=== PATIENT | male | born 1930 | race Caucasian/White ===

== ENCOUNTER 2017-01-11 10:58 | Inpatient (IN) | payer OTHER ==
[~2017-01-11] VITALS: Ht 182.9 cm; Wt 80.5 kg
[~2017-01-11 10:58] MED LIST: ASPI325T39 PO; CLB/200 PO; GLIP2.5T11 PO; LINE1TAB2 PO; LZL/125 PO; PRLSR20 PO; SIMV40TA2 PO; SYN100 PO; TAMS0.4C38 PO
[2017-01-11] MEDS ORDERED: SODIUM CHLORIDE 0.9% 1000ML 1,000 ML IV STA ×2 (11:31→12:41)
[2017-01-11] MEDS ORDERED: SODIUM CHLORIDE 0.9% 1000ML 250 ML IV STA (11:31)
--- NOTE | 2017-01-11 11:36 | EMERGENCY ROOM VISIT NOTE ---
History Report prepared by Deisy: Lionel Louise Under the Supervision of: Dr. Miguel Angel Toussaint M.D. First contact with patient: 11:18 Chief Complaint: NAUSEA Stated Complaint: WOOZY, NAUSEA, UNABLE TO STAND, Nursing Triage Summary: triage note: pt reports nausea. family reports that pt has fallen several times since last night. per family "he was seeing orange balls and was trying to get off them." History of Present Illness The patient is an 86 year old demented male who presents to the Emergency Room with complaints of persistent nausea since last night. As per sons, the patient fell multiple times last night. He hit his head and back when he fell. The patient has also been disoriented and was "seeing orange balls" this morning. The patient has had decreased appetite for the past 3-4 days, and has not been drinking much fluids. He denies headache, facial pain, chest pain, shortness of breath, back pain, changes in bowel or urinary habits. The patient was referred to the ED today by Dr. Banks. The patient has a history of TIA and neuropathy. He is on Linezolid for a wound on his left foot. Source of History: patient, family, treating provider Onset: last night Position: other (GI) Quality: other (nausea) Timing: other (persistent) Associated Symptoms: No headache, No chest pain, No SOB, No back pain, No urinary symptoms Review of Systems See HPI for pertinent positives & negatives. A total of 10 systems reviewed and were otherwise negative. Past Medical & Surgical Medical Problems: (1) Benign hypertension (2) Bradycardia (3) Diabetes mellitus (4) Dizziness (5) Osteomyelitis of foot, left, acute (6) TIA (transient ischemic attack) Surgical Problems: (1) S/P cholecystectomy (2) S/P knee replacement Old medical records were reviewed. Nurse's notes were reviewed and I agree with. Family History Diabetes mellitus Gallbladder disease Heart disease Hypertension Leukemia MOTHER CO FATHER Social History Smoking Status: Never Smoker Drug Use: none Marital Status: Housing Status: lives with family Occupation Status: retired Current/Historical Medications Scheduled Aspirin (Aspirin Ec), 325 MG PO NOON Celecoxib (CeleBREX), 200 MG PO BID Glipizide (Glipizide Er), 1 TAB PO QAM Indapamide (Lozol), 1.25 MG PO QAM Levothyroxine Sodium (Levothyroxine Sodium), 100 MG PO DAILY Linezolid (Linezolid), 600 TAB PO BID Omeprazole (Prilosec), 20 MG PO BID Simvastatin (Zocor), 40 MG PO Q2D Tamsulosin Hcl (Flomax), 0.4 MG PO HS Allergies Coded Allergies: No Known Allergies (Verified , 07/10/16) Physical Exam Vital Signs Date Time Temp Pulse Resp B/P (MAP) Pulse Ox O2 Delivery O2 Flow Rate FiO2 01/11/17 13:48 93 Room Air 01/11/17 11:09 36.4 71 20 145/79 93 Room Air Physical Exam General: Non ill appearing older male in no acute distress, breathing comfortably on room air. Normal speech. Alert and oriented x 2 which is baseline per sons. Answers questions appropriately. HEENT: Small bruise on the right scalp. Facial swelling above the eye and cheek which is chronic per sons, area not red or warm.. Pupils are equal round and reactive to light. Extraocular movements are intact. Oropharynx is pink with somewhat dry mucous membranes. No swelling of the mouth lips or tongue. Neck: Supple with a midline trachea. No meningeal signs or stiffness, no JVD or bruits. No Stridor. Chest: Clear to auscultation bilaterally. No wheezes or rhonchi. No increased work of breathing. Heart: regular rate and rhythm. Abdomen: Soft nontender, nondistended without rebound guarding or rigidity. Extremities: No cyanosis clubbing or edema. No calf tenderness or assymetry. Small blister on the left third toe and plantar foot, no significant redness or purulent drainage. Spine/Back. Non tender to palpation. No CVA tenderness Skin: Good turgor without rashes. Neurologic exam: Cranial nerves two through 12 are intact. Motor and sensation are intact and symmetrical throughout. Medical Decision & Procedures ER Provider Diagnostic Interpretation: Radiology results as stated below per my review and radiologist interpretation: CT OF THE HEAD WITHOUT CONTRAST CLINICAL HISTORY: Weakness. Falls. COMPARISON STUDY: Head CT and MRI of the brain May 24, 2016. CT DOSE: 884.08 mGy.cm TECHNIQUE: Helical axial images of the head were obtained without IV contrast. Automated exposure control was utilized for the study. FINDINGS: No acute intracranial hemorrhage, midline shift or mass effect is present. Ventricular system is stable. The basilar cisterns are patent. There are no extra axial collections. White matter hypodensity suggests small vessel disease. There are no findings to suggest acute dural sinus thrombosis or acute territorial infarct. There are no calvarial fractures. Gas within and adjacent to the cavernous sinus is likely venous in location. IMPRESSION: 1. No acute intracranial findings. 2. No calvarial fracture. Electronically signed by: Fredi Ball M.D. 01/11/2017 1:20 PM Dictated Date/Time: 01/11/2017 1:17 PM Laboratory Results 01/11/17 11:45 Red Blood Count 4.02, Mean Corpuscular Volume 84.3, Mean Corpuscular Hemoglobin 29.1, Mean Corpuscular Hemoglobin Concent 34.5, Mean Platelet Volume 10.5, Neutrophils (%) (Auto) 81.2, Lymphocytes (%) (Auto) 10.7, Monocytes (%) (Auto) 7.9, Eosinophils (%) (Auto) 0.0, Basophils (%) (Auto) 0.0, Neutrophils # (Auto) 4.35, Lymphocytes # (Auto) 0.57, Monocytes # (Auto) 0.42, Eosinophils # (Auto) 0.00, Basophils # (Auto) 0.00 01/11/17 11:45 Test 01/11/17 00:00 01/11/17 11:45 01/11/17 11:54 01/11/17 12:20 Urine Osmolality 583 mOms/kg (500-800) Urine Random Sodium 140 mEq/L White Blood Count 5.35 K/uL (4.8-10.8) Red Blood Count 4.02 M/uL (4.7-6.1) Hemoglobin 11.7 g/dL (14.0-18.0) Hematocrit 33.9 % (42-52) Mean Corpuscular Volume 84.3 fL (80-100) Mean Corpuscular Hemoglobin 29.1 pg (25-34) Mean Corpuscular Hemoglobin Concent 34.5 g/dl (32-36) Platelet Count 130 K/uL (130-400) Mean Platelet Volume 10.5 fL (7.4-10.4) Neutrophils (%) (Auto) 81.2 % Lymphocytes (%) (Auto) 10.7 % Monocytes (%) (Auto) 7.9 % Eosinophils (%) (Auto) 0.0 % Basophils (%) (Auto) 0.0 % Neutrophils # (Auto) 4.35 K/uL (1.4-6.5) Lymphocytes # (Auto) 0.57 K/uL (1.2-3.4) Monocytes # (Auto) 0.42 K/uL (0.11-0.59) Eosinophils # (Auto) 0.00 K/uL (0-0.5) Basophils # (Auto) 0.00 K/uL (0-0.2) RDW Standard Deviation 41.6 fL (36.4-46.3) RDW Coefficient of Variation 13.5 % (11.5-14.5) Immature Granulocyte % (Auto) 0.2 % Immature Granulocyte # (Auto) 0.01 K/uL (0.00-0.02) Erythrocyte Sedimentation Rate 2 mm/hr (0-14) Anion Gap 10.0 mmol/L (3-11) Est Creatinine Clear Calc Drug Dose 65.0 ml/min Estimated GFR () 94.6 Estimated GFR (Non- 81.6 BUN/Creatinine Ratio 26.4 (10-20) Osmolality 256 mOsm/kg (280-300) Calcium Level 8.5 mg/dl (8.5-10.1) Total Bilirubin 1.2 mg/dl (0.2-1) Direct Bilirubin 0.4 mg/dl (0-0.2) Aspartate Amino Transf (AST/SGOT) 28 U/L (15-37) Alanine Aminotransferase (ALT/SGPT) 35 U/L (12-78) Alkaline Phosphatase 51 U/L (45-117) C-Reactive Protein < 0.29 mg/dl (0-0.29) Total Protein 6.3 gm/dl (6.4-8.2) Albumin 3.9 gm/dl (3.4-5.0) Lipase 78 U/L (73-393) Thyroid Stimulating Hormone (TSH) 1.180 uIu/ml (0.300-4.500) Bedside Lactic Acid Venous 3.39 mmol/L (0.90-1.70) Lactic Acid Level 3.7 mmol/L (0.4-2.0) Test 01/11/17 13:05 Prothrombin Time 11.4 SECONDS (9.0-12.0) Prothromb Time International Ratio 1.1 (0.9-1.1) Activated Partial Thromboplast Time 31.6 SECONDS (21.0-31.0) Partial Thromboplastin Ratio 1.2 Laboratory studies as stated above per my review. Medications Administered Medications (Trade) Dose Ordered Sig/Alvin Route Start Time Stop Time Status Last Admin Dose Admin Sodium Chloride 250 ml @ 999 mls/hr Q16M STAT IV 01/11/17 11:31 01/11/17 11:46 DC 01/11/17 12:02 999 MLS/HR Sodium Chloride 1,000 ml @ 100 mls/hr Q10H STAT IV 01/11/17 11:31 01/11/17 15:17 DC 01/11/17 12:01 100 MLS/HR Ondansetron HCl (Zofran Inj) 4 mg NOW STAT IV 01/11/17 12:02 01/11/17 12:04 DC 01/11/17 12:08 4 MG ECG Indication: nausea Rate (beats per minute): 59 Rhythm: atrial fibrillation Findings: no acute ischemic change, other (normal QRS) ED Course 1120: Past medical records reviewed. The patient was evaluated in room A4b, and a complete history and physical examination were performed. 1131: NSS 1000 ml @ 100 mls/hr, NSS 250 ml @ 999 mls/hr. 1202: Zofran 4 mg IV. 1241: NSS 1000 ml @ 999 mls/hr. 1245: Rechecked the patient. He looked okay and will soon go to CT scanning. I ordered more fluids. 1248: Discussed the case with Dr. Marc, [facility] Hospitalist. The patient will be evaluated. Medical Decision Differential diagnosis includes dehydration, intracranial process, infection, electrolyte or metabolic abnormality, arrhythmia. Blood Pressure Screening: Patient was found to have a slightly elevated blood pressure due to circumstances. I do not believe that the patient requires hypertension monitoring. Medication Reconciliation: I attest that I have personally reviewed the patient' s current medication list. This patient comes in as described above. He was placed in room A4. He is here for treatment of confusion and falls. He's been more confused and he's not been drinking much. He looks well on exam and has a nonfocal neurologic exam. EKG does not suggest acute coronary syndrome or significant arrhythmia. His electrolytes came back with a sodium of 121 and his last one here was 135. He is significantly hyponatremic. He is receiving IV and will saline lives here. He also had elevated lactic acid in the 3 range was rechecked at the lab as well. He has nothing else to suggest infection or sepsis at this point although he does have chronic antibiotic use for an ulcer on his foot. The ulcer does not appear to be cellulitic or [place] although he could have an infection. He's had no chills or fever or elevation in white count. Blood cultures were obtained. I do think he needs to be admitted for hydration possible antibiotics or at least observation and further treatment and evaluation of his hyponatremia. I did consult Dr. Marc and he saw the patient ER will admit him for these measures. Consults Time Called: 1240 Consulting Physician: Dr. Marc, [facility] Hospitalist Returned Call: 1248 The patient will be evaluated. Impression Primary Impression: Weakness Additional Impressions: Hyponatremia Frequent falls Scribe Attestation The scribe's documentation has been prepared under my direction and personally reviewed by me in its entirety. I confirm that the note above accurately reflects all work, treatment, procedures, and medical decision making performed by me. Departure Information Dispostion Being Evaluated By Hospitalist Referrals Francis Banks M.D. (PCP) Patient Instructions My [facility] Problem Qualifiers
[2017-01-11] MEDS ORDERED: ONDANSETRON INJ 2 MG/ML 2 ML VIAL IV STA (12:02)
[2017-01-11 12:10] LABS: COMPLETE YES; HEMATOCRIT 33.9 % (42-52); IG% 0.2 %; LYMPH % 10.7 %; LYMPH ABS # 0.57 K/uL (1.2-3.4); MEAN CELL VOLUME 84.3 fL (80-100); MEAN CORPUSCULAR HEMOGLOBIN 29.1 pg (25-34); MEAN CORPUSCULAR HGB CONC 34.5 g/dl (32-36); MEAN PLATELET VOLUME 10.5 fL (7.4-10.4); MONO % 7.9 %; NEUT % 81.2 %; PLATELET COUNT 130 K/uL (130-400); RED BLOOD COUNT 4.02 M/uL (4.7-6.1); WHITE BLOOD COUNT 5.35 K/uL (4.8-10.8)
[2017-01-11 12:31] LABS: BUN/CREATININE RATIO 26.4 (10-20); CREATININE 0.77 mg/dl (0.60-1.40)
[2017-01-11] MEDS ORDERED: LEVO100T7 PO (12:42)
--- NOTE | 2017-01-11 13:22 | DIAGNOSTIC IMAGING REPORT ---
CT OF THE HEAD WITHOUT CONTRAST CLINICAL HISTORY: Weakness. Falls. COMPARISON STUDY: Head CT and MRI of the brain May 24, 2016. CT DOSE: 884.08 mGy.cm TECHNIQUE: Helical axial images of the head were obtained without IV contrast. Automated exposure control was utilized for the study. FINDINGS: No acute intracranial hemorrhage, midline shift or mass effect is present. Ventricular system is stable. The basilar cisterns are patent. There are no extra axial collections. White matter hypodensity suggests small vessel disease. There are no findings to suggest acute dural sinus thrombosis or acute territorial infarct. There are no calvarial fractures. Gas within and adjacent to the cavernous sinus is likely venous in location. IMPRESSION: 1. No acute intracranial findings. 2. No calvarial fracture. Electronically signed by: Fredi Ball M.D. 01/11/2017 1:20 PM Dictated Date/Time: 01/11/2017 1:17 PM
[2017-01-11 13:31] LABS: CALCIUM 8.5 mg/dl (8.5-10.1)
[2017-01-11] MEDS ORDERED: ACETAMINOPHEN 325 MG TAB PO PRN (13:45)
[2017-01-11] MEDS ORDERED: GLUCAGON FOR INJ 1 MG VIAL SQ PRN (13:45)
[2017-01-11] MEDS ORDERED: GLUCOSE 10 TABS/TUBE PO PRN (13:45)
[2017-01-11] MEDS ORDERED: POLYETHYLENE (MIRALAX) 17 GM PACK PO PRN (13:45)
[2017-01-11] MEDS ORDERED: ALUMINUM/MAGNESIUM/SIMETH (MAALOX MAX) 30 ML UDC PO PRN (13:45)
[2017-01-11] MEDS ORDERED: MAGNESIUM HYDROXIDE SUSP 30 ML UDC PO PRN (13:45)
[2017-01-11] MEDS ORDERED: DEXTROSE 50% 50 ML SYR IV PRN (13:45)
[2017-01-11] MEDS ORDERED: GLUCOSE 40% GEL 15 GM TUBE PO PRN (13:45)
[2017-01-11 13:48] VITALS: O2SAT 93; Ht 182.9 cm; Wt 80.5 kg
[2017-01-11 13:48] LABS: INR 1.1 (0.9-1.1); PARTIAL THROMBOPLASTIN RATIO 1.2; PROTHROMBIN TIME (PATIENT) 11.4 SECONDS (9.0-12.0)
[2017-01-11] MEDS ORDERED: SODIUM CHLORIDE 0.9% 500ML 500 ML IV STA (13:59)
[2017-01-11] MEDS ORDERED: PIPERACILL/TAZOBAC IV 3.375 GM in DEXTROSE 5% 100ML 100 ML IV SCH (14:00)
[2017-01-11] MEDS ORDERED: HydrALAZINE HCL 20 MG/ML VIAL IV. PRN (14:00)
--- NOTE | 2017-01-11 14:16 | History and Physical ---
History & Physical Date & Time of Service: Jan 11, 2017 at 14:09 Chief Complaint: Woozy, Nausea, Unable To Stand, Primary Care Physician: Francis Banks M.D. History of Present Illness Source: patient, family (sons) Mr. 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 Patient reports feeling well up until last night. He states his nausea was a sudden onset but reports no emesis only dry heaving. He reports improvement with Zofran but has not had complete recovery. Also reporting multiple falls since last night resulting in hitting his head and his upper back. Ecchymosis to the upper back but patient denies pain. He normally ambulates with a walker but sons had to carry him to the car to bring him to the ED. Sons at bedside report he has had a decreased appetite over the past 3-4 days and does not drink a lot of fluids. Sons also state that he has been disoriented and was stating he was seeing "orange balls" and was trying to get off them. He is being treated by wound care and ID for a left foot wound with Linezolid. Sons say he is tolerating this medication well and hasn't been on it since November. Patient is unable to lay flat due to chronic dizziness. He denies fever/chills, headache, chest pain, shortness of breath, vomiting, abdominal pain, dysuria, diarrhea/constipation, melena/hematochezia. In the ED, patient is afebrile without leukocytosis. POC lactic 3.39 with lab repeat of 3.7. Sodium 121. EKG with atrial fibrillation at a rate of 59 bpm without evidence of ischemic changes. Patient will be admitted to telemetry for hyponatremia and possible infection of unknown etiology. Past Medical/Surgical History Medical Problems: (1) Benign hypertension Status: Chronic (2) Diabetes mellitus Status: Chronic (3) TIA (transient ischemic attack) Status: Resolved Surgical Problems: (1) S/P cholecystectomy Status: Resolved (2) S/P knee replacement Status: Resolved Family History Diabetes mellitus Gallbladder disease Heart disease Hypertension Leukemia MOTHER ID FATHER Social History Smoking Status: Never Smoker Smokeless Tobacco Use: No Alcohol Use: none Drug Use: none Marital Status: Housing status: lives with significant other Occupational Status: retired Immunizations History of Influenza Vaccine: Yes Influenza Vaccine Date: May 06, 2012 History of Tetanus Vaccine?: Yes History of Pneumococcal: Unknown Pneumococcal Date: Mar 16, 2012 History of Hepatitis B Vaccine: No Multi-Drug Resistant Organisms History of MDRO: Yes Type of MDRO: MRSA Allergies Coded Allergies: No Known Allergies (Verified , 07/10/16) Home Medications Scheduled Aspirin (Aspirin Ec), 325 MG PO NOON Celecoxib (CeleBREX), 200 MG PO BID Glipizide (Glipizide Er), 1 TAB PO QAM Indapamide (Lozol), 1.25 MG PO QAM Levothyroxine Sodium (Levothyroxine Sodium), 100 MG PO DAILY Linezolid (Linezolid), 600 TAB PO BID Omeprazole (Prilosec), 20 MG PO BID Simvastatin (Zocor), 40 MG PO Q2D Tamsulosin Hcl (Flomax), 0.4 MG PO HS Review of Systems Constitutional: + weakness (generalized), No fever, No chills Eyes: No worsening of vision, No diplopia ENT: No nasal symptoms, No sore throat, No trouble swallowing Respiratory: + cough (intermittent), No sputum, No shortness of breath Cardiovascular: No chest pain, No palpitations Abdomen: + nausea, No pain, No vomiting, No diarrhea, No constipation, No GI bleeding Musculoskeletal: + problem reported (chronic L 3rd toe wound and open wound on plantar aspect from friction blister), No swelling, No calf pain Genitourinary - Male: No dysuria Neurologic: + numbness/tingling (chronic neuropathy), + problem reported ( ambulatory dysfunction) Physical Exam Vital Signs Date Time Temp Pulse Resp B/P (MAP) Pulse Ox O2 Delivery O2 Flow Rate FiO2 01/11/17 13:48 93 Room Air 01/11/17 11:09 36.4 71 20 145/79 93 Room Air General Appearance: WD/WN, no apparent distress, + pertinent finding (nontoxic but appears ill) Head: normocephalic, atraumatic Eyes: PERRL, EOMI, sclerae normal, + pertinent finding (soft tissue around bilateral eyes edematous) ENT: hearing grossly normal, pharynx normal, + pertinent finding (mucous membranes moist) Neck: supple, no JVD, trachea midline Respiratory/Chest: lungs clear, normal breath sounds, no respiratory distress, no accessory muscle use Cardiovascular: no gallop, no murmur, + irregularly irregular Abdomen/GI: normal bowel sounds, non tender, soft Extremities/Musculoskelatal: no calf tenderness, no pedal edema, + pertinent finding (partial amputation of L great toe; small healing wound of 3rd R toe; small superficial open blister wound of plantar aspect of R foot with underlying tissue pink) Neurologic/Psych: alert, + pertinent finding (facial features symmetrical at rest and with motion; no motor deficits appreciated except for L foot drop ( chronic)) Skin: warm/dry, + pallor Diagnostics Laboratory Results Results Past 24 Hours Test 01/11/17 00:00 01/11/17 11:45 01/11/17 11:54 01/11/17 12:20 Range/Units White Blood Count 5.35 4.8-10.8 K/uL Red Blood Count 4.02 4.7-6.1 M/uL Hemoglobin 11.7 14.0-18.0 g/dL Hematocrit 33.9 42-52 % Mean Corpuscular Volume 84.3 80-100 fL Mean Corpuscular Hemoglobin 29.1 25-34 pg Mean Corpuscular Hemoglobin Concent 34.5 32-36 g/dl Platelet Count 130 130-400 K/uL Mean Platelet Volume 10.5 7.4-10.4 fL Neutrophils (%) (Auto) 81.2 % Lymphocytes (%) (Auto) 10.7 % Monocytes (%) (Auto) 7.9 % Eosinophils (%) (Auto) 0.0 % Basophils (%) (Auto) 0.0 % Neutrophils # (Auto) 4.35 1.4-6.5 K/uL Lymphocytes # (Auto) 0.57 1.2-3.4 K/uL Monocytes # (Auto) 0.42 0.11-0.59 K/uL Eosinophils # (Auto) 0.00 0-0.5 K/uL Basophils # (Auto) 0.00 0-0.2 K/uL RDW Standard Deviation 41.6 36.4-46.3 fL RDW Coefficient of Variation 13.5 11.5-14.5 % Immature Granulocyte % (Auto) 0.2 % Immature Granulocyte # (Auto) 0.01 0.00-0.02 K/uL Sodium Level 121 136-145 mmol/L Potassium Level 4.0 3.5-5.1 mmol/L Chloride Level 86 98-107 mmol/L Carbon Dioxide Level 25 21-32 mmol/L Anion Gap 10.0 3-11 mmol/L Blood Urea Nitrogen 20 7-18 mg/dl Creatinine 0.77 0.60-1.40 mg/dl Est Creatinine Clear Calc Drug Dose 65.0 ml/min Estimated GFR () 94.6 Estimated GFR (Non- 81.6 BUN/Creatinine Ratio 26.4 10-20 Random Glucose 161 70-99 mg/dl Calcium Level 8.5 8.5-10.1 mg/dl Total Bilirubin 1.2 0.2-1 mg/dl Direct Bilirubin 0.4 0-0.2 mg/dl Aspartate Amino Transf (AST/SGOT) 28 15-37 U/L Alanine Aminotransferase (ALT/SGPT) 35 12-78 U/L Alkaline Phosphatase 51 45-117 U/L Total Protein 6.3 6.4-8.2 gm/dl Albumin 3.9 3.4-5.0 gm/dl Lipase 78 73-393 U/L Bedside Lactic Acid Venous 3.39 0.90-1.70 mmol/L Lactic Acid Level 3.7 0.4-2.0 mmol/L Test 01/11/17 13:05 Range/Units Prothrombin Time 11.4 9.0-12.0 SECONDS Prothromb Time International Ratio 1.1 0.9-1.1 Activated Partial Thromboplast Time 31.6 21.0-31.0 SECONDS Partial Thromboplastin Ratio 1.2 Microbiology Results 01/11/17 Blood Culture, Received Pending 01/11/17 Blood Culture, Received Pending Diagnostic Radiology CT OF THE HEAD WITHOUT CONTRAST FINDINGS: No acute intracranial hemorrhage, midline shift or mass effect is present. Ventricular system is stable. The basilar cisterns are patent. There are no extra axial collections. White matter hypodensity suggests small vessel disease. There are no findings to suggest acute dural sinus thrombosis or acute territorial infarct. There are no calvarial fractures. Gas within and adjacent to the cavernous sinus is likely venous in location. IMPRESSION: 1. No acute intracranial findings. 2. No calvarial fracture. EKG EKG reviewed. Atrial fibrillation at rate of 59 bpm without evidence of ischemic changes. Impression Assessment and Plan Mr. 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 Elevated Lactic Acid Suspect Infection - Unknown Source: POC Lactic 3.3 with Repeat 3.7 - H/O diabetic MSSA foot wound on Linezolid since November - follows with Dr. Zamora and wound clinic -- New R plantar aspect food wound from friction blister - superficial without significant signs of infection - U/A and BCx - pending - Obtain CXR - ESR/CRP - can consider echo R/O endocarditis pending results - Fluid given in ED - will bolus with 500 mL x 1 and then run NSS at 100 mL/hr - Repeat lactic acid 3.7 -- PRN Hydralazine for hypertension caused by fluid resuscitation - Hold Linezolid and start Vancomycin and Zosyn per pharmacy dosing for broader coverage Hyponatremia: SIADH? 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 and New Open Blister Wound on Plantar Aspect of L Foot: MSSA - Hold Linezolid and broaden coverage as above - Consult wound care and ID Permanent Atrial Fibrillation with Slow Ventricular Response: - Improved since D/C of Verapamil in 2016 - ASA 325 mg daily - no AC due to frequent falls HTN: - Hold Lozol due to hyponatremia and use PRN Hydralazine T2DM: A1c - Hold Glipizide and implement SSI - Zocor 40 mg Q2D Hypothyroidism: - Check TSH - Synthroid 100 mcg daily BPH: - Flomax 0.4 mg daily DVT Prophylaxis: Lovenox 40 mg SC daily Code Status: FULL RESUSCITATION Disposition: - From home and utilizes walker for ambulation - son had to carry patient to car to come to ED - PT/OT evaluations PA Physician Supervision Note: I interviewed and examined the patient. Discussed with Kymberly Pelayo PAC and agree with findings and plan as documented in the note. Any exceptions or clarifications are listed here: None Patient brought to the ER for increasing falls and confusion, found to have a sodium of 121. 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 Vital signs are stable. Oropharynx is clear, no cervical adenopathy, lungs are clear, abdomen exam is benign, foot wound looks clean and dry, open area left plantar foot looks uninfected Given elevated lactic acid will hydrate aggressively with normal saline and repeat Given chronic osteomyelitis infection will hold Zyvox due to hyponatremia and start. And gram-negative coverage given lactic acid with concern for sepsis Hyponatremia will be treated by fluid restriction and saline infusion. Documented By: Gutierrez Marc Level of Care Telemetry Advanced Directives Existing Living Will: Yes Existing Power of Hydroelectric Plant Structural Engineer: Yes Resuscitation Status FULL RESUSCITATION VTE Prophylaxis VTE Risk Assessment Done? Y/N: Yes Risk Level: Moderate Given or contraindicated: Enoxaparin (Lovenox)SQ
[2017-01-11 16:00] VITALS: BP 159/72; PULSE 81; TEMP 36.7; O2SAT 98; O2SAT 99
[2017-01-11] MEDS ORDERED: PIPERACILL/TAZOBAC CONSULT ACTIVE PRN (16:00)
[2017-01-11] MEDS ORDERED: PIPERACILL/TAZOBAC IV 3.375 GM in DEXTROSE 5% 100ML IV ONE (16:00)
[2017-01-11] MEDS ORDERED: VANCOMYCIN CONSULT ACTIVE PRN (16:00)
[2017-01-11] MEDS ORDERED: VANCOMYCIN INJ 1,750 MG in SODIUM CHLORIDE 0.9% 500ML 500 ML IV ONE (16:00)
--- NOTE | 2017-01-11 16:11 | Pharmacy Progress Note ---
Pharmacy Abx Initial Consult Date of Service Jan 11, 2017. Pharmacy Dosing Scope Date of Consult: 01/11/17 Consultation requested by: Kymberly Pelayo [facility] is consulted to initiate Vanco/Zosyn IV dosing therapy, order appropriate labs and adjust drug dose/frequency. Subjective The patient is a 86 year old male admitted on Jan 11, 2017 at 13:55. Objective Height (Feet): 6 Height (Inches): 0.00 Weight (Kilograms): 69.000 Vital Signs (Past 12Hrs) Vital Signs Past 12 Hours Date Time Temp Pulse Resp B/P (MAP) Pulse Ox O2 Delivery O2 Flow Rate FiO2 01/11/17 14:16 36.4 71 20 93 01/11/17 13:48 93 Room Air 01/11/17 11:09 36.4 71 20 145/79 93 Room Air Lab Results (24Hrs) Laboratory Tests (24 Hours) Test 01/11/17 11:45 01/11/17 12:20 C-Reactive Protein < 0.29 mg/dl (0-0.29) Erythrocyte Sedimentation Rate 2 mm/hr (0-14) White Blood Count 5.35 K/uL (4.8-10.8) Red Blood Count 4.02 M/uL (4.7-6.1) L Hemoglobin 11.7 g/dL (14.0-18.0) L Hematocrit 33.9 % (42-52) L Mean Corpuscular Volume 84.3 fL (80-100) Mean Corpuscular Hemoglobin 29.1 pg (25-34) Mean Corpuscular Hemoglobin Concent 34.5 g/dl (32-36) Platelet Count 130 K/uL (130-400) Mean Platelet Volume 10.5 fL (7.4-10.4) H Neutrophils (%) (Auto) 81.2 % Lymphocytes (%) (Auto) 10.7 % Monocytes (%) (Auto) 7.9 % Eosinophils (%) (Auto) 0.0 % Basophils (%) (Auto) 0.0 % Neutrophils # (Auto) 4.35 K/uL (1.4-6.5) Lymphocytes # (Auto) 0.57 K/uL (1.2-3.4) L Monocytes # (Auto) 0.42 K/uL (0.11-0.59) Eosinophils # (Auto) 0.00 K/uL (0-0.5) Basophils # (Auto) 0.00 K/uL (0-0.2) Lactic Acid Level 3.7 mmol/L (0.4-2.0) *H Micro Results Date/Time Source Procedure Growth Status 01/11/17 11:50 Blood Blood Culture Pending Received 01/11/17 11:45 Blood Blood Culture Pending Received 01/11/17 00:00 Urine , Clean Catch Urine Culture Pending Received Risk Factors for Resistance * 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 Pt at present: afebrile, WBC/HR/RR all WNL. His renal fxn looks to be close to baseline. Pt population p'kinetics: t1/2=11.8, ke=0.0584, Vd=0.6. 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 Vanco: * Vanco 1750mg (~25mg/kg) x1 at 1600 to achieve a peak of about 40mcg/mL * Then: Vanco 1000mg (~15mg/kg) q14 set to start 0200 on 01/12/17 * Trough ordered for 01/13/17 @ 0530 prior to the third Md * Goal trough: 15-20mcg/mL until c/s's result Zosyn: * 30min infsn Zosyn 3.375g at 1600 * Then EI Zosyn 3.375 q8 starting at 2200. appropariate for eCrCl>20cc/min and clinical status Pharmacy will continue to follow and will adjust dose/frequency as necessary. Thank you.
[2017-01-11] MEDS: INSULIN ASPART 100 UNITS/ML 3 ML PEN SC SCH ×2 (16:15→21:00)
[2017-01-11] MEDS: SODIUM CHLORIDE 0.9% 1000ML 1,000 ML IV SCH (16:26)
[2017-01-11] MEDS: ENOXAPARIN 40 MG/0.4 ML SYR SC SCH (16:26)
[2017-01-11 19:23] VITALS: BP 166/89; PULSE 82; TEMP 36.4; O2SAT 97
[2017-01-11 20:00] VITALS: BP 166/70
[2017-01-11] MEDS: ONDANSETRON INJ 2 MG/ML 2 ML VIAL IV PRN (20:36)
[2017-01-11] MEDS ORDERED: VANCOMYCIN INJ 1,000 MG in SODIUM CHLORIDE 0.9% 250ML 250 ML IV SCH (21:00)
[2017-01-11] MEDS ORDERED: CeleBREX 200 MG CAP PO SCH (21:00)
[2017-01-11] MEDS: TAMSULOSIN HCL 0.4 MG CAP PO SCH (21:23)
[2017-01-11] MEDS: PANTOprazole SOD 40 MG TAB PO SCH (21:23)
--- NOTE | 2017-01-11 22:02 | DIAGNOSTIC IMAGING REPORT ---
RIGHT RIBS UNILATERAL WITH PA CHEST CLINICAL HISTORY: Fall. Right posterior rib pain. COMPARISON STUDY: Chest radiograph May 24, 2016. FINDINGS: A large hiatal hernia is again noted. Lung volumes are diminished. There is no pneumothorax or evidence of pulmonary edema. No lobar consolidation is identified. There is a nondisplaced fracture of the anterior right seventh rib and a mildly displaced fracture of the anterior right eighth rib. These fractures are age indeterminate. No additional right-sided rib fractures are identified. IMPRESSION: 1. No pneumothorax. Age indeterminate fractures of the anterior right seventh and eighth ribs. 2. Large hiatal hernia. Electronically signed by: Fredi Ball M.D. 01/11/2017 10:01 PM Dictated Date/Time: 01/11/2017 9:55 PM
[2017-01-11] MEDS: PIPERACILL/TAZOBAC IV 3.375 GM in DEXTROSE 5% 100ML IV SCH (22:03)
[2017-01-11 23:54] VITALS: BP 152/85; PULSE 79; TEMP 36.9; O2SAT 94
[2017-01-12] VITALS (7 sets, daily range): BP systolic 119–145; BP diastolic 73–86; PULSE 56–90; TEMP 36.3–36.8; O2SAT 96–100
[2017-01-12] MEDS: VANCOMYCIN INJ 1,000 MG in SODIUM CHLORIDE 0.9% 250ML 250 ML IV SCH ×2 (01:30→17:59)
[2017-01-12] MEDS: SODIUM CHLORIDE 0.9% 1000ML 1,000 ML IV SCH ×2 (01:30→10:34)
[2017-01-12] MEDS: PIPERACILL/TAZOBAC IV 3.375 GM in DEXTROSE 5% 100ML IV SCH ×3 (05:50→21:52)
[2017-01-12] MEDS: LEVOTHYROXINE 100 MCG TAB PO SCH (05:50)
[2017-01-12 06:14] LABS: HEMATOCRIT 28.5 % (42-52); MEAN CELL VOLUME 83.6 fL (80-100); MEAN CORPUSCULAR HEMOGLOBIN 29.9 pg (25-34); MEAN CORPUSCULAR HGB CONC 35.8 g/dl (32-36); MEAN PLATELET VOLUME 10.5 fL (7.4-10.4); PLATELET COUNT 129 K/uL (130-400); RED BLOOD COUNT 3.41 M/uL (4.7-6.1); WHITE BLOOD COUNT 4.52 K/uL (4.8-10.8)
[2017-01-12 06:40] LABS: BUN/CREATININE RATIO 21.3 (10-20); CALCIUM 7.4 mg/dl (8.5-10.1); CREATININE 0.67 mg/dl (0.60-1.40); MAGNESIUM 1.8 mg/dl (1.8-2.4); POTASSIUM 3.5 mmol/L (3.5-5.1)
[2017-01-12] MEDS: INSULIN ASPART 100 UNITS/ML 3 ML PEN SC SCH ×4 (07:00→20:47)
[2017-01-12] MEDS ORDERED: LEVOTHYROXINE 100 MCG TAB PO SCH (09:00)
[2017-01-12] MEDS: PANTOprazole SOD 40 MG TAB PO SCH ×2 (10:29→20:47)
[2017-01-12] MEDS: ASPIRIN 325 MG ECTAB PO SCH (10:29)
[2017-01-12] MEDS: SIMVASTATIN 40 MG TAB PO SCH (10:29)
[2017-01-12 12:26] LABS: URINE APPEARANCE CLOUDY (CLEAR); URINE BILIRUBIN NEG (NEG); URINE COLOR YELLOW; URINE EPITHELIAL CELL AUTO 20-30 /lpf (0-5); URINE NITRITE NEG (NEG); URINE SPECIFIC GRAVITY 1.025 (1.000-1.030); UROBILINOGEN NEG (NEG)
--- NOTE | 2017-01-12 12:31 | Hospitalist Progress Note ---
Hospitalist Progress Note Date of Service Jan 12, 2017. Subjective Pt evaluation today including: conversation w/ patient, physical exam, chart review, lab review, review of studies, review of inpatient medication list Patient seen and evaluated. No acute events overnight. Tele monitoring reveals rate controlled A Fib/Flutter. Patient is up in bedside chair and reports minimal nausea but no dry heaving. Verbalizes no other complaints. Lactic acid level is trending down and will repeat. R 7-8 ribs show age indeterminant fx. Na mildly improved to 122 Constitutional: No fever, No chills Respiratory: No shortness of breath Cardiovascular: No chest pain Abdomen: + nausea, No pain, No vomiting, No diarrhea, No constipation Musculoskeletal: No swelling, No calf pain Male : No dysuria Medications Current Inpatient Medications Medications (Trade) Dose Ordered Sig/Alvin Route Start Time Stop Time Status Last Admin Dose Admin Enoxaparin Sodium (Lovenox Inj) 40 mg Q24H SC 01/11/17 16:00 02/10/17 15:59 01/11/17 16:26 40 MG Acetaminophen (Tylenol Tab) 650 mg Q4H PRN PO 01/11/17 13:45 02/10/17 13:44 Al Hydrox/Mg Hydrox/Simethicone (Maalox Max Susp) 15 ml Q4H PRN PO 01/11/17 13:45 02/10/17 13:44 Magnesium Hydroxide (Milk Of Magnesia Susp) 30 ml Q12H PRN PO 01/11/17 13:45 02/10/17 13:44 Ondansetron HCl (Zofran Inj) 4 mg Q6H PRN IV 01/11/17 13:45 02/10/17 13:44 01/11/17 20:36 4 MG Polyethylene (Miralax Powder Packet) 17 gm DAILY PRN PO 01/11/17 13:45 02/10/17 13:44 Insulin Aspart (novoLOG ASPART) SLIDING SCALE If C... ACHS SC 01/11/17 16:15 02/10/17 16:14 Glucose (Glucose 40% Gel) 15-30 GRAMS 15 GRAMS... UD PRN PO 01/11/17 13:45 02/10/17 13:44 Glucose (Glucose Chew Tab) 4-8 Tablets 4 Tabl... UD PRN PO 01/11/17 13:45 02/10/17 13:44 Dextrose (Dextrose 50% 50ML Syringe) 25-50ML OF 50% DW IV FOR... UD PRN IV 01/11/17 13:45 02/10/17 13:44 Glucagon (Glucagon Inj) 1 mg UD PRN SQ 01/11/17 13:45 02/10/17 13:44 Aspirin (Ecotrin Tab) 325 mg DAILY PO 01/12/17 12:00 02/11/17 11:59 01/12/17 10:29 325 MG Celecoxib (CeleBREX CAP) 200 mg BID PO 01/11/17 21:00 02/10/17 20:59 Future Hold 01/11/17 21:23 200 MG Simvastatin (Zocor Tab) 40 mg Q2D@0900 PO 01/12/17 09:00 02/11/17 08:59 01/12/17 10:29 40 MG Tamsulosin HCl (Flomax Cap) 0.4 mg HS PO 01/11/17 21:00 02/10/17 20:59 01/11/17 21:23 0.4 MG Pantoprazole Sodium (Protonix Tab) 40 mg BID PO 01/11/17 21:00 02/10/17 20:59 01/12/17 10:29 40 MG Hydralazine HCl (HydrALAZINE INJ) 10 mg Q6 PRN IV. 01/11/17 14:00 02/10/17 13:59 Sodium Chloride 1,000 ml @ 100 mls/hr Q10H IV 01/11/17 14:00 02/10/17 13:59 01/12/17 10:34 100 MLS/HR Levothyroxine Sodium (Synthroid Tab) 100 mcg DAILYBB PO 01/12/17 06:00 02/11/17 05:59 01/12/17 05:50 100 MCG Vancomycin HCl 1000 mg/Sodium Chloride 270 ml @ 125 mls/hr Q14H IV 01/12/17 02:00 01/22/17 01:59 01/12/17 01:30 125 MLS/HR Vancomycin HCl (Consult) 1 ea UD PRN N/A 01/11/17 16:00 02/10/17 15:59 Piperacillin Sod/ Tazobactam Sod 3.375 gm/Dextrose 115 ml @ 28.75 mls/ hr Q8H IV 01/11/17 22:00 01/21/17 21:59 01/12/17 12:07 28.75 MLS/HR Piperacillin Sod/ Tazobactam Sod (Consult) 1 ea UD PRN N/A 01/11/17 16:00 02/10/17 15:59 Objective Vital Signs Date Time Temp Pulse Resp B/P (MAP) Pulse Ox O2 Delivery O2 Flow Rate FiO2 01/12/17 11:03 36.6 57 18 125/75 (92) 99 Room Air 01/12/17 07:28 36.8 72 18 138/77 (97) 96 Room Air 01/12/17 04:00 Room Air 01/12/17 03:47 36.3 90 18 145/86 (105) 98 Room Air 01/12/17 00:00 Room Air 01/11/17 23:54 36.9 79 16 152/85 (107) 94 Room Air 01/11/17 20:00 Room Air 01/11/17 19:23 36.4 82 20 166/89 (114) 97 Room Air 01/11/17 16:00 36.7 81 18 159/72 (101) 98 Room Air 01/11/17 16:00 99 Room Air 01/11/17 14:16 36.4 71 20 93 01/11/17 13:48 93 Room Air Physical Exam General Appearance: no apparent distress Eyes: sclerae normal ENT: hearing grossly normal Neck: supple, no JVD, trachea midline Respiratory/Chest: lungs clear, normal breath sounds, no respiratory distress, no accessory muscle use Cardiovascular: + irregularly irregular Abdomen: normal bowel sounds, non tender, soft Neurologic/Psychiatric: alert Skin: normal color, warm/dry Laboratory Results Last 24 Hours Test 01/11/17 13:05 01/11/17 15:57 01/11/17 20:18 01/12/17 05:21 Prothrombin Time 11.4 SECONDS Prothromb Time International Ratio 1.1 Activated Partial Thromboplast Time 31.6 SECONDS Partial Thromboplastin Ratio 1.2 Bedside Glucose 126 mg/dl 144 mg/dl White Blood Count 4.52 K/uL Red Blood Count 3.41 M/uL Hemoglobin 10.2 g/dL Hematocrit 28.5 % Mean Corpuscular Volume 83.6 fL Mean Corpuscular Hemoglobin 29.9 pg Mean Corpuscular Hemoglobin Concent 35.8 g/dl RDW Standard Deviation 40.9 fL RDW Coefficient of Variation 13.5 % Platelet Count 129 K/uL Mean Platelet Volume 10.5 fL Sodium Level 122 mmol/L Potassium Level 3.5 mmol/L Chloride Level 88 mmol/L Carbon Dioxide Level 24 mmol/L Anion Gap 10.0 mmol/L Blood Urea Nitrogen 14 mg/dl Creatinine 0.67 mg/dl Est Creatinine Clear Calc Drug Dose 75.8 ml/min Estimated GFR () 100.1 Estimated GFR (Non- 86.4 BUN/Creatinine Ratio 21.3 Random Glucose 115 mg/dl Calcium Level 7.4 mg/dl Magnesium Level 1.8 mg/dl Test 01/12/17 06:48 01/12/17 09:28 01/12/17 11:02 01/12/17 12:00 Bedside Glucose 112 mg/dl 166 mg/dl Lactic Acid Level 2.6 mmol/L Test 01/12/17 12:17 Assessment and Plan Mr. 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 Elevated Lactic Acid Suspect Infection - Unknown Source: LACTIC TRENDING DOWN - H/O diabetic MSSA foot wound on Linezolid since November - follows with Dr. Zamora and wound clinic -- New R plantar aspect food wound from friction blister - superficial without significant signs of infection - U/A and BCx - pending - CXR - no consolidation or nodules appreciated; evidence of age indeterminant fx of 7-8 ribs - IVF at 100 mL/hr -- PRN Hydralazine for hypertension caused by fluid resuscitation - Hold Linezolid and start Vancomycin and Zosyn per pharmacy dosing for broader coverage - Repeat lactic and BMP now. Add procalcitonin and random cortisol -- Elevated lactic from trauma? 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 and New Open Blister Wound on Plantar Aspect of L Foot: MSSA - Hold Linezolid and broaden coverage as above - Consult wound care and ID Permanent Atrial Fibrillation with Slow Ventricular Response: STABLE - Improved since D/C of Verapamil in 2016 - ASA 325 mg daily - no AC due to frequent falls HTN: - Hold Lozol due to hyponatremia and use PRN Hydralazine T2DM: A1c - Hold Glipizide and implement SSI - records reviewed that this was D/C'd will discuss with family if patient takes at home - Zocor 40 mg Q2D Hypothyroidism: - TSH WNL - Synthroid 100 mcg daily BPH: - Flomax 0.4 mg daily DVT Prophylaxis: Lovenox 40 mg SC daily Code Status: FULL RESUSCITATION Disposition: - From home and utilizes walker for ambulation - son had to carry patient to car to come to ED - PT/OT evaluations - recommendations for SNF - Will discuss plan with family today Continued [facility] stay due to: multiple IV medications needed Discharge planning: uncertain
[2017-01-12 12:34] LABS: MANUAL MICROSCOPIC REQUIRED? NO; REVIEW REQ? NO
[2017-01-12] MEDS ORDERED: SODIUM CHLORIDE 1 GM TAB PO ONE (13:17)
[2017-01-12 13:49] LABS: BUN/CREATININE RATIO 17.4 (10-20); CALCIUM 7.5 mg/dl (8.5-10.1); CREATININE 0.88 mg/dl (0.60-1.40); POTASSIUM 3.7 mmol/L (3.5-5.1)
[2017-01-12] MEDS: ONDANSETRON INJ 2 MG/ML 2 ML VIAL IV PRN ×2 (14:13→18:00)
[2017-01-12] MEDS ORDERED: OPTIRAY 320 IV PRN (14:15)
[2017-01-12] MEDS: ENOXAPARIN 40 MG/0.4 ML SYR SC SCH (16:00)
--- NOTE | 2017-01-12 17:24 | DIAGNOSTIC IMAGING REPORT ---
CT SCAN OF THE CHEST, ABDOMEN, AND PELVIS WITH IV CONTRAST CLINICAL HISTORY: Lactic acidosis. Vomiting. COMPARISON STUDY: Chest x-ray dated 05/24/2016. TECHNIQUE: Following the IV administration of 108 of Optiray 320, CT scan of the chest, abdomen, and pelvis was performed from the thoracic inlet to the proximal femora. Images are reviewed in the axial, sagittal, and coronal planes. IV contrast was administered without complication. Automated dose control exposure was utilized. The examination is degraded by streak artifact from the patient's arms which could not be elevated above the abdomen or pelvis. CT DOSE: 1368.09 mGy.cm FINDINGS: CHEST: Thyroid: Markedly atrophic. Thoracic aorta: There is atherosclerotic calcification of the thoracic aorta, which is normal in caliber and demonstrates standard 3-vessel arch anatomy. No dissection is seen. Pulmonary vasculature: The pulmonary trunk is normal in caliber. There are no filling defects identified in the central pulmonary vessels to indicate pulmonary was. Note that this examination was not protocoled for evaluation of the pulmonary arteries. Heart: The heart is enlarged and without pericardial effusion. The coronary arteries are densely calcified. Lungs and pleural spaces: There are small right and trace left pleural effusions with bibasilar atelectasis. No airspace consolidation is seen typical for pneumonia. The trachea and central airways are clear. Punctate calcified granulomas are noted at the lung bases. Mediastinum: There is no mediastinal lymphadenopathy. Radha: Clear. Axillae: There is no axillary lymphadenopathy. Bony thorax: The skeletal structures are osteopenic. Degenerative change and hyperkyphosis are noted in the thoracic spine. Mild compression deformities are seen in the midthoracic region. No lytic or blastic lesions are identified. Advanced arthritic change is noted in the shoulders. ABDOMEN AND PELVIS: Liver: The contrast-enhanced liver is normal in size and contour. Hepatic attenuation is slightly heterogeneous. There is minimal central intrahepatic or ductal dilatation. There are scattered calcified hepatic granulomas. Mild periportal edema is suggested. The hepatic veins and portal veins are patent. Gallbladder: Surgically absent. Spleen: Normal in size and attenuation. There are calcified splenic granulomas. Pancreas: The pancreas is atrophic. The pancreatic body and tail are contained within the large hiatal hernia. Adrenal glands: Unremarkable. Kidneys: The contrast enhanced kidneys are atrophic and without hydronephrosis. The kidneys enhance symmetrically. Abdominal vasculature: The abdominal aorta is normal in course and caliber noting moderate to advanced atherosclerotic calcification. Stomach and bowel: There is a large hiatal hernia, with the majority of the stomach located in the thoracic cavity. The duodenum is normal in configuration. There is no bowel obstruction. There is mild colonic diverticulosis without CT evidence of acute diverticulitis. Moderate colonic fecal retention is observed. The appendix is normal as visualized. Peritoneum: There is trace perisplenic free fluid as well as trace free fluid in the right lower quadrant and pelvis. No intraperitoneal free air is seen. Lymphadenopathy: None. Pelvic viscera: The the prostate gland is mildly enlarged and heterogeneous, measuring 5.9 cm in diameter. There is medial lobe hypertrophy. There is mild uncovertebral bladder wall thickening and a bladder diverticulum is noted. Skeletal structures: The skeletal structures are osteopenic. There is moderate to advanced lumbosacral spondylosis. There are postoperative changes from extensive lumbar laminectomy. Advanced arthritic change is present in the hips. No lytic or blastic lesions are seen. IMPRESSION: 1. Small right and trace left pleural effusions. No airspace consolidation is seen. 2. Cardiomegaly. 3. Large hiatal hernia, with the majority the stomach located in the thoracic cavity. 4. There is trace 3 fluid within the abdomen and pelvis. 5. Moderate constipation. No bowel obstruction is seen. 6. Mild colonic diverticulosis without CT evidence of acute diverticulitis. 7. Prostatomegaly with evidence of chronic bladder obstruction. 8. Additional findings as above. Electronically signed by: Carlos Mix M.D. 01/12/2017 5:23 PM Dictated Date/Time: 01/12/2017 5:07 PM
[2017-01-12] MEDS: TAMSULOSIN HCL 0.4 MG CAP PO SCH (20:47)
[2017-01-13] VITALS (10 sets, daily range): BP systolic 105–159; BP diastolic 57–88; PULSE 53–83; TEMP 36.3–36.9; O2SAT 93–99
[2017-01-13] MEDS: SODIUM CHLORIDE 0.9% 1000ML 1,000 ML IV SCH (00:47)
[2017-01-13] MEDS ORDERED: VANCOMYCIN TROUGH ONE (05:30)
[2017-01-13 05:59] LABS: HEMATOCRIT 28.2 % (42-52); MEAN CELL VOLUME 83.9 fL (80-100); MEAN CORPUSCULAR HEMOGLOBIN 29.8 pg (25-34); MEAN CORPUSCULAR HGB CONC 35.5 g/dl (32-36); PLATELET COUNT 120 K/uL (130-400); RED BLOOD COUNT 3.36 M/uL (4.7-6.1); WHITE BLOOD COUNT 5.42 K/uL (4.8-10.8)
[2017-01-13 06:41] LABS: BUN/CREATININE RATIO 13.9 (10-20); CREATININE 0.8 mg/dl (0.60-1.40); MAGNESIUM 1.7 mg/dl (1.8-2.4); POTASSIUM 3.5 mmol/L (3.5-5.1)
[2017-01-13] MEDS: VANCOMYCIN INJ 1,000 MG in SODIUM CHLORIDE 0.9% 250ML 250 ML IV SCH (06:44)
[2017-01-13] MEDS: PIPERACILL/TAZOBAC IV 3.375 GM in DEXTROSE 5% 100ML IV SCH ×3 (06:44→21:43)
[2017-01-13] MEDS: LEVOTHYROXINE 100 MCG TAB PO SCH (06:45)
[2017-01-13] MEDS: INSULIN ASPART 100 UNITS/ML 3 ML PEN SC SCH ×4 (07:00→21:00)
[2017-01-13 07:52] LABS: ESTIMATED AVERAGE GLUCOSE 163 mg/dl; HA1C FLAG Normal (Normal)
[2017-01-13] MEDS: SODIUM CHLORIDE 1 GM TAB PO SCH (09:03)
[2017-01-13] MEDS: ASPIRIN 325 MG ECTAB PO SCH (09:03)
[2017-01-13] MEDS: PANTOprazole SOD 40 MG TAB PO SCH ×2 (09:04→21:18)
--- NOTE | 2017-01-13 10:26 | Medical Consult ---
Consultation Date of Consultation: Jan 13, 2017. Attending Physician: Barber Grossman MD, PhD Reason for Consultation: Chronic foot wound - suspect other infection. 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 He has had nausea with anorexia, no significant vomiting or diarrhea noted. No fever or chills. He has been tolerating his antibiotics without apparent difficulty. Denies any drainage from left 3rd toe wound, no increase in pain or erythema. Past Medical/Surgical History Medical Problems: (1) Frequent falls Status: Acute (2) Hyponatremia Status: Acute (3) Weakness Status: Acute (4) Weakness Status: Acute Medical Problems: (1) Benign hypertension (2) Bradycardia (3) Diabetes mellitus (4) Dizziness (5) Osteomyelitis of foot, left, acute (6) TIA (transient ischemic attack) Surgical Problems: (1) S/P cholecystectomy (2) S/P knee replacement Family History Diabetes mellitus Gallbladder disease Heart disease Hypertension Leukemia MOTHER IA FATHER Social History Smoking Status: Never Smoker Smokeless Tobacco Use: No Alcohol Use: none Drug Use: none Marital Status: Housing Status: lives with family Occupation Status: retired Allergies Coded Allergies: No Known Allergies (Verified , 07/10/16) Current Inpatient Medications Current Inpatient Medications Medications (Trade) Dose Ordered Sig/Alvin Route Start Time Stop Time Status Last Admin Dose Admin Enoxaparin Sodium (Lovenox Inj) 40 mg Q24H SC 01/11/17 16:00 02/10/17 15:59 01/12/17 16:00 40 MG Acetaminophen (Tylenol Tab) 650 mg Q4H PRN PO 01/11/17 13:45 02/10/17 13:44 Al Hydrox/Mg Hydrox/Simethicone (Maalox Max Susp) 15 ml Q4H PRN PO 01/11/17 13:45 02/10/17 13:44 Magnesium Hydroxide (Milk Of Magnesia Susp) 30 ml Q12H PRN PO 01/11/17 13:45 02/10/17 13:44 Ondansetron HCl (Zofran Inj) 4 mg Q6H PRN IV 01/11/17 13:45 02/10/17 13:44 01/12/17 18:00 4 MG Polyethylene (Miralax Powder Packet) 17 gm DAILY PRN PO 01/11/17 13:45 02/10/17 13:44 01/13/17 09:59 17 GM Insulin Aspart (novoLOG ASPART) SLIDING SCALE If C... ACHS SC 01/11/17 16:15 02/10/17 16:14 Glucose (Glucose 40% Gel) 15-30 GRAMS 15 GRAMS... UD PRN PO 01/11/17 13:45 02/10/17 13:44 Glucose (Glucose Chew Tab) 4-8 Tablets 4 Tabl... UD PRN PO 01/11/17 13:45 02/10/17 13:44 Dextrose (Dextrose 50% 50ML Syringe) 25-50ML OF 50% DW IV FOR... UD PRN IV 01/11/17 13:45 02/10/17 13:44 Glucagon (Glucagon Inj) 1 mg UD PRN SQ 01/11/17 13:45 02/10/17 13:44 Aspirin (Ecotrin Tab) 325 mg DAILY PO 01/12/17 12:00 02/11/17 11:59 01/13/17 09:03 325 MG Celecoxib (CeleBREX CAP) 200 mg BID PO 01/11/17 21:00 02/10/17 20:59 Future Hold 01/11/17 21:23 200 MG Simvastatin (Zocor Tab) 40 mg Q2D@0900 PO 01/12/17 09:00 02/11/17 08:59 01/12/17 10:29 40 MG Tamsulosin HCl (Flomax Cap) 0.4 mg HS PO 01/11/17 21:00 02/10/17 20:59 01/12/17 20:47 0.4 MG Pantoprazole Sodium (Protonix Tab) 40 mg BID PO 01/11/17 21:00 02/10/17 20:59 01/13/17 09:04 40 MG Hydralazine HCl (HydrALAZINE INJ) 10 mg Q6 PRN IV. 01/11/17 14:00 02/10/17 13:59 Sodium Chloride 1,000 ml @ 50 mls/hr Q20H IV 01/11/17 14:00 02/10/17 13:59 01/13/17 00:47 50 MLS/HR Levothyroxine Sodium (Synthroid Tab) 100 mcg DAILYBB PO 01/12/17 06:00 02/11/17 05:59 01/13/17 06:45 100 MCG Vancomycin HCl (Consult) 1 ea UD PRN N/A 01/11/17 16:00 02/10/17 15:59 Piperacillin Sod/ Tazobactam Sod 3.375 gm/Dextrose 115 ml @ 28.75 mls/ hr Q8H IV 01/11/17 22:00 01/21/17 21:59 01/13/17 06:44 28.75 MLS/HR Piperacillin Sod/ Tazobactam Sod (Consult) 1 ea UD PRN N/A 01/11/17 16:00 02/10/17 15:59 Sodium Chloride (Sodium Chloride Tab) 1 gm DAILY PO 01/13/17 09:00 02/12/17 08:59 01/13/17 09:03 1 GM Ioversol (Optiray 320) 111 ml UD PRN IV 01/12/17 14:15 01/16/17 14:14 Vancomycin HCl 1200 mg/Sodium Chloride 274 ml @ 125 mls/hr Q12H IV 01/13/17 18:00 01/22/17 01:59 Review of Systems Constitutional: + weakness, + fatigue, No fever Eyes: No problem reported ENT: No problem reported Respiratory: No problem reported Cardiovascular: No problem reported Abdomen: + nausea Musculoskeletal: No problem reported Genitourinary - Male: No problem reported Neurologic: + weakness, + balance problems Psychiatric: No problem reported Endocrine: + fatigue Hematologic / Lymphatic: No problem reported Integumentary: No problem reported Allergic / Immunologic: No problem reported Physical Exam Date Time Temp Pulse Resp B/P (MAP) Pulse Ox O2 Delivery O2 Flow Rate FiO2 01/13/17 07:30 36.6 57 20 157/88 (111) 95 Room Air 01/13/17 04:11 36.8 64 18 105/57 (73) 99 Room Air 01/13/17 04:00 99 Room Air 01/13/17 00:17 36.9 83 18 123/88 (100) 93 01/13/17 00:00 93 Room Air 01/12/17 20:00 100 Room Air 01/12/17 19:10 36.8 69 20 132/74 (93) 100 Room Air 01/12/17 16:00 Room Air 01/12/17 15:20 36.6 56 20 119/73 (88) 100 Room Air 01/12/17 12:00 Room Air 01/12/17 11:03 36.6 57 18 125/75 (92) 99 Room Air General Appearance: WD/WN, no apparent distress Head: normocephalic, atraumatic Eyes: normal inspection, EOMI, sclerae normal ENT: normal ENT inspection, pharynx normal Neck: supple, no adenopathy, thyroid normal, trachea midline Respiratory/Chest: chest non-tender, lungs clear, normal breath sounds, no respiratory distress Cardiovascular: no gallop, no murmur, + irregularly irregular Abdomen/GI: normal bowel sounds, non tender, soft, no organomegaly Back: normal inspection, no CVA tenderness Extremities/Musculoskelatal: no calf tenderness, non-tender Neurologic/Psych: alert, oriented x 3 Skin: normal color, warm/dry, no rash Lymphatic: no adenopathy Laboratory Results Date/Time Source Procedure Growth Status 01/12/17 12:00 Urine , Clean Catch Urine Culture Pending Received Last 24 Hours Test 01/12/17 11:02 01/12/17 12:00 01/12/17 12:57 01/12/17 16:14 Bedside Glucose 166 mg/dl 147 mg/dl Urine Color YELLOW Urine Appearance CLOUDY Urine pH 5.0 Urine Specific [place] 1.025 Urine Protein NEG Urine Glucose (UA) NEG Urine Ketones TRACE Urine Occult Blood NEG Urine Nitrite NEG Urine Bilirubin NEG Urine Urobilinogen NEG Urine Leukocyte Esterase NEG Urine WBC (Auto) 1-5 /hpf Urine RBC (Auto) 0-4 /hpf Urine Hyaline Casts (Auto) 1-5 /lpf Urine Epithelial Cells (Auto) 20-30 /lpf Urine Bacteria (Auto) NEG Sodium Level 121 mmol/L Potassium Level 3.7 mmol/L Chloride Level 87 mmol/L Carbon Dioxide Level 25 mmol/L Anion Gap 9.0 mmol/L Blood Urea Nitrogen 15 mg/dl Creatinine 0.88 mg/dl Est Creatinine Clear Calc Drug Dose 57.7 ml/min Estimated GFR () 89.5 Estimated GFR (Non- 77.2 BUN/Creatinine Ratio 17.4 Random Glucose 158 mg/dl Lactic Acid Level 4.2 mmol/L Calcium Level 7.5 mg/dl Total Creatine Kinase 605 U/L Troponin I 0.018 ng/ml Procalcitonin < 0.05 ng/ml Random Cortisol 19.39 mcg/dl Test 01/12/17 20:17 01/13/17 05:29 01/13/17 07:05 01/13/17 07:11 Bedside Glucose 121 mg/dl 110 mg/dl White Blood Count 5.42 K/uL Red Blood Count 3.36 M/uL Hemoglobin 10.0 g/dL Hematocrit 28.2 % Mean Corpuscular Volume 83.9 fL Mean Corpuscular Hemoglobin 29.8 pg Mean Corpuscular Hemoglobin Concent 35.5 g/dl RDW Standard Deviation 40.0 fL RDW Coefficient of Variation 13.3 % Platelet Count 120 K/uL Mean Platelet Volume 10.0 fL Sodium Level 130 mmol/L Potassium Level 3.5 mmol/L Chloride Level 94 mmol/L Carbon Dioxide Level 31 mmol/L Anion Gap 5.0 mmol/L Blood Urea Nitrogen 11 mg/dl Creatinine 0.80 mg/dl Est Creatinine Clear Calc Drug Dose 71.4 ml/min Estimated GFR () 93.1 Estimated GFR (Non- 80.3 BUN/Creatinine Ratio 13.9 Random Glucose 104 mg/dl Calcium Level 8.0 mg/dl Magnesium Level 1.7 mg/dl Vancomycin Level Trough 12.1 mcg/ml Cortisol AM Sample 23.73 mcg/dl CT SCAN OF THE CHEST, ABDOMEN, AND PELVIS WITH IV CONTRAST CLINICAL HISTORY: Lactic acidosis. Vomiting. COMPARISON STUDY: Chest x-ray dated 05/24/2016. TECHNIQUE: Following the IV administration of 108 of Optiray 320, CT scan of the chest, abdomen, and pelvis was performed from the thoracic inlet to the proximal femora. Images are reviewed in the axial, sagittal, and coronal planes. IV contrast was administered without complication. Automated dose control exposure was utilized. The examination is degraded by streak artifact from the patient's arms which could not be elevated above the abdomen or pelvis. CT DOSE: 1368.09 mGy.cm FINDINGS: CHEST: Thyroid: Markedly atrophic. Thoracic aorta: There is atherosclerotic calcification of the thoracic aorta, which is normal in caliber and demonstrates standard 3-vessel arch anatomy. No dissection is seen. Pulmonary vasculature: The pulmonary trunk is normal in caliber. There are no filling defects identified in the central pulmonary vessels to indicate pulmonary was. Note that this examination was not protocoled for evaluation of the pulmonary arteries. Heart: The heart is enlarged and without pericardial effusion. The coronary arteries are densely calcified. Lungs and pleural spaces: There are small right and trace left pleural effusions with bibasilar atelectasis. No airspace consolidation is seen typical for pneumonia. The trachea and central airways are clear. Punctate calcified granulomas are noted at the lung bases. Mediastinum: There is no mediastinal lymphadenopathy. Radha: Clear. Axillae: There is no axillary lymphadenopathy. Bony thorax: The skeletal structures are osteopenic. Degenerative change and hyperkyphosis are noted in the thoracic spine. Mild compression deformities are seen in the midthoracic region. No lytic or blastic lesions are identified. Advanced arthritic change is noted in the shoulders. ABDOMEN AND PELVIS: Liver: The contrast-enhanced liver is normal in size and contour. Hepatic attenuation is slightly heterogeneous. There is minimal central intrahepatic or ductal dilatation. There are scattered calcified hepatic granulomas. Mild periportal edema is suggested. The hepatic veins and portal veins are patent. Gallbladder: Surgically absent. Spleen: Normal in size and attenuation. There are calcified splenic granulomas. Pancreas: The pancreas is atrophic. The pancreatic body and tail are contained within the large hiatal hernia. Adrenal glands: Unremarkable. Kidneys: The contrast enhanced kidneys are atrophic and without hydronephrosis. The kidneys enhance symmetrically. Abdominal vasculature: The abdominal aorta is normal in course and caliber noting moderate to advanced atherosclerotic calcification. Stomach and bowel: There is a large hiatal hernia, with the majority of the stomach located in the thoracic cavity. The duodenum is normal in configuration. There is no bowel obstruction. There is mild colonic diverticulosis without CT evidence of acute diverticulitis. Moderate colonic fecal retention is observed. The appendix is normal as visualized. Peritoneum: There is trace perisplenic free fluid as well as trace free fluid in the right lower quadrant and pelvis. No intraperitoneal free air is seen. Lymphadenopathy: None. Pelvic viscera: The the prostate gland is mildly enlarged and heterogeneous, measuring 5.9 cm in diameter. There is medial lobe hypertrophy. There is mild uncovertebral bladder wall thickening and a bladder diverticulum is noted. Skeletal structures: The skeletal structures are osteopenic. There is moderate to advanced lumbosacral spondylosis. There are postoperative changes from extensive lumbar laminectomy. Advanced arthritic change is present in the hips. No lytic or blastic lesions are seen. IMPRESSION: 1. Small right and trace left pleural effusions. No airspace consolidation is seen. 2. Cardiomegaly. 3. Large hiatal hernia, with the majority the stomach located in the thoracic cavity. 4. There is trace 3 fluid within the abdomen and pelvis. 5. Moderate constipation. No bowel obstruction is seen. 6. Mild colonic diverticulosis without CT evidence of acute diverticulitis. 7. Prostatomegaly with evidence of chronic bladder obstruction. 8. Additional findings as above. Electronically signed by: Carlos Mix M.D. 01/12/2017 5:23 PM Dictated Date/Time: 01/12/2017 5:07 PM The status of this report is Signed. Draft = Not yet reviewed or approved by Radiologist. Signed = Reviewed and approved by Radiologist. <AttendingPhy>Breezy Whitley D.O.</AttendingPhy> <FamilyPhy>Francis Banks M.D.</FamilyPhy> <PrimaryPhy>Francis Banks M.D.</PrimaryPhy> <UnitNumber> [id number]</UnitNumber> <VisitNumber>[id number]</VisitNumber> <PatientName> BRANDON ASTUDILLO</PatientName> <DateOfBirth>1930</DateOfBirth> <Location> [facility]</Location> <ServiceDate>01/11/17</ServiceDate> <MNE>ESINDI</MNE> < OrderingPhy>Breezy Whitley D.O.</OrderingPhy> <OrderingPhyMNE>f rep ord dr barriga< /OrderingPhyMNE> <DictatingPhyMNE>f rep dict dr barriga</DictatingPhyMNE> <CCListM Assessment & Plan 86 yo male under Rx for osteomyelitis left 3rd toe with linezolid, now with acute onset of nausea, weakness, and dizziness with elevated lactic acid, now improving. Low procalcitonin speaks against bacterial sepsis. May have UTI. Continue Abx pending final culture results. X-ray left foot ordered. Will follow.
--- NOTE | 2017-01-13 11:11 | DIAGNOSTIC IMAGING REPORT ---
LEFT TOE(S) MIN 2 VIEWS CLINICAL HISTORY: osteomyelitis left 3rd toe COMPARISON: None. DISCUSSION: The bones and joint spaces appear intact. There is no evidence of fracture, dislocation or bony disease. Mild soft tissue edema IMPRESSION: Mild soft tissue edema. No bony destructive process. Electronically signed by: Claudio Gutierrez M.D. 01/13/2017 11:10 AM Dictated Date/Time: 01/13/2017 11:09 AM
--- NOTE | 2017-01-13 11:20 | Pharmacy Progress Note ---
Pharmacy Abx Dose Progress Nt Date of Service Jan 13, 2017. Pharmacy Dosing Scope The patient is currently receiving the following antimicrobial agents per Pharmacy consult: Vancomycin 1000 mg (~15mg/kg) IV every 14 hours for a chronic diabetic foot wound treated in the out patient setting by wound care and infectious disease with Linezolid. Objective Height (Feet): 6 Height (Inches): 0.00 Weight (Kilograms): 80.800 Vital Signs (Past 12Hrs) Vital Signs Past 12 Hours Date Time Temp Pulse Resp B/P (MAP) Pulse Ox O2 Delivery O2 Flow Rate FiO2 01/13/17 07:30 36.6 57 20 157/88 (111) 95 Room Air 01/13/17 04:11 36.8 64 18 105/57 (73) 99 Room Air 01/13/17 04:00 99 Room Air 01/13/17 00:17 36.9 83 18 123/88 (100) 93 01/13/17 00:00 93 Room Air Lab Results (24Hrs) Laboratory Tests (24 Hours) Test 01/12/17 12:57 01/13/17 05:29 Lactic Acid Level 4.2 mmol/L (0.4-2.0) *H Procalcitonin < 0.05 ng/ml (0-0.5) Total Creatine Kinase 605 U/L (39-308) H White Blood Count 5.42 K/uL (4.8-10.8) Micro Results Date/Time Source Procedure Growth Status 01/11/17 11:50 Blood Blood Culture - Preliminary NO GROWTH TO DATE. Resulted 01/11/17 11:45 Blood Blood Culture - Preliminary Gram Positive Cocci Resulted 01/12/17 12:00 Urine , Clean Catch Urine Culture - Preliminary PIN-POINT GROWTH PRESENT, REINCUBATING. 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 To note, blood culture growing gram positive cocci. Day # 3/10 of antimicrobial therapy Plan Vancomycin IV * Trough level of 12.1 mcg/mL is slightly subtherapeutic. * Change to Vancomycin 1200 mg (~17mg/kg) IV every 12 hours * Goal trough level for chronic foot wound with gram positive cocci growing in blood : 15 to 20 mcg/mL * Trough level ordered for: 01/15/17 ~30 minutes before the 0600 dose. Pharmacy will continue to follow and will adjust dose/frequency as necessary. Thank you.
[2017-01-13] MEDS ORDERED: BISACODYL 10 MG SUPP PR PRN ×2 (12:30→15:00)
[2017-01-13] MEDS ORDERED: MAGNESIUM SULFATE 1GM / D5W 1 GM in PREMIXED IN D5W 100 ML IV ONE (12:30)
--- NOTE | 2017-01-13 12:38 | Hospitalist Progress Note ---
Hospitalist Progress Note Date of Service Jan 13, 2017. Subjective Pt evaluation today including: conversation w/ patient, physical exam, chart review, lab review, review of studies, review of inpatient medication list Patient seen and evaluated. No acute events overnight. Tele reviewed with rare rates going into 40s. Review of monitor shows conduction changes but non- sustaining. He does have a history of A Fib with slow ventricular response but largely improved since D/C of Verapamil in Jun. and will continue to monitor. He is asymptomatic. Pending repeat lactic acid this afternoon. As it was improving but then elevated again. Repeat UA is growing gram neg bacilli at 6000 which this sample was obtained after antibiotic initiation. Called lab who states the colonies are multiple organisms and may not be able to further identify findings. Na is improving and currently 130 today. Patient's mentation appears improved as well and reports complete resolution of nausea. Updated son Ryan yesterday. Initially called which is JENA and difficult to update over the phone. Was given the following numbers: -- Ryan [phone] -- Eric [phone] -- 3rd son (not sure of name) [phone] (mobile) and [phone] (home) Ryan states they share POA but it appeared he said Eric may be the typical one to make decisions. Will update family today as well. Imaging reveals moderate constipation and will try laxatives. Constitutional: No fever, No chills Respiratory: No cough, No shortness of breath Cardiovascular: No chest pain Abdomen: + constipation, No pain, No nausea, No vomiting, No diarrhea Male : No dysuria Medications Current Inpatient Medications Medications (Trade) Dose Ordered Sig/Alvin Route Start Time Stop Time Status Last Admin Dose Admin Enoxaparin Sodium (Lovenox Inj) 40 mg Q24H SC 01/11/17 16:00 02/10/17 15:59 01/12/17 16:00 40 MG Acetaminophen (Tylenol Tab) 650 mg Q4H PRN PO 01/11/17 13:45 02/10/17 13:44 Al Hydrox/Mg Hydrox/Simethicone (Maalox Max Susp) 15 ml Q4H PRN PO 01/11/17 13:45 02/10/17 13:44 Magnesium Hydroxide (Milk Of Magnesia Susp) 30 ml Q12H PRN PO 01/11/17 13:45 02/10/17 13:44 Ondansetron HCl (Zofran Inj) 4 mg Q6H PRN IV 01/11/17 13:45 02/10/17 13:44 01/12/17 18:00 4 MG Polyethylene (Miralax Powder Packet) 17 gm DAILY PRN PO 01/11/17 13:45 02/10/17 13:44 01/13/17 09:59 17 GM Insulin Aspart (novoLOG ASPART) SLIDING SCALE If C... ACHS SC 01/11/17 16:15 02/10/17 16:14 Glucose (Glucose 40% Gel) 15-30 GRAMS 15 GRAMS... UD PRN PO 01/11/17 13:45 02/10/17 13:44 Glucose (Glucose Chew Tab) 4-8 Tablets 4 Tabl... UD PRN PO 01/11/17 13:45 02/10/17 13:44 Dextrose (Dextrose 50% 50ML Syringe) 25-50ML OF 50% DW IV FOR... UD PRN IV 01/11/17 13:45 02/10/17 13:44 Glucagon (Glucagon Inj) 1 mg UD PRN SQ 01/11/17 13:45 02/10/17 13:44 Aspirin (Ecotrin Tab) 325 mg DAILY PO 01/12/17 12:00 02/11/17 11:59 01/13/17 09:03 325 MG Celecoxib (CeleBREX CAP) 200 mg BID PO 01/11/17 21:00 02/10/17 20:59 Future Hold 01/11/17 21:23 200 MG Simvastatin (Zocor Tab) 40 mg Q2D@0900 PO 01/12/17 09:00 02/11/17 08:59 01/12/17 10:29 40 MG Tamsulosin HCl (Flomax Cap) 0.4 mg HS PO 01/11/17 21:00 02/10/17 20:59 01/12/17 20:47 0.4 MG Pantoprazole Sodium (Protonix Tab) 40 mg BID PO 01/11/17 21:00 02/10/17 20:59 01/13/17 09:04 40 MG Hydralazine HCl (HydrALAZINE INJ) 10 mg Q6 PRN IV. 01/11/17 14:00 7/31/17 13:59 Sodium Chloride 1,000 ml @ 50 mls/hr Q20H IV 01/11/17 14:00 02/10/17 13:59 01/13/17 00:47 50 MLS/HR Levothyroxine Sodium (Synthroid Tab) 100 mcg DAILYBB PO 01/12/17 06:00 02/11/17 05:59 01/13/17 06:45 100 MCG Vancomycin HCl (Consult) 1 ea UD PRN N/A 01/11/17 16:00 02/10/17 15:59 Piperacillin Sod/ Tazobactam Sod 3.375 gm/Dextrose 115 ml @ 28.75 mls/ hr Q8H IV 01/11/17 22:00 01/21/17 21:59 01/13/17 06:44 28.75 MLS/HR Piperacillin Sod/ Tazobactam Sod (Consult) 1 ea UD PRN N/A 01/11/17 16:00 02/10/17 15:59 Sodium Chloride (Sodium Chloride Tab) 1 gm DAILY PO 01/13/17 09:00 02/12/17 08:59 01/13/17 09:03 1 GM Ioversol (Optiray 320) 111 ml UD PRN IV 01/12/17 14:15 01/16/17 14:14 Vancomycin HCl 1200 mg/Sodium Chloride 274 ml @ 125 mls/hr Q12H IV 01/13/17 18:00 01/22/17 01:59 Magnesium Oxide (Mag-Ox Tab) 400 mg BID PO 01/13/17 21:00 02/12/17 20:59 Magnesium Sulfate 1 gm/Prmx 100 ml @ 100 mls/hr NOW ONCE IV 01/13/17 12:30 01/13/17 13:29 Objective Vital Signs Date Time Temp Pulse Resp B/P (MAP) Pulse Ox O2 Delivery O2 Flow Rate FiO2 01/13/17 07:30 36.6 57 20 157/88 (111) 95 Room Air 01/13/17 04:11 36.8 64 18 105/57 (73) 99 Room Air 01/13/17 04:00 99 Room Air 01/13/17 00:17 36.9 83 18 123/88 (100) 93 01/13/17 00:00 93 Room Air 01/12/17 20:00 100 Room Air 01/12/17 19:10 36.8 69 20 132/74 (93) 100 Room Air 01/12/17 16:00 Room Air 01/12/17 15:20 36.6 56 20 119/73 (88) 100 Room Air Physical Exam General Appearance: WD/WN, no apparent distress, + pertinent finding (appears more energetic and mentation clearer) Eyes: sclerae normal, + pertinent finding (continues to have edematous tissue around bilat eyes) ENT: hearing grossly normal Neck: supple, no JVD, trachea midline Respiratory/Chest: lungs clear, normal breath sounds, no respiratory distress, no accessory muscle use Cardiovascular: no gallop, no murmur, + irregularly irregular Abdomen: normal bowel sounds, non tender, soft Extremities: no pedal edema, no calf tenderness Neurologic/Psychiatric: alert, oriented x 3 Skin: normal color, warm/dry Laboratory Results Last 24 Hours Test 01/12/17 12:57 01/12/17 16:14 01/12/17 20:17 01/13/17 05:29 Sodium Level 121 mmol/L 130 mmol/L Potassium Level 3.7 mmol/L 3.5 mmol/L Chloride Level 87 mmol/L 94 mmol/L Carbon Dioxide Level 25 mmol/L 31 mmol/L Anion Gap 9.0 mmol/L 5.0 mmol/L Blood Urea Nitrogen 15 mg/dl 11 mg/dl Creatinine 0.88 mg/dl 0.80 mg/dl Est Creatinine Clear Calc Drug Dose 57.7 ml/min 71.4 ml/min Estimated GFR () 89.5 93.1 Estimated GFR (Non- 77.2 80.3 BUN/Creatinine Ratio 17.4 13.9 Random Glucose 158 mg/dl 104 mg/dl Lactic Acid Level 4.2 mmol/L Calcium Level 7.5 mg/dl 8.0 mg/dl Total Creatine Kinase 605 U/L Troponin I 0.018 ng/ml Procalcitonin < 0.05 ng/ml Random Cortisol 19.39 mcg/dl Bedside Glucose 147 mg/dl 121 mg/dl White Blood Count 5.42 K/uL Red Blood Count 3.36 M/uL Hemoglobin 10.0 g/dL Hematocrit 28.2 % Mean Corpuscular Volume 83.9 fL Mean Corpuscular Hemoglobin 29.8 pg Mean Corpuscular Hemoglobin Concent 35.5 g/dl RDW Standard Deviation 40.0 fL RDW Coefficient of Variation 13.3 % Platelet Count 120 K/uL Mean Platelet Volume 10.0 fL Magnesium Level 1.7 mg/dl Vancomycin Level Trough 12.1 mcg/ml Test 01/13/17 07:05 01/13/17 07:11 01/13/17 11:05 01/13/17 12:00 Bedside Glucose 110 mg/dl 173 mg/dl Cortisol AM Sample 23.73 mcg/dl Assessment and Plan Mr. 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 Elevated Lactic Acid Suspect Infection - Unknown Source: - H/O diabetic MSSA foot wound on Linezolid since November - follows with Dr. Zamora and wound clinic -- New R plantar aspect food wound from friction blister - superficial without significant signs of infection - U/A (after Abx adjustment) - gram neg bacilli at 6000 - called lab and stated multiple organisms and may not get final specifics - BCx - one with gram + cocci likely contaminate but will repeat BCx - CXR - no consolidation or nodules appreciated; evidence of age indeterminant fx of 7-8 ribs - IVF at 100 mL/hr -- PRN Hydralazine for hypertension caused by fluid resuscitation - Hold Linezolid and start Vancomycin and Zosyn per pharmacy dosing for broader coverage - Lactic was trending down but then trended up - patient is clinically improving - and will repeat this afternoon -- Procalcitonin negative Hyponatremia: SIADH? 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 and New Open Blister Wound on Plantar Aspect of L Foot: MSSA - Hold Linezolid and broaden coverage as above - Consult wound care and ID - appreciate recommendations -- Imaging of foot - helpful to R/O osteo as source of lactic acid Permanent Atrial Fibrillation with Slow Ventricular Response: STABLE - Had intermittent HRs in 40s overnight with rhythm revealed showing conversion to a bundle branch block - will continue to monitor - Improved since D/C of Verapamil in 2016 - ASA 325 mg daily - no AC due to frequent falls HTN: - Hold Lozol due to hyponatremia and use PRN Hydralazine T2DM: A1c - Hold Glipizide and implement SSI - records reviewed that this was D/C'd will discuss with family if patient takes at home - Zocor 40 mg Q2D Hypothyroidism: STABLE - Synthroid 100 mcg daily BPH: - Flomax 0.4 mg daily DVT Prophylaxis: Lovenox 40 mg SC daily Code Status: FULL RESUSCITATION Disposition: - PT/OT evaluations - recommendations for SNF - referrals given and will discuss with sons - Hopeful for resolution of hyponatremia soon - possible D/C by Friday/ ? Continued [facility] stay due to: multiple IV medications needed Discharge planning: uncertain (SNF vs Rehab)
[2017-01-13] MEDS: BISACODYL 10 MG SUPP PR STA ×2 (14:48→16:02)
[2017-01-13] MEDS: ENOXAPARIN 40 MG/0.4 ML SYR SC SCH (16:02)
[2017-01-13] MEDS: VANCOMYCIN INJ 1,200 MG in SODIUM CHLORIDE 0.9% 250ML 250 ML IV SCH (17:48)
[2017-01-13] MEDS: MAGNESIUM OXIDE 400 MG TAB PO SCH (21:18)
[2017-01-13] MEDS: TAMSULOSIN HCL 0.4 MG CAP PO SCH (21:18)
[2017-01-14] VITALS (7 sets, daily range): BP systolic 122–170; BP diastolic 68–78; PULSE 54–80; TEMP 36.4–37; O2SAT 92–97
[2017-01-14] MEDS: SODIUM CHLORIDE 0.9% 1000ML 1,000 ML IV SCH (01:07)
[2017-01-14] MEDS: PIPERACILL/TAZOBAC IV 3.375 GM in DEXTROSE 5% 100ML IV SCH (05:20)
[2017-01-14] MEDS: VANCOMYCIN INJ 1,200 MG in SODIUM CHLORIDE 0.9% 250ML 250 ML IV SCH (05:20)
[2017-01-14] MEDS: LEVOTHYROXINE 100 MCG TAB PO SCH (06:29)
[2017-01-14] MEDS: INSULIN ASPART 100 UNITS/ML 3 ML PEN SC SCH ×4 (07:00→21:00)
[2017-01-14 08:01] LABS: HEMATOCRIT 30.8 % (42-52); MEAN CELL VOLUME 84.4 fL (80-100); MEAN CORPUSCULAR HEMOGLOBIN 28.8 pg (25-34); MEAN CORPUSCULAR HGB CONC 34.1 g/dl (32-36); MEAN PLATELET VOLUME 10.3 fL (7.4-10.4); PLATELET COUNT 147 K/uL (130-400); RED BLOOD COUNT 3.65 M/uL (4.7-6.1); WHITE BLOOD COUNT 7.28 K/uL (4.8-10.8)
[2017-01-14] MEDS: POLYETHYLENE (MIRALAX) 17 GM PACK PO SCH (08:23)
[2017-01-14 08:45] LABS: BUN/CREATININE RATIO 7.6 (10-20); CALCIUM 8.1 mg/dl (8.5-10.1); CREATININE 0.87 mg/dl (0.60-1.40); POTASSIUM 2.8 mmol/L (3.5-5.1)
[2017-01-14] MEDS: SIMVASTATIN 40 MG TAB PO SCH (09:20)
[2017-01-14] MEDS: PANTOprazole SOD 40 MG TAB PO SCH ×2 (09:20→21:20)
[2017-01-14] MEDS: ASPIRIN 325 MG ECTAB PO SCH (09:20)
[2017-01-14] MEDS: SODIUM CHLORIDE 1 GM TAB PO SCH (09:20)
[2017-01-14] MEDS: MAGNESIUM OXIDE 400 MG TAB PO SCH ×2 (09:20→21:19)
[2017-01-14] MEDS ORDERED: POTASSIUM CHLORIDE 10 MEQ TABCR PO STA (09:59)
[2017-01-14] MEDS: POTASSIUM CHLR 10 MEQ / WTR 10 MEQ in PREMIXED WATER 100 ML IV SCH ×2 (10:39→12:16)
[2017-01-14] MEDS ORDERED: NURSING VERBAL MED ORDER ONE ×2 (10:45→13:15)
--- NOTE | 2017-01-14 12:48 | Progress Note ---
Subjective Date of Service: Jan 14, 2017. Subjective Pt evaluation today including: conversation w/ patient, conversation w/ family , physical exam, chart review, lab review, review of studies, conversation w/ toy consultant, review of inpatient medication list Sitting up in chair, talked to the phone with friends, no acute distress, Has bowel movement, had breakfast 100% Nurse reported he has been had minimal activity and generalized weakness Problem List Medical Problems: (1) Frequent falls Status: Acute (2) Hyponatremia Status: Acute (3) Weakness Status: Acute (4) Weakness Status: Acute Review of Systems Constitutional: + fatigue, No fever, No chills, No sweats, No weight loss, No weakness, No problem reported Eyes: No worsening of vision, No eye pain, No redness, No discharge, No diplopia ENT: No hearing loss, No unusual epistaxis, No nasal symptoms, No sore throat, No tinnitus, No dental problems, No trouble swallowing Respiratory: No cough, No sputum, No wheezing, No shortness of breath, No dyspnea on exertion, No dyspnea at rest, No hemoptysis Cardiac: No chest pain, No orthopnea, No PND, No edema, No claudication, No palpitations Abdomen: No pain, No nausea, No vomiting, No diarrhea, No constipation Musculoskeletal: No joint pain, No muscle pain, No swelling, No calf pain Male : No dysuria, No urinary frequency, No incontinence, No nocturia more than once/night, No slowing stream, No hematuria Neurologic: No memory loss, No paralysis, No weakness, No numbness/tingling, No vertigo, No balance problems Psychiatric: No depression symptoms, No anhedonism, No anxiety, No insomnia, No substance abuse Heme: No abnormal bleeding/bruising, No clotting problems, No swollen lymph nodes, No night sweats Endo: No fatigue, No excessive thirst, No excessive urination Skin: No rash, No itch, No new/changing skin lesions, No color change, No bleeding Objective Vital Signs Date Time Temp Pulse Resp B/P (MAP) Pulse Ox O2 Delivery O2 Flow Rate FiO2 01/14/17 12:06 36.6 70 16 122/78 (93) 97 Room Air BiPAP 01/14/17 08:00 Room Air 01/14/17 07:57 36.4 69 20 170/75 (106) 92 Room Air 01/14/17 04:02 36.4 80 20 144/68 (93) 97 Room Air 01/14/17 04:00 Room Air 01/14/17 00:01 Room Air 01/13/17 23:30 36.7 66 18 114/64 (81) 94 Room Air 01/13/17 20:00 Room Air 01/13/17 19:05 36.6 55 24 156/78 (104) 94 Room Air 01/13/17 15:25 Room Air 01/13/17 15:18 36.3 53 22 159/72 (101) 96 Room Air Physical Exam General Appearance: WD/WN, no apparent distress Eyes: normal inspection, PERRL, EOMI, sclerae normal ENT: normal ENT inspection, hearing grossly normal, pharynx normal Neck: supple, no adenopathy, thyroid normal, no JVD, no carotid bruits, trachea midline Respiratory/Chest: chest non-tender, normal breath sounds, no respiratory distress, no accessory muscle use, + decreased breath sounds Cardiovascular: regular rate, rhythm, no edema, no gallop, no JVD, no murmur Abdomen: normal bowel sounds, non tender, soft, no organomegaly, no pulsatile mass Extremities: normal range of motion, normal inspection, no pedal edema, no calf tenderness, normal capillary refill, pelvis stable, + pertinent finding ( therefore S/P amputation, local has no obvious red or tender) Neurologic/Psychiatric: parachute line tier II-XII nml as tested, no motor/sensory deficits, alert, normal mood/affect, oriented x 3 Skin: normal color, warm/dry, no rash Lymphatic: no adenopathy Laboratory Results Last 24 Hours Test 01/13/17 12:45 01/13/17 16:28 01/13/17 20:38 01/14/17 06:47 Lactic Acid Level 3.5 mmol/L Bedside Glucose 153 mg/dl 113 mg/dl 104 mg/dl Test 01/14/17 07:42 01/14/17 11:38 White Blood Count 7.28 K/uL Red Blood Count 3.65 M/uL Hemoglobin 10.5 g/dL Hematocrit 30.8 % Mean Corpuscular Volume 84.4 fL Mean Corpuscular Hemoglobin 28.8 pg Mean Corpuscular Hemoglobin Concent 34.1 g/dl RDW Standard Deviation 41.0 fL RDW Coefficient of Variation 13.5 % Platelet Count 147 K/uL Mean Platelet Volume 10.3 fL Sodium Level 134 mmol/L Potassium Level 2.8 mmol/L Chloride Level 97 mmol/L Carbon Dioxide Level 28 mmol/L Anion Gap 9.0 mmol/L Blood Urea Nitrogen 7 mg/dl Creatinine 0.87 mg/dl Est Creatinine Clear Calc Drug Dose 65.7 ml/min Estimated GFR () 89.9 Estimated GFR (Non- 77.6 BUN/Creatinine Ratio 7.6 Random Glucose 112 mg/dl Calcium Level 8.1 mg/dl Magnesium Level 2.0 mg/dl Prealbumin 20.0 mg/dl Bedside Glucose 129 mg/dl Assessment and Plan 86 y/o male admitted on 01/11/2017 because of persistent nausea without vomiting and multiple falls PMHx of Permanent Atrial Fibrillation with Slow Ventricular Response, HTN, T2DM , Hypothyroidism, BPH, Dementia, and 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 Zamora ESR CRP and procalcitonin level all unremarkable X-ray left foot ordered no bony changes, Urine culture shows GRAM NEGATIVE BACILLI, no sensitivity to follow Blood culture showed COAG NEG STAPH NOT LUGDUNENSIS, likely contamination, repeated blood culture sent Discussed with infectious disease , feel "against bacterial sepsis". We'll discontinue IV antibiotics Per Dr. Zamora History of toe infection on Zyvox treatment, which has been 3 months, per Dr. Zamora recommend discontinuation of Zyvox nausea prior to admission, could be from side effect of Zyvox, or big hiatal hernia which show in abdominal CT studies Patient's general condition improved, tolerate diet, I discussed with patient's son Eric, it agree just watching for hiatal hernia for now, consult surgeon per PCP if needed Possible UTI, U/A (after Abx adjustment) - gram neg bacilli at 6000 called lab and stated multiple organisms and may not get final specifics, patient has been on broad spectrum antibiotic since admission, which she'll have good coverage of possible UTI, therefore do not continue any antibiotics - H/O diabetic MSSA foot wound on Linezolid since November - follows with Dr. Zamora and wound clinic, see above -- New R plantar aspect food wound from friction blister - superficial without significant signs of infection - BCx - one with gram + cocci likely contaminate but will repeat BCx - CXR - no consolidation or nodules appreciated; evidence of age indeterminant fx of 7-8 ribs - Hold Linezolid and start Vancomycin and Zosyn per pharmacy dosing for broader coverage - Lactic was trending down but then trended up Hyponatremia: SIADH? Symptoms - nausea, generalized weakness, disorientation - RESOLVED Random urine NA, serum osm, urine osm - support the finding of SIADH We'll discontinue IV fluid Decrease appetite and poor by mouth intake, improved, at the [facility], , nutrition consult for supplements, prealbumin also ordered Hypokinemia replace and will follow-up Permanent Atrial Fibrillation with Slow Ventricular Response: STABLE Continue current medication HTN: T2DM: Hypothyroidism: STABLE BPH: The above condition stable continue current medication, Generalized weakness, patient agreed to go to rehabilitation, director of casework services on the case Yesterday discussed with patient's son, updated patient's CODE STATUS Will transfer to med/surg, and pending for rehabilitation dispo talked to son Ryan, [phone], updated him patient's condition, and answered all questions Continued [facility] stay due to: home environment unsafe for pt Discharge planning: rehab hospital
[2017-01-14] MEDS ORDERED: HYDROCORTISONE HC 2.5% CRM 30GM TUBE EXT ONE (14:15)
[2017-01-14] MEDS: HYDROCORTISONE HC 2.5% CRM 30GM TUBE EXT SCH ×2 (21:18→21:31)
[2017-01-14] MEDS: TAMSULOSIN HCL 0.4 MG CAP PO SCH (21:19)
[2017-01-14] MEDS: MEGESTROL ACETATE 400 MG/10 ML UDP PO SCH (21:20)
[2017-01-15] VITALS (7 sets, daily range): BP systolic 118–162; BP diastolic 54–88; PULSE 52–95; TEMP 36.4–37.1; O2SAT 94–96
[2017-01-15] MEDS ORDERED: VANCOMYCIN TROUGH SCH (05:30)
[2017-01-15] MEDS: LEVOTHYROXINE 100 MCG TAB PO SCH (05:45)
[2017-01-15 06:33] LABS: BASO % 0.2 %; BASO ABS # 0.02 K/uL (0-0.2); COMPLETE YES; EOS % 2.2 %; HEMATOCRIT 29.1 % (42-52); IG% 0.3 %; LYMPH % 22.1 %; LYMPH ABS # 1.92 K/uL (1.2-3.4); MEAN CELL VOLUME 83.6 fL (80-100); MEAN CORPUSCULAR HGB CONC 34.7 g/dl (32-36); MONO % 16.4 %; NEUT % 58.8 %; PLATELET COUNT 158 K/uL (130-400); RED BLOOD COUNT 3.48 M/uL (4.7-6.1); WHITE BLOOD COUNT 8.67 K/uL (4.8-10.8)
[2017-01-15] MEDS: INSULIN ASPART 100 UNITS/ML 3 ML PEN SC SCH ×4 (07:00→21:00)
[2017-01-15 07:08] LABS: BUN/CREATININE RATIO 9.4 (10-20); CALCIUM 8.2 mg/dl (8.5-10.1); CREATININE 0.75 mg/dl (0.60-1.40); POTASSIUM 3.4 mmol/L (3.5-5.1)
[2017-01-15] MEDS ORDERED: POTASSIUM CHLORIDE 10 MEQ TABCR PO STA (07:09)
[2017-01-15] MEDS: POLYETHYLENE (MIRALAX) 17 GM PACK PO SCH (08:31)
[2017-01-15] MEDS: HYDROCORTISONE HC 2.5% CRM 30GM TUBE EXT SCH ×2 (08:43→21:34)
[2017-01-15] MEDS: PANTOprazole SOD 40 MG TAB PO SCH ×2 (08:44→21:35)
[2017-01-15] MEDS: MAGNESIUM OXIDE 400 MG TAB PO SCH ×2 (08:44→21:35)
[2017-01-15] MEDS: ASPIRIN 325 MG ECTAB PO SCH (08:44)
[2017-01-15] MEDS: MEGESTROL ACETATE 400 MG/10 ML UDP PO SCH ×2 (08:44→21:35)
[2017-01-15] MEDS: SODIUM CHLORIDE 1 GM TAB PO SCH (08:44)
--- NOTE | 2017-01-15 09:53 | Gastrointestinal Consultation ---
Gastrointestinal Consultation Date of Consultation: Jan 15, 2017 Attending Physician: Dr. Grossman Consulting Physician: Dr. Frank/JESSICA Lowery Reason for Consultation: Heme positive stool History of Present Illness Patient is a 86 year old male with a history of chronic atrial fibrillation, diabetes, and dementia admitted on 01/11/17 with nausea and dizziness resulting in fall prior to arrival. He was seen by Dr. Zamora of ID as he was noted to have a history of osteomyelitis being treated with antibiotic therapy as an outpatient and there was concern for infectious etiology for symptoms. Work up with blood cultures and urine cultures have been ordered and will be followed by ID in this regard. Since arrival, the patient reports resolution of the nausea. He is not having abdominal pain, vomiting, or symptoms of overt GIB. He states "they said there was blood in the stool but I've never seen it". The patient does have a known history of a large hiatus hernia as seen on EGD from Dr. Muhammad in 2010. The hernia was again noted on recent CT imaging performed several days ago. The patient does have a history of Berlin's ulcers diagnosed in 2007, however these were not seen on the EGD from 2010. It was also noted that the patient did have a "slightly dilated, tortuous" esophagus. Laboratory testing on arrival demonstrated a hemoglobin of 11.7 which has remained approximately 10 since that time and an INR of 1.1. He was also noted to have a hemoglobin of 11.8 in June of 2016. Patient remains on Protonix 40 mg BID. Past Medical/Surgical History Medical Problems: (1) Frequent falls Status: Acute (2) Hyponatremia Status: Acute (3) Weakness Status: Acute (4) Weakness Status: Acute Past Medical History: 1. Diabetes 2. Osteomyelitis 3. Hypertension 4. TIA 5. Chronic atrial fibrillation 6. Hypothyroidism 7. BPH 8. Dementia 9. Berlin's erosions 10. Large hiatus hernia Past Surgical History: 1. Cholecystectomy 2. Knee replacement 3. Back surgery Family History Diabetes mellitus Gallbladder disease Heart disease Hypertension Leukemia MOTHER IA FATHER Negative for IBD and GI malignancy Social History Smoking Status: Never Smoker Drug Use: none Marital Status: Housing Status: lives with family Occupation Status: retired Allergies Coded Allergies: No Known Allergies (Verified , 07/10/16) Current Medications Home Meds and Scripts Medications Dose Route/Sig Max Daily Dose Days Date Category Levothyroxine Sodium 100 Mcg Tab 100 Mg PO DAILY 01/11/17 Reported Linezolid 600 Mg Tab 600 Tab PO BID 30 12/05/16 Rx Glipizide Er (Glipizide) 2.5 Mg Tab 1 Tab PO QAM 07/08/16 Reported Flomax (Tamsulosin Hcl) 0.4 Mg Cap 0.4 Mg PO HS 07/08/16 Reported CeleBREX (Celecoxib) 200 Mg Cap 200 Mg PO BID 07/08/16 Reported Aspirin Ec (Aspirin) 325 Mg Tab 325 Mg PO NOON 07/08/16 Reported Lozol (Indapamide) 1.25 Mg Tab 1.25 Mg PO QAM 05/24/16 Reported Prilosec (Omeprazole) 20 Mg Capcr 20 Mg PO BID 10/18/08 Reported Zocor (Simvastatin) 40 Mg Tab 40 Mg PO Q2D 10/18/08 Reported Review of Systems Constitutional: + fatigue, No fever, No chills Eyes: No problem reported ENT: No trouble swallowing, No pain on swallowing Respiratory: No shortness of breath, No dyspnea at rest Cardiac: No chest pain, No palpitations Abdomen: + see HPI Musculoskeletal: No problem reported Male : No problem reported Neuro: + see HPI Psych: No problem reported Skin: No problem reported Physical Exam Date Time Temp Pulse Resp B/P (MAP) Pulse Ox O2 Delivery O2 Flow Rate FiO2 01/15/17 08:44 36.5 95 20 162/87 (112) 94 Room Air 01/15/17 08:00 Room Air 01/15/17 04:00 Room Air 01/15/17 03:58 36.6 58 18 124/82 (96) 95 Room Air 01/15/17 00:00 Room Air 01/15/17 00:00 36.4 52 18 118/74 (89) 96 Room Air 01/14/17 20:00 94 Room Air 01/14/17 19:39 37.0 76 22 154/74 (100) 94 Room Air 01/14/17 16:00 95 Room Air 01/14/17 15:25 36.6 54 17 156/75 (102) 95 Room Air 01/14/17 12:06 36.6 70 16 122/78 (93) 97 Room Air BiPAP 01/14/17 12:00 Room Air General Appearance: no apparent distress Eyes: EOMI ENT: hearing grossly normal Neck: supple Respiratory/Chest: lungs clear, normal breath sounds Cardiovascular: + irregularly irregular Abdomen: normal bowel sounds, non tender, soft Extremities: normal inspection Neurologic/Psych: alert, normal mood/affect, oriented x 3 Skin: warm/dry Laboratory Results Last 24 Hours Test 01/14/17 11:38 01/14/17 14:00 01/14/17 16:35 01/14/17 20:23 Bedside Glucose 129 mg/dl 120 mg/dl 161 mg/dl Stool Occult Blood POSITIVE Test 01/15/17 06:21 01/15/17 06:59 White Blood Count 8.67 K/uL Red Blood Count 3.48 M/uL Hemoglobin 10.1 g/dL Hematocrit 29.1 % Mean Corpuscular Volume 83.6 fL Mean Corpuscular Hemoglobin 29.0 pg Mean Corpuscular Hemoglobin Concent 34.7 g/dl Platelet Count 158 K/uL Mean Platelet Volume 10.0 fL Neutrophils (%) (Auto) 58.8 % Lymphocytes (%) (Auto) 22.1 % Monocytes (%) (Auto) 16.4 % Eosinophils (%) (Auto) 2.2 % Basophils (%) (Auto) 0.2 % Neutrophils # (Auto) 5.09 K/uL Lymphocytes # (Auto) 1.92 K/uL Monocytes # (Auto) 1.42 K/uL Eosinophils # (Auto) 0.19 K/uL Basophils # (Auto) 0.02 K/uL RDW Standard Deviation 41.1 fL RDW Coefficient of Variation 13.6 % Immature Granulocyte % (Auto) 0.3 % Immature Granulocyte # (Auto) 0.03 K/uL Sodium Level 137 mmol/L Potassium Level 3.4 mmol/L Chloride Level 102 mmol/L Carbon Dioxide Level 29 mmol/L Anion Gap 6.0 mmol/L Blood Urea Nitrogen 7 mg/dl Creatinine 0.75 mg/dl Est Creatinine Clear Calc Drug Dose 76.2 ml/min Estimated GFR () 95.6 Estimated GFR (Non- 82.5 BUN/Creatinine Ratio 9.4 Random Glucose 117 mg/dl Calcium Level 8.2 mg/dl Magnesium Level 2.0 mg/dl Bedside Glucose 123 mg/dl Impression Patient is a 86 year old male with a history of atrial fibrillation and diabetes admitted with nausea (now resolved) and heme positive stool without overt GIB. Plan 1. Hemoglobin remains stable at this time and he is without any overt GIB. Patient is not interested in any invasive testing at present and due to medical comorbidities and advanced age, I agree that conservative management is reasonable in the absence of overt GIB or severe anemia. 2. Continue Protonix 40 mg BID. 3. If returning symptoms of nausea, could start Carafate 1 g ACHS. 4. Continue supportive management per primary team. Thank you for allowing us to participate in the care of this pleasant gentleman. If you have any questions or concerns, please do not hesitate to contact us. Agree with JESSICA Lowery as above Abd: Soft, NT, ND, +BS Continue current therapy No plans on invasive testing at this time.
--- NOTE | 2017-01-15 12:30 | Hospitalist Progress Note ---
Hospitalist Progress Note Date of Service Jan 15, 2017. Subjective Pt evaluation today including: conversation w/ patient, physical exam, chart review, lab review, review of studies, review of inpatient medication list Patient seen and evaluated. Patient noted to have blood BM yesterday but Hgb is stable in 10s. Na has normalized and he verbalizes no new complaints. He is pending approval to acute rehab vs SNF Constitutional: No fever, No chills Respiratory: No shortness of breath Cardiovascular: No chest pain Abdomen: No pain, No nausea, No vomiting, No diarrhea, No constipation Musculoskeletal: No calf pain Male : No dysuria Medications Current Inpatient Medications Medications (Trade) Dose Ordered Sig/Alvin Route Start Time Stop Time Status Last Admin Dose Admin Acetaminophen (Tylenol Tab) 650 mg Q4H PRN PO 01/11/17 13:45 02/10/17 13:44 Al Hydrox/Mg Hydrox/Simethicone (Maalox Max Susp) 15 ml Q4H PRN PO 01/11/17 13:45 02/10/17 13:44 Magnesium Hydroxide (Milk Of Magnesia Susp) 30 ml Q12H PRN PO 01/11/17 13:45 02/10/17 13:44 Ondansetron HCl (Zofran Inj) 4 mg Q6H PRN IV 01/11/17 13:45 02/10/17 13:44 01/12/17 18:00 4 MG Insulin Aspart (novoLOG ASPART) SLIDING SCALE If C... ACHS SC 01/11/17 16:15 02/10/17 16:14 Glucose (Glucose 40% Gel) 15-30 GRAMS 15 GRAMS... UD PRN PO 01/11/17 13:45 02/10/17 13:44 Glucose (Glucose Chew Tab) 4-8 Tablets 4 Tabl... UD PRN PO 01/11/17 13:45 02/10/17 13:44 Dextrose (Dextrose 50% 50ML Syringe) 25-50ML OF 50% DW IV FOR... UD PRN IV 01/11/17 13:45 02/10/17 13:44 Glucagon (Glucagon Inj) 1 mg UD PRN SQ 01/11/17 13:45 02/10/17 13:44 Aspirin (Ecotrin Tab) 325 mg DAILY PO 01/12/17 12:00 02/11/17 11:59 01/15/17 08:44 325 MG Celecoxib (CeleBREX CAP) 200 mg BID PO 01/11/17 21:00 02/10/17 20:59 Future Hold 01/11/17 21:23 200 MG Simvastatin (Zocor Tab) 40 mg Q2D@0900 PO 01/12/17 09:00 02/11/17 08:59 01/14/17 09:20 40 MG Tamsulosin HCl (Flomax Cap) 0.4 mg HS PO 01/11/17 21:00 02/10/17 20:59 01/14/17 21:19 0.4 MG Pantoprazole Sodium (Protonix Tab) 40 mg BID PO 01/11/17 21:00 02/10/17 20:59 01/15/17 08:44 40 MG Hydralazine HCl (HydrALAZINE INJ) 10 mg Q6 PRN IV. 01/11/17 14:00 02/10/17 13:59 Levothyroxine Sodium (Synthroid Tab) 100 mcg DAILYBB PO 01/12/17 06:00 02/11/17 05:59 01/15/17 05:45 100 MCG Sodium Chloride (Sodium Chloride Tab) 1 gm DAILY PO 01/13/17 09:00 02/12/17 08:59 01/15/17 08:44 1 GM Ioversol (Optiray 320) 111 ml UD PRN IV 01/12/17 14:15 01/16/17 14:14 Magnesium Oxide (Mag-Ox Tab) 400 mg BID PO 01/13/17 21:00 02/12/17 20:59 01/15/17 08:44 400 MG Bisacodyl (Dulcolax Supp) 10 mg DAILY PRN AR 01/13/17 12:30 02/12/17 12:29 Polyethylene (Miralax Powder Packet) 17 gm DAILY PO 01/14/17 09:00 02/10/17 13:44 Megestrol Acetate (Megace Susp) 400 mg BID PO 01/14/17 21:00 02/13/17 20:59 01/15/17 08:44 400 MG Hydrocortisone (Proctozone Hc 2.5% Crm) 1 appln Q12 EXT 01/14/17 21:00 02/13/17 20:59 01/15/17 08:43 1 APPLN Objective Vital Signs Date Time Temp Pulse Resp B/P (MAP) Pulse Ox O2 Delivery O2 Flow Rate FiO2 01/15/17 11:19 Room Air 01/15/17 11:05 37.1 56 18 160/88 (112) 94 Room Air 01/15/17 08:44 36.5 95 20 162/87 (112) 94 Room Air 01/15/17 08:00 Room Air 01/15/17 04:00 Room Air 01/15/17 03:58 36.6 58 18 124/82 (96) 95 Room Air 01/15/17 00:00 Room Air 01/15/17 00:00 36.4 52 18 118/74 (89) 96 Room Air 01/14/17 20:00 94 Room Air 01/14/17 19:39 37.0 76 22 154/74 (100) 94 Room Air 01/14/17 16:00 95 Room Air 01/14/17 15:25 36.6 54 17 156/75 (102) 95 Room Air Physical Exam General Appearance: WD/WN, no apparent distress Eyes: sclerae normal Neck: supple, no JVD, trachea midline Respiratory/Chest: lungs clear, normal breath sounds, no respiratory distress, no accessory muscle use Cardiovascular: no gallop, no murmur, + irregularly irregular Abdomen: normal bowel sounds, non tender, soft Neurologic/Psychiatric: alert, oriented x 3, + pertinent finding (intermittent confusion) Skin: normal color, warm/dry Laboratory Results Last 24 Hours Test 01/14/17 14:00 01/14/17 16:35 01/14/17 20:23 01/15/17 06:21 Stool Occult Blood POSITIVE Bedside Glucose 120 mg/dl 161 mg/dl White Blood Count 8.67 K/uL Red Blood Count 3.48 M/uL Hemoglobin 10.1 g/dL Hematocrit 29.1 % Mean Corpuscular Volume 83.6 fL Mean Corpuscular Hemoglobin 29.0 pg Mean Corpuscular Hemoglobin Concent 34.7 g/dl Platelet Count 158 K/uL Mean Platelet Volume 10.0 fL Neutrophils (%) (Auto) 58.8 % Lymphocytes (%) (Auto) 22.1 % Monocytes (%) (Auto) 16.4 % Eosinophils (%) (Auto) 2.2 % Basophils (%) (Auto) 0.2 % Neutrophils # (Auto) 5.09 K/uL Lymphocytes # (Auto) 1.92 K/uL Monocytes # (Auto) 1.42 K/uL Eosinophils # (Auto) 0.19 K/uL Basophils # (Auto) 0.02 K/uL RDW Standard Deviation 41.1 fL RDW Coefficient of Variation 13.6 % Immature Granulocyte % (Auto) 0.3 % Immature Granulocyte # (Auto) 0.03 K/uL Sodium Level 137 mmol/L Potassium Level 3.4 mmol/L Chloride Level 102 mmol/L Carbon Dioxide Level 29 mmol/L Anion Gap 6.0 mmol/L Blood Urea Nitrogen 7 mg/dl Creatinine 0.75 mg/dl Est Creatinine Clear Calc Drug Dose 76.2 ml/min Estimated GFR () 95.6 Estimated GFR (Non- 82.5 BUN/Creatinine Ratio 9.4 Random Glucose 117 mg/dl Calcium Level 8.2 mg/dl Magnesium Level 2.0 mg/dl Test 01/15/17 06:59 01/15/17 11:11 Bedside Glucose 123 mg/dl 130 mg/dl Assessment and Plan Mr. 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 BRBPR Likely 2/2 Hemorrhoids: STABLE - Hemoglobin stable - hemorrhoids on FRANK - GI consultation - recommend continued PPI and can add Carafate if necessary - no invasive testing Elevated Lactic Acid with Nausea and Vomiting: - Initially suspect infection however cannot identify a specific course - procalcitonin/ESR/CRP negative - cannot directly explain elevated lactic acid but patient improved solely with correction of Na - Question N/V related to hyponatremia vs hiatal hernia vs Zyvox intolerance - H/O L foot infection on Zyvox as outpatient - plan to D/C all antibiotics and monitor - ID following - follows as outpatient Generalized Weakness and Frequent Falls: - Plan for SNF vs acute rehab Possible UTI, U/A (after Abx adjustment) - gram neg bacilli at 6000 - Unable to identify specifics due to multiple organsisms - did recieve adaquate coverage and will monitor off Abx Hyponatremia: SIADH? RESOLVED - Symptoms - nausea, generalized weakness, disorientation - RESOLVED - Random urine NA, serum osm, urine osm - support the finding of SIADH - Fluid restriction HTN: - Hold Lozol due to hyponatremia and use PRN Hydralazine Poor Dietary Intake: - Megace 400 mg BID Permanent Atrial Fibrillation with Slow Ventricular Response: STABLE - No AC due to falls - continue ASA 325 mg daily DVT Prophylaxis: Lovenox 40 mg SC daily Code Status: FULL RESUSCITATION Disposition: - PT/OT evaluations - recommendations for SNF - referrals processing - [facility] D/C 1-2 days pending facility approval Continued [facility] stay due to: home environment unsafe for pt Discharge planning: [facility] facility
--- NOTE | 2017-01-15 14:17 | Infectious Disease Progress Nt ---
Progress Note Date of Service Jan 15, 2017. Subjective Pt evaluation today including: conversation w/ patient, physical exam, chart review, lab review, review of studies (oung asked me for my), conversation w/ service delivery management consultant, review of inpatient medication list patient offering no new complaints today. Remains afebrile. no increase in foot or toe pain, no increase in shortness of breath or cough. All Other Systems: Reviewed and Negative Medications now here in the Current Inpatient Medications Medications (Trade) Dose Ordered Sig/Alvin Route Start Time Stop Time Status Last Admin Dose Admin Acetaminophen (Tylenol Tab) 650 mg Q4H PRN PO 01/11/17 13:45 02/10/17 13:44 Al Hydrox/Mg Hydrox/Simethicone (Maalox Max Susp) 15 ml Q4H PRN PO 01/11/17 13:45 02/10/17 13:44 Magnesium Hydroxide (Milk Of Magnesia Susp) 30 ml Q12H PRN PO 01/11/17 13:45 02/10/17 13:44 Ondansetron HCl (Zofran Inj) 4 mg Q6H PRN IV 01/11/17 13:45 02/10/17 13:44 01/12/17 18:00 4 MG Insulin Aspart (novoLOG ASPART) SLIDING SCALE If C... ACHS SC 01/11/17 16:15 02/10/17 16:14 Glucose (Glucose 40% Gel) 15-30 GRAMS 15 GRAMS... UD PRN PO 01/11/17 13:45 02/10/17 13:44 Glucose (Glucose Chew Tab) 4-8 Tablets 4 Tabl... UD PRN PO 01/11/17 13:45 02/10/17 13:44 Dextrose (Dextrose 50% 50ML Syringe) 25-50ML OF 50% DW IV FOR... UD PRN IV 01/11/17 13:45 02/10/17 13:44 Glucagon (Glucagon Inj) 1 mg UD PRN SQ 01/11/17 13:45 02/10/17 13:44 Aspirin (Ecotrin Tab) 325 mg DAILY PO 01/12/17 12:00 02/11/17 11:59 01/15/17 08:44 325 MG Celecoxib (CeleBREX CAP) 200 mg BID PO 01/11/17 21:00 02/10/17 20:59 Future Hold 01/11/17 21:23 200 MG Simvastatin (Zocor Tab) 40 mg Q2D@0900 PO 01/12/17 09:00 02/11/17 08:59 01/14/17 09:20 40 MG Tamsulosin HCl (Flomax Cap) 0.4 mg HS PO 01/11/17 21:00 02/10/17 20:59 01/14/17 21:19 0.4 MG Pantoprazole Sodium (Protonix Tab) 40 mg BID PO 01/11/17 21:00 02/10/17 20:59 01/15/17 08:44 40 MG Hydralazine HCl (HydrALAZINE INJ) 10 mg Q6 PRN IV. 01/11/17 14:00 02/10/17 13:59 Levothyroxine Sodium (Synthroid Tab) 100 mcg DAILYBB PO 01/12/17 06:00 02/11/17 05:59 01/15/17 05:45 100 MCG Sodium Chloride (Sodium Chloride Tab) 1 gm DAILY PO 01/13/17 09:00 02/12/17 08:59 01/15/17 08:44 1 GM Ioversol (Optiray 320) 111 ml UD PRN IV 01/12/17 14:15 01/16/17 14:14 Magnesium Oxide (Mag-Ox Tab) 400 mg BID PO 01/13/17 21:00 02/12/17 20:59 01/15/17 08:44 400 MG Bisacodyl (Dulcolax Supp) 10 mg DAILY PRN MS 01/13/17 12:30 02/12/17 12:29 Polyethylene (Miralax Powder Packet) 17 gm DAILY PO 01/14/17 09:00 02/10/17 13:44 Megestrol Acetate (Megace Susp) 400 mg BID PO 01/14/17 21:00 02/13/17 20:59 01/15/17 08:44 400 MG Hydrocortisone (Proctozone Hc 2.5% Crm) 1 appln Q12 EXT 01/14/17 21:00 02/13/17 20:59 01/15/17 08:43 1 APPLN Objective Vital Signs Date Time Temp Pulse Resp B/P (MAP) Pulse Ox O2 Delivery O2 Flow Rate FiO2 01/15/17 11:19 Room Air 01/15/17 11:05 37.1 56 18 160/88 (112) 94 Room Air 01/15/17 08:44 36.5 95 20 162/87 (112) 94 Room Air 01/15/17 08:00 Room Air 01/15/17 04:00 Room Air 01/15/17 03:58 36.6 58 18 124/82 (96) 95 Room Air 01/15/17 00:00 Room Air 01/15/17 00:00 36.4 52 18 118/74 (89) 96 Room Air 01/14/17 20:00 94 Room Air 01/14/17 19:39 37.0 76 22 154/74 (100) 94 Room Air 01/14/17 16:00 95 Room Air 01/14/17 15:25 36.6 54 17 156/75 (102) 95 Room Air Physical Exam General Appearance: WD/WN, no apparent distress Eyes: PERRL, EOMI, sclerae normal ( there is) ENT: normal ENT inspection, pharynx normal, + TM bulging Neck: supple, no adenopathy ( while watching chow), thyroid normal, trachea midline Respiratory/Chest: chest non-tender, lungs clear ( the), normal breath sounds ( ), no respiratory distress ( any money Neurology for the past like) Cardiovascular: regular rate, rhythm, no gallop, no murmur Abdomen: normal bowel sounds, non tender, soft, no organomegaly Extremities: non-tender, no calf tenderness Neurologic/Psychiatric: alert, oriented x 3 Skin: normal color, warm/dry, no rash Lymphatic: no adenopathy ( slightly the unit you should be out working Wil from having a all work today planned given 15 buttocks and gassy all developed) Laboratory Results Last 24 Hours Test 01/14/17 16:35 01/14/17 20:23 01/15/17 06:21 01/15/17 06:59 Bedside Glucose 120 mg/dl 161 mg/dl 123 mg/dl White Blood Count 8.67 K/uL Red Blood Count 3.48 M/uL Hemoglobin 10.1 g/dL Hematocrit 29.1 % Mean Corpuscular Volume 83.6 fL Mean Corpuscular Hemoglobin 29.0 pg Mean Corpuscular Hemoglobin Concent 34.7 g/dl Platelet Count 158 K/uL Mean Platelet Volume 10.0 fL Neutrophils (%) (Auto) 58.8 % Lymphocytes (%) (Auto) 22.1 % Monocytes (%) (Auto) 16.4 % Eosinophils (%) (Auto) 2.2 % Basophils (%) (Auto) 0.2 % Neutrophils # (Auto) 5.09 K/uL Lymphocytes # (Auto) 1.92 K/uL Monocytes # (Auto) 1.42 K/uL Eosinophils # (Auto) 0.19 K/uL Basophils # (Auto) 0.02 K/uL RDW Standard Deviation 41.1 fL RDW Coefficient of Variation 13.6 % Immature Granulocyte % (Auto) 0.3 % Immature Granulocyte # (Auto) 0.03 K/uL Sodium Level 137 mmol/L Potassium Level 3.4 mmol/L Chloride Level 102 mmol/L Carbon Dioxide Level 29 mmol/L Anion Gap 6.0 mmol/L Blood Urea Nitrogen 7 mg/dl Creatinine 0.75 mg/dl Est Creatinine Clear Calc Drug Dose 76.2 ml/min Estimated GFR () 95.6 Estimated GFR (Non- 82.5 BUN/Creatinine Ratio 9.4 Random Glucose 117 mg/dl Calcium Level 8.2 mg/dl Magnesium Level 2.0 mg/dl Test 01/15/17 11:11 Bedside Glucose 130 mg/dl Assessment and Plan 86 yo male under Rx for osteomyelitis left 3rd toe with linezolid, now with acute onset of nausea, weakness, and dizziness with elevated lactic acid, now improving. Low procalcitonin speaks against bacterial sepsis. x-ray shows no ongoing evidence of osteomyelitis of the toe, so further antibiotic therapy not necessary. Not clear whether patient actually has urinary tract infection as 2 different organisms identified. No obvious symptomatic infection. Will discuss.
[2017-01-15] MEDS: SUCRALFATE 1 GM/10 ML UDC PO SCH ×2 (16:35→21:35)
[2017-01-15] MEDS: TAMSULOSIN HCL 0.4 MG CAP PO SCH (21:35)
[2017-01-16] MEDS: LEVOTHYROXINE 100 MCG TAB PO SCH (05:55)
[2017-01-16] MEDS: SUCRALFATE 1 GM/10 ML UDC PO SCH ×2 (05:55→11:57)
[2017-01-16] MEDS: INSULIN ASPART 100 UNITS/ML 3 ML PEN SC SCH ×2 (06:30→11:00)
[2017-01-16 07:22] VITALS: BP 134/78; PULSE 78; TEMP 36.7; O2SAT 98
[2017-01-16 08:00] VITALS: O2SAT 98
[2017-01-16] MEDS: HYDROCORTISONE HC 2.5% CRM 30GM TUBE EXT SCH (08:53)
[2017-01-16] MEDS: ASPIRIN 325 MG ECTAB PO SCH (08:53)
[2017-01-16] MEDS: PANTOprazole SOD 40 MG TAB PO SCH (08:53)
[2017-01-16] MEDS: SIMVASTATIN 40 MG TAB PO SCH (08:53)
[2017-01-16] MEDS: SODIUM CHLORIDE 1 GM TAB PO SCH (08:53)
[2017-01-16] MEDS: MAGNESIUM OXIDE 400 MG TAB PO SCH (08:53)
[2017-01-16] MEDS: MEGESTROL ACETATE 400 MG/10 ML UDP PO SCH (08:54)
[2017-01-16] MEDS: POLYETHYLENE (MIRALAX) 17 GM PACK PO SCH (08:54)
[2017-01-16 14:34] VITALS: BP 134/78; PULSE 78; TEMP 36.7; O2SAT 98
[2017-01-16] MEDS ORDERED: CRFUDL PO (14:34)
[2017-01-16] MEDS ORDERED: MGCUDL400 PO (14:34)
[2017-01-16] MEDS ORDERED: ANSHCCR EXT (14:35)
[2017-01-16] MEDS ORDERED: SDMC1 PO (14:38)
--- NOTE | 2017-01-16 14:46 | Discharge Instructions ---
Discharge Instructions Date of Service Jan 16, 2017. 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 Additional Information Patient informed of condition: Yes Advance Directives: Yes DNR: No Level of Care: Skilled Communicable Disease: No Prognosis: Improving Instructions / Follow-Up Instructions / Follow-Up Mr. 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 BRBPR Likely 2/2 Hemorrhoids: STABLE - Hemoglobin stable - hemorrhoids on FRANK - can use cream for relief - GI consultation during admission with only recommendation continued PPI and can add Carafate if necessary - no invasive testing requested by patient or family -- Will continue home Omeprazole and add Carafate but this can be discontinued if not necessary as nausea completely resolved Elevated Lactic Acid with Nausea and Vomiting: - Initially suspect infection however cannot identify a specific course to explain lactic elevation - procalcitonin/ESR/CRP negative - cannot directly explain elevated lactic acid but patient improved solely with correction of Na - Discussed with Dr. Zamora (infectious disease) and no specific source identified - Question N/V related to hyponatremia vs hiatal hernia vs Zyvox intolerance - completely resolved and tolerating diet - H/O L foot infection/osteomyelitis on Zyvox as outpatient - plan to D/C all antibiotics and monitor per Dr. Zamora as patient received 3 months Zyvox -- Patient does have a new superficial ulceration from a friction blister but looks well and has dressing without overt signs of infection - ID following (Dr. Zamora) - follows as outpatient Generalized Weakness and Frequent Falls: Plan acute rehab Possible UTI, U/A (after Abx adjustment) - gram neg bacilli at 6000 - Unable to identify specifics due to multiple organsisms - did receive adaquate coverage of antibiotics in hospital and will monitor off Abx Hyponatremia: SIADH? RESOLVED - Symptoms - nausea, generalized weakness, disorientation - RESOLVED - Random urine NA, serum osm, urine osm - support the finding of SIADH - may be drug-related SIADH? - Fluid restriction placed and sodium currently resolved - would recommend continuing salt tablets as he is low normal but this can be D/C'd. -- Would recommend repeat labs in 3-4 days to include a basic metabolic panel HTN: - Hold Lozol due to hyponatremia - pending improvement in labs this can be reinstituted but use caution Poor Dietary Intake: - Megace 400 mg BID Permanent Atrial Fibrillation with Slow Ventricular Response: STABLE - No AC due to falls - continue ASA 325 mg daily -- Was previously on Verapamil but D/C'd in June due to slow ventricular response - continues to have intermittent bradycardic times in 40-50s. -- Currently is not on any other rate control methods DVT Prophylaxis: Lovenox 40 mg SC daily Code Status: FULL NO MECHANICAL VENTILATION Disposition: -- Ryan [phone] -- Eric [phone] -- Henrry [phone] (mobile) and [phone] (home) Current Hospital Diet Patient's current hospital diet: Diabetes Type 2 Diet Discharge Diet Recommended Diet: Diabetes Type 2 Diet Pending Studies Studies pending at discharge: no Laboratory Results Hemoglobin A1c Test 01/12/17 05:21 Range/Units Estimated Average Glucose 163 mg/dl Hemoglobin A1c 7.3 H 4.5-5.6 % Medical Emergencies . Who to Call and When: Medical Emergencies: If at any time you feel your situation is an emergency, please call 911 immediately. . Non-Emergent Contact Non-Emergency issues call your: Primary Care Provider Call Non-Emergent contact if: you have a fever, your pain is concerning you, you have any medication questions . . "Provider Documentation" section prepared by Kymberly Pelayo. . Core Measure Problem Core Measures: None
--- NOTE | 2017-01-16 18:00 | Discharge Summary ---
Discharge Summary Date of Service Jan 16, 2017. (Kymberly Pelayo, ITZ) Discharge Summary Admission Date: Jan 11, 2017 at 13:55 Discharge Date: Jan 16, 2017 Discharge Disposition: assisted facility Principal Diagnosis: Hyponatremia Possible SIADH Problems/Secondary Diagnoses: 1. Persistent Atrial Fibrillation with Slow Ventricular Response 2. HTN 3. T2DM 4. Hypothyroidism 5. BPH 6. Dementia 7. TIA x 3 Immunizations: Have You Had Influenza Vaccine: Yes Influenza Vaccine Date: May 06, 2012 History of Tetanus Vaccine?: Yes History of Pneumococcal: Unknown Pneumococcal Date: Mar 16, 2012 History of Hepatitis B Vaccine: No Procedures: RIGHT RIBS UNILATERAL WITH PA CHEST FINDINGS: A large hiatal hernia is again noted. Lung volumes are diminished. There is no pneumothorax or evidence of pulmonary edema. No lobar consolidation is identified. There is a nondisplaced fracture of the anterior right seventh rib and a mildly displaced fracture of the anterior right eighth rib. These fractures are age indeterminate. No additional right-sided rib fractures are identified. IMPRESSION: 1. No pneumothorax. Age indeterminate fractures of the anterior right seventh and eighth ribs. 2. Large hiatal hernia. CT OF THE HEAD WITHOUT CONTRAST FINDINGS: No acute intracranial hemorrhage, midline shift or mass effect is present. Ventricular system is stable. The basilar cisterns are patent. There are no extra axial collections. White matter hypodensity suggests small vessel disease. There are no findings to suggest acute dural sinus thrombosis or acute territorial infarct. There are no calvarial fractures. Gas within and adjacent to the cavernous sinus is likely venous in location. IMPRESSION: 1. No acute intracranial findings. 2. No calvarial fracture. CT SCAN OF THE CHEST, ABDOMEN, AND PELVIS WITH IV CONTRAST CHEST: Thyroid: Markedly atrophic. Thoracic aorta: There is atherosclerotic calcification of the thoracic aorta, which is normal in caliber and demonstrates standard 3-vessel arch anatomy. No dissection is seen. Pulmonary vasculature: The pulmonary trunk is normal in caliber. There are no filling defects identified in the central pulmonary vessels to indicate pulmonary was. Note that this examination was not protocoled for evaluation of the pulmonary arteries. Heart: The heart is enlarged and without pericardial effusion. The coronary arteries are densely calcified. Lungs and pleural spaces: There are small right and trace left pleural effusions with bibasilar atelectasis. No airspace consolidation is seen typical for pneumonia. The trachea and central airways are clear. Punctate calcified granulomas are noted at the lung bases. Mediastinum: There is no mediastinal lymphadenopathy. Radha: Clear. Axillae: There is no axillary lymphadenopathy. Bony thorax: The skeletal structures are osteopenic. Degenerative change and hyperkyphosis are noted in the thoracic spine. Mild compression deformities are seen in the midthoracic region. No lytic or blastic lesions are identified. Advanced arthritic change is noted in the shoulders. ABDOMEN AND PELVIS: Liver: The contrast-enhanced liver is normal in size and contour. Hepatic attenuation is slightly heterogeneous. There is minimal central intrahepatic or ductal dilatation. There are scattered calcified hepatic granulomas. Mild periportal edema is suggested. The hepatic veins and portal veins are patent. Gallbladder: Surgically absent. Spleen: Normal in size and attenuation. There are calcified splenic granulomas. Pancreas: The pancreas is atrophic. The pancreatic body and tail are contained within the large hiatal hernia. Adrenal glands: Unremarkable. Kidneys: The contrast enhanced kidneys are atrophic and without hydronephrosis. The kidneys enhance symmetrically. Abdominal vasculature: The abdominal aorta is normal in course and caliber noting moderate to advanced atherosclerotic calcification. Stomach and bowel: There is a large hiatal hernia, with the majority of the stomach located in the thoracic cavity. The duodenum is normal in configuration. There is no bowel obstruction. There is mild colonic diverticulosis without CT evidence of acute diverticulitis. Moderate colonic fecal retention is observed. The appendix is normal as visualized. Peritoneum: There is trace perisplenic free fluid as well as trace free fluid in the right lower quadrant and pelvis. No intraperitoneal free air is seen. Lymphadenopathy: None. Pelvic viscera: The the prostate gland is mildly enlarged and heterogeneous, measuring 5.9 cm in diameter. There is medial lobe hypertrophy. There is mild uncovertebral bladder wall thickening and a bladder diverticulum is noted. Skeletal structures: The skeletal structures are osteopenic. There is moderate to advanced lumbosacral spondylosis. There are postoperative changes from extensive lumbar laminectomy. Advanced arthritic change is present in the hips. No lytic or blastic lesions are seen. IMPRESSION: 1. Small right and trace left pleural effusions. No airspace consolidation is seen. 2. Cardiomegaly. 3. Large hiatal hernia, with the majority the stomach located in the thoracic cavity. 4. There is trace 3 fluid within the abdomen and pelvis. 5. Moderate constipation. No bowel obstruction is seen. 6. Mild colonic diverticulosis without CT evidence of acute diverticulitis. 7. Prostatomegaly with evidence of chronic bladder obstruction. 8. Additional findings as above. LEFT TOE(S) MIN 2 VIEWS DISCUSSION: The bones and joint spaces appear intact. There is no evidence of fracture, dislocation or bony disease. Mild soft tissue edema IMPRESSION: Mild soft tissue edema. No bony destructive process. Consultations: 1. GI 2. PT/OT (Kymberly Pelayo, ITZ) Medication Reconciliation New Medications: Hydrocortisone (Proctosol Hc) 90 Appln/30 Gm Cr 1 APPLN EXT Q12 for 14 Days, #1 TUBE Megestrol Acetate (Megestrol Acetate) 400 Mg/10 Ml Susp 400 MG PO BID for 14 Days, #28 TAB Sodium Chloride (Sodium Chloride) 1 Gm Tab 1 GM PO DAILY for 14 Days, #14 TAB Sucralfate (Sucralfate) 1 Gm/10 Ml Susp 1 GM PO ACHS for 14 Days Continued Medications: Aspirin (Aspirin Ec) 325 Mg Tab 325 MG PO NOON Celecoxib (CeleBREX) 200 Mg Cap 200 MG PO BID, CAP Glipizide (Glipizide Er) 2.5 Mg Tab 1 TAB PO QAM, TAB 3 Refills Levothyroxine Sodium (Levothyroxine Sodium) 100 Mcg Tab 100 MG PO DAILY Omeprazole (Prilosec) 20 Mg Capcr 20 MG PO BID Simvastatin (Zocor) 40 Mg Tab 40 MG PO Q2D Tamsulosin Hcl (Flomax) 0.4 Mg Cap 0.4 MG PO HS, CAP Discontinued Medications: Indapamide (Lozol) 1.25 Mg Tab 1.25 MG PO QAM, TAB Linezolid (Linezolid) 600 Mg Tab 600 TAB PO BID for 30 Days, #60 TABS 1 Refill Discharge Exam Physical Exam General Appearance: WD/WN, no apparent distress Eyes: sclerae normal Neck: supple, no JVD, trachea midline Respiratory/Chest: lungs clear, normal breath sounds, no respiratory distress, no accessory muscle use Cardiovascular: no gallop, no murmur, + irregularly irregular Abdomen: normal bowel sounds, non tender, soft Neurologic/Psychiatric: alert, oriented x 3, + pertinent finding (intermittent confusion) Skin: normal color, warm/dry; superficial wound of L plantar aspect of foot without overt signs of infection Review of Systems: Constitutional: No fever, No chills Eyes: No worsening of vision ENT: No nasal symptoms, No sore throat, No trouble swallowing Respiratory: No cough, No dyspnea on exertion, No dyspnea at rest Cardiovascular: No chest pain Abdomen: No pain, No nausea, No vomiting, No diarrhea, No constipation Musculoskeletal: No calf pain Genitourinary - Male: No dysuria Neurologic: + memory loss (Kymberly Pelayo, ITZ) Hospital Course ADMISSION: Mr. 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 Patient reports feeling well up until last night. He states his nausea was a sudden onset but reports no emesis only dry heaving. He reports improvement with Zofran but has not had complete recovery. Also reporting multiple falls since last night resulting in hitting his head and his upper back. Ecchymosis to the upper back but patient denies pain. He normally ambulates with a walker but sons had to carry him to the car to bring him to the ED. Sons at bedside report he has had a decreased appetite over the past 3-4 days and does not drink a lot of fluids. Sons also state that he has been disoriented and was stating he was seeing "orange balls" and was trying to get off them. He is being treated by wound care and ID for a left foot wound with Linezolid. Sons say he is tolerating this medication well and hasn't been on it since November. Patient is unable to lay flat due to chronic dizziness. He denies fever/chills, headache, chest pain, shortness of breath, vomiting, abdominal pain, dysuria, diarrhea/constipation, melena/hematochezia. In the ED, patient is afebrile without leukocytosis. POC lactic 3.39 with lab repeat of 3.7. Sodium 121. EKG with atrial fibrillation at a rate of 59 bpm without evidence of ischemic changes. Patient will be admitted to telemetry for hyponatremia and possible infection of unknown etiology. HOSPITAL COURSE: Mr. Moe was admitted for hyponatremia at 121 and question of infection due to elevated lactic acid. Etiology of lactic acid is uncertain as ESR/CRP/Procalcitonin did not support systemic infection. 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 Question of underlying UTI as his culture grew 6 colonies of organisms but sample obtained after antibiotics. Due to the lactic acid his Zyvox was held and he was started on Vancomycin and Zosyn but all antibiotics are currently stopped. Patients confusion and nausea/dry heaves resolved with resolution of his hyponatremia. 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 Due to the lactic acid he was aggressively hydrated which resulted in no change in his Na level. He was initiated on salt tablets while giving IVF. IVF were then discontinued and Na stabilized in the low normal range with a fluid restriction. His Lozol was held during hospitalization and he has maintained adequate blood pressures but consideration for reinstitution can be made by PCP. During admission, patient noted to have BRBPR which is likely hemorrhoidal as they were noted on FRANK and family confirmed history. GI consultation placed but invasive procedures deferred and recommendations given for PPI and Carafate if necessary. Due to poor oral intake and appetite, Megace 400 mg BID was instituted. Due to frequent falls and generalized weakness, recommendations given for SNF placement. Patient is hemodynamically stable without new complaints and is optimal for D/C to [facility] for SNF rehab. Total Time Spent: Greater than 30 minutes This includes examination of the patient, discharge planning, medication reconciliation, and communication with other providers. (Kymberly Pelayo PA-C) Discharge Instructions Please refer to the electronic Patient Visit Report (Discharge Instructions) for additional information. (Kymberly Pelayo PA-C) Additional Copies To [facility]; Francis Banks M.D. Reviewed: Pt Seen/Exam by Me (Ruth Philip, ) History Pt feeling improved. No further n/v. Tolerating PO well. Still feeling weak, but better. No chest pain or SOB. Agree with HPI/ROS as noted. (Ruth Philip, ) General Appearance: WD/WN, no apparent distress Respiratory: normal breath sounds, no respiratory distress Cardiovascular: normal peripheral pulses, regular rate, rhythm Gastrointestinal: non tender, soft Extremities: non-tender, no pedal edema Neurologic/Psychiatric: alert, normal mood/affect Skin Characteristics: normal color, warm/dry (Ruth Philip, DO) Assessment/Plan Agree with plan as outlined above HypoNa, resolved Hb noted with heme + stool, pt would like to avoid c-scope at this time given hemorrhoid hx, GI agrees Can pursue in the future if ongoing issues Planning for [facility] on d/c (Ruth Philip, DO)
[2017-02-06] MEDS ORDERED: LINE1TAB7 PO (13:41)
[2017-02-14] MEDS ORDERED: LINE1TAB6 PO (08:46)
[2017-03-06] MEDS ORDERED: PROM25TA9 PO (10:11)
[2017-03-21] MEDS ORDERED: [UNRECOGNIZED DRUG - SUPPLY] TD (10:15)
[2017-03-21] MEDS ORDERED: PRLSR20 PO (10:15)
[2017-03-21] MEDS ORDERED: SILV1PAD9 TOP (10:15)
[2017-03-21] MEDS ORDERED: GLIP5TAB11 PO (10:15)
[2017-03-21] MEDS ORDERED: MISCCAP80 PO (10:15)
[2017-03-21] MEDS ORDERED: [UNRECOGNIZED DRUG - CODE] TD ×2 (10:15)
[2017-03-21] MEDS ORDERED: MEGE40TA13 PO (10:15)
[2017-04-12] MEDS ORDERED: MULTTAB63 PO (10:15)
[2017-04-12] MEDS ORDERED: MENTOIN TOP (10:15)
[2017-04-12] MEDS ORDERED: ASPI325T39 PO (10:15)
[2017-04-12] MEDS ORDERED: LEVO100T7 PO (10:15)
[2017-04-12] MEDS ORDERED: ACET-1311 PO (10:15)
[2017-04-12] MEDS ORDERED: CLB/200 PO (10:15)
[2017-04-12] MEDS ORDERED: TAMS0.4C38 PO (10:15)
[2017-04-17] MEDS ORDERED: CIPR1TAB11 PO (14:07)
== END 2017-01-16 15:50 | DRG 644 ==
LOC: C.EDB 11:00 → UNDOADMIN 13:55 → C.2T 13:55 → EDBEDREQ 14:00 → ENRESERV 14:03 → C.MS2W 01-15 11:15
PROVIDERS: ADMIT Internal Medicine; ATTEND Family Medicine
DX: E22.2 Syndrome of inappropriate secretion of antidiuretic hormone (principal); M86.9 Osteomyelitis, unspecified; N39.0 Urinary tract infection, site not specified; R29.6 Repeated falls; I10 Essential (primary) hypertension; I48.2 Chronic atrial fibrillation; E03.9 Hypothyroidism, unspecified; K64.4 Residual hemorrhoidal skin tags; N40.0 Benign prostatic hyperplasia without lower urinary tract symptoms; F03.90 Unspecified dementia, unspecified severity, without behavioral disturbance, psychotic disturbance, mood disturbance, and anxiety; R63.0 Anorexia; E11.621 Type 2 diabetes mellitus with foot ulcer; L97.529 Non-pressure chronic ulcer of other part of left foot with unspecified severity; Z79.2 Long term (current) use of antibiotics; Z79.82 Long term (current) use of aspirin; Z79.899 Other long term (current) drug therapy; Z86.73 Personal history of transient ischemic attack (TIA), and cerebral infarction without residual deficits; Z91.81 History of falling

== ENCOUNTER → 2017-01-20 | Outpatient (CLI) | payer OTHER ==
[~2017-01-20] MED LIST changes: +ACET-1311 PO; +ANSHCCR EXT; +CIPR1TAB11 PO; +CRFUDL PO; +GLIP5TAB11 PO; +LEVO100T7 PO; -LINE1TAB2 PO; +LINE1TAB6 PO; +LINE1TAB7 PO; -LZL/125 PO; +MEGE40TA13 PO; +MENTOIN TOP; +METO25TA56 PO; +MGCUDL400 PO; +MISCCAP80 PO; +MULTTAB63 PO; +PROM25TA9 PO; +PRVDB PO; +SDMC1 PO; +SILV1PAD38 TOP; +SILV1PAD9 TOP; +SKIN PREP SPRAY TOP; -SYN100 PO; +[UNRECOGNIZED DRUG - CODE] TD; +[UNRECOGNIZED DRUG - SUPPLY] TD
[2017-01-20 08:33] LABS: BLOOD UREA NITROGEN 16 mg/dl (7-18); BUN/CREATININE RATIO 16.6 (10-20); CALCIUM 8.8 mg/dl (8.5-10.1); CARBON DIOXIDE 26 mmol/L (21-32); CHLORIDE 106 mmol/L (98-107); CREATININE 0.94 mg/dl (0.60-1.40); GLUCOSE 113 mg/dl (70-99); POTASSIUM 4.3 mmol/L (3.5-5.1); SODIUM 140 mmol/L (136-145)
== END ==
LOC: C.LABCC 08:00
PROVIDERS: ATTEND Internal Medicine
DX: E22.2 Syndrome of inappropriate secretion of antidiuretic hormone (principal)

== ENCOUNTER → 2017-02-10 | Outpatient (CLI) | payer OTHER ==
[~2017-02-10] MED LIST changes: +GADAVIST IV PRN
--- NOTE | 2017-02-10 15:55 | DIAGNOSTIC IMAGING REPORT ---
MRI OF THE RIGHT GREAT TOE WITHOUT AND WITH CONTRAST CLINICAL HISTORY: Nonhealing wound right great toe COMPARISON STUDY: None FINDINGS: Imaging was performed in the sagittal, axial, and coronal planes. Imaging was performed before and after the administration of 6 cc of intravenous Gadavist. There is a dorsal soft tissue ulceration at the level of the first metatarsal phalangeal joint. There is T2 edema involving the base of the proximal phalanx of the great toe. As there is no corresponding T1 edema, this is consistent with an osteitis. There are no findings to indicate acute osteomyelitis. The interphalangeal joint of the great toe is in flexion. There are no fluid collections to indicate an abscess. There is a trace joint effusion at the level the first metatarsal phalangeal joint. IMPRESSION: 1. Reactive osteitis involving the base of the proximal phalanx of the great toe. No evidence of osteomyelitis. 2. Mild soft tissue inflammatory changes. No evidence of abscess. Electronically signed by: Luiz Cisneros M.D. 02/10/2017 3:54 PM Dictated Date/Time: 02/10/2017 3:49 PM
== END | disposition home or self-care (01) ==
LOC: C.MRI 14:15
PROVIDERS: ATTEND Emergency Medicine
DX: L97.519 Non-pressure chronic ulcer of other part of right foot with unspecified severity (principal)

== ENCOUNTER → 2017-02-18 | Outpatient (CLI) | payer OTHER ==
[~2017-02-18] MED LIST changes: -GADAVIST IV PRN; -LINE1TAB7 PO
[2017-02-18 12:41] LABS: ALT/SGPT 25 U/L (12-78); AST/SGOT 13 U/L (15-37); BLOOD UREA NITROGEN 22 mg/dl (7-18); BUN/CREATININE RATIO 22.1 (10-20); CALCIUM 8.6 mg/dl (8.5-10.1); CARBON DIOXIDE 24 mmol/L (21-32); CHLORIDE 102 mmol/L (98-107); GLUCOSE 95 mg/dl (70-99); POTASSIUM 3.6 mmol/L (3.5-5.1); SODIUM 137 mmol/L (136-145)
[2017-02-18 12:53] LABS: ALB/GLOB RATIO 1.2 (0.9-2); ALKALINE PHOSPHATASE 59 U/L (45-117); CHOLESTEROL 121 mg/dl (0-200); CHOLESTEROL/HDL RATIO 1.5; HDL CHOLESTEROL 83 mg/dl; LDL CHOLESTEROL CALCULATED 25 mg/dl; TRIGLYCERIDES 67 mg/dl (0-150); VERY LOW DENSITY LIPOPROT CALC 13 mg/dl
== END ==
LOC: C.LABCC 09:41
PROVIDERS: ATTEND Internal Medicine
DX: I48.91 Unspecified atrial fibrillation (principal); E03.9 Hypothyroidism, unspecified; E78.5 Hyperlipidemia, unspecified

== ENCOUNTER → 2017-03-10 | Outpatient (CLI) | payer OTHER ==
[2017-03-10 09:42] LABS: HEMATOCRIT 28.1 % (42-52); MEAN CELL VOLUME 89.5 fL (80-100); MEAN CORPUSCULAR HEMOGLOBIN 30.9 pg (25-34); MEAN CORPUSCULAR HGB CONC 34.5 g/dl (32-36); MEAN PLATELET VOLUME 10.8 fL (7.4-10.4); PLATELET COUNT 153 K/uL (130-400); RED BLOOD COUNT 3.14 M/uL (4.7-6.1); WHITE BLOOD COUNT 3.86 K/uL (4.8-10.8)
[2017-03-10 10:06] LABS: ALT/SGPT 23 U/L (12-78); BLOOD UREA NITROGEN 29 mg/dl (7-18); BUN/CREATININE RATIO 33.7 (10-20); CALCIUM 8.2 mg/dl (8.5-10.1); CARBON DIOXIDE 26 mmol/L (21-32); CHLORIDE 102 mmol/L (98-107); CREATININE 0.87 mg/dl (0.60-1.40); GLUCOSE 98 mg/dl (70-99); POTASSIUM 4.2 mmol/L (3.5-5.1); SODIUM 137 mmol/L (136-145)
[2017-03-10 10:08] LABS: ALB/GLOB RATIO 1.3 (0.9-2); ALKALINE PHOSPHATASE 53 U/L (45-117); AST/SGOT 12 U/L (15-37)
== END | disposition home or self-care (01) ==
LOC: C.LABCC 09:16
PROVIDERS: ATTEND Internal Medicine
DX: E11.9 Type 2 diabetes mellitus without complications (principal); R11.0 Nausea

== ENCOUNTER → 2017-03-12 | Outpatient (CLI) | payer OTHER ==
[2017-03-12 18:02] LABS: HEMATOCRIT 32.1 % (42-52); MEAN CELL VOLUME 90.9 fL (80-100); MEAN CORPUSCULAR HEMOGLOBIN 30.9 pg (25-34); MEAN PLATELET VOLUME 11.1 fL (7.4-10.4); PLATELET COUNT 179 K/uL (130-400); RED BLOOD COUNT 3.53 M/uL (4.7-6.1)
[2017-03-12 18:07] LABS: MANUAL MICROSCOPIC REQUIRED? NO; REVIEW REQ? NO; URINE APPEARANCE CLOUDY (CLEAR); URINE COLOR DK YELLOW; URINE EPITHELIAL CELL AUTO >30 /lpf (0-5); URINE NITRITE NEG (NEG); URINE SPECIFIC GRAVITY 1.026 (1.000-1.030); UROBILINOGEN NEG (NEG)
[2017-03-12 18:08] LABS: URINE BILIRUBIN NEG (NEG)
[2017-03-12 18:10] LABS: ALT/SGPT 28 U/L (12-78); BLOOD UREA NITROGEN 30 mg/dl (7-18); CALCIUM 8.9 mg/dl (8.5-10.1); CARBON DIOXIDE 23 mmol/L (21-32); CHLORIDE 98 mmol/L (98-107); GLUCOSE 166 mg/dl (70-99); POTASSIUM 4.4 mmol/L (3.5-5.1); SODIUM 132 mmol/L (136-145)
[2017-03-12 18:13] LABS: ALB/GLOB RATIO 1.3 (0.9-2); ALKALINE PHOSPHATASE 62 U/L (45-117); AST/SGOT 16 U/L (15-37)
--- NOTE | 2017-03-20 12:14 | CODING QUERY MEDICAL NECESSITY ---
CQSUPPORTING DIAGNOSIS NEEDED A supporting diagnosis is required for the test/procedure performed on this patient in order for us to be reimbursed by the patient's insurance. Please provide a supporting diagnosis for the following test/procedure listed below next to the test name along with your signature. *If there is no additional diagnosis for this patient that would support the following test/procedure please document that below next to the test/procedure. Test(s)/Procedure(s) that require a supporting diagnosis: DOS 03/12/17 URINE CULTURE Provider Signature: Date: Thank you Rachael Leary [employer] Once completed, please kindly fax back to [phone] For questions please call [phone]
== END ==
LOC: C.LABCC 17:33
PROVIDERS: ATTEND Internal Medicine
DX: D64.9 Anemia, unspecified (principal); R19.7 Diarrhea, unspecified; R11.2 Nausea with vomiting, unspecified

== ENCOUNTER → 2017-03-13 | Outpatient (CLI) | payer OTHER ==
[2017-03-13 09:03] LABS: FERRITIN 533.4 ng/ml (8.0-388.0); PREALBUMIN 18.9 mg/dl (20-40)
--- NOTE | 2017-03-24 09:52 | CODING QUERY MEDICAL NECESSITY ---
CQSUPPORTING DIAGNOSIS NEEDED A supporting diagnosis is required for the test/procedure performed on this patient in order for us to be reimbursed by the patient's insurance. Please provide a supporting diagnosis for the following test/procedure listed below next to the test name along with your signature. *If there is no additional diagnosis for this patient that would support the following test/procedure please document that below next to the test/procedure. Test(s)/Procedure(s) that require a supporting diagnosis: DOS 03/13/17 VITAMIN B12 TEST FOLIC ACIDE TEST Provider Signature: Date: Thank you Rachael Leary [employer] Once completed, please kindly fax back to [phone] For questions please call [phone]
== END ==
LOC: C.LABCC 08:27
PROVIDERS: ATTEND Internal Medicine
DX: D64.9 Anemia, unspecified (principal); S31.809A Unspecified open wound of unspecified buttock, initial encounter; X58.XXXA Exposure to other specified factors, initial encounter

== ENCOUNTER → 2017-03-14 | Outpatient (CLI) | payer OTHER ==
[2017-03-14 08:38] LABS: BLOOD UREA NITROGEN 25 mg/dl (7-18); BUN/CREATININE RATIO 27.2 (10-20); CALCIUM 8.5 mg/dl (8.5-10.1); CARBON DIOXIDE 25 mmol/L (21-32); CHLORIDE 100 mmol/L (98-107); CREATININE 0.92 mg/dl (0.60-1.40); GLUCOSE 118 mg/dl (70-99); POTASSIUM 4.3 mmol/L (3.5-5.1); SODIUM 135 mmol/L (136-145)
== END ==
LOC: C.LABCC 07:51
PROVIDERS: ATTEND Internal Medicine
DX: E87.1 Hypo-osmolality and hyponatremia (principal)

== ENCOUNTER → 2017-04-02 | Outpatient (CLI) | payer OTHER ==
[~2017-04-02] MED LIST changes: -ANSHCCR EXT; -CRFUDL PO; -LINE1TAB6 PO; -MGCUDL400 PO; -PROM25TA9 PO; -SDMC1 PO; -SIMV40TA2 PO
[2017-04-02 08:17] LABS: HEMATOCRIT 35.1 % (42-52); MEAN CORPUSCULAR HEMOGLOBIN 30.7 pg (25-34); MEAN CORPUSCULAR HGB CONC 31.6 g/dl (32-36); MEAN PLATELET VOLUME 10.1 fL (7.4-10.4); PLATELET COUNT 348 K/uL (130-400); RED BLOOD COUNT 3.62 M/uL (4.7-6.1); WHITE BLOOD COUNT 5.78 K/uL (4.8-10.8)
[2017-04-02 08:28] LABS: BLOOD UREA NITROGEN 23 mg/dl (7-18); BUN/CREATININE RATIO 22.7 (10-20); CALCIUM 8.9 mg/dl (8.5-10.1); CARBON DIOXIDE 25 mmol/L (21-32); CHLORIDE 107 mmol/L (98-107); GLUCOSE 112 mg/dl (70-99); POTASSIUM 3.9 mmol/L (3.5-5.1); SODIUM 140 mmol/L (136-145)
== END | disposition home or self-care (01) ==
LOC: C.LABSPEC 07:55
PROVIDERS: ATTEND Internal Medicine
DX: I10 Essential (primary) hypertension (principal)

== ENCOUNTER → 2017-04-08 | Outpatient (CLI) | payer OTHER ==
[2017-04-08 13:02] LABS: URINE APPEARANCE CLOUDY (CLEAR); URINE BILIRUBIN NEG (NEG); URINE COLOR YELLOW; URINE EPITHELIAL CELL AUTO >30 /lpf (0-5); URINE NITRITE NEG (NEG); URINE SPECIFIC GRAVITY 1.013 (1.000-1.030); UROBILINOGEN NEG (NEG)
[2017-04-08 13:06] LABS: MANUAL MICROSCOPIC REQUIRED? NO; REVIEW REQ? YES
== END | disposition home or self-care (01) ==
LOC: C.LABSPEC 04-07 12:26
PROVIDERS: ATTEND Nurse Practitioner Adult Health
DX: R35.0 Frequency of micturition (principal)

== ENCOUNTER 2017-04-12 21:30 | Emergency (ER) | payer OTHER ==
[~2017-04-12] VITALS: Ht 182.9 cm; Wt 64.0 kg
[~2017-04-12 21:30] MED LIST changes: -CIPR1TAB11 PO; -GLIP2.5T11 PO; -METO25TA56 PO; -PRVDB PO; -SILV1PAD38 TOP; -SKIN PREP SPRAY TOP
[2017-04-12 21:42] VITALS: TEMP 36.6; Ht 182.9 cm; Wt 64.0 kg
--- NOTE | 2017-04-12 22:33 | DIAGNOSTIC IMAGING REPORT ---
CHEST ONE VIEW PORTABLE CLINICAL HISTORY: 86 years-old Male presenting with CHEST PAIN. TECHNIQUE: Portable upright AP view of the chest was obtained. COMPARISON: 05/24/2016. FINDINGS: Cardiomediastinal silhouette normal. Interval development of left greater than right basilar opacities. New small to moderate left pleural effusion, which may be loculated. New trace right pleural effusion. Degenerative changes of the glenohumeral joints. Large hiatal hernia projects over the cardiac silhouette as on prior exam. IMPRESSION: 1. Interval development of moderate left and small right pleural effusions. Associated bibasilar opacities, possibly passive atelectasis. The left pleural effusion may be loculated. Electronically signed by: Andrade Eldridge M.D. 04/12/2017 10:32 PM Dictated Date/Time: 04/12/2017 10:28 PM
[2017-04-12 22:42] LABS: BASO % 0.7 %; BASO ABS # 0.04 K/uL (0-0.2); COMPLETE YES; HEMATOCRIT 41.6 % (42-52); IG% 0.4 %; LYMPH % 26.2 %; LYMPH ABS # 1.48 K/uL (1.2-3.4); MEAN CELL VOLUME 93.3 fL (80-100); MEAN CORPUSCULAR HEMOGLOBIN 27.4 pg (25-34); MEAN CORPUSCULAR HGB CONC 29.3 g/dl (32-36); MEAN PLATELET VOLUME 10.3 fL (7.4-10.4); MONO % 9.2 %; NEUT % 58.5 %; PLATELET COUNT 358 K/uL (130-400); RED BLOOD COUNT 4.46 M/uL (4.7-6.1); WHITE BLOOD COUNT 5.64 K/uL (4.8-10.8)
[2017-04-12 22:54] LABS: PROTHROMBIN TIME (PATIENT) 10.6 SECONDS (9.0-12.0)
--- NOTE | 2017-04-12 23:04 | EMERGENCY ROOM VISIT NOTE ---
History Report prepared by Deisy: Dionisio Webb Under the Supervision of: Dr. Miguel Angel Toussaint M.D. First contact with patient: 21:54 Chief Complaint: HYPERTENSION Stated Complaint: HIGH BLOOD PRESSURE History of Present Illness The patient is a 86 year old male who presents to the Emergency Room with complaints of waxing and waning hypertension beginning last week. He was seen by his PCP recently and started on a temporary dose of 12.5 mg Metoprolol. He states that he has been monitoring his blood pressure about twice daily. The patient states that he felt an episode of nausea yesterday. Per family, the patient received IV antibiotics once every two weeks for a MRSA infection of his right foot. 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 They also note that the patient was reported to have been a little confused yesterday. The patient denies any chest pain, back pain, abdominal pain, SOB, headache, or fever. He notes that he has fallen multiple times in the past few weeks. He is unsure why he has been falling. The patient also notes that he has been having problems with urinary incontinence recently. He has a history of vascular dementia and a-fib. He is on aspirin, but not any other blood thinners. Source of History: patient, family Onset: Last week Quality: other (hypertension) Timing: waxes/wanes Associated Symptoms: + nausea (episode yesterday), No fevers, No headache, No chest pain, No SOB, No abdominal pain, No back pain Note: The patient also complains of urinary incontinence. Review of Systems See HPI for pertinent positives & negatives. A total of 10 systems reviewed and were otherwise negative. Past Medical & Surgical Medical Problems: (1) Benign hypertension (2) Bradycardia (3) Diabetes mellitus (4) Dizziness (5) Osteomyelitis of foot, left, acute (6) TIA (transient ischemic attack) Surgical Problems: (1) S/P cholecystectomy (2) S/P knee replacement Old medical records were reviewed. Nurse's notes were reviewed and I agree with. Family History Diabetes mellitus Gallbladder disease Heart disease Hypertension Leukemia MOTHER MA FATHER Social History Smoking Status: Never Smoker Drug Use: none Marital Status: Housing Status: lives with family Occupation Status: retired Current/Historical Medications Scheduled Aspirin (Aspirin Ec), 325 MG PO DAILY Celecoxib (CeleBREX), 200 MG PO BID Glipizide (Glipizide Er), 1 TAB PO DAILY Levothyroxine Sodium (Levothyroxine Sodium), 1 TAB PO DAILY Menthol-Zinc Oxide (Calmoseptine), TOP DAILY Metoprolol Tartrate (Lopressor) (Lopressor), 25 MG PO BID Multiple Vitamins W/ Minerals (Therems M), 1 TAB PO DAILY Omeprazole (Prilosec), 20 MG PO BID Silver (Aquacel Ag Foam), 1 TOP UD Sodium Fluoride (Prevident 5000 Booster), 1 APPLN PO BID Tamsulosin Hcl (Flomax), 1 CAP PO HS [Skin Prep [place]], 1 SPRAY TOP DAILY Scheduled PRN Acetaminophen (Tylenol), 650 MG PO Q6 PRN for Pain or Fever Allergies Coded Allergies: No Known Allergies (Verified , 04/12/17) Physical Exam Vital Signs Date Time Temp Pulse Resp B/P (MAP) Pulse Ox O2 Delivery O2 Flow Rate FiO2 04/13/17 00:10 67 90 04/12/17 23:52 62 20 172/122 86 Room Air 04/12/17 22:42 59 20 180/101 04/12/17 21:42 36.6 73 20 200/110 95 Room Air Physical Exam General: Well developed well nourished in no acute distress, breathing comfortably on room air. Normal speech HEENT: Normal cephalic atraumatic. Pupils are equal round and reactive to light. Extraocular movements are intact. Oropharynx is pink with moist mucous membranes. No swelling of the mouth lips or tongue. Neck: Supple with a midline trachea. No meningeal signs or stiffness, no JVD or bruits. No Stridor. Chest: Clear to auscultation bilaterally. No wheezes or rhonchi. No increased work of breathing. Heart: Irregularly irregular rhythm. Normal rate. Abdomen: Soft nontender, nondistended without rebound guarding or rigidity. Extremities: No cyanosis clubbing or edema. No calf tenderness or assymetry. Small ulcer on the plantar aspect of the right foot. No cellulitis. Tiny healing wounds on the left foot. No cellulitis. Spine/Back. Non tender to palpation. No CVA tenderness Skin: Good turgor without rashes. Neurologic exam: Cranial nerves two through 12 are intact. Motor and sensation are intact and symmetrical throughout. Medical Decision & Procedures ER Provider Diagnostic Interpretation: Radiology results as stated below per my review and radiologist interpretation: HEAD WITHOUT CONTRAST (CT) FINDINGS: Jewish History Professor topogram: Unremarkable. Proportional ventricular and sulcal prominence, likely age-related parenchymal volume loss. Periventricular and subcortical white matter hypoattenuation, nonspecific but likely indicative of chronic small vessel ischemic change. No mass effect or midline shift. No hemorrhage or acute territorial infarct. No extra-axial fluid collection. Paranasal sinuses and mastoid air cells clear. Calvarium intact. IMPRESSION: 1. No acute intracranial pathology. Electronically signed by: Andrade Eldridge M.D. 04/12/2017 11:05 PM CHEST ONE VIEW PORTABLE FINDINGS: Cardiomediastinal silhouette normal. Interval development of left greater than right basilar opacities. New small to moderate left pleural effusion, which may be loculated. New trace right pleural effusion. Degenerative changes of the glenohumeral joints. Large hiatal hernia projects over the cardiac silhouette as on prior exam. IMPRESSION: 1. Interval development of moderate left and small right pleural effusions. Associated bibasilar opacities, possibly passive atelectasis. The left pleural effusion may be loculated. Electronically signed by: Andrade Eldridge M.D. 04/12/2017 10:32 PM Laboratory Results 04/12/17 22:30 Red Blood Count 4.46, Mean Corpuscular Volume 93.3, Mean Corpuscular Hemoglobin 27.4, Mean Corpuscular Hemoglobin Concent 29.3, Mean Platelet Volume 10.3, Neutrophils (%) (Auto) 58.5, Lymphocytes (%) (Auto) 26.2, Monocytes (%) (Auto) 9.2, Eosinophils (%) (Auto) 5.0, Basophils (%) (Auto) 0.7, Neutrophils # (Auto) 3.30, Lymphocytes # (Auto) 1.48, Monocytes # (Auto) 0.52, Eosinophils # (Auto) 0.28, Basophils # (Auto) 0.04 04/12/17 22:30 Test 04/12/17 22:30 04/12/17 22:42 04/12/17 23:35 White Blood Count 5.64 K/uL (4.8-10.8) Red Blood Count 4.46 M/uL (4.7-6.1) Hemoglobin 12.2 g/dL (14.0-18.0) Hematocrit 41.6 % (42-52) Mean Corpuscular Volume 93.3 fL (80-100) Mean Corpuscular Hemoglobin 27.4 pg (25-34) Mean Corpuscular Hemoglobin Concent 29.3 g/dl (32-36) Platelet Count 358 K/uL (130-400) Mean Platelet Volume 10.3 fL (7.4-10.4) Neutrophils (%) (Auto) 58.5 % Lymphocytes (%) (Auto) 26.2 % Monocytes (%) (Auto) 9.2 % Eosinophils (%) (Auto) 5.0 % Basophils (%) (Auto) 0.7 % Neutrophils # (Auto) 3.30 K/uL (1.4-6.5) Lymphocytes # (Auto) 1.48 K/uL (1.2-3.4) Monocytes # (Auto) 0.52 K/uL (0.11-0.59) Eosinophils # (Auto) 0.28 K/uL (0-0.5) Basophils # (Auto) 0.04 K/uL (0-0.2) RDW Standard Deviation 58.1 fL (36.4-46.3) RDW Coefficient of Variation 17.1 % (11.5-14.5) Immature Granulocyte % (Auto) 0.4 % Immature Granulocyte # (Auto) 0.02 K/uL (0.00-0.02) Prothrombin Time 10.6 SECONDS (9.0-12.0) Prothromb Time International Ratio 1.0 (0.9-1.1) Activated Partial Thromboplast Time 26.7 SECONDS (21.0-31.0) Partial Thromboplastin Ratio 1.0 Anion Gap 8.0 mmol/L (3-11) Est Creatinine Clear Calc Drug Dose 52.3 ml/min Estimated GFR () 88.7 Estimated GFR (Non- 76.5 BUN/Creatinine Ratio 22.5 (10-20) Calcium Level 8.7 mg/dl (8.5-10.1) Total Bilirubin 0.4 mg/dl (0.2-1) Direct Bilirubin 0.1 mg/dl (0-0.2) Aspartate Amino Transf (AST/SGOT) 18 U/L (15-37) Alanine Aminotransferase (ALT/SGPT) 37 U/L (12-78) Alkaline Phosphatase 95 U/L (45-117) Total Creatine Kinase 132 U/L (39-308) Creatine Kinase MB 4.2 ng/ml (0.5-3.6) Creatine Kinase MB Ratio 3.2 (0-3.0) Total Protein 6.7 gm/dl (6.4-8.2) Albumin 3.5 gm/dl (3.4-5.0) Lipase 97 U/L (73-393) Thyroid Stimulating Hormone (TSH) 2.230 uIu/ml (0.300-4.500) Bedside Troponin I 0.030 ng/ml (0-0.045) Urine Color YELLOW Urine Appearance CLEAR (CLEAR) Urine pH 7.0 (4.5-7.5) Urine Specific [place] 1.019 (1.000-1.030) Urine Protein NEG (NEG) Urine Glucose (UA) NEG (NEG) Urine Ketones NEG (NEG) Urine Occult Blood NEG (NEG) Urine Nitrite NEG (NEG) Urine Bilirubin NEG (NEG) Urine Urobilinogen NEG (NEG) Urine Leukocyte Esterase NEG (NEG) Laboratory studies as stated above per my review. ECG Indication: other (hypertension) Rate (beats per minute): 65 Rhythm: atrial fibrillation Findings: no acute ischemic change, other (poor baseline) Comparison ECG Date: January 13, 2017 Change: PVCs are now absent. ED Course 2155: Past medical records reviewed. The patient was evaluated in room B6, and a complete history and physical examination were performed. 2322: I reassessed the patient. He remains asymptomatic. 2345: Upon reevaluation, the patient is resting comfortably. I discussed the results and treatment plan with him. He verbalized agreement of the treatment plan. The patient was discharged home. Medical Decision Differentials include, but are not limited to; hypertension, CVA, trauma, arrhythmia, UTI, and electrolyte or metabolic abnormality. This patient comes in as described above. He was placed in room B6. He feels good at present except from some right foot pain which is chronic. He does have a history of chronic A. fib and does tend to fall. He is not anticoagulated because of this his blood pressures been high and they sent him up here for evaluation. He was recently started on Lopressor 12.5 mg by mouth. He has had no chest pain or shortness of breath. He did have some nausea yesterday. IV access established multiple blood testing was obtained. I did a chest x-ray, EKG, CAT scan of his head, urinalysis, and blood work. I talked to multiple family members at length. He was reassessed frequently. The patient looks great and is asymptomatic during his entire time here. He is chronic A. fib on his EKG without ischemic changes. His chest x-ray does have some small pleural effusions which are likely new compared to an x-ray done 10 months ago however the patient has no chest pain, shortness of breath, or anything to suggest pneumonia or acute cardiac or pulmonary disease. He has no significant electrolyte or metabolic abnormalities. Troponin is not elevated. His urinalysis does not suggest an infection and in fact he had a culture done 4 days ago which was unremarkable. His blood pressure has been trending downward. I do think that he can be discharged home. They will likely need to increase his blood pressure but need to look at more trends. With the patient being 100% asymptomatic, he does not need acute treatment today. He does need close follow-up with his doctor. He should be careful getting up and down and return if: chest pain, worsening of symptoms, shortness of breath, any new problems or concerns. Medication Reconcilliation Current Medication List: was personally reviewed by me Blood Pressure Screening Patient's blood pressure: Elevated blood pressure Blood pressure disposition: Referred to PCP Impression Primary Impression: HTN (hypertension) Scribe Attestation The scribe's documentation has been prepared under my direction and personally reviewed by me in its entirety. I confirm that the note above accurately reflects all work, treatment, procedures, and medical decision making performed by me. Departure Information Dispostion [facility] / Self[facility]Care [facility] Forms HOME CARE DOCUMENTATION FORM, IMPORTANT VISIT INFORMATION, WORK / SCHOOL INSTRUCTIONS Patient Instructions My [facility] [employer] Additional Instructions Rest. Be careful getting up and down Record your blood pressure and follow with Dr. Blanco this week. He can look at the pattern and if you're persistently elevated may ultimately need to gradually rise year chronic meds. Return if: Worsening of symptoms, chest pain, shortness breath, fever chills, any new problems or concerns
--- NOTE | 2017-04-12 23:06 | DIAGNOSTIC IMAGING REPORT ---
HEAD WITHOUT CONTRAST (CT) CLINICAL HISTORY: 86 years-old Male presenting with falls. TECHNIQUE: Multidetector CT imaging of the head was performed without the use of intravenous contrast. IV contrast: None. A dose lowering technique was used consistent with the principles of ALARA (as low as reasonably achievable). COMPARISON: 01/11/2017. CT DOSE (mGy.cm): The estimated cumulative dose is 691.05 mGy.cm. FINDINGS: International Marketing Manager topogram: Unremarkable. Proportional ventricular and sulcal prominence, likely age-related parenchymal volume loss. Periventricular and subcortical white matter hypoattenuation, nonspecific but likely indicative of chronic small vessel ischemic change. No mass effect or midline shift. No hemorrhage or acute territorial infarct. No extra-axial fluid collection. Paranasal sinuses and mastoid air cells clear. Calvarium intact. IMPRESSION: 1. No acute intracranial pathology. Electronically signed by: Andrade Eldridge M.D. 04/12/2017 11:05 PM Dictated Date/Time: 04/12/2017 11:03 PM
[2017-04-12 23:11] LABS: BUN/CREATININE RATIO 22.5 (10-20); CALCIUM 8.7 mg/dl (8.5-10.1); CREATININE 0.9 mg/dl (0.60-1.40); POTASSIUM 4.1 mmol/L (3.5-5.1)
[2017-04-12] MEDS ORDERED: METO25TA56 PO (23:12)
[2017-04-12] MEDS ORDERED: PRLSR20 PO (23:12)
[2017-04-12] MEDS ORDERED: PRVDB PO (23:12)
[2017-04-12] MEDS ORDERED: GLIP2.5T11 PO (23:12)
[2017-04-12] MEDS ORDERED: SKIN PREP SPRAY TOP (23:12)
[2017-04-12] MEDS ORDERED: SILV1PAD38 TOP (23:19)
[2017-04-12 23:21] LABS: CKMB/CK RATIO 3.2 (0-3.0); THYROID STIMULATING HORMONE 2.23 uIu/ml (0.300-4.500)
[2017-04-12 23:48] LABS: MANUAL MICROSCOPIC REQUIRED? NO; REVIEW REQ? NO; URINE APPEARANCE CLEAR (CLEAR); URINE BILIRUBIN NEG (NEG); URINE COLOR YELLOW; URINE NITRITE NEG (NEG); URINE SPECIFIC GRAVITY 1.019 (1.000-1.030); UROBILINOGEN NEG (NEG)
[2017-04-12 23:52] VITALS: BP 172/122
[2017-04-13 00:10] VITALS: PULSE 67; O2SAT 90
[2017-04-17] MEDS ORDERED: CIPR1TAB11 PO (14:07)
== END 2017-04-13 00:11 | disposition home or self-care (01) ==
LOC: C.EDB 21:31
DX: I10 Essential (primary) hypertension (principal); R11.0 Nausea; R29.6 Repeated falls; R32 Unspecified urinary incontinence; I48.91 Unspecified atrial fibrillation; I49.3 Ventricular premature depolarization; E11.621 Type 2 diabetes mellitus with foot ulcer; L97.519 Non-pressure chronic ulcer of other part of right foot with unspecified severity; Z79.82 Long term (current) use of aspirin; Z79.899 Other long term (current) drug therapy; Z86.73 Personal history of transient ischemic attack (TIA), and cerebral infarction without residual deficits

== ENCOUNTER → 2017-04-16 | Outpatient (CLI) | payer OTHER ==
[~2017-04-16] MED LIST changes: +CIPR1TAB11 PO; +GLIP2.5T11 PO; -GLIP5TAB11 PO; -MEGE40TA13 PO; +METO25TA56 PO; -MISCCAP80 PO; +PRVDB PO; +SILV1PAD38 TOP; -SILV1PAD9 TOP; +SKIN PREP SPRAY TOP; -[UNRECOGNIZED DRUG - CODE] TD; -[UNRECOGNIZED DRUG - SUPPLY] TD
[2017-04-16 09:00] LABS: BASO % 0.3 %; BASO ABS # 0.02 K/uL (0-0.2); COMPLETE YES; EOS % 2.7 %; HEMATOCRIT 33.2 % (42-52); IG% 0.3 %; LYMPH % 15.4 %; LYMPH ABS # 1.19 K/uL (1.2-3.4); MEAN CELL VOLUME 93.3 fL (80-100); MEAN CORPUSCULAR HEMOGLOBIN 28.9 pg (25-34); MEAN PLATELET VOLUME 10.7 fL (7.4-10.4); MONO % 10.1 %; NEUT % 71.2 %; PLATELET COUNT 286 K/uL (130-400); RED BLOOD COUNT 3.56 M/uL (4.7-6.1); WHITE BLOOD COUNT 7.71 K/uL (4.8-10.8)
[2017-04-16 09:07] LABS: BLOOD UREA NITROGEN 23 mg/dl (7-18); BUN/CREATININE RATIO 22.7 (10-20); CALCIUM 8.8 mg/dl (8.5-10.1); CARBON DIOXIDE 26 mmol/L (21-32); CHLORIDE 105 mmol/L (98-107); GLUCOSE 102 mg/dl (70-99); POTASSIUM 3.7 mmol/L (3.5-5.1); SODIUM 142 mmol/L (136-145)
[2017-04-16 13:29] LABS: URINE APPEARANCE CLOUDY (CLEAR); URINE BILIRUBIN NEG (NEG); URINE COLOR YELLOW; URINE EPITHELIAL CELL AUTO 0-5 /lpf (0-5); URINE NITRITE POS (NEG); URINE PH 8.5 (4.5-7.5); UROBILINOGEN NEG (NEG)
[2017-04-16 13:51] LABS: MANUAL MICROSCOPIC REQUIRED? NO; REVIEW REQ? NO; SULFASALICYLIC ACID NEG (NEG); ZZUR CULT IF INDIC CLEAN CATCH NO
== END ==
LOC: C.LABSPEC 08:30
PROVIDERS: ATTEND Internal Medicine
DX: R53.83 Other fatigue (principal); I10 Essential (primary) hypertension; I48.91 Unspecified atrial fibrillation

== ENCOUNTER 2017-05-06 13:43 | Inpatient (IN) | payer OTHER ==
[~2017-05-06] VITALS: Ht 182.9 cm; Wt 81.0 kg
[~2017-05-06 13:43] MED LIST changes: -METO25TA56 PO; -PRLSR20 PO; -PRVDB PO; -SKIN PREP SPRAY TOP
[2017-05-06] MEDS ORDERED: SODIUM CHLORIDE 0.9% 1000ML 500 ML IV ONE (14:12)
[2017-05-06] MEDS ORDERED: ALBUT/IPRATROP 3MG/0.5MG NEB 3 ML VIAL INH ONE (14:15)
--- NOTE | 2017-05-06 14:17 | EMERGENCY ROOM VISIT NOTE ---
History Report prepared by Deisy: Myke Contreras Under the Supervision of: Dr. Cristian Ramirez M.D. First contact with patient: 14:04 Chief Complaint: ALTERED MENTAL STATUS Stated Complaint: ALTERED MENTAL STATUS History of Present Illness The patient is an 87 year old male who presents to the Emergency Room with complaints of a constant altered mental status beginning four days ago. The patient is hypoxic and short of breath in the room. He states he is not on oxygen at the retirement. The patient's son reports the patient has been on antibiotics for the past four days for an infusion in his right foot. He notes the patient typically gets confused while on antibiotics. The son states the patient's O2 Sat was in the 80s before the patient was discharged, but when the patient takes a deep breath or coughs, his O2 Sat raises to the 90s. The patient denies a history of smoking and abdominal pain. Source of History: patient, family (son) Onset: four days ago Position: other (global) Quality: other (AMS) Timing: constant Associated Symptoms: + SOB, No abdominal pain Review of Systems See HPI for pertinent positives & negatives. A total of 10 systems reviewed and were otherwise negative. Past Medical & Surgical Medical Problems: (1) Acute exacerbation of CHF (congestive heart failure) (2) Benign hypertension (3) Bradycardia (4) CHF (congestive heart failure) (5) Diabetes mellitus (6) Dizziness (7) Osteomyelitis of foot, left, acute (8) TIA (transient ischemic attack) Surgical Problems: (1) S/P cholecystectomy (2) S/P knee replacement Family History Diabetes mellitus Gallbladder disease Heart disease Hypertension Leukemia MOTHER MS FATHER Social History Smoking Status: Never Smoker Drug Use: none Marital Status: Housing Status: lives with family Occupation Status: retired Current/Historical Medications Scheduled Amlodipine (Norvasc), 5 MG PO BID Aspirin (Aspirin Ec), 325 MG PO DAILY Celecoxib (CeleBREX), 200 MG PO BID Glipizide (Glucotrol), 2.5 MG PO DAILY Levothyroxine Sodium (Levothyroxine Sodium), 100 MG PO DAILY Menthol-Zinc Oxide (Calmoseptine), TOP DAILY Metoprolol Tartrate (Lopressor) (Lopressor), 25 MG PO BID Multiple Vitamins W/ Minerals (Therems M), 1 TAB PO DAILY Omeprazole (Prilosec), 20 MG PO BID Sodium Fluoride (Prevident 5000 Booster), 1 APPLN PO BID Tamsulosin Hcl (Flomax), 1 CAP PO HS [Skin Prep [place]], 1 SPRAY TOP DAILY Scheduled PRN Acetaminophen (Tylenol), 650 MG PO Q6 PRN for Pain or Fever Allergies Coded Allergies: No Known Allergies (Verified , 05/02/17) Physical Exam Vital Signs Date Time Temp Pulse Resp B/P (MAP) Pulse Ox O2 Delivery O2 Flow Rate FiO2 05/06/17 16:10 90 23 145/78 90 Nasal Cannula 2.0 05/06/17 15:14 60 16 131/71 93 Nebulizer 05/06/17 14:39 92 Nasal Cannula 2.0 05/06/17 14:38 58 22 91 Nasal Cannula 2.0 05/06/17 14:36 55 05/06/17 13:51 36.7 64 18 132/81 87 Room Air Physical Exam GENERAL: Patient is a healthy-appearing well-nourished 87 year old male. HEAD: Normocephalic atraumatic EYES: Ocular movements intact pupils equal and react to light OROPHARYNX mucous membranes are moist no exudates present no erythema or edema present NECK: Supple no nuchal rigidity CHEST: Good equal expansion LUNGS: Bilateral wheezing. CARDIAC: Normal S1 and S2 ABDOMEN: Soft nontender no guarding BACK: No CVA tenderness EXTREMITIES: No pain upon palpation normal muscle strength in all groups no clubbing cyanosis or edema NEURO: Patient is following commands and answering questions appropriately. Alert and oriented x3 Cranial Nerves 2-12 grossly intact Medical Decision & Procedures ER Provider Diagnostic Interpretation: X-ray results as stated below per interpretation by me and the radiologist: CHEST ONE VIEW PORTABLE CLINICAL HISTORY: Sepsis COMPARISON STUDY: 04/12/2017 FINDINGS: The heart is mildly enlarged. There is a large retrocardiac air-containing opacity consistent with a hiatal hernia. There is a persistent moderate left pleural effusion and small right pleural effusion. There is mild pulmonary vascular congestion. There are bibasal airspace opacities likely representing compressive atelectasis although a superimposed inflammatory process could appear similar.[ IMPRESSION: 1. Mild pulmonary vascular congestion 2. Large hiatal hernia 3. Moderate left pleural effusion and small right pleural effusion with associated basilar airspace opacities Electronically signed by: Luiz Cisneros M.D. 05/06/2017 2:38 PM Dictated Date/Time: 05/06/2017 2:37 PM Laboratory Results 05/06/17 14:20 Red Blood Count 3.92, Mean Corpuscular Volume 87.8, Mean Corpuscular Hemoglobin 27.8, Mean Corpuscular Hemoglobin Concent 31.7, Mean Platelet Volume 9.8, Neutrophils (%) (Auto) 67.8, Lymphocytes (%) (Auto) 18.1, Monocytes (%) (Auto) 9.6, Eosinophils (%) (Auto) 3.7, Basophils (%) (Auto) 0.5, Neutrophils # (Auto) 4.43, Lymphocytes # (Auto) 1.18, Monocytes # (Auto) 0.63, Eosinophils # (Auto) 0.24, Basophils # (Auto) 0.03 05/06/17 14:20 Test 05/06/17 14:20 05/06/17 14:32 05/06/17 15:38 05/06/17 16:00 White Blood Count 6.53 K/uL (4.8-10.8) Red Blood Count 3.92 M/uL (4.7-6.1) Hemoglobin 10.9 g/dL (14.0-18.0) Hematocrit 34.4 % (42-52) Mean Corpuscular Volume 87.8 fL (80-100) Mean Corpuscular Hemoglobin 27.8 pg (25-34) Mean Corpuscular Hemoglobin Concent 31.7 g/dl (32-36) Platelet Count 332 K/uL (130-400) Mean Platelet Volume 9.8 fL (7.4-10.4) Neutrophils (%) (Auto) 67.8 % Lymphocytes (%) (Auto) 18.1 % Monocytes (%) (Auto) 9.6 % Eosinophils (%) (Auto) 3.7 % Basophils (%) (Auto) 0.5 % Neutrophils # (Auto) 4.43 K/uL (1.4-6.5) Lymphocytes # (Auto) 1.18 K/uL (1.2-3.4) Monocytes # (Auto) 0.63 K/uL (0.11-0.59) Eosinophils # (Auto) 0.24 K/uL (0-0.5) Basophils # (Auto) 0.03 K/uL (0-0.2) RDW Standard Deviation 52.2 fL (36.4-46.3) RDW Coefficient of Variation 16.5 % (11.5-14.5) Immature Granulocyte % (Auto) 0.3 % Immature Granulocyte # (Auto) 0.02 K/uL (0.00-0.02) Prothrombin Time 10.7 SECONDS (9.0-12.0) Prothromb Time International Ratio 1.0 (0.9-1.1) Activated Partial Thromboplast Time 25.7 SECONDS (21.0-31.0) Partial Thromboplastin Ratio 1.0 Anion Gap 7.0 mmol/L (3-11) Est Creatinine Clear Calc Drug Dose 59.2 ml/min Estimated GFR () 88.5 Estimated GFR (Non- 76.3 BUN/Creatinine Ratio 26.3 (10-20) Calcium Level 9.0 mg/dl (8.5-10.1) Total Bilirubin 0.4 mg/dl (0.2-1) Aspartate Amino Transf (AST/SGOT) 23 U/L (15-37) Alanine Aminotransferase (ALT/SGPT) 36 U/L (12-78) Alkaline Phosphatase 91 U/L (45-117) Total Creatine Kinase 124 U/L (39-308) Creatine Kinase MB 3.6 ng/ml (0.5-3.6) Creatine Kinase MB Ratio 2.9 (0-3.0) Pro-B-Type Natriuretic Peptide 4610 pg/ml (0-1800) Total Protein 6.8 gm/dl (6.4-8.2) Albumin 3.5 gm/dl (3.4-5.0) Globulin 3.3 gm/dl (2.5-4.0) Albumin/Globulin Ratio 1.1 (0.9-2) Valproic Acid (Depakene) Level 5 mcg/ml (50-100) Bedside Lactic Acid Venous 1.46 mmol/L (0.90-1.70) Influenza Type A (RT-PCR) Neg for Influ A (NEG) Influenza Type A Antigen Neg for Influ A (NEG) Influenza Type B Antigen Neg for Influ B (NEG) Influenza Type B (RT-PCR) Neg for Influ B (NEG) Urine Color YELLOW Urine Appearance CLEAR (CLEAR) Urine pH 6.5 (4.5-7.5) Urine Specific [place] 1.009 (1.000-1.030) Urine Protein NEG (NEG) Urine Glucose (UA) NEG (NEG) Urine Ketones NEG (NEG) Urine Occult Blood NEG (NEG) Urine Nitrite NEG (NEG) Urine Bilirubin NEG (NEG) Urine Urobilinogen NEG (NEG) Urine Leukocyte Esterase NEG (NEG) Urine WBC (Auto) 0 /hpf (0-5) Urine RBC (Auto) 0-4 /hpf (0-4) Urine Hyaline Casts (Auto) 1-5 /lpf (0-5) Urine Epithelial Cells (Auto) 0-5 /lpf (0-5) Urine Bacteria (Auto) NEG (NEG) Labs reviewed by ED physician. Medications Administered Medications (Trade) Dose Ordered Sig/Alvin Route Start Time Stop Time Status Last Admin Dose Admin Sodium Chloride 500 ml @ 999 mls/hr Q31M ONCE IV 05/06/17 14:12 05/06/17 14:42 DC 05/06/17 15:08 999 MLS/HR Albuterol/ Ipratropium (Duoneb) 12 ml ONE ONCE INH 05/06/17 14:15 05/06/17 14:16 DC 05/06/17 14:37 12 ML Promethazine HCl 25 mg/Sodium Chloride 51 ml @ 204 mls/hr NOW STAT IV 05/06/17 14:26 05/06/17 14:40 DC 05/06/17 15:07 204 MLS/HR Furosemide (Lasix Inj) 40 mg NOW STAT IV 05/06/17 14:55 05/06/17 15:51 DC 05/06/17 15:10 40 MG ECG Indication: altered mental status Rate (beats per minute): 56 Rhythm: atrial fibrillation Findings: no acute ischemic change, other (slow ventricular response) Comparison ECG Date: 04/12/17 Change: no significant change ED Course 1408: Past medical records reviewed. The patient was evaluated in room A10. A complete history and physical examination was performed. I discussed the physical exam findings with the patient and his son. They verbalized agreement of the treatment plan. The patient will be evaluated for further management and care. 1412: Ordered Sodium Chloride 500 ml @ 999 mls/hr 1415: Ordered Albuterol/Ipratropium 12ml INH 1426: Ordered Promethazine HCl 25mg/Sodium Chloride 51 ml @ 204 mls/hr IV 1455: Ordered Furosemide 40mg IV 1512: I discussed the patients case with Niko Peralta. The patient will be evaluated for further treatment and care. Medical Decision Differential diagnosis: Etiologies such as metabolic, infection, hypo/hyperglycemia, electrolyte abnormalities, cardiac sources, intracerebral event, toxicologic, neurologic, as well as others were entertained. This is an 87-year-old male that presents emergency department complaining of altered mental status. Upon arrival to the emergency department the patient is hypoxic. He was started on 2 L of oxygen and given an hour-long breathing treatment. He does appear to be congested on his chest x-ray and his BNP is elevated. For this reason I did give the patient Lasix. He has a normal white blood cell count. I did discuss the case with the hospitalist service as the patient is continuing to require oxygen. They agreed to admit the patient family were in agreement with the treatment plan. Medication Reconcilliation Current Medication List: was personally reviewed by me Blood Pressure Screening Patient's blood pressure: Elevated blood pressure Blood pressure disposition: Referred to PCP Consults Time Called: 151 Consulting Physician: Niko Peralta Returned Call: [phone] I discussed the patients case with Niko Peralta. The patient will be evaluated for further treatment and care. Impression Primary Impression: Hypoxia Additional Impression: Altered mental status Scribe Attestation The scribe's documentation has been prepared under my direction and personally reviewed by me in its entirety. I confirm that the note above accurately reflects all work, treatment, procedures, and medical decision making performed by me. Departure Information Dispostion Being Evaluated By Hospitalist Referrals [facility] (PCP) Patient Instructions My [facility] Problem Qualifiers Additional Impression: Altered mental status Altered mental status type: unspecified Qualified Codes: R41.82 - Altered mental status, unspecified
[2017-05-06] MEDS ORDERED: PROMETHAZINE HCL INJ 25 MG in SODIUM CHLORIDE 0.9% 50ML 50 ML IV STA (14:26)
[2017-05-06 14:38] VITALS: PULSE 58; O2SAT 91
--- NOTE | 2017-05-06 14:40 | DIAGNOSTIC IMAGING REPORT ---
CHEST ONE VIEW PORTABLE CLINICAL HISTORY: Sepsis COMPARISON STUDY: 04/12/2017 FINDINGS: The heart is mildly enlarged. There is a large retrocardiac air-containing opacity consistent with a hiatal hernia. There is a persistent moderate left pleural effusion and small right pleural effusion. There is mild pulmonary vascular congestion. There are bibasal airspace opacities likely representing compressive atelectasis although a superimposed inflammatory process could appear similar.[ IMPRESSION: 1. Mild pulmonary vascular congestion 2. Large hiatal hernia 3. Moderate left pleural effusion and small right pleural effusion with associated basilar airspace opacities Electronically signed by: Luiz Cisneros M.D. 05/06/2017 2:38 PM Dictated Date/Time: 05/06/2017 2:37 PM
[2017-05-06] MEDS ORDERED: GLIP5TAB3 PO (14:42)
[2017-05-06] MEDS ORDERED: AMLO2.5T PO (14:42)
[2017-05-06 14:48] LABS: BASO % 0.5 %; BASO ABS # 0.03 K/uL (0-0.2); COMPLETE YES; EOS % 3.7 %; HEMATOCRIT 34.4 % (42-52); IG% 0.3 %; LYMPH % 18.1 %; LYMPH ABS # 1.18 K/uL (1.2-3.4); MEAN CELL VOLUME 87.8 fL (80-100); MEAN CORPUSCULAR HEMOGLOBIN 27.8 pg (25-34); MEAN CORPUSCULAR HGB CONC 31.7 g/dl (32-36); MEAN PLATELET VOLUME 9.8 fL (7.4-10.4); MONO % 9.6 %; NEUT % 67.8 %; PLATELET COUNT 332 K/uL (130-400); RED BLOOD COUNT 3.92 M/uL (4.7-6.1); WHITE BLOOD COUNT 6.53 K/uL (4.8-10.8)
[2017-05-06] MEDS ORDERED: FUROSEMIDE 40 MG/4 ML VIAL IV STA (14:55)
[2017-05-06 14:58] LABS: ALT/SGPT 36 U/L (12-78); BLOOD UREA NITROGEN 23 mg/dl (7-18); BUN/CREATININE RATIO 26.3 (10-20); CARBON DIOXIDE 27 mmol/L (21-32); CHLORIDE 105 mmol/L (98-107); CREATININE 0.89 mg/dl (0.60-1.40); GLUCOSE 108 mg/dl (70-99); POTASSIUM 4.3 mmol/L (3.5-5.1); SODIUM 139 mmol/L (136-145)
[2017-05-06 15:01] LABS: PROTHROMBIN TIME (PATIENT) 10.7 SECONDS (9.0-12.0)
[2017-05-06 15:02] LABS: ALB/GLOB RATIO 1.1 (0.9-2)
[2017-05-06 15:03] LABS: ALKALINE PHOSPHATASE 91 U/L (45-117); AST/SGOT 23 U/L (15-37); CKMB/CK RATIO 2.9 (0-3.0)
--- NOTE | 2017-05-06 15:52 | History and Physical ---
History & Physical Date & Time of Service: May 06, 2017 at 15:51 Chief Complaint: Altered Mental Status Primary Care Physician: [facility] [place],[facility] History of Present Illness This is an 87 yo M with PMHx of paroxysmal A. fib, hypertension, history of TIA 4, diabetes mellitus type 2, GERD, hypothyroidism, hiatal hernia, osteoarthritis, mild dementia without behavioral disturbance, hx MRSA, diabetic foot ulcerations currently being treated with Dalvanz IV once every other week, last administered on 05/02/17 as per ID recommendations. Patient presents today with acute onset shortness of breath from [facility] [place]. The patient's sons, Ryan and Alphonse are present at bedside. They report his shortness of breath has been coming on over the last 2 days. Patient was found to be hypoxic at 86% on room air at rest this morning. He is also noted to be coughing, nonproductive and required being placed on supplemental O2. The patient reports having a worsening left ankle pain which began approximately 30 minutes ago. He feels as if this is a cramping in his calf muscle. Family members note that the patient has seemed to be slightly altered, as his speaking was a little slurred, and he seemed to be confused earlier. At present the son reports that he is speaking better, although the patient himself denies this in entirety. Here in the ER patient has an elevated proBNP CXR showing mild pulmonary edema, and a hiatal hernia Patient was administered Lasix 40 mg IV EKG with atrial fibrillation, but negative for acute ischemic changes or ST wave inversion Past Medical/Surgical History Medical Problems: (1) Benign hypertension Status: Chronic (2) Diabetes mellitus Status: Chronic (3) TIA (transient ischemic attack) Status: Resolved MIld dementia without behavioral disturbance Paroxysmal A. fib GERD hypothyroidism hiatal hernia osteoarthritis, hx MRSA diabetic foot ulcerations Surgical Problems: (1) S/P cholecystectomy Status: Resolved (2) S/P knee replacement Status: Resolved Hx back surgery Family History Diabetes mellitus Gallbladder disease Heart disease Hypertension Leukemia MOTHER MO FATHER Social History Smoking Status: Never Smoker Smokeless Tobacco Use: No Alcohol Use: none Drug Use: none Marital Status: Housing status: assisted living Occupational Status: retired Immunizations History of Influenza Vaccine: Yes Influenza Vaccine Date: May 06, 2012 History of Tetanus Vaccine?: Yes History of Pneumococcal: Unknown Pneumococcal Date: Mar 16, 2012 History of Hepatitis B Vaccine: No Multi-Drug Resistant Organisms History of MDRO: Yes Type of MDRO: MRSA Allergies Coded Allergies: No Known Allergies (Verified , 05/02/17) Home Medications Scheduled Amlodipine (Norvasc), 5 MG PO BID Aspirin (Aspirin Ec), 325 MG PO DAILY Celecoxib (CeleBREX), 200 MG PO BID Glipizide (Glucotrol), 2.5 MG PO DAILY Levothyroxine Sodium (Levothyroxine Sodium), 100 MG PO DAILY Menthol-Zinc Oxide (Calmoseptine), TOP DAILY Metoprolol Tartrate (Lopressor) (Lopressor), 25 MG PO BID Multiple Vitamins W/ Minerals (Therems M), 1 TAB PO DAILY Omeprazole (Prilosec), 20 MG PO BID Sodium Fluoride (Prevident 5000 Booster), 1 APPLN PO BID Tamsulosin Hcl (Flomax), 1 CAP PO HS [Skin Prep [place]], 1 SPRAY TOP DAILY Scheduled PRN Acetaminophen (Tylenol), 650 MG PO Q6 PRN for Pain or Fever Review of Systems Constitutional: No fever, sweats or chills Eyes: No diplopia, no worsening or blurred vision ENT: normal hearing, no trouble swallowing Respiratory: + cough, no sputum, +dyspnea at rest and on exertion Cardiovascular: No chest pain, tightness or palpitations Abdomen: No pain, nausea, vomiting, diarrhea or constipation Musculoskeletal: No joint pain, calf pain, swelling Neurologic: No weakness, numbness/tingling, or balance problems + uses a walker at baseline for ambulation assistance Psychiatric: No anxiety or depression, + mild dementia without behavioral disturbance Skin: No rash or itch Physical Exam Vital Signs Date Time Temp Pulse Resp B/P (MAP) Pulse Ox O2 Delivery O2 Flow Rate FiO2 05/06/17 15:14 60 16 131/71 93 Nebulizer 05/06/17 14:39 92 Nasal Cannula 2.0 05/06/17 14:38 58 22 91 Nasal Cannula 2.0 05/06/17 14:36 55 05/06/17 13:51 36.7 64 18 132/81 87 Room Air General Appearance: WD/WN, + mild distress Head: normocephalic, atraumatic Eyes: PERRL, EOMI ENT: hearing grossly normal, pharynx normal, + pertinent finding (MMM) Neck: supple, + JVD (mild) Respiratory/Chest: chest non-tender, no respiratory distress, no accessory muscle use, + pertinent finding (+ crackles in bilateral bases, on 2 L via NC) Cardiovascular: + JVD, + tachycardia, + irregularly irregular Abdomen/GI: normal bowel sounds, non tender, soft Back: normal inspection, no CVA tenderness Extremities/Musculoskelatal: no calf tenderness, + pedal edema (2+ pitting edema bilaterally. + Chronic foot ulceration Right foot covered with dressing, + pain in R ankle, no surrounding erythema or rash noted, no point tenderness. ) Neurologic/Psych: alert, normal mood/affect, oriented x 3 Skin: normal color, warm/dry Diagnostics Laboratory Results Results Past 24 Hours Test 05/06/17 14:20 05/06/17 14:32 05/06/17 15:38 Range/Units White Blood Count 6.53 4.8-10.8 K/uL Red Blood Count 3.92 4.7-6.1 M/uL Hemoglobin 10.9 14.0-18.0 g/dL Hematocrit 34.4 42-52 % Mean Corpuscular Volume 87.8 80-100 fL Mean Corpuscular Hemoglobin 27.8 25-34 pg Mean Corpuscular Hemoglobin Concent 31.7 32-36 g/dl Platelet Count 332 130-400 K/uL Mean Platelet Volume 9.8 7.4-10.4 fL Neutrophils (%) (Auto) 67.8 % Lymphocytes (%) (Auto) 18.1 % Monocytes (%) (Auto) 9.6 % Eosinophils (%) (Auto) 3.7 % Basophils (%) (Auto) 0.5 % Neutrophils # (Auto) 4.43 1.4-6.5 K/uL Lymphocytes # (Auto) 1.18 1.2-3.4 K/uL Monocytes # (Auto) 0.63 0.11-0.59 K/uL Eosinophils # (Auto) 0.24 0-0.5 K/uL Basophils # (Auto) 0.03 0-0.2 K/uL RDW Standard Deviation 52.2 36.4-46.3 fL RDW Coefficient of Variation 16.5 11.5-14.5 % Immature Granulocyte % (Auto) 0.3 % Immature Granulocyte # (Auto) 0.02 0.00-0.02 K/uL Prothrombin Time 10.7 9.0-12.0 SECONDS Prothromb Time International Ratio 1.0 0.9-1.1 Activated Partial Thromboplast Time 25.7 21.0-31.0 SECONDS Partial Thromboplastin Ratio 1.0 Sodium Level 139 136-145 mmol/L Potassium Level 4.3 3.5-5.1 mmol/L Chloride Level 105 98-107 mmol/L Carbon Dioxide Level 27 21-32 mmol/L Anion Gap 7.0 3-11 mmol/L Blood Urea Nitrogen 23 7-18 mg/dl Creatinine 0.89 0.60-1.40 mg/dl Est Creatinine Clear Calc Drug Dose 59.2 ml/min Estimated GFR () 88.5 Estimated GFR (Non- 76.3 BUN/Creatinine Ratio 26.3 10-20 Random Glucose 108 70-99 mg/dl Calcium Level 9.0 8.5-10.1 mg/dl Total Bilirubin 0.4 0.2-1 mg/dl Aspartate Amino Transf (AST/SGOT) 23 15-37 U/L Alanine Aminotransferase (ALT/SGPT) 36 12-78 U/L Alkaline Phosphatase 91 45-117 U/L Total Creatine Kinase 124 39-308 U/L Creatine Kinase MB 3.6 0.5-3.6 ng/ml Creatine Kinase MB Ratio 2.9 0-3.0 Troponin I < 0.015 0-0.045 ng/ml Total Protein 6.8 6.4-8.2 gm/dl Albumin 3.5 3.4-5.0 gm/dl Globulin 3.3 2.5-4.0 gm/dl Albumin/Globulin Ratio 1.1 0.9-2 Valproic Acid (Depakene) Level 5 50-100 mcg/ml Bedside Lactic Acid Venous 1.46 0.90-1.70 mmol/L Microbiology Results 05/06/17 Blood Culture, Received Pending 05/06/17 Blood Culture, Received Pending Diagnostic Radiology CHEST ONE VIEW PORTABLE CLINICAL HISTORY: Sepsis COMPARISON STUDY: 04/12/2017 FINDINGS: The heart is mildly enlarged. There is a large retrocardiac air-containing opacity consistent with a hiatal hernia. There is a persistent moderate left pleural effusion and small right pleural effusion. There is mild pulmonary vascular congestion. There are bibasal airspace opacities likely representing compressive atelectasis although a superimposed inflammatory process could appear similar.[ IMPRESSION: 1. Mild pulmonary vascular congestion 2. Large hiatal hernia 3. Moderate left pleural effusion and small right pleural effusion with associated basilar airspace opacities Electronically signed by: Luiz Cisneros M.D. 05/06/2017 2:38 PM Dictated Date/Time: 05/06/2017 2:37 PM The status of this report is Signed. EKG Atrial fibrillation with slow ventricular response Abnormal ECG When compared with ECG of 12-APR-2017 21:56, No significant change was found [place] interval * ms QRS duration 74 ms QT/QTc 454/438 ms P-R-T axes * 15 44 Impression Assessment and Plan 87 yo M with PMHx of paroxysmal A. fib, hypertension, history of TIA 4, diabetes mellitus type 2, GERD, hypothyroidism, hiatal hernia, osteoarthritis, mild dementia without behavioral disturbance, hx MRSA, left diabetic foot ulcerations currently being treated with Dalvanz IV once every other week, last administered on 05/02/17 as per ID recommendations. Shortness of breath/ altered mental status ? CHF, new onset - type of CHF not yet determined : last echo from 05/29 showing * Left ventricular systolic function is normal. * No regional wall motion abnormalities noted. * Ejection Fraction = 65-70%. * There is moderate tricuspid regurgitation. * There is moderate mitral regurgitation. * Biatrial enlargement. - Admit to tele - trend cardiac biomarkers for tachycardia - Patient administered Lasix 40 IV in the ER, will continue IV 40 mg daily, insert Doyle catheter, strict I/Os, no fluid restriction at this time - Will consider cardiology consultation after repeat Echocardiogram - Heart healthy diabetic diet - O2 prn, wean as tolerated - Follow am EKG - PT/OT evaluations Altered mental status - No source of infection so far identified - flu swabs in process, negative UA, CXR showing pulmonary edema but no consolidation - Seems to have improved per family - will follow - mild dementia noted DM II - Continue glipizide to 5 g tablet daily - Insulin sliding scale with Accu-Cheks ACHS - Check hemoglobin A1c HTN - Continue metoprolol tartrate 25 mg BID - will order metoprolol tartrate IV 5 mg prn for tachycardia Hypothyroidism - Levothyroxine 100 g Mild dementia - Patient without behavioral disturbances, alert and oriented 3 at time of admission BPH -Continue tamsulosin 0.4 mg QHS R toe ulceration - Patient follows with the wound clinic as an outpatient. Also with infectious disease: Continue regularly scheduled dalvanz IV every other Friday, last administered on 05/02/17. - Checking MRSA nasal swab - Will consult would DVT ppx: Teds, SCDs, heparin subcutaneous CODE STATUS : FULL CODE- was discussed with patient and his sons, they are in agreement that he would not want heroic measures Disposition: From [facility] some living facility, PT/OT [facility] Level of Care Telemetry Advanced Directives Existing Advance Directive: Yes Existing Living Will: Yes Existing Power of Paint Formulator: Yes Existing Health Care Proxy: Yes Resuscitation Status FULL RESUSCITATION VTE Prophylaxis Risk Level: Low Given or contraindicated: Unfractionated heparin SQ, T.E.D. Stockings, SCD's Reviewed: Pt Seen/Exam by Me History Pt is feeling better s/p O2 and lasix. No longer feels SOB. No chest pain. Agree with HPI/ROS as noted. Family is present and feels his speech is still a bit slurred, but that his confusion from earlier has resolved. General Appearance: WD/WN, no apparent distress Eye Exam: bilateral eye normal inspection, bilateral eye EOMI Respiratory: no respiratory distress, crackles (bases) Cardiovascular: normal peripheral pulses, regular rate, rhythm Gastrointestinal: non tender, soft Extremities: non-tender, no pedal edema Neurologic/Psychiatric: ore puncher II-XII nml as tested, alert, normal mood/affect Skin Characteristics: normal color, warm/dry Assessment/Plan Agree with plan as outlined above New onset CHF with hypoxia that likely caused some confusion and slurred speech Improving with O2 and lasix ECHO Flu neg Pertussis pending given cough x1 month BNP elevated DM, afib, HTN stable Hx of dementia noted
[2017-05-06] MEDS ORDERED: LIDOCAINE HCL 2% VISC SOLN 20 ML UDC ONE (15:54)
[2017-05-06] MEDS ORDERED: ALUMINUM/MAGNESIUM SUSP 30 ML UDC ONE (15:54)
[2017-05-06 16:21] LABS: URINE APPEARANCE CLEAR (CLEAR); URINE BILIRUBIN NEG (NEG); URINE COLOR YELLOW; URINE EPITHELIAL CELL AUTO 0-5 /lpf (0-5); URINE NITRITE NEG (NEG); URINE PH 6.5 (4.5-7.5); URINE SPECIFIC GRAVITY 1.009 (1.000-1.030); UROBILINOGEN NEG (NEG); ZZUR CULT IF INDIC CLEAN CATCH NO
[2017-05-06 16:22] LABS: MANUAL MICROSCOPIC REQUIRED? NO; REVIEW REQ? NO
[2017-05-06] MEDS ORDERED: ONDANSETRON INJ 2 MG/ML 2 ML VIAL IV PRN (16:30)
[2017-05-06] MEDS ORDERED: POLYETHYLENE (MIRALAX) 17 GM PACK PO PRN (16:30)
[2017-05-06] MEDS ORDERED: MoRPHine SULFATE 2 MG/ML CARP IV PRN (16:30)
[2017-05-06] MEDS ORDERED: MAGNESIUM HYDROXIDE SUSP 30 ML UDC PO PRN (16:30)
[2017-05-06] MEDS ORDERED: ACETAMINOPHEN 325 MG TAB PO PRN (16:30)
[2017-05-06] MEDS ORDERED: METOPROLOL TARTRATE 1 MG/ML VIAL IV PRN (17:00)
[2017-05-06] MEDS ORDERED: MoRPHine SULFATE 2 MG/ML CARP IV SCH (17:00)
[2017-05-06] MEDS ORDERED: GLUCAGON FOR INJ 1 MG VIAL SQ PRN (17:00)
[2017-05-06] MEDS ORDERED: GLUCOSE 40% GEL 15 GM TUBE PO PRN (17:00)
[2017-05-06] MEDS ORDERED: GLUCOSE 10 TABS/TUBE PO PRN (17:00)
[2017-05-06] MEDS ORDERED: DEXTROSE 50% 50 ML SYR IV PRN (17:00)
[2017-05-06 17:05] LABS: INFLUENZA A PCR Neg for Influ A (NEG); INFLUENZA B PCR Neg for Influ B (NEG)
[2017-05-06 18:13] VITALS: BP 136/65; PULSE 97; TEMP 37; O2SAT 95; Ht 182.9 cm; Wt 81.0 kg
[2017-05-06] MEDS: INSULIN ASPART 100 UNITS/ML 3 ML PEN SC SCH (21:00)
[2017-05-06] MEDS: METOPROLOL TARTRATE 25 MG TAB PO SCH (21:12)
[2017-05-06] MEDS: AMLODIPINE BESYLATE 5 MG TAB PO SCH (21:12)
[2017-05-06] MEDS: TAMSULOSIN HCL 0.4 MG CAP PO SCH (21:12)
[2017-05-06] MEDS: CeleBREX 200 MG CAP PO SCH ×2 (21:12→22:07)
[2017-05-06] MEDS: PANTOprazole SOD 40 MG TAB PO SCH (21:12)
[2017-05-06] MEDS: HEPARIN SOD 5000 UNIT/0.5 ML CARP SQ SCH (22:06)
[2017-05-06] MEDS ORDERED: METO25TA56 PO (23:12)
[2017-05-06] MEDS ORDERED: PRVDB PO (23:12)
[2017-05-06] MEDS ORDERED: SKIN PREP SPRAY TOP (23:12)
[2017-05-06] MEDS ORDERED: PRLSR20 PO (23:12)
[2017-05-06 23:32] VITALS: BP 113/59; PULSE 63; TEMP 36.8; O2SAT 93
[2017-05-07] VITALS (10 sets, daily range): BP systolic 94–165; BP diastolic 45–87; PULSE 61–96; TEMP 36.3–36.9; O2SAT 91–100
[2017-05-07 02:54] LABS: BASO % 0.7 %; BASO ABS # 0.04 K/uL (0-0.2); COMPLETE YES; EOS % 3.9 %; IG% 0.3 %; LYMPH % 21.1 %; LYMPH ABS # 1.28 K/uL (1.2-3.4); MEAN CELL VOLUME 86.5 fL (80-100); MEAN CORPUSCULAR HEMOGLOBIN 27.8 pg (25-34); MEAN CORPUSCULAR HGB CONC 32.2 g/dl (32-36); MEAN PLATELET VOLUME 10.2 fL (7.4-10.4); PLATELET COUNT 303 K/uL (130-400); WHITE BLOOD COUNT 6.08 K/uL (4.8-10.8)
[2017-05-07 03:15] LABS: BUN/CREATININE RATIO 20.3 (10-20); CALCIUM 8.4 mg/dl (8.5-10.1); CREATININE 1.13 mg/dl (0.60-1.40); POTASSIUM 3.7 mmol/L (3.5-5.1)
[2017-05-07 03:18] LABS: CHOLESTEROL/HDL RATIO 1.9
[2017-05-07] MEDS: LEVOTHYROXINE 100 MCG TAB PO SCH (06:18)
[2017-05-07] MEDS: HEPARIN SOD 5000 UNIT/0.5 ML CARP SQ SCH ×3 (06:22→21:36)
--- NOTE | 2017-05-07 06:51 | DIAGNOSTIC IMAGING REPORT ---
ULTRASOUND BILATERAL LOWER EXTREMITY VENOUS CLINICAL HISTORY: Change in mental status. COMPARISON STUDY: No priors. TECHNIQUE: Real-time, grayscale, and color Doppler sonography of the deep veins of the right and left lower extremity was performed from the inguinal crease to the calf. Compression and augmentation were utilized. FINDINGS: There is no sonographic evidence of deep venous thrombosis identified in the right or left lower extremity. The common femoral, superficial femoral, and popliteal veins are patent and normally compressible bilaterally. The greater saphenous vein and the profunda femoris vein at the junction with the common femoral vein are clear in both legs. The visualized calf veins are patent bilaterally. IMPRESSION: There is no sonographic evidence of deep venous thrombosis identified in the right or left lower extremity. Electronically signed by: Carlos Mix M.D. 05/07/2017 6:50 AM Dictated Date/Time: 05/07/2017 6:50 AM
[2017-05-07 06:54] LABS: ESTIMATED AVERAGE GLUCOSE 134 mg/dl; HA1C FLAG Normal (Normal)
[2017-05-07] MEDS ORDERED: NURSING VERBAL MED ORDER ONE (07:45)
--- NOTE | 2017-05-07 08:10 | Hospitalist Progress Note ---
Hospitalist Progress Note Date of Service May 07, 2017. (Karol Caruso PA-C) Subjective Pt evaluation today including: conversation w/ patient, physical exam, chart review, lab review, review of studies Pain: None PO Intake: Good Voiding: no voiding problems The patient was seen and examined this morning. Pt has complaints of frequent urination where he has just decided to let the urinal in place for now. His breathing has improved and feels much better. He is coughing slightly but has not produced sputum for it to be sent to the lab. The pain in his right ankle has resolved since last evening, and says the pain medication worked really well. Pt still has significant edema in his legs. He has not yet been up to walk around today. Constitutional: No fever, No chills, No sweats Eyes: No discharge, No diplopia ENT: No sore throat, No trouble swallowing Respiratory: + cough, + dyspnea on exertion, No sputum, No wheezing, No shortness of breath, No dyspnea at rest Cardiovascular: No chest pain, No edema Abdomen: No pain, No nausea, No vomiting, No diarrhea, No constipation Musculoskeletal: + swelling, No joint pain, No calf pain Psychiatric: No depression symptoms Endo: No fatigue Skin: No rash, No itch (Karol Caruso PA-C) Objective Vital Signs Date Time Temp Pulse Resp B/P (MAP) Pulse Ox O2 Delivery O2 Flow Rate FiO2 05/07/17 08:00 36.3 96 20 165/87 (113) 91 Nasal Cannula 2.0 05/07/17 03:52 127/71 (89) 05/07/17 03:26 36.4 63 19 94/53 (67) 94 Nasal Cannula 2.0 05/06/17 23:32 36.8 63 16 113/59 (77) 93 Nasal Cannula 2.0 05/06/17 18:13 37.0 97 20 136/65 95 Nasal Cannula 4.0 05/06/17 17:23 83 22 122/83 92 05/06/17 16:10 90 23 145/78 90 Nasal Cannula 2.0 05/06/17 15:14 60 16 131/71 93 Nebulizer 05/06/17 14:39 92 Nasal Cannula 2.0 05/06/17 14:38 58 22 91 Nasal Cannula 2.0 05/06/17 14:36 55 05/06/17 13:51 36.7 64 18 132/81 87 Room Air (Karol Caruso PA-C) Physical Exam General Appearance: WD/WN, no apparent distress Eyes: PERRL, EOMI ENT: hearing grossly normal, pharynx normal Neck: supple, no JVD Respiratory/Chest: + pertinent finding (On 2 L via NC, + diminished breath sounds throughout, + faint crackles at bases, no wheeze ) Cardiovascular: + systolic murmur ( grade I/), + irregularly irregular Abdomen: normal bowel sounds, non tender, soft Extremities: non-tender Neurologic/Psychiatric: alert, normal mood/affect, oriented x 3 Skin: normal color, warm/dry (Karol Caruso PA-C) Laboratory Results Last 24 Hours Test 05/06/17 14:20 05/06/17 14:32 05/06/17 15:38 05/06/17 16:00 White Blood Count 6.53 K/uL Red Blood Count 3.92 M/uL Hemoglobin 10.9 g/dL Hematocrit 34.4 % Mean Corpuscular Volume 87.8 fL Mean Corpuscular Hemoglobin 27.8 pg Mean Corpuscular Hemoglobin Concent 31.7 g/dl Platelet Count 332 K/uL Mean Platelet Volume 9.8 fL Neutrophils (%) (Auto) 67.8 % Lymphocytes (%) (Auto) 18.1 % Monocytes (%) (Auto) 9.6 % Eosinophils (%) (Auto) 3.7 % Basophils (%) (Auto) 0.5 % Neutrophils # (Auto) 4.43 K/uL Lymphocytes # (Auto) 1.18 K/uL Monocytes # (Auto) 0.63 K/uL Eosinophils # (Auto) 0.24 K/uL Basophils # (Auto) 0.03 K/uL RDW Standard Deviation 52.2 fL RDW Coefficient of Variation 16.5 % Immature Granulocyte % (Auto) 0.3 % Immature Granulocyte # (Auto) 0.02 K/uL Prothrombin Time 10.7 SECONDS Prothromb Time International Ratio 1.0 Activated Partial Thromboplast Time 25.7 SECONDS Partial Thromboplastin Ratio 1.0 Sodium Level 139 mmol/L Potassium Level 4.3 mmol/L Chloride Level 105 mmol/L Carbon Dioxide Level 27 mmol/L Anion Gap 7.0 mmol/L Blood Urea Nitrogen 23 mg/dl Creatinine 0.89 mg/dl Est Creatinine Clear Calc Drug Dose 59.2 ml/min Estimated GFR () 88.5 Estimated GFR (Non- 76.3 BUN/Creatinine Ratio 26.3 Random Glucose 108 mg/dl Calcium Level 9.0 mg/dl Total Bilirubin 0.4 mg/dl Aspartate Amino Transf (AST/SGOT) 23 U/L Alanine Aminotransferase (ALT/SGPT) 36 U/L Alkaline Phosphatase 91 U/L Total Creatine Kinase 124 U/L Creatine Kinase MB 3.6 ng/ml Creatine Kinase MB Ratio 2.9 Troponin I < 0.015 ng/ml Pro-B-Type Natriuretic Peptide 4610 pg/ml Total Protein 6.8 gm/dl Albumin 3.5 gm/dl Globulin 3.3 gm/dl Albumin/Globulin Ratio 1.1 Valproic Acid (Depakene) Level 5 mcg/ml Bedside Lactic Acid Venous 1.46 mmol/L Influenza Type A (RT-PCR) Neg for Influ A Influenza Type A Antigen Neg for Influ A Influenza Type B Antigen Neg for Influ B Influenza Type B (RT-PCR) Neg for Influ B Urine Color YELLOW Urine Appearance CLEAR Urine pH 6.5 Urine Specific [place] 1.009 Urine Protein NEG Urine Glucose (UA) NEG Urine Ketones NEG Urine Occult Blood NEG Urine Nitrite NEG Urine Bilirubin NEG Urine Urobilinogen NEG Urine Leukocyte Esterase NEG Urine WBC (Auto) 0 /hpf Urine RBC (Auto) 0-4 /hpf Urine Hyaline Casts (Auto) 1-5 /lpf Urine Epithelial Cells (Auto) 0-5 /lpf Urine Bacteria (Auto) NEG Test 05/06/17 18:35 05/07/17 02:16 05/07/17 06:43 Troponin I < 0.015 ng/ml < 0.015 ng/ml White Blood Count 6.08 K/uL Red Blood Count 3.70 M/uL Hemoglobin 10.3 g/dL Hematocrit 32.0 % Mean Corpuscular Volume 86.5 fL Mean Corpuscular Hemoglobin 27.8 pg Mean Corpuscular Hemoglobin Concent 32.2 g/dl Platelet Count 303 K/uL Mean Platelet Volume 10.2 fL Neutrophils (%) (Auto) 63.0 % Lymphocytes (%) (Auto) 21.1 % Monocytes (%) (Auto) 11.0 % Eosinophils (%) (Auto) 3.9 % Basophils (%) (Auto) 0.7 % Neutrophils # (Auto) 3.83 K/uL Lymphocytes # (Auto) 1.28 K/uL Monocytes # (Auto) 0.67 K/uL Eosinophils # (Auto) 0.24 K/uL Basophils # (Auto) 0.04 K/uL RDW Standard Deviation 52.0 fL RDW Coefficient of Variation 16.4 % Immature Granulocyte % (Auto) 0.3 % Immature Granulocyte # (Auto) 0.02 K/uL Sodium Level 141 mmol/L Potassium Level 3.7 mmol/L Chloride Level 105 mmol/L Carbon Dioxide Level 29 mmol/L Anion Gap 7.0 mmol/L Blood Urea Nitrogen 23 mg/dl Creatinine 1.13 mg/dl Est Creatinine Clear Calc Drug Dose 46.7 ml/min Estimated GFR () 66.9 Estimated GFR (Non- 57.7 BUN/Creatinine Ratio 20.3 Random Glucose 111 mg/dl Estimated Average Glucose 134 mg/dl Hemoglobin A1c 6.3 % Calcium Level 8.4 mg/dl Triglycerides Level 66 mg/dl Cholesterol Level 133 mg/dl HDL Cholesterol 70 mg/dl LDL Cholesterol, Calculated 50 mg/dl VLDL Cholesterol, Calculated 13 mg/dl Cholesterol/HDL Ratio 1.9 Bedside Glucose 87 mg/dl (Karol Caruso, PA-C) Assessment and Plan 87 yo M with PMHx of paroxysmal A. fib, hypertension, history of TIA 4, diabetes mellitus type 2, GERD, hypothyroidism, hiatal hernia, osteoarthritis, mild dementia without behavioral disturbance, hx MRSA, left diabetic foot ulcerations currently being treated with Dalvanz IV once every other week, last administered on 05/02/17 as per ID recommendations. Shortness of breath/ altered mental status New onset CHF, valvular dysfunction Paroxysmal Atrial Fibrillation Probable pulmonary hypertension - Echocardiogram complete * Left ventricular systolic function is normal. * The left atrium is mildly dilated. * The right atrium is mild to moderately dilated. * Mild aortic regurgitation. * There is mild to moderate tricuspid regurgitation. * Right ventricular systolic pressure is elevated at 40-50mmHg. * Compared to an echocardiogram from 05/2016, there is less mitral regurgitation and pulmonary pressures are slightly higher. - Pt is currently in afib - Cardiac biomarkers negative x 3 - Continue IV 40 mg daily, strict I/Os, no fluid restriction at this time - monteiro catheter not inserted yesterday - pt doing ok with urinal so will continue this due to baseline mild dementia. - Cardiology consulted with edema, ? 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 Pt appears to be bradycardic overnight while sleeping and slightly tachy during the day. ? if pacemaker would be considered? Pt has followed with Shaista Johnson PA-C with cardiology as outpt - Heart healthy diabetic diet - O2 prn, wean as tolerated - Follow am EKG - PT/OT evaluations Altered mental status- Resolved Mild dementia - No source of infection so far identified - flu swabs in process, negative UA, CXR showing pulmonary edema but no consolidation - Improved, AAOx3 on exam. Answers appropriately and participates in discussion. DM II - Continue glipizide to 5 g tablet daily - Insulin sliding scale with Accu-Cheks ACHS - Check hemoglobin A1c HTN - Continue metoprolol tartrate 25 mg BID - will order metoprolol tartrate IV 5 mg prn for tachycardia Hypothyroidism - Levothyroxine 100 g Mild dementia - Patient without behavioral disturbances, alert and oriented 3 today BPH -Continue tamsulosin 0.4 mg QHS R toe ulceration - Patient follows with the wound clinic as an outpatient. Also with infectious disease: Continue regularly scheduled dalvanz IV every other Friday, last administered on 05/02/17. - MRSA nasal swab negative - Will consult would DVT ppx: Teds, SCDs, heparin subcutaneous CODE STATUS : FULL CODE- was discussed with patient and his sons, they are in agreement that he would not want heroic measures Disposition: From [facility] facility, PT/OT татьяна (Karol Caruso PA-C) I examined patient and discussed my analysis and plan with patient and APC. I agree with above note. My exam did not differ from the exam noted above. I answered all questions from patient. (Goran Helms M.D.)
[2017-05-07] MEDS: INSULIN ASPART 100 UNITS/ML 3 ML PEN SC SCH ×4 (08:11→19:57)
[2017-05-07] MEDS: FUROSEMIDE INJ 40 MG in SYRINGE 0 ML IV SCH (08:12)
[2017-05-07] MEDS: ASPIRIN 325 MG ECTAB PO SCH (08:12)
[2017-05-07] MEDS: METOPROLOL TARTRATE 25 MG TAB PO SCH (08:13)
[2017-05-07] MEDS: AMLODIPINE BESYLATE 5 MG TAB PO SCH ×2 (08:13→19:57)
[2017-05-07] MEDS: PANTOprazole SOD 40 MG TAB PO SCH ×2 (08:14→19:57)
[2017-05-07] MEDS: CEROVITE ADV FORMULA TAB PO SCH (08:14)
--- NOTE | 2017-05-07 09:06 | ECHOCARDIOGRAM REPORT ---
*NOTICE TO RECEIVING DEMOCRAT AGENCY This information is strictly Confidential and protected under [place] law. [place] law prohibits you from making any further disclosure of this information unless further disclosure is expressly permitted by the written consent of the person to whom it pertains or is authorized by law. A general authorization for the release of medical or other information is not sufficient for this purpose. Hospital accepts no responsibility if the information is made available to any other person, INCLUDING THE PATIENT. Interpretation Summary * Name: BRANDON ASTUDILLO Study Date: 05/07/2017 06:55 AM BP: 127/71 mmHg * Patient Location: .2E\S\E204\S\1 HR: 63 * : 1930 (M/d/yyyy) Gender: Male Height: 72 in * Age: 87 yrs Ethnicity: [place] Weight: 160 lb * Ordering Physician: Karol Caruso * Performed By: Mayra Rivera RDCS * * Reason For Study: CHF * BSA: 1.9 m2 * -- Conclusions -- * Left ventricular systolic function is normal. * The left atrium is mildly dilated. * The right atrium is mild to moderately dilated. * Mild aortic regurgitation. * There is mild to moderate tricuspid regurgitation. * Right ventricular systolic pressure is elevated at 40-50mmHg. * Compared to an echocardiogram from 05/2016, there is less mitral regurgitation and pulmonary pressures are slightly higher. Procedure Details * A complete two-dimensional transthoracic echocardiogram was performed (2D, M-mode, Doppler and color flow Doppler). * A contrast injection of Definity was performed to improve assessment of LV function. * Contrast was injected into an intravenous site in the left arm. * One vial of Definity ultrasound contrast was diluted in normal saline to a total volume of 10 ml. A total of '3' ml of solution was administered during imaging. * Lot # [id number] of Definity utilized for procedure. * Expiration date 04/30. * The attending nurse who injected the contrast agent was HAIDER ALVARADO RN. Left Ventricle * The left ventricle is normal in size. * The basal septum is thickened and angulated consistent with sigmoid septum. * There is normal left ventricular wall thickness. * Ejection Fraction = 55-60%. * Left ventricular systolic function is normal. * The left ventricular wall motion is normal. Right Ventricle * The right ventricle is grossly normal size. * The right ventricular systolic function is reduced as assessed by tricuspid annular plane systolic excursion (TAPSE) (TAPSE <1.6 cm). Atria * The left atrium is mildly dilated. * The right atrium is mild to moderately dilated. Mitral Valve * The mitral valve is grossly normal. * There is trace mitral regurgitation. Tricuspid Valve * The tricuspid valve is not well visualized, but is grossly normal. * There is mild to moderate tricuspid regurgitation. * Right ventricular systolic pressure is elevated at 40-50mmHg. Aortic Valve * The aortic valve is trileaflet. * No hemodynamically significant valvular aortic stenosis. * Mild aortic regurgitation. Pericardium/Pleural * There is no pericardial effusion. MMode 2D Measurements and Calculations IVSd 1.3 cm IVSs 1.8 cm LVIDd 5.2 cm LVIDs 3.4 cm LVPWd 0.71 cm LVPWs 1.8 cm IVS/LVPW 1.9 FS 35.0 % EDV(Teich) 128.0 ml ESV(Teich) 46.1 ml EF(Teich) 64.0 % EDV(cubed) 138.5 ml ESV(cubed) 38.0 ml EF(cubed) 72.6 % % IVS thick 33.7 % % LVPW thick 155.6 % LV mass(C)d 198.8 grams LV mass(C)dI 102.6 grams/m\S\2 LV mass(C)s 250.3 grams LV mass(C)sI 129.2 grams/m\S\2 CO(Teich) 4.7 l/min CI(Teich) 2.4 l/min/m\S\2 SV(Teich) 81.9 ml SI(Teich) 42.2 ml/m\S\2 CO(cubed) 5.7 l/min CI(cubed) 3.0 l/min/m\S\2 SV(cubed) 100.5 ml SI(cubed) 51.9 ml/m\S\2 ACS 1.8 cm asc Aorta Diam 3.3 cm LVOT diam 1.9 cm LVOT area 2.8 cm\S\2 LVAd ap4 33.1 cm\S\2 LVLd ap4 8.3 cm EDV(MOD-sp4) 108.0 ml LVAs ap4 15.2 cm\S\2 LVLs ap4 6.4 cm ESV(MOD-sp4) 30.4 ml EF(MOD-sp4) 71.9 % LVAd ap2 33.6 cm\S\2 LVLd ap2 8.2 cm EDV(MOD-sp2) 119.0 ml LVAs ap2 14.8 cm\S\2 LVLs ap2 6.1 cm ESV(MOD-sp2) 31.2 ml EF(MOD-sp2) 73.8 % CO(MOD-sp4) 4.4 l/min CI(MOD-sp4) 2.3 l/min/m\S\2 SV(MOD-sp4) 77.6 ml SI(MOD-sp4) 40.0 ml/m\S\2 CO(MOD-sp2) 5.0 l/min CI(MOD-sp2) 2.6 l/min/m\S\2 SV(MOD-sp2) 87.8 ml SI(MOD-sp2) 45.3 ml/m\S\2 Doppler Measurements and Calculations MV E max mary 129.0 cm/sec MV dec time 0.20 sec Ao V2 max 153.4 cm/sec Ao max PG 9.4 mmHg Ao max PG (full) 6.5 mmHg RAFAEL(V,A) 1.6 cm\S\2 RAFAEL(V,D) 1.6 cm\S\2 AI max mary 420.8 cm/sec AI max PG 71.0 mmHg AI dec slope 172.5 cm/sec\S\2 AI P1/2t 714.3 msec LV V1 max PG 2.9 mmHg LV V1 max 85.4 cm/sec MR max mary 443.9 cm/sec MR max PG 78.8 mmHg PA V2 max 60.1 cm/sec PA max PG 1.4 mmHg PI end-d mary 125.6 cm/sec TR max mary 311.8 cm/sec
--- NOTE | 2017-05-07 16:16 | Cardiology Consultation ---
Cardiology Consultation Date of Consultation: May 07, 2017. Requesting Physician: Dr. Caruso Reason for Consultation: CHF Pt evaluation today including: conversation w/ patient, physical exam, lab review, review of studies, review of inpatient medication list History of Present Illness This is an 87-year-old male who has a history of diabetes mellitus, hypertension , hypercholesterolemia and dementia as well as atrial fibrillation. In May 2016 he was felt to be in permanent atrial fibrillation, as of he was in sinus rhythm but 07/10/2015 on Holter monitoring he was in atrial fibrillation with a controlled or slow heart rate response. I believe he was not anticoagulated due to frequent falls. He presented to the emergency room on 05/06/2017 with shortness of breath, I believe it has been present for several days and he was found to be hypoxic on room air. On chest x-ray in the emergency room he was in mild pulmonary edema, echocardiography showed normal left ventricular systolic function. His weight seems to be up compared to March and April of this year. This admission his creatinine is normal and his cardiac enzymes are negative for injury. At the time of my evaluation he was sitting in bed eating dinner. He seemed comfortable, he was not complaining of shortness of breath although did recall having that prior to admission. He denied palpitations or chest discomfort. Past Medical/Surgical History (1) HTN (hypertension) (2) Diabetes mellitus (3) Benign hypertension Family History Diabetes mellitus Gallbladder disease Heart disease Hypertension Leukemia MOTHER [place] FATHER Social History Smoking Status: Never Smoker History of Alcohol Use: No Review of Systems Constitutional: No fever, No weight loss, No weakness Respiratory: + shortness of breath, + dyspnea on exertion, No cough, No sputum , No dyspnea at rest Cardiac: + see HPI, + edema, No chest pain Abdomen: No pain, No nausea, No vomiting, No diarrhea, No GI bleeding Male : No urinary frequency, No nocturia more than once/night, No slowing stream, No sexual dysfunction Neurologic: No paralysis, No weakness, No numbness/tingling, No balance problems Heme: No abnormal bleeding/bruising, No clotting problems Endo: No fatigue Skin: No problem reported All Other Systems: Reviewed and Negative Allergies Coded Allergies: No Known Allergies (Verified , 05/02/17) Medications Current Inpatient Medications Medications (Trade) Dose Ordered Sig/Alvin Route Start Time Stop Time Status Last Admin Dose Admin Heparin Sodium (Porcine) (Heparin Sq 5000 Unit/0.5ml) 5,000 unit Q8 SQ 05/06/17 22:00 06/05/17 21:59 05/07/17 14:51 5,000 UNIT Acetaminophen (Tylenol Tab) 650 mg Q4H PRN PO 05/06/17 16:30 06/05/17 16:29 Magnesium Hydroxide (Milk Of Magnesia Susp) 30 ml Q12H PRN PO 05/06/17 16:30 06/05/17 16:29 Ondansetron HCl (Zofran Inj) 4 mg Q6H PRN IV 05/06/17 16:30 06/05/17 16:29 Polyethylene (Miralax Powder Packet) 17 gm DAILY PRN PO 05/06/17 16:30 06/05/17 16:29 Amlodipine Besylate (Norvasc Tab) 5 mg BID PO 05/06/17 21:00 06/05/17 20:59 05/07/17 08:13 5 MG Aspirin (Ecotrin Tab) 325 mg DAILY PO 05/07/17 09:00 06/06/17 08:59 05/07/17 08:12 325 MG Celecoxib (CeleBREX CAP) 200 mg BID PO 05/06/17 21:00 06/05/17 20:59 05/06/17 22:07 200 MG Levothyroxine Sodium (Synthroid Tab) 100 mcg DAILYBB PO 05/07/17 06:00 06/06/17 05:59 05/07/17 06:18 100 MCG Metoprolol Tartrate (Lopressor Tab) 25 mg BID PO 05/06/17 21:00 06/05/17 20:59 05/07/17 08:13 25 MG Multivitamins/ Minerals (Multivitamin W/ Minerals Tab) 1 tab DAILY PO 05/07/17 09:00 06/06/17 08:59 05/07/17 08:14 1 TAB Tamsulosin HCl (Flomax Cap) 0.4 mg HS PO 05/06/17 21:00 06/05/17 20:59 05/06/17 21:12 0.4 MG Pantoprazole Sodium (Protonix Tab) 40 mg BID PO 05/06/17 21:00 06/05/17 20:59 05/07/17 08:14 40 MG Furosemide 40 mg/ Syringe 4 ml @ 4 mls/min QAM IV 05/07/17 09:00 06/06/17 08:59 05/07/17 08:12 4 MLS/MIN Morphine Sulfate (MoRPHine SULFATE INJ) 2 mg Q2H PRN IV 05/06/17 16:30 05/20/17 16:29 Insulin Aspart (novoLOG ASPART) SLIDING SCALE If C... ACHS SC 05/06/17 21:00 06/05/17 20:59 05/07/17 08:11 3 UNITS Glucose (Glucose 40% Gel) 15-30 GRAMS 15 GRAMS... UD PRN PO 05/06/17 17:00 06/05/17 16:59 Glucose (Glucose Chew Tab) 4-8 Tablets 4 Tabl... UD PRN PO 05/06/17 17:00 06/05/17 16:59 Dextrose (Dextrose 50% 50ML Syringe) 25-50ML OF 50% DW IV FOR... UD PRN IV 05/06/17 17:00 06/05/17 16:59 Glucagon (Glucagon Inj) 1 mg UD PRN SQ 05/06/17 17:00 06/05/17 16:59 Metoprolol Tartrate (Lopressor Iv) 5 mg Q4 PRN IV 05/06/17 17:00 06/05/17 16:59 Physical Exam Vital Signs Past 12 Hours Date Time Temp Pulse Resp B/P (MAP) Pulse Ox O2 Delivery O2 Flow Rate FiO2 05/07/17 15:20 36.4 63 18 130/81 (97) 98 3.0 05/07/17 12:58 36.5 61 18 122/77 (92) 91 4.0 05/07/17 12:00 94 Nasal Cannula 3.0 05/07/17 11:37 97 05/07/17 08:00 94 Nasal Cannula 05/07/17 08:00 36.3 96 20 165/87 (113) 91 Nasal Cannula 2.0 Constitutional: Level of Distress: NAD Psychiatric: Mental Status: active & alert Head: normocephalic Eyes: EOM: EOMI ENMT: normal ENT inspection, hearing grossly normal Neck: supple, no masses Lungs: Respiratory effort: no dyspnea, good air movement Auscultation: breath sounds normal, no wheezing Cardiovascular: Heart Auscultation: no murmurs, no rubs, no gallops, bradycardia, irregular rate rhythm Peripheral Pulses: Bruits: none appreciated Abdomen: Bowel Sounds: normal Inspection & Palpation: soft, no tenderness, guarding & rebound, no masses Musculoskeletal: normal strength (5/5 throughout) Extremities: no edema Neurologic: Cranial Nerves: grossly intact Sensation: grossly intact Data Laboratory Results: Last 24 Hours Test 05/06/17 18:35 05/07/17 02:16 05/07/17 06:43 05/07/17 11:23 Troponin I < 0.015 ng/ml < 0.015 ng/ml White Blood Count 6.08 K/uL Red Blood Count 3.70 M/uL Hemoglobin 10.3 g/dL Hematocrit 32.0 % Mean Corpuscular Volume 86.5 fL Mean Corpuscular Hemoglobin 27.8 pg Mean Corpuscular Hemoglobin Concent 32.2 g/dl Platelet Count 303 K/uL Mean Platelet Volume 10.2 fL Neutrophils (%) (Auto) 63.0 % Lymphocytes (%) (Auto) 21.1 % Monocytes (%) (Auto) 11.0 % Eosinophils (%) (Auto) 3.9 % Basophils (%) (Auto) 0.7 % Neutrophils # (Auto) 3.83 K/uL Lymphocytes # (Auto) 1.28 K/uL Monocytes # (Auto) 0.67 K/uL Eosinophils # (Auto) 0.24 K/uL Basophils # (Auto) 0.04 K/uL RDW Standard Deviation 52.0 fL RDW Coefficient of Variation 16.4 % Immature Granulocyte % (Auto) 0.3 % Immature Granulocyte # (Auto) 0.02 K/uL Sodium Level 141 mmol/L Potassium Level 3.7 mmol/L Chloride Level 105 mmol/L Carbon Dioxide Level 29 mmol/L Anion Gap 7.0 mmol/L Blood Urea Nitrogen 23 mg/dl Creatinine 1.13 mg/dl Est Creatinine Clear Calc Drug Dose 46.7 ml/min Estimated GFR () 66.9 Estimated GFR (Non- 57.7 BUN/Creatinine Ratio 20.3 Random Glucose 111 mg/dl Estimated Average Glucose 134 mg/dl Hemoglobin A1c 6.3 % Calcium Level 8.4 mg/dl Triglycerides Level 66 mg/dl Cholesterol Level 133 mg/dl HDL Cholesterol 70 mg/dl LDL Cholesterol, Calculated 50 mg/dl VLDL Cholesterol, Calculated 13 mg/dl Cholesterol/HDL Ratio 1.9 Bedside Glucose 87 mg/dl 77 mg/dl Imaging: Chest x-ray is consistent with mild congestive heart failure. Echocardiography: Normal left ventricular systolic function. EKG: On admission atrial fibrillation with a heart rate of 56 bpm. Telemetry reviewed: Atrial fibrillation with a controlled, often slow, heart rate. Assessment & Plan #1. Congestive heart failure: He appears to have congestive heart failure but the cause is uncertain. He has not developed renal insufficiency, he has not developed left ventricular dysfunction and he feels that his diet and fluid intake have not changed. I would treat it with diuresis as you are, I don't think there is much else to do. #2. Atrial fibrillation: His heart rate overall is somewhat reduced. He is probably in permanent atrial fibrillation, he has been in it for several years. He is not on an anticoagulant due to frequent falls therefore I've not started one. #3. Bradycardia: He is on metoprolol tartrate 25 mg twice a day but I'm not sure he needs it. It may be reasonable to discontinue it and watch him while he is on a monitor to see whether he has high heart rates, this may help with his fluid retention since I think his heart rate is overall too low. Thank you for allowing me to participate in his care.
[2017-05-07] MEDS: CeleBREX 200 MG CAP PO SCH (19:56)
[2017-05-07] MEDS: TAMSULOSIN HCL 0.4 MG CAP PO SCH (19:56)
[2017-05-08] VITALS (8 sets, daily range): BP systolic 85–130; BP diastolic 52–66; PULSE 52–84; TEMP 36.5–37; O2SAT 93–99
[2017-05-08] MEDS: LEVOTHYROXINE 100 MCG TAB PO SCH (05:34)
[2017-05-08] MEDS: HEPARIN SOD 5000 UNIT/0.5 ML CARP SQ SCH ×3 (06:07→21:06)
[2017-05-08 06:44] LABS: BUN/CREATININE RATIO 30.8 (10-20); CALCIUM 8.3 mg/dl (8.5-10.1); CREATININE 0.95 mg/dl (0.60-1.40); POTASSIUM 3.8 mmol/L (3.5-5.1)
[2017-05-08 07:38] LABS: BASO % 0.3 %; BASO ABS # 0.02 K/uL (0-0.2); COMPLETE YES; EOS % 7.1 %; HEMATOCRIT 32.5 % (42-52); IG% 0.3 %; LYMPH % 19.8 %; LYMPH ABS # 1.36 K/uL (1.2-3.4); MEAN CELL VOLUME 87.4 fL (80-100); MEAN CORPUSCULAR HEMOGLOBIN 27.7 pg (25-34); MEAN CORPUSCULAR HGB CONC 31.7 g/dl (32-36); MEAN PLATELET VOLUME 10.2 fL (7.4-10.4); MONO % 10.3 %; NEUT % 62.2 %; PLATELET COUNT 307 K/uL (130-400); RED BLOOD COUNT 3.72 M/uL (4.7-6.1); WHITE BLOOD COUNT 6.86 K/uL (4.8-10.8)
[2017-05-08] MEDS: FUROSEMIDE INJ 40 MG in SYRINGE 0 ML IV SCH (08:04)
[2017-05-08] MEDS: PANTOprazole SOD 40 MG TAB PO SCH ×2 (08:05→21:04)
[2017-05-08] MEDS: CeleBREX 200 MG CAP PO SCH ×2 (08:06→21:07)
[2017-05-08] MEDS: INSULIN ASPART 100 UNITS/ML 3 ML PEN SC SCH ×4 (08:08→21:05)
[2017-05-08] MEDS: CEROVITE ADV FORMULA TAB PO SCH (08:09)
[2017-05-08] MEDS: AMLODIPINE BESYLATE 5 MG TAB PO SCH ×2 (08:09→21:04)
[2017-05-08] MEDS: ASPIRIN 325 MG ECTAB PO SCH (08:09)
--- NOTE | 2017-05-08 08:23 | Hospitalist Progress Note ---
Hospitalist Progress Note Date of Service May 08, 2017. (Karol Caruso PA-C) Subjective Pt evaluation today including: conversation w/ patient, physical exam, chart review, lab review, review of studies, review of inpatient medication list Pain: None PO Intake: Good Voiding: monteiro catheter in place The patient was seen and examined this morning. Pt reports doing well today. His breathing has improved significantly and denies shortness of breath at rest or with ambulation about the room. Overnight a monteiro catheter was inserted due to incontinence with aggressive diuresis. Edema in lower extremities has improved overall. Pt denies lightheadedness, dizziness, chest pain, sob, abd pain, n/v/d/c, fever , chills or sweats. ROS: 6 point ROS reviewed and otherwise negative. (Karol Caruso PA-C) Objective Vital Signs Date Time Temp Pulse Resp B/P (MAP) Pulse Ox O2 Delivery O2 Flow Rate FiO2 05/08/17 07:32 36.5 84 18 130/66 (87) 98 Room Air 05/08/17 04:00 Nasal Cannula 3.0 05/08/17 03:41 36.5 70 21 103/58 (73) 94 Nasal Cannula 3.0 05/08/17 00:00 Nasal Cannula 3.0 05/07/17 23:42 36.7 82 18 128/45 (72) 92 Nasal Cannula 3.0 05/07/17 19:56 98 Nasal Cannula 3.0 05/07/17 19:16 36.9 68 16 138/61 (86) 100 Nasal Cannula 3.0 05/07/17 16:00 Nasal Cannula 3.0 05/07/17 15:20 36.4 63 18 130/81 (97) 98 3.0 05/07/17 12:58 36.5 61 18 122/77 (92) 91 4.0 05/07/17 12:00 94 Nasal Cannula 3.0 05/07/17 11:37 97 (Karol Caruso PA-C) Physical Exam General Appearance: WD/WN, no apparent distress Eyes: PERRL, EOMI ENT: hearing grossly normal, pharynx normal Neck: supple, thyroid normal Respiratory/Chest: lungs clear, normal breath sounds, no respiratory distress, no accessory muscle use, + pertinent finding (on 2 L via NC) Cardiovascular: + systolic murmur (grade 1/), + irregularly irregular Abdomen: normal bowel sounds, non tender, soft Extremities: non-tender, no calf tenderness, + pedal edema (2+ pedal edema BLE to level of ankles, significantly improved) Neurologic/Psychiatric: alert, normal mood/affect, oriented x 3 Skin: normal color, warm/dry (Karol Caruso, ITZ) Laboratory Results Last 24 Hours Test 05/07/17 11:23 05/07/17 16:06 05/07/17 19:54 05/08/17 05:48 Bedside Glucose 77 mg/dl 119 mg/dl 130 mg/dl White Blood Count 6.86 K/uL Red Blood Count 3.72 M/uL Hemoglobin 10.3 g/dL Hematocrit 32.5 % Mean Corpuscular Volume 87.4 fL Mean Corpuscular Hemoglobin 27.7 pg Mean Corpuscular Hemoglobin Concent 31.7 g/dl Platelet Count 307 K/uL Mean Platelet Volume 10.2 fL Neutrophils (%) (Auto) 62.2 % Lymphocytes (%) (Auto) 19.8 % Monocytes (%) (Auto) 10.3 % Eosinophils (%) (Auto) 7.1 % Basophils (%) (Auto) 0.3 % Neutrophils # (Auto) 4.26 K/uL Lymphocytes # (Auto) 1.36 K/uL Monocytes # (Auto) 0.71 K/uL Eosinophils # (Auto) 0.49 K/uL Basophils # (Auto) 0.02 K/uL RDW Standard Deviation 52.8 fL RDW Coefficient of Variation 16.6 % Immature Granulocyte % (Auto) 0.3 % Immature Granulocyte # (Auto) 0.02 K/uL Sodium Level 141 mmol/L Potassium Level 3.8 mmol/L Chloride Level 104 mmol/L Carbon Dioxide Level 32 mmol/L Anion Gap 5.0 mmol/L Blood Urea Nitrogen 29 mg/dl Creatinine 0.95 mg/dl Est Creatinine Clear Calc Drug Dose 59.0 ml/min Estimated GFR () 82.5 Estimated GFR (Non- 71.2 BUN/Creatinine Ratio 30.8 Random Glucose 101 mg/dl Calcium Level 8.3 mg/dl Test 05/08/17 06:32 Bedside Glucose 91 mg/dl (Karol Caruso, ITZ) Assessment and Plan 87 yo M with PMHx of paroxysmal A. fib, hypertension, history of TIA 4, diabetes mellitus type 2, GERD, hypothyroidism, hiatal hernia, osteoarthritis, mild dementia without behavioral disturbance, hx MRSA, left diabetic foot ulcerations currently being treated with Dalvanz IV once every other week, last administered on 05/02/17 as per ID recommendations. Shortness of breath/ altered mental status New onset CHF, valvular dysfunction Paroxysmal Atrial Fibrillation Probable pulmonary hypertension - Echocardiogram complete * Left ventricular systolic function is normal. * The left atrium is mildly dilated. * The right atrium is mild to moderately dilated. * Mild aortic regurgitation. * There is mild to moderate tricuspid regurgitation. * Right ventricular systolic pressure is elevated at 40-50mmHg. * Compared to an echocardiogram from 05/2016, there is less mitral regurgitation and pulmonary pressures are slightly higher. - Appreciate cardiology recs - will stop metoprolol tartrate 25 mg BID for now and see how he does without this. ? 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 Pt appears to be bradycardic overnight while sleeping and slightly tachy during the day so discontinuing beta blockade may also help this and improve fluid retention. - Bp is lower this morning, will hold off on further diuresis as breath sounds much improved - edema also greatly improved although still faint pedal edema. - Cardiac biomarkers negative x 3 - strict I/Os - neg ~ 3 L at this time, no fluid restriction at this time - monteiro catheter inserted last night - Get bedside scale for daily weights - Heart healthy diabetic diet - O2 prn, wean as tolerated - PT/OT evaluations Altered mental status- Resolved Mild dementia - No source of infection so far identified - flu swabs in process, negative UA, CXR showing pulmonary edema but no consolidation - Improved, AAOx3 on exam. Answers appropriately and participates in discussion. DM II - Continue glipizide to 5 g tablet daily - Insulin sliding scale with Accu-Cheks ACHS - hgb A1c= 6.3 HTN - hold metoprolol tartrate 25 mg BID - will order metoprolol tartrate IV 5 mg prn for tachycardia Hypothyroidism - Levothyroxine 100 g Mild dementia - Patient without behavioral disturbances, alert and oriented 3 today BPH -Continue tamsulosin 0.4 mg QHS R toe ulceration - Patient follows with the wound clinic as an outpatient. Also with infectious disease: Continue regularly scheduled dalvanz IV every other Friday, last administered on 05/02/17. - MRSA nasal swab negative - Will consult would DVT ppx: Teds, SCDs, heparin subcutaneous CODE STATUS : FULL CODE- was discussed with patient and his sons, they are in agreement that he would not want heroic measures Disposition: From [facility] some living facility, PT/OT evals, likely able to return there within 1 day. (Karol Caruso, ITZ) I examined patient and discussed my analysis and plan with patient and APC. I agree with above note. My exam did not differ from the exam noted above. I answered all questions from patient. (Goran Helms M.D.)
--- NOTE | 2017-05-08 10:40 | Clinical Documentation Query ---
CLINICAL DOCUMENTATION QUERY 87 year old male who presents to the Emergency Room with complaints of a constant altered mental status and hypoxia In your clinical opinion is this patient being managed for: ( ) Acute preserved EF CHF in setting of valvular HD and pulmonary HTN treated with IV Lasix. ( ) Not Agree ( ) Other explanation of clinical findings (Please Explain) ( ) Unable to determine (Please Define) ( ) Need to Discuss The medical record reflects the following clinical findings, treatment, and risk factors. Clinical Indicators:Hypoxia 87%, Wheezes to lungs on exam, and CXR showed mild pulmonary vascular congestion, moderate left pleural effusion and small right pleural effusion with associated bibasilar opacities. Treatment: IV Lasix, cardiology consult, Echo, telemetry, I/O's, daily weights Risk Factors: Age, htn, bph, Afib, Please clarify and document your clinical opinion in the progress notes and discharge summary. Terms such as "probable", "suspected", "likely", "questionable", "possible", or "still to be ruled out" are acceptable. IF IN AGREEMENT, YOU MUST DOCUMENT ABOVE DIAGNOSTIC STATEMENT IN DAILY PROGRESS NOTES AND DISCHARGE SUMMARY. This document is not part of the patient's record. CHF Documentation of SpecificityIt is also important to note that new changes in requirements for documentation of patient clinical severity include the diagnosis of heart failure. The medical record documentation is now expected to include definitive and explicit description of the patient's heart failure; vague terms such as "heart failure," ventricular dysfunction," and "CHF" may not fully capture the physician's intended level of severity. Thank You, Adria Pelayo, BEAU [phone]
--- NOTE | 2017-05-08 15:06 | Cardiology Follow-Up ---
Subjective Date of Service: May 08, 2017. Pt evaluation today including: conversation w/ patient, physical exam, lab review, review of studies, review of inpatient medication list History of Present Illness This is an 87-year-old male who has a history of diabetes mellitus, hypertension , hypercholesterolemia and dementia as well as atrial fibrillation. In May 2016 he was felt to be in permanent atrial fibrillation, as of he was in sinus rhythm but 07/10/2015 on Holter monitoring he was in atrial fibrillation with a controlled or slow heart rate response. I believe he was not anticoagulated due to frequent falls. He presented to the emergency room on 05/06/2017 with shortness of breath, I believe it had been present for several days and he was found to be hypoxic on room air. On chest x-ray in the emergency room he was in mild pulmonary edema, echocardiography showed normal left ventricular systolic function. His weight seems to be up compared to March and April of this year. This admission his creatinine is normal and his cardiac enzymes are negative for injury. Today he feels well and has no complaints. He has no palpitations, lightheadedness or dizziness. Social History Smoking Status: Never Smoker History of Alcohol Use: No Review of Systems Respiratory: No cough, No sputum, No shortness of breath, No dyspnea at rest Cardiac: + see HPI, No chest pain, No edema Medications Cardiovascular: Item Value Date Time Potassium Chloride 20 meq 05/09/17 0900 (Klor-Con Tab) QAM/PO Aspirin 325 mg 05/07/17 0900 (Ecotrin Tab) DAILY/PO 05/08/17 0809 Amlodipine 5 mg 05/06/17 2100 Besylate BID/PO 05/08/17 0809 (Norvasc Tab) Objective Vital Signs Past 12 Hours Date Time Temp Pulse Resp B/P (MAP) Pulse Ox O2 Delivery O2 Flow Rate FiO2 05/08/17 12:00 99 Nasal Cannula 2.0 05/08/17 11:02 37.0 55 18 98/55 (69) 98 Room Air 85/52 (63) 05/08/17 08:00 98 Nasal Cannula 2.0 05/08/17 07:32 36.5 84 18 130/66 (87) 98 Room Air 05/08/17 04:00 Nasal Cannula 3.0 05/08/17 03:41 36.5 70 21 103/58 (73) 94 Nasal Cannula 3.0 Last Recorded Weight-Kilograms: 81.000 Intake & Output 8-Hour Column 05/08/17 05/08/17 05/09/17 15:59 23:59 07:59 Intake Total 830 ml Output Total 975 ml Balance -145 ml 24-Hour Column 05/09/17 07:59 Intake Total 830 ml Output Total 975 ml Balance -145 ml Physical Exam Constitutional: Level of Distress: NAD Lungs: Respiratory effort: no dyspnea, good air movement Auscultation: breath sounds normal, no wheezing Cardiovascular: Heart Auscultation: no murmurs, no rubs, no gallops, bradycardia, irregular rate rhythm Peripheral Pulses: Bruits: none appreciated Extremities: no edema Data Laboratory Results: Last 24 Hours Test 05/07/17 16:06 05/07/17 19:54 05/08/17 05:48 05/08/17 06:32 Bedside Glucose 119 mg/dl 130 mg/dl 91 mg/dl White Blood Count 6.86 K/uL Red Blood Count 3.72 M/uL Hemoglobin 10.3 g/dL Hematocrit 32.5 % Mean Corpuscular Volume 87.4 fL Mean Corpuscular Hemoglobin 27.7 pg Mean Corpuscular Hemoglobin Concent 31.7 g/dl Platelet Count 307 K/uL Mean Platelet Volume 10.2 fL Neutrophils (%) (Auto) 62.2 % Lymphocytes (%) (Auto) 19.8 % Monocytes (%) (Auto) 10.3 % Eosinophils (%) (Auto) 7.1 % Basophils (%) (Auto) 0.3 % Neutrophils # (Auto) 4.26 K/uL Lymphocytes # (Auto) 1.36 K/uL Monocytes # (Auto) 0.71 K/uL Eosinophils # (Auto) 0.49 K/uL Basophils # (Auto) 0.02 K/uL RDW Standard Deviation 52.8 fL RDW Coefficient of Variation 16.6 % Immature Granulocyte % (Auto) 0.3 % Immature Granulocyte # (Auto) 0.02 K/uL Sodium Level 141 mmol/L Potassium Level 3.8 mmol/L Chloride Level 104 mmol/L Carbon Dioxide Level 32 mmol/L Anion Gap 5.0 mmol/L Blood Urea Nitrogen 29 mg/dl Creatinine 0.95 mg/dl Est Creatinine Clear Calc Drug Dose 59.0 ml/min Estimated GFR () 82.5 Estimated GFR (Non- 71.2 BUN/Creatinine Ratio 30.8 Random Glucose 101 mg/dl Calcium Level 8.3 mg/dl Test 05/08/17 11:04 Bedside Glucose 109 mg/dl Telemetry reviewed: Atrial fibrillation with a controlled ventricular response. Assessment and Plan #1. Congestive heart failure: He appears to have congestive heart failure but the cause is uncertain. He has not developed renal insufficiency, he has not developed left ventricular dysfunction and he feels that his diet and fluid intake have not changed. I would treat his CHF with diuresis as you are, I don' t think there is much else to do. Today he does not have edema and his breathing is improved, I doubt he has much more excessive fluid. His BUN has increased but his creatinine has not. I would probably try to maintain his weight where it currently is for at least the short term. #2. Atrial fibrillation: His heart rate overall has been somewhat low, I discontinued metoprolol yesterday. He is not on an anticoagulant due to frequent falls therefore I've not started one. #3. Bradycardia: He was on metoprolol tartrate 25 mg twice a day, he is now off since yesterday afternoon and although he may have some residual effect so far his heart rate has not increased substantially. I would continue to hold his beta mervin for now. Thank you for allowing me to participate in his care.
[2017-05-08] MEDS: TAMSULOSIN HCL 0.4 MG CAP PO SCH (21:06)
[2017-05-09 03:47] VITALS: BP 101/49; PULSE 71; TEMP 36.5; O2SAT 95
[2017-05-09 05:47] LABS: BASO % 0.3 %; BASO ABS # 0.02 K/uL (0-0.2); COMPLETE YES; EOS % 8.8 %; HEMATOCRIT 31.5 % (42-52); IG% 0.5 %; LYMPH % 21.9 %; LYMPH ABS # 1.34 K/uL (1.2-3.4); MEAN CELL VOLUME 87.5 fL (80-100); MEAN CORPUSCULAR HEMOGLOBIN 28.3 pg (25-34); MEAN CORPUSCULAR HGB CONC 32.4 g/dl (32-36); MONO % 12.1 %; NEUT % 56.4 %; PLATELET COUNT 275 K/uL (130-400); WHITE BLOOD COUNT 6.11 K/uL (4.8-10.8)
[2017-05-09] MEDS: LEVOTHYROXINE 100 MCG TAB PO SCH (06:11)
[2017-05-09] MEDS: HEPARIN SOD 5000 UNIT/0.5 ML CARP SQ SCH ×2 (06:12→13:35)
[2017-05-09 07:49] VITALS: BP 108/85; PULSE 64; TEMP 36.4; O2SAT 95
[2017-05-09] MEDS: INSULIN ASPART 100 UNITS/ML 3 ML PEN SC SCH ×2 (08:46→11:36)
[2017-05-09] MEDS: ASPIRIN 325 MG ECTAB PO SCH (08:48)
[2017-05-09] MEDS: PANTOprazole SOD 40 MG TAB PO SCH (08:48)
[2017-05-09] MEDS: CEROVITE ADV FORMULA TAB PO SCH (08:48)
[2017-05-09] MEDS: CeleBREX 200 MG CAP PO SCH (08:49)
[2017-05-09] MEDS: AMLODIPINE BESYLATE 5 MG TAB PO SCH (08:49)
[2017-05-09] MEDS ORDERED: POTASSIUM CHLORIDE 20 MEQ TABCR PO SCH (09:00)
--- NOTE | 2017-05-09 09:16 | Cardiology Follow-Up ---
Subjective Date of Service: May 09, 2017. Pt evaluation today including: conversation w/ patient, physical exam, lab review, review of studies, review of inpatient medication list History of Present Illness This is an 87-year-old male who has a history of diabetes mellitus, hypertension , hypercholesterolemia and dementia as well as atrial fibrillation. In May 2016 he was felt to be in permanent atrial fibrillation, as of he was in sinus rhythm but 07/10/2015 on Holter monitoring he was in atrial fibrillation with a controlled or slow heart rate response. I believe he was not anticoagulated due to frequent falls. He presented to the emergency room on 05/06/2017 with shortness of breath, I believe it had been present for several days and he was found to be hypoxic on room air. On chest x-ray in the emergency room he was in mild pulmonary edema, echocardiography showed normal left ventricular systolic function. His weight seemed to be up compared to March and April of this year. This admission his creatinine was normal and his cardiac enzymes are negative for injury. With a moderate bradycardia it seemed reasonable to discontinue his beta-blockade which was done on 05/07/2017. He has been feeling well and has no complaints. No shortness of breath. Social History Smoking Status: Never Smoker History of Alcohol Use: No Review of Systems Respiratory: No cough, No sputum, No shortness of breath, No dyspnea at rest Cardiac: + see HPI, No chest pain, No edema Medications Cardiovascular: Item Value Date Time Potassium Chloride 20 meq 05/09/17 0900 (Klor-Con Tab) QAM/PO 05/09/17 0849 Aspirin 325 mg 05/07/17 0900 (Ecotrin Tab) DAILY/PO 05/09/17 0848 Amlodipine 5 mg 05/06/17 2100 Besylate BID/PO 05/09/17 0849 (Norvasc Tab) Objective Vital Signs Past 12 Hours Date Time Temp Pulse Resp B/P (MAP) Pulse Ox O2 Delivery O2 Flow Rate FiO2 05/09/17 07:49 36.4 64 18 108/85 (93) 95 3.0 05/09/17 04:00 Nasal Cannula 3.0 05/09/17 03:47 36.5 71 18 101/49 (66) 95 Nasal Cannula 3.0 71 05/09/17 00:00 Nasal Cannula 3.0 10/26/17 23:29 36.6 52 18 112/57 (75) 94 Nasal Cannula 3.0 52 Last Recorded Weight-Kilograms: 81.000 Physical Exam Constitutional: Level of Distress: NAD Lungs: Respiratory effort: no dyspnea, good air movement Auscultation: breath sounds normal, no wheezing Cardiovascular: Heart Auscultation: no murmurs, no rubs, no gallops, irregular rate rhythm Peripheral Pulses: Bruits: none appreciated Extremities: no edema Data Laboratory Results: Last 24 Hours Test 05/08/17 11:04 05/08/17 16:18 05/08/17 20:04 05/09/17 05:27 Bedside Glucose 109 mg/dl 147 mg/dl 162 mg/dl White Blood Count 6.11 K/uL Red Blood Count 3.60 M/uL Hemoglobin 10.2 g/dL Hematocrit 31.5 % Mean Corpuscular Volume 87.5 fL Mean Corpuscular Hemoglobin 28.3 pg Mean Corpuscular Hemoglobin Concent 32.4 g/dl Platelet Count 275 K/uL Mean Platelet Volume 10.0 fL Neutrophils (%) (Auto) 56.4 % Lymphocytes (%) (Auto) 21.9 % Monocytes (%) (Auto) 12.1 % Eosinophils (%) (Auto) 8.8 % Basophils (%) (Auto) 0.3 % Neutrophils # (Auto) 3.44 K/uL Lymphocytes # (Auto) 1.34 K/uL Monocytes # (Auto) 0.74 K/uL Eosinophils # (Auto) 0.54 K/uL Basophils # (Auto) 0.02 K/uL RDW Standard Deviation 52.2 fL RDW Coefficient of Variation 16.3 % Immature Granulocyte % (Auto) 0.5 % Immature Granulocyte # (Auto) 0.03 K/uL Test 05/09/17 05:45 Bedside Glucose 103 mg/dl Telemetry reviewed: Atrial fibrillation with a well-controlled heart rate Assessment and Plan #1. Congestive heart failure: He appeared to have congestive heart failure on admission but the cause is uncertain. He had not developed renal insufficiency, he had not developed left ventricular dysfunction and he feels that his diet and fluid intake had not changed. He has been treated with diuresis and feels well. Today he does not have edema and his breathing is improved, I doubt he has much more excessive fluid. As of yesterday his BUN had increased but his creatinine had not. I would probably try to maintain his weight where it currently is for at least the short term. #2. Atrial fibrillation: His heart rate overall had been somewhat low, I discontinued metoprolol on 05/07/2017. His heart rate now seems well controlled on no medications, I would continue with holding AV kyle blockers for now. He is not on an anticoagulant due to frequent falls therefore I've not started one. #3. Bradycardia: He was on metoprolol tartrate 25 mg twice a day, he is now for 48 hours and his heart rate is well controlled. I doubt he has much residual beta mervin effect. I would continue to hold his beta mervin for now. Thank you for allowing me to participate in his care.
[2017-05-09] MEDS ORDERED: FURO-85 PO (10:50)
--- NOTE | 2017-05-09 10:55 | Discharge Instructions ---
Discharge Instructions Date of Service May 09, 2017. Admission Reason for Admission: Acute Exacerbation Of Chf Discharge Discharge Diagnosis / Problem: Acute CHF exacerbation Discharge Goals Goal(s): Decrease discomfort, Improve function, Increase independence, Improve disease control Activity Recommendations Activity Level: Up Ad Risa, Assistance Required Therapies: Physical Therapy, Occupational Therapy Lifting Limitations: no more than 25 pounds, gradually increase as tolerated Exercise/Sports Limitations: gradually increase as tolerated Shower/Bathe: no limitations . Additional Information Patient informed of condition: Yes Advance Directives: Yes DNR: No Level of Care: Other (Assisted living) Communicable Disease: No Prognosis: Stable Doyle Catheter: No Instructions / Follow-Up Instructions / Follow-Up You were admitted to [facility] with Acute exacerbation of Congestive heart failure During your stay here you were treated with intravenous diuretics to remove extra fluid, oxygen, and other supportive care. Imaging studies which were completed include Echocardiogram. Medications: You have been started on Lasix 20 mg Friday, Fri and Friday. Continue taking all your other medications as prescribed. Labs: Have BMP drawn on 05/14/17, next Friday, to check your kidney function with the initiation of Lasix. Appointments: Follow up with your Primary Care Provider within 1 week. Follow up with cardiology within 2 weeks. A referral to the heart failure clinic has been made. Specific Heart Failure Instructions Call your Primary Care doctor if any of the following symptoms or problems start or get worse: * Shortness of breath or difficulty breathing * Wake up at night short of breath * Chest pain * Cough * Swelling of your hands, feet, or legs * More fatigued or tired with your normal activity * Palpitations - sudden fast heart beats WEIGHT * Weigh yourself every morning after using the bathroom. * Use the same scale. * Wear the same amount of clothing. * Write your weight down on a chart. * Call your Primary Care doctor if you gain more than 2-3 pounds in 1-2 days or if you gain more than 5 lbs within 1 week. MEDICATIONS * Use this discharge instruction sheet for medication instructions. * Take your medications at the time your doctor ordered. * Do not skip a dose of your medicines. * If you miss a dose of medicine, take it as soon as possible, but DO NOT DOUBLE A DOSE. * Read your medicine information when you get home. * Know all of the side effects of your medicine. If in doubt, ask your pharmacist * Call your Primary Care doctor's office if you have any side effects. * Be sure all of your doctors know what medicine and herbs you take (including cold, flu, and herbal medicine). Take the following with you to your follow-up doctor appointments: * Weight Chart * Medication List * List of questions Do not drink excessive alcohol, beer or wine. Current Hospital Diet Patient's current hospital diet: AHA Diet (Heart Healthy), Diabetes Type 2 Diet Discharge Diet Recommended Diet: AHA Diet (Heart Healthy), Diabetes Type 2 Diet Fluid Restriction: None Pending Studies Studies pending at discharge: no Laboratory Results Hemoglobin A1c Test 05/07/17 02:16 Range/Units Estimated Average Glucose 134 mg/dl Hemoglobin A1c 6.3 H 4.5-5.6 % Lipid Panel Test 05/07/17 02:16 Range/Units Triglycerides Level 66 0-150 mg/dl Cholesterol Level 133 0-200 mg/dl HDL Cholesterol 70 mg/dl Cholesterol/HDL Ratio 1.9 LDL Cholesterol, Calculated 50 mg/dl Medical Emergencies . Who to Call and When: Medical Emergencies: If at any time you feel your situation is an emergency, please call 911 immediately. . Non-Emergent Contact Non-Emergency issues call your: Primary Care Provider Call Non-Emergent contact if: you have a fever, temperature is above 100.5, your pain is not controlled, your pain is worsening, your pain is unusual for you, your pain is concerning you, you have any medication questions . Past History Medical & Surgical History: (1) CHF (congestive heart failure) (2) Acute exacerbation of CHF (congestive heart failure) (3) Diabetes mellitus (4) Benign hypertension . "Provider Documentation" section prepared by Rosaura Caruso. . Core Measure Problem Core Measures: None
[2017-05-09 11:33] VITALS: BP 96/48; PULSE 65; TEMP 36.8; O2SAT 93
[2017-05-09 13:20] VITALS: BP 96/48; PULSE 65; TEMP 36.8; O2SAT 93
--- NOTE | 2017-05-09 14:31 | Discharge Summary ---
Discharge Summary Date of Service May 09, 2017. (Karol Caruso PA-C) Discharge Summary Admission Date: May 06, 2017 at 16:26 Discharge Date: May 09, 2017 Principal Diagnosis: Acute CHF exacerbation Problems/Secondary Diagnoses: Paroxysmal A. 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 Mild pulmonary vascular congestion 2. Large hiatal hernia 3. Moderate left pleural effusion and small right pleural effusion with associated basilar airspace opacities ULTRASOUND BILATERAL LOWER EXTREMITY VENOUS 05/06/17 IMPRESSION: There is no sonographic evidence of deep venous thrombosis identified in the right or left lower extremity. Echocardiogram 05/06/17 * -- Conclusions -- * Left ventricular systolic function is normal. * The left atrium is mildly dilated. * The right atrium is mild to moderately dilated. * Mild aortic regurgitation. * There is mild to moderate tricuspid regurgitation. * Right ventricular systolic pressure is elevated at 40-50mmHg. * Compared to an echocardiogram from 05/2016, there is less mitral regurgitation and pulmonary pressures are slightly higher. Consultations: Cardiology (Karol Caruso PA-C) Medication Reconciliation New Medications: Furosemide (Lasix) 20 Mg Tab 1 TAB PO MWF for 30 Days, #30 TAB 1 Refill Continued Medications: Acetaminophen (Tylenol) 325 Mg Tab 650 MG PO Q6 PRN for Pain or Fever, TAB Amlodipine (Norvasc) 2.5 Mg Tab 5 MG PO BID, TAB instructions state to take (2) 2.5 mg tablets twice daily then starting on 05/07/17 to take (1) 5 mg tablet twice daily Aspirin (Aspirin Ec) 325 Mg Tab 325 MG PO DAILY Celecoxib (CeleBREX) 200 Mg Cap 200 MG PO BID, CAP Glipizide (Glucotrol) 5 Mg Tab 2.5 MG PO DAILY, TAB Levothyroxine Sodium (Levothyroxine Sodium) 100 Mcg Tab 100 MG PO DAILY for 30 Days, TAB 5 Refills Menthol-Zinc Oxide (Calmoseptine) 1 Oin Oin TOP DAILY Multiple Vitamins W/ Minerals (Therems M) 1 Tab Tab 1 TAB PO DAILY Omeprazole (Prilosec) 20 Mg Capcr 20 MG PO BID, CAP Sodium Fluoride (Prevident 5000 Booster) 1 Tube Gel 1 APPLN PO BID Tamsulosin Hcl (Flomax) 0.4 Mg Cap 1 CAP PO HS for 90 Days, CAP 3 Refills [Skin Prep [place]] () 1 SPRAY TOP DAILY CLEANSE LEFT HEEL DAILY WITH NSS, APPLY SKIN PREP AND AQUACEL AG, COVER WITH AQUACEL FOAM DAILY UNTIL HEALED. Discontinued Medications: Metoprolol Tartrate (Lopressor) (Lopressor) 25 Mg Tab 25 MG PO BID, TAB Discharge Exam The patient was seen and examined this morning. Pt reports feeling well today. He states his breathing is much improved, and that he does not have complaints of cough, or shortness of breath on exertion with ambulation about the room. He denies chest pain, palpitation or flutter, no abd pain, nv/d/c, fevers or chills. Pt has been eating and drinking without difficulty. Pt completed a 2 step o2 test and does not require supplemental O2. ROS: 6 point ROS reviewed and otherwise negative. Physical Exam: General Appearance: WD/WN, no apparent distress Eyes: PERRL, EOMI ENT: hearing grossly normal, pharynx normal Neck: supple, thyroid normal Respiratory/Chest: lungs clear, normal breath sounds, no respiratory distress, no accessory muscle use, + pertinent finding (on room air saturating at 91-92%) Cardiovascular: + systolic murmur (grade 1/), + irregularly irregular Abdomen: normal bowel sounds, non tender, soft Extremities: non-tender, no calf tenderness, + pedal edema (1+ pedal edema BLE to level of ankles, significantly improved) Neurologic/Psychiatric: alert, normal mood/affect, oriented x 3 Skin: normal color, warm/dry (Karol Caruso, ITZ) Hospital Course History of Present Illness This is an 87 yo M with PMHx of paroxysmal A. fib, hypertension, history of TIA 4, diabetes mellitus type 2, GERD, hypothyroidism, hiatal hernia, osteoarthritis, mild dementia without behavioral disturbance, hx MRSA, diabetic foot ulcerations currently being treated with Dalvanz IV once every other week, last administered on 05/02/17 as per ID recommendations. Patient presents today with acute onset shortness of breath from [facility]. The patient's sons, Ryan and Alphonse are present at bedside. They report his shortness of breath has been coming on over the last 2 days. Patient was found to be hypoxic at 86% on room air at rest this morning. He is also noted to be coughing, nonproductive and required being placed on supplemental O2. The patient reports having a worsening left ankle pain which began approximately 30 minutes ago. He feels as if this is a cramping in his calf muscle. Family members note that the patient has seemed to be slightly altered, as his speaking was a little slurred, and he seemed to be confused earlier. At present the son reports that he is speaking better, although the patient himself denies this in entirety. Here in the ER patient has an elevated proBNP CXR showing mild pulmonary edema, and a hiatal hernia Patient was administered Lasix 40 mg IV EKG with atrial fibrillation, but negative for acute ischemic changes or ST wave inversion Physical Exam Vital Signs Date Time Temp Pulse Resp B/P (MAP) Pulse Ox O2 Delivery O2 Flow Rate FiO2 05/06/17 15:14 60 16 131/71 93 Nebulizer 05/06/17 14:39 92 Nasal Cannula 2.0 05/06/17 14:38 58 22 91 Nasal Cannula 2.0 05/06/17 14:36 55 05/06/17 13:51 36.7 64 18 132/81 87 Room Air General Appearance: WD/WN, + mild distress Head: normocephalic, atraumatic Eyes: PERRL, EOMI ENT: hearing grossly normal, pharynx normal, + pertinent finding (MMM) Neck: supple, + JVD (mild) Respiratory/Chest: chest non-tender, no respiratory distress, no accessory muscle use, + pertinent finding (+ crackles in bilateral bases, on 2 L via NC) Cardiovascular: + JVD, + tachycardia, + irregularly irregular Abdomen/GI: normal bowel sounds, non tender, soft Back: normal inspection, no CVA tenderness Extremities/Musculoskelatal: no calf tenderness, + pedal edema (2+ pitting edema bilaterally. + Chronic foot ulceration Right foot covered with dressing, + pain in R ankle, no surrounding erythema or rash noted, no point tenderness. ) Neurologic/Psych: alert, normal mood/affect, oriented x 3 Skin: normal color, warm/dry Hospital Course: 87 yo M with PMHx of paroxysmal A. fib, hypertension, history of TIA 4, diabetes mellitus type 2, GERD, hypothyroidism, hiatal hernia, osteoarthritis, mild dementia without behavioral disturbance, hx MRSA, left diabetic foot ulcerations currently being treated with Dalvanz IV once every other week, last administered on 05/02/17 as per ID recommendations. Shortness of breath/ altered mental status Acute Preserved EF CHF in the setting of valvular HD and pulmonary HTN treated with Lasix Paroxysmal Atrial Fibrillation - Echocardiogram complete * Left ventricular systolic function is normal. * The left atrium is mildly dilated. * The right atrium is mild to moderately dilated. * Mild aortic regurgitation. * There is mild to moderate tricuspid regurgitation. * Right ventricular systolic pressure is elevated at 40-50mmHg. * Compared to an echocardiogram from 05/2016, there is less mitral regurgitation and pulmonary pressures are slightly higher. - Appreciate cardiology recs - will stop metoprolol tartrate 25 mg BID indefinitely for now per cardiology. - HR and BP improved since off metoprolol and may also helped improve fluid retention. - BP is slightly improved today- will hold off on further diuresis as breath sounds much improved - edema also greatly improved - Will start lasix 20 MWF per cardiology recommendations. Recheck BMP on Friday05/14/17. - Cardiac biomarkers negative x 3 - strict I/Os - neg ~ 3.5 L at this time, no fluid restriction at this time - monteiro catheter removed - Get bedside scale for daily weights - Heart healthy diabetic diet - O2 prn, wean as tolerated - PT/OT evaluations Altered mental status- Resolved Mild dementia - No source of infection so far identified - flu swabs in process, negative UA, CXR showing pulmonary edema but no consolidation - Improved, AAOx3 on exam. Answers appropriately and participates in discussion. DM II - Continue glipizide to 5 g tablet daily - Insulin sliding scale with Accu-Cheks ACHS - hgb A1c= 6.3 HTN - hold metoprolol tartrate 25 mg BID - will order metoprolol tartrate IV 5 mg prn for tachycardia Hypothyroidism - Levothyroxine 100 g Mild dementia - Patient without behavioral disturbances, alert and oriented 3 today BPH -Continue tamsulosin 0.4 mg QHS R toe ulceration - Patient follows with the wound clinic as an outpatient. Also with infectious disease: Continue regularly scheduled dalvanz IV every other Friday, last administered on 05/02/17. - MRSA nasal swab negative - Wound consulted during inpt stay. DVT ppx: Teds, SCDs, heparin subcutaneous CODE STATUS : FULL CODE- was discussed with patient and his sons, they are in agreement that he would not want heroic measures Disposition: From [facility] some living facility, PT/OT evals, discharge to home today Total Time Spent: Greater than 30 minutes This includes examination of the patient, discharge planning, medication reconciliation, and communication with other providers. (Karol Caruso PA-C) I examined patient and discussed my analysis and discharge plan with patient and APC. I agree with above note. My exam did not differ from the exam noted above. I answered all questions from patient. (Goran Helms M.D.) Discharge Instructions Please refer to the electronic Patient Visit Report (Discharge Instructions) for additional information. (Karol Caruso PA-C) Follow-Up Follow up with your Primary Care Provider within 1 week. Follow up with cardiology within 2 weeks. A referral to the heart failure clinic has been made. (Karol Caruso PA-C) Additional Copies To [facility]
[2017-05-09 17:34] LABS: BORDETELLA PERTUSSIS SOURCE Swab
== END 2017-05-09 15:03 | disposition home or self-care (01) | DRG 293 ==
LOC: C.EDB 13:46 → C.2E 16:26 → ENRESERV 17:08
PROVIDERS: ADMIT Family Medicine; ATTEND Internal Medicine Sports Medicine
DX: I50.31 Acute diastolic (congestive) heart failure (principal); I27.20 Pulmonary hypertension, unspecified; I48.0 Paroxysmal atrial fibrillation; I11.0 Hypertensive heart disease with heart failure; E11.621 Type 2 diabetes mellitus with foot ulcer; R09.02 Hypoxemia; L97.519 Non-pressure chronic ulcer of other part of right foot with unspecified severity; F03.90 Unspecified dementia, unspecified severity, without behavioral disturbance, psychotic disturbance, mood disturbance, and anxiety; E03.9 Hypothyroidism, unspecified; N40.0 Benign prostatic hyperplasia without lower urinary tract symptoms; K21.9 Gastro-esophageal reflux disease without esophagitis; K44.9 Diaphragmatic hernia without obstruction or gangrene; M19.90 Unspecified osteoarthritis, unspecified site; Z51.81 Encounter for therapeutic drug level monitoring; Z79.899 Other long term (current) drug therapy; Z79.84 Long term (current) use of oral hypoglycemic drugs; Z79.82 Long term (current) use of aspirin; Z86.73 Personal history of transient ischemic attack (TIA), and cerebral infarction without residual deficits; Z86.14 Personal history of Methicillin resistant Staphylococcus aureus infection; Z91.81 History of falling; Z83.3 Family history of diabetes mellitus; Z82.49 Family history of ischemic heart disease and other diseases of the circulatory system; Z80.6 Family history of leukemia

== ENCOUNTER → 2017-05-28 | Outpatient (CLI) | payer OTHER ==
[~2017-05-28] MED LIST changes: +AMLO2.5T PO; -CIPR1TAB11 PO; +FURO-85 PO; -GLIP2.5T11 PO; +GLIP5TAB3 PO; +PRLSR20 PO; +PRVDB PO; -SILV1PAD38 TOP; +SKIN PREP SPRAY TOP
[2017-05-28 10:14] LABS: BLOOD UREA NITROGEN 30 mg/dl (7-18); BUN/CREATININE RATIO 29.8 (10-20); CALCIUM 9.1 mg/dl (8.5-10.1); CARBON DIOXIDE 34 mmol/L (21-32); CHLORIDE 98 mmol/L (98-107); CREATININE 1.02 mg/dl (0.60-1.40); GLUCOSE 112 mg/dl (70-99); POTASSIUM 4.2 mmol/L (3.5-5.1); SODIUM 136 mmol/L (136-145)
== END | disposition home or self-care (01) ==
LOC: C.LABSPEC 09:30
PROVIDERS: ATTEND Physician Assistant
DX: E87.70 Fluid overload, unspecified (principal)

== ENCOUNTER 2018-11-07 07:17 | Inpatient (IN) ==
[2018-11-07] MEDS ORDERED: ALBUT/IPRATROP 3MG/0.5MG NEB 3 ML VIAL INH STA (07:36)
[2018-11-07] MEDS ORDERED: LEVOFLOXACIN/D5W 750 MG/150 ML BAG IV STA (07:36)
[2018-11-07] MEDS ORDERED: PIPERACILLIN/TAZOBACTAM 4.5 GM/120 ML BAG IV STA (07:36)
--- NOTE | 2018-11-07 07:52 | Emergency Department Note ---
Entered by Mayra Russo acting as a scribe for History of Present Illness General Chief complaint: Shortness of Breath/Dyspnea Stated complaint: sob/cough Time Seen by Provider: 11/07/18 07:21 Source: patient and EMS History of Present Illness Onset (ago): day(s) 2 Location: chest Pain Consistency: + other (persistent) Quality: + other (shortness of breath) Associated symptoms: + chest pain and + shortness of breath The patient is a 88 year old male that is presenting to the Emergency Room with complaints of a persistent shortness of breath for the past couple of days. The patient was brought to the Emergency Room via EMS today after being found with an O2 Sat of 85% on room air at the [facility] where he lives. The patient reports that he has having chest discomfort and a cough secondary to the cough. He denies wearing O2 regularly at home. Home Medications Home Medications Medication Instructions Recorded Confirmed Type acetaminophen 500 mg capsule 500 mg PO Q6H PRN 06/08/18 11/07/18 History amlodipine 2.5 mg tablet 2.5 mg PO BID tab 06/08/18 11/07/18 History camphor-methyl salicylate-menthol 1 patch TOP DAILY ea 06/08/18 11/07/18 History topical patch celecoxib 200 mg capsule 200 mg PO DAILY 06/08/18 11/07/18 History glipizide ER 2.5 mg tablet, 2.5 mg PO DAILY 06/08/18 11/07/18 History extended release 24 hr levothyroxine 100 mcg capsule 100 mcg PO DAILY 06/08/18 11/07/18 History menthol 0.44 %-zinc oxide 20.6 % 1 appln TOP QID PRN 06/08/18 11/07/18 History topical ointment metolazone 5 mg tablet 5 mg PO DAILY 06/08/18 11/07/18 History multivitamin,ar-zmyp-lxfjcfaq 27 1 tab PO DAILY 06/08/18 11/07/18 History mg-0.4 mg tablet sodium fluoride 1.1 % dental paste 1 appln DT BID ml 06/08/18 11/07/18 History tamsulosin 0.4 mg capsule 0.4 mg PO DAILY 06/08/18 11/07/18 History omeprazole 40 mg capsule,delayed 40 mg PO DAILY 08/07/18 11/07/18 History release guaifenesin ER 600 mg tablet, 600 mg PO BID 10/29/18 11/07/18 History extended release 12 hr dextromethorphan-guaifenesin 5 ml PO Q4H PRN 11/07/18 11/07/18 History [Tussin DM] Allergies Allergy/AdvReac Type Severity Reaction Status Date / Time No Known Allergies Allergy Verified 11/07/18 07:47 Past Med/Surg History Medical History A-fib (Acute) Abnormal weight loss (Acute) CHF (congestive heart failure) (Acute) DM II (diabetes mellitus, type II), controlled (Acute) Dementia (Acute) Diabetic foot ulcer (Acute) Diabetic neuropathy (Acute) Dysphagia (Acute) FHx: psoriatic arthritis (Acute) GERD (gastroesophageal reflux disease) (Acute) Gait instability (Acute) Gastric ulcer (Acute) HTN (hypertension) (Acute) Hypercholesteremia (Acute) Hypothyroidism (Acute) Lethargy (Acute) Limb swelling (Acute) MRSA (methicillin resistant staph aureus) culture positive (Acute) Osteoarthritis of knee (Acute) Osteoarthritis, knee (Acute) Paroxysmal A-fib (Acute) Polyarthropathy (Acute) Psoriatic arthritis mutilans (Acute) Rash (Acute) Recurrent UTI (Acute) Family History Other Family history non-contributory Social History marital status: Current Living Situation: Spouse current occupational status: retired Feels Safe at Home: Yes Smoking Status: Never smoker Review of Systems See HPI for pertinent positives & negatives. and A total of 10 systems reviewed and were otherwise negative Physical Exam Vital Signs Vital Signs - 24 hr 11/07/18 07:24 11/07/18 07:29 11/07/18 07:48 Temperature 37 C Temperature Source Oral Sepsis Recent Fever Within 48 Hours No Sepsis New/Unexplained Change in Mental Status No Sepsis Action Taken by Nursing No Action Required Pulse Rate 89 Respiratory Rate 24 Blood Pressure 104/79 Blood Pressure Mean 87 Pulse Oximetry 85 L 85 L 93 Oxygen Delivery Method Room Air Nasal Cannula Nasal Cannula Oxygen Flow Rate 0 4 CONSTITUTIONAL/VITAL SIGNS: Reviewed / noted above. GENERAL: Non-toxic in appearance. INTEGUMENTARY: Warm, dry, and [place]. HEAD: Normocephalic. EYES: without scleral icterus or trauma. ENT/OROPHARYNX: clear and moist. LYMPHADENOPATHY/NECK: Is supple without lymphadenopathy or meningismus. RESPIRATORY: Scattered rhonchi in bilateral lungs. CARDIOVASCULAR: Regular rate and rhythm. GI/ABDOMEN: Soft and nontender. No organomegaly or pulsatile mass. No rebound or guarding. Normal bowel sounds. EXTREMITIES: Warm and well perfused. BACK: No CVA tenderness. NEUROLOGICAL: Intact without focal deficits. PSYCHIATRIC: normal affect. MUSCULOSKELETAL: Normally developed with good muscle tone. Course 732:The patient was evaluated in room A02. A complete history and physical examination was performed. Administered Medications Levofloxacin/Dextrose (Levaquin/D5w) 750 mg in 150 mls @ 100 mls/hr IV NOW STA Stop: 11/07/18 09:05 Last Admin: 11/07/18 08:33 Dose: 100 mls/hr Documented by: [id number] Discontinued Medications Albuterol (Duoneb) 3 ml INH NOW STA Stop: 11/07/18 07:37 Last Admin: 11/07/18 07:48 Dose: 3 ml Documented by: [id number] Piperacillin Sod/Tazobactam Sod (Zosyn) 4.5 gm in 120 mls @ 200 mls/hr IV NOW STA Stop: 11/07/18 08:11 Last Admin: 11/07/18 07:55 Dose: 200 mls/hr Documented by: [id number] Medical Decision Making Differential Diagnosis Differential diagnosis: Etiologies such as infections, reactive airway disease, pneumonia, pneumothorax, COPD, CHF, cardiac ischemia, pulmonary embolism, musculoskeletal, gastrointestinal, as well as others were entertained. Medical Records Attestation: I reviewed the patient's medical records. Home Medications Current Medication List: was personally reviewed by me Laboratory Data Attestation: I reviewed the patient's lab results. Result diagrams: 11/07/18 07:45 11/07/18 07:45 Lab Results 11/07/18 11/07/18 11/07/18 Range/Units 07:45 07:45 07:45 WBC 13.44 H (4.8-10.8) K/uL RBC 4.41 L (4.7-6.1) M/uL Hgb 14.0 (14.0-18.0) g/dL Hct 39.4 L (42-52) % MCV 89.3 (80-100) fL MCH 31.7 (25-34) pg MCHC 35.5 (32-36) g/dL RDW Std Deviation 44.9 (36.4-46.3) fL RDW Coeff of Dayron 13.6 (11.5-14.5) % Plt Count 286 (130-400) K/uL MPV 10.4 (7.4-10.4) fL Immature Gran % (Auto) 0.4 % Neut % (Auto) 81.5 % Lymph % (Auto) 9.2 % [place] % (Auto) 8.4 % Eos % (Auto) 0.4 % Baso % (Auto) 0.1 % Immature Gran # (Auto) 0.06 H (0.00-0.02) K/uL Neut # (Auto) 10.95 H (1.4-6.5) K/uL Lymph # (Auto) 1.24 (1.2-3.4) K/uL [place] # (Auto) 1.13 H (0.11-0.59) K/uL Eos # (Auto) 0.05 (0-0.5) K/uL Baso # (Auto) 0.01 (0-0.2) K/uL PT 11.5 (9.0-12.0) Seconds INR 1.1 (0.9-1.1) APTT 29.3 (21.0-31.0) Seconds PTT Ratio 1.1 Sodium 130 L (136-145) mmol/L Potassium 3.1 L (3.5-5.1) mmol/L Chloride 88 L (98-107) mmol/L Carbon Dioxide 32 (21-32) mmol/L Anion Gap 10.0 (3-11) BUN 22 H (7-18) mg/dl Creatinine 0.84 (0.6-1.4) mg/dl Est Cr Clr Drug Dosing 65.4 ml/min Est GFR ( Amer) 90.0 Est GFR (Non-Af Amer) 77.6 BUN/Creatinine Ratio 26.5 H (10-20) Glucose 153 H (70-99) mg/dl Calcium 9.2 (8.5-10.1) mg/dl Total Bilirubin 1.1 H (0.2-1) mg/dl AST 33 (15-37) U/L ALT 29 (12-78) U/L Alkaline Phosphatase 86 (45-117) U/L Troponin I < 0.015 (0-0.045) ng/ml Total Protein 7.1 (6.4-8.2) gm/dl Albumin 2.8 L (3.4-5.0) gm/dl Globulin 4.3 H (2.5-4.0) gm/dl Albumin/Globulin Ratio 0.7 L (0.9-2) Imaging Data Radiologist's Impression: Radiology results as stated below per my review and the radiologist's interpretation: XR chest 1V portable CLINICAL HISTORY: Dyspnea dyspnea COMPARISON STUDY: 05/06/2017 FINDINGS: Bilateral parenchymal infiltrates are noted. Heart is mildly enlarged. Small fixed hiatal hernia. Pleural reactive changes left base considered chronic and improved from the prior exam. IMPRESSION: Patchy bilateral parenchymal infiltrates. The above report was generated using voice recognition software. It may contain grammatical, syntax or spelling errors. Electronically signed by: Claudio Gutierrez M.D. 11/07/2018 8:05 AM Blood Pressure Blood Pressure Findings: Normal blood pressure MDM Narrative This is an 88-year-old male who presents to the ED with a chief complaint of shortness of breath and a cough for the past 2 days. His oxygen saturations were 85% on room air when he arrived here. He requires nasal cannula oxygen to maintain oxygen saturations above 90%. The patient does not use oxygen at the [facility] where he resides. His physical exam really reveals bilateral rhonchi. There is no JVD or pedal edema. He is in no distress. His vital signs are otherwise stable. Chest x-ray reveals bilateral parenchymal infiltrates and the white blood cell count is 13.4. Chemistries were unremarkable, troponin was negative, EKG shows A. fib with a PVC. Rate of 87. The patient was treated with IV Levaquin, IV Zosyn as well as a DuoNeb treatment. I spoke with the hospitalist, who will see the patient for a dmission. Impression & Plan Pneumonia, Hypoxia Discharge Plan Visit Data Chief Complaint: Shortness of Breath/Dyspnea Stated Complaint: sob/cough ED Provider: Cristian Man Discharge Problem: Pneumonia, Hypoxia Patient Disposition: Being Evaluated by Hospitalist Forms Stand Alone Forms: My [facility] Prescriptions Prescriptions: No Action amlodipine 2.5 mg tablet 2.5 mg PO BID RF: 0 camphor-methyl salicyl-menthol adhesive patch,medicated 1 patch TOP DAILY RF: 0 acetaminophen 500 mg capsule 500 mg PO Q6H PRN (Reason: Pain) RF: 0 glipizide 2.5 mg tablet extended release 24hr 2.5 mg PO DAILY RF: 0 metolazone 5 mg tablet 5 mg PO DAILY RF: 0 menthol-zinc oxide [Calmoseptine] 0.44-20.6 % ointment 1 appln TOP QID PRN (Reason: Wound Care) RF: 0 fluoride (sodium) [PreviDent 5000 Booster Plus] 1.1 % paste 1 appln DT BID RF: 0 multivitamin,mn-bcaq-mrgdsyzo [Therems-M] 27-0.4 mg tablet 1 tab PO DAILY RF: 0 levothyroxine 100 mcg capsule 100 mcg PO DAILY RF: 0 tamsulosin 0.4 mg capsule 0.4 mg PO DAILY RF: 0 celecoxib 200 mg capsule 200 mg PO DAILY RF: 0 omeprazole 40 mg capsule,delayed release(DR/EC) 40 mg PO DAILY RF: 0 guaifenesin [Mucinex] 600 mg tablet extended release 12hr 600 mg PO BID RF: 0 dextromethorphan-guaifenesin [Tussin DM] 10-100 mg/5 mL Syrup 5 ml PO Q4H PRN (Reason: Cough) RF: 0 Referrals Referrals: [facility], [facility] [Primary Care Provider] - Discharge Problem: Pneumonia Qualifiers: Pneumonia type: due to unspecified organism Laterality: bilateral Lung location: unspecified part of lung Qualified Code(s): J18.9 - Pneumonia, unspecified organism The scribe's documentation has been prepared under my direction and personally reviewed by me in its entirety. I confirm that the note above accurately reflects all work, treatment, procedures, and medical decision making performed by me.
[2018-11-07 08:03] LABS: Basophils # (auto) 0.01 K/uL (0-0.2); Basophils % (auto) 0.1 %; Eosinophils # (auto) 0.05 K/uL (0-0.5); Eosinophils % (auto) 0.4 %; Hematocrit (blood only) 39.4 % (42-52); Immature Granulocytes # (auto) 0.06 K/uL (0.00-0.02); Immature Granulocytes % (auto) 0.4 %; Lymphocytes # (auto) 1.24 K/uL (1.2-3.4); Lymphocytes % (auto) 9.2 %; Mean Corpuscular Hgb Conc 35.5 g/dL (32-36); Mean Corpuscular Volume 89.3 fL (80-100); Mean Platelet Volume 10.4 fL (7.4-10.4); Monocytes # (auto) 1.13 K/uL (0.11-0.59); Monocytes % (auto) 8.4 %; Neutrophils # (auto) 10.95 K/uL (1.4-6.5); Neutrophils % (auto) 81.5 %; Platelet Count 286 K/uL (130-400); RDW Coefficient of Variation 13.6 % (11.5-14.5); RDW Standard Deviation 44.9 fL (36.4-46.3); Red Blood Count 4.41 M/uL (4.7-6.1); White Blood Count 13.44 K/uL (4.8-10.8)
--- NOTE | 2018-11-07 08:07 | XRay Report ---
XR chest 1V portable CLINICAL HISTORY: Dyspnea dyspnea COMPARISON STUDY: 05/06/2017 FINDINGS: Bilateral parenchymal infiltrates are noted. Heart is mildly enlarged. Small fixed hiatal h ernia. Pleural reactive changes left base considered chronic and improved from the prior exam. IMPRESSION: Patchy bilateral parenchymal infiltrates. The above report was generated using voice recognition software. It may contain grammatical, syntax or spelling errors. Electronically signed by: Claudio Gutierrez M.D. 11/07/2018 8:05 AM
[2018-11-07 08:13] LABS: INR 1.1 (0.9-1.1); Partial Thromboplastin Ratio 1.1; Partial Thromboplastin Time 29.3 Seconds (21.0-31.0); Prothrombin Time 11.5 Seconds (9.0-12.0)
[2018-11-07 08:19] LABS: Alanine Aminotransferase 29 U/L (12-78); Albumin Level 2.8 gm/dl (3.4-5.0); Aspartate Aminotransferase 33 U/L (15-37); BUN Creatinine Ratio 26.5 (10-20); Blood Urea Nitrogen 22 mg/dl (7-18); Calcium 9.2 mg/dl (8.5-10.1); Carbon Dioxide 32 mmol/L (21-32); Chloride 88 mmol/L (98-107); Creatinine Clr Calc Pharmacy 65.4 ml/min; Est GFR (Non-African American) 77.6; Glucose 153 mg/dl (70-99); Potassium 3.1 mmol/L (3.5-5.1); Sodium 130 mmol/L (136-145)
[2018-11-07 08:24] LABS: Albumin Globulin Ratio 0.7 (0.9-2); Alkaline Phosphatase 86 U/L (45-117); Bilirubin,Total 1.1 mg/dl (0.2-1); Globulin 4.3 gm/dl (2.5-4.0); Total Protein 7.1 gm/dl (6.4-8.2); Troponin I < 0.015 ng/ml (0-0.045)
[2018-11-07 08:33] LABS: Influenza A virus by PCR Neg for Influ A (Neg); Influenza B virus by PCR Neg for Influ B (Neg)
--- NOTE | 2018-11-07 08:35 | History & Physical Report ---
Date of Service November 07, 2018 Assessment & Plan (1) Pneumonia: - Admit to [facility] with tele -received IV Levaquin and Zosyn in the ER, will continue with IV Zosyn, add Vanc, and azithro for MRSA and atypical coverage for now. -Check MRSA nasal swab -Supportive care with supplemental O2 -patient requiring 4 L at present, flutter valve, Mucinex, levalbuterol nebs -Patient was hypoxic at 84% on room air at [facility] -Check sputum culture -Follow blood cultures x2 -Afebrile, but iwth tachycardia, has sepsis POA -WBC = 13.44, with left shift (2) Acute respiratory failure with hypoxia: (3) Afib: -Irregularly irregular, EKG reviewed, rate controlled without medication -Not on anticoagulation due to history of frequent falls (4) Hypothyroidism: -Patient did receive levothyroxine at facility this morning, continue 100 mcg daily (5) GERD (gastroesophageal reflux disease): -Stable, continue omeprazole 40 mg daily (6) Hiatal hernia: -noted (7) HTN (hypertension): -Continue antihypertensives from home (8) CHF (congestive heart failure): -chronic Diastolic CHF, not volume overloaded currently, is maintained on diuretics, no acute exacerbation -follow volume status, I/O, daily weights (9) Diabetic ulcer of toe: left 4th toe recent traumatic wound, [facility] -growing Alonso Wynne from 1 month ago -not currently infected (10) Stage II pressure ulcer of sacral region: -We will consult wound, pressure offloading with waffle boots, frequent turn & repo while in bed (11) DM II (diabetes mellitus, type II), controlled: - Hold glipizide for now - ISS with accuchecks ACHS - Last A1C = 6.9 in May 2018, will recheck with Am labs. 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 - PT/OT consults (13) DVT prophylaxis: - Teds, scds, lovenox subq History of Present Illness Primary Care Provider: [employer] [employer] [facility] This is a 88 yo M with PMHx of atrial fibrillation, HTN, HLD, chronic diastolic heart failure, DM II, gait disturbance, chronic lower extremity ulcerations, sacral ulceration, hypothyroidism, hiatal hernia, hx of MRSA, mild dementia, frequent falls who presents from [facility] for increased cough and SOB. Pt was found to be hypoxic at 84% on RA at facility, and then was again 86% upon arrival to the ER. CXR is concerning for pneumonia with bilateral infiltrates. He is requiring supplemental O2 3-4 L, however does not typically require this. The patient family is present at bedside. Nursing at [facility] was also spoken to over the phone by myself. Nurse reported the patient has had increased cough, no sputum production for about 10 days. He was treated with nebulizer treatments QID for about 4-5 days, however did not see significant improvement. He did not receive any antibiotic treatment. The patient states that he has felt significantly worse in the past 3 days. He denies any fever, sweats or chills. Nursing reported that the patient showed increased confusion last night, he was concerned that there was an orange shirt under his bed which was going to get him. This is unlike his normal state considering his mild dementia, as normally he is only slightly forgetful, no behavioral disturbances, and is easily reoriented. Patient reports he has been eating and drinking well, however family disagrees with this statement. Patient denies any other acute complaints. Pt is primarily wheelchair bound. WBC = 13.44, with a left shift. CXR shows bilateral infiltrates. Requiring 4L O2 with sats = 92 %. Allergies Allergy/AdvReac Type Severity Reaction Status Date / Time No Known Allergies Allergy Verified 11/07/18 07:47 Home Medications Home Medications Medication Instructions Recorded Confirmed Type acetaminophen 500 mg capsule 500 mg PO Q6H PRN 06/08/18 11/07/18 History amlodipine 2.5 mg tablet 2.5 mg PO DAILY tab 06/08/18 11/07/18 History camphor-methyl salicylate-menthol 1 patch TOP DAILY ea 06/08/18 11/07/18 History topical patch celecoxib 200 mg capsule 200 mg PO DAILY 06/08/18 11/07/18 History glipizide ER 2.5 mg tablet, 2.5 mg PO DAILY 06/08/18 11/07/18 History extended release 24 hr levothyroxine 100 mcg capsule 100 mcg PO DAILY 06/08/18 11/07/18 History menthol 0.44 %-zinc oxide 20.6 % 1 appln TOP QID PRN 06/08/18 11/07/18 History topical ointment metolazone 5 mg tablet 5 mg PO DAILY 06/08/18 11/07/18 History multivitamin,gx-cfvt-vxthmcyn 27 1 tab PO DAILY 06/08/18 11/07/18 History mg-0.4 mg tablet sodium fluoride 1.1 % dental paste 1 appln DT BID ml 06/08/18 11/07/18 History tamsulosin 0.4 mg capsule 0.4 mg PO DAILY 06/08/18 11/07/18 History omeprazole 40 mg capsule,delayed 40 mg PO DAILY 08/07/18 11/07/18 History release guaifenesin ER 600 mg tablet, 600 mg PO BID 10/29/18 11/07/18 History extended release 12 hr dextromethorphan-guaifenesin 5 ml PO Q4H PRN 11/07/18 11/07/18 History [Blanca PATEL] Past Med/Surg History Medical History A-fib (Acute) Abnormal weight loss (Acute) CHF (congestive heart failure) (Acute) DM II (diabetes mellitus, type II), controlled (Acute) Dementia (Acute) Diabetic foot ulcer (Acute) Diabetic neuropathy (Acute) Dysphagia (Acute) FHx: psoriatic arthritis (Acute) GERD (gastroesophageal reflux disease) (Acute) Gait instability (Acute) Gastric ulcer (Acute) HTN (hypertension) (Acute) Hypercholesteremia (Acute) Hypothyroidism (Acute) Lethargy (Acute) Limb swelling (Acute) MRSA (methicillin resistant staph aureus) culture positive (Acute) Osteoarthritis of knee (Acute) Osteoarthritis, knee (Acute) Paroxysmal A-fib (Acute) Polyarthropathy (Acute) Psoriatic arthritis mutilans (Acute) Rash (Acute) Recurrent UTI (Acute) Family History Other Family history non-contributory Social History Preferred Language: Polish Communication Ability: Effective Toll Collector Required: No Beliefs That Will Affect Care: None marital status: Current Living Situation: Spouse and Personal Care Facility current occupational status: retired Other Information That Helps Us Care for You: No Feels Safe at Home: Yes Safety Concerns: Feels Safe At This Time Smoking Status: Never smoker Do You Dip or Chew Tobacco: No Second Hand Exposure: No Tobacco Cessation Education Requested by Patient: No Hx Alcohol Use: No Hx Substance Use: No Review of Systems Review of Systems: Constitutional: No fever, sweats or chills, + increased fatigue Eyes: No diplopia, no worsening or blurred vision ENT: normal hearing, no trouble swallowing Respiratory: +cough, no sputum, +dyspnea at rest at times and on exertion Cardiovascular: No chest pain, tightness or palpitations Abdomen: No pain, nausea, vomiting, diarrhea or constipation (last BM was ~2 d ago) Musculoskeletal: No joint pain, calf pain, swelling Neurologic: + weakness, + numbness/tingling bilateral lower extremities, hx of frequent falls however none recently Psychiatric: No anxiety or depression, + more confusion recently Skin: + toe ulcerations well healed, + sacral ulceration well healed Physical Exam Physical Exam: General: awake, alert, no apparent distress Head: Normocephalic, atraumatic ENT: PERRL, EOMI, no pharyngeal exudate, mucous membranes moist, + hard of hearing Chest: + 4 L O2, + coarse breath sounds throughout, wet cough, no sputum production, no wheeze or rales. Cardiac: irregularly irregular, + HAYDEE grade II/, no JVD, normal peripheral pulses, good capillary refill Abdominal: NABS x 4 quadrants, soft, nontender to palpation, no rebound, guarding or tenderness Extremities: Normal inspection, no peripheral edema or erythema, calfs nontender to palpation Psych: Normal mood and affect Neuro: AAO x 3, no motor deficits, speech is clear Results & Data Vital Signs (Past 12 Hours) Vital Signs Temp Pulse Resp BP Pulse Ox 11/07/18 07:48 93 11/07/18 07:29 85 L 11/07/18 07:24 37 C 89 24 104/79 85 L Diagnostic Findings XR chest 1V portable CLINICAL HISTORY: Dyspnea dyspnea COMPARISON STUDY: 05/06/2017 FINDINGS: Bilateral parenchymal infiltrates are noted. Heart is mildly enlarged. Small fixed hiatal hernia. Pleural reactive changes left base considered chronic and improved from the prior exam. IMPRESSION: Patchy bilateral parenchymal infiltrates. Code Status & VTE Plan Code Status Full code - discussed with the patient and family at bedside Supervising Physician Co-Signing Physician Notes PA Supervision Note: I personally saw and examined the patient. I verified all terrazas points and agree with CONTRERAS Caruso with the following exceptions and/or additions: Pt presents with SOB, cough, and altered mental status with hypoxia from a personal long term. Found to have bilateral PNA on CXR. No recent hospitalizations. He reports having a low appetite. No abdominal pain or chest pain History and ROS as above-reviewed Vitals reviewed NAD, appears ill, persistent cough during exam, alert, awake Mild tachycardia, irreg irreg rhythm, no mgr Lungs with bilat rhonchi at bases and diminished lung sounds throughout Abd +BS soft NT ND Ext no edema, 2+ DP pulses, no edema or calf tenderness Skin no rashes Labs reviewed, WBC 13k CXR image personally reviewed by me and agree with bilateral infiltrates ECG with Afib, rate in 80s, nonspecific T wave and ST changes in lateral leads, aberrant conduction 88 yo male with h/o permanent atrial fibrillation, HTN, HLD, chronic diastolic CHF, DM II, gait disturbance, chronic lower extremity ulcerations, sacral ulceration, hypothyroidism, hiatal hernia, hx of MRSA, mild dementia, frequent falls here with CAP, sepsis POA, and acute respiratory failure with hypoxia -abx as above -start IVFs for tachycardia nad sepsis ,and hold metolazone in AM -replace potassium -supplemental O2 and wean as tolerated -early mobilization (1) Diabetic ulcer of toe Diabetes mellitus type: type 2 Laterality: right Non-pressure ulcer stage: with fat layer exposed Qualified Code(s): E11.621 - Type 2 diabetes mellitus with foot ulcer; L97.512 - Non-pressure chronic ulcer of other part of right foot with fat layer exposed (2) Pneumonia Laterality: bilateral Lung location: unspecified part of lung Pneumonia type: due to unspecified organism Qualified Code(s): J18.9 - Pneumonia, unspecified organism
[2018-11-07] MEDS ORDERED: AMLODIPINE BESYLATE 5 MG TAB PO ONE (09:47)
[2018-11-07] MEDS ORDERED: VANCOMYCIN CONSULT ACTIVE PRN (10:23)
[2018-11-07] MEDS ORDERED: GLUCOSE 40% GEL 15 GM TUBE PO PRN (10:23)
[2018-11-07] MEDS ORDERED: CARBOHYDRATES FOR HYPOGLYCEMIA PO PRN (10:23)
[2018-11-07] MEDS ORDERED: GLUCOSE 10 TABS/TUBE PO PRN (10:23)
[2018-11-07] MEDS ORDERED: DEXTROSE 50% 50 ML SYRINGE IV PRN (10:23)
[2018-11-07] MEDS ORDERED: GLUCAGON FOR INJ 1 MG VIAL SQ PRN (10:23)
[2018-11-07] MEDS ORDERED: PIPERACILL/TAZOBAC CONSULT ACTIVE PRN (10:23)
[2018-11-07] MEDS ORDERED: NON-FORMULARY MEDICATION (Acetaminophen 500 MG) PO PRN (10:23)
[2018-11-07] MEDS ORDERED: VANCOMYCIN HCL 2,000 MG in SODIUM CHLORIDE 0.9% 500 ML IV SCH (11:00)
[2018-11-07] MEDS: INSULIN ASPART 100 UNITS/ML 3 ML PEN SC SCH ×3 (13:48→21:48)
[2018-11-07] MEDS: ENOXAPARIN INJ 40 MG/0.4 ML SYR SQ SCH (13:48)
[2018-11-07] MEDS: PIPERACILLIN/TAZOBACTAM 3.375 GM in DEXTROSE 5% 100 ML IV SCH ×2 (13:49→22:12)
[2018-11-07] MEDS: BENZONATATE 100 MG CAPSULE PO SCH ×2 (13:49→21:13)
[2018-11-07] MEDS: LEVALBUTEROL HCL 1.25 MG/3 ML NEB NEB SCH ×2 (14:22→19:30)
--- NOTE | 2018-11-07 14:37 | Pharmacy Report ---
Pharmacy Abx Initial Consult - Date of Service November 07, 2018 - Pharmacy Dosing Scope Date of Consult: 11/07/18 Consultation requested by: Rosaura Caruso PA-C Pharmacy is consulted to initiate Vancomycin + Zosyn IV dosing therapy, order appropriate labs and adjust drug dose/frequency. - Subjective The patient is a 88 year old M admitted on 11/07/18 09:17. - Objective Height: 6 ft Weight: 82.4 kg Vital Signs (Past 12hrs): Vital Signs Temp Pulse Pulse Resp BP BP Pulse Ox 11/07/18 14:23 88 16 90 11/07/18 12:00 36.8 C 101 H 20 139/90 91 11/07/18 10:24 36.3 C L 107 H 20 154/76 H 93 11/07/18 09:31 98 H 23 127/91 91 11/07/18 09:01 87 23 134/83 92 11/07/18 08:31 32 H 120/68 92 11/07/18 08:00 82 27 H 127/67 95 11/07/18 07:48 93 11/07/18 07:30 90 28 H 109/87 93 11/07/18 07:29 85 L 11/07/18 07:24 37 C 89 24 104/79 85 L Lab Results (24hrs): Laboratory Tests (24 Hours) 11/07/18 11/07/18 07:45 07:45 WBC 13.44 H Neut # (Auto) 10.95 H Creatinine 0.84 Est Cr Clr Drug Dosing 65.4 Micro Results: 11/07/18 07:45 Blood Culture - Pending Blood 11/07/18 07:47 Blood Culture - Pending Blood - Risk Factors for Resistance * Resident in a care home or extended-care facility * History of infection with a multidrug-resistant organism: MRSA - Assessment & Plan Assessment * 88 year old M admitted with SOB, mental status changes and Pneumonia. * Pharmacy consulted for Vancomycin + Zosyn dosing. Will treat as HCAP since patient is a resident at [facility]. Plan Vancomycin IV * Estimated PK Parameters: Vd 0.7 L/kg, Ji 0.059 hr-1, t1/2 11.8 hr * Loading dose: Vancomycin 2000 mg (24 mg/kg) x 1 dose given today at 1200. * Maintenance dose: Vancomycin 1250 mg IV (15 mg/kg) every 16 hours * Goal trough level for HCAP: 15 to 20 mcg/mL * Trough Vanco level ordered for 11/09/18 before dose at 1000 (3rd maintenance dose). Piperacillin/tazobactam * 4.5 g bolus administered over 30 minutes in the ED, then 3.375 g IV extended infusion every 8 hours for CrCl greater than 20 mL/min is ordered. Pharmacy will continue to follow and will adjust dose/frequency as necessary. Thank you.
[2018-11-07] MEDS ORDERED: POTASSIUM CHLORIDE 20 MEQ TABCR PO ONE ×2 (17:15→21:00)
[2018-11-07] MEDS: NSS + 20MEQ KCL 20 MEQ/1,000 ML BAG IV SCH (18:12)
[2018-11-07] MEDS ORDERED: APPLN DT SCH (21:00)
[2018-11-07] MEDS ORDERED: FLUORIDE DT SCH (21:00)
[2018-11-07] MEDS ORDERED: guaiFENesin 600 MG TABCR PO SCH (21:00)
[2018-11-07] MEDS: guaiFENesin 600 MG TABCR PO SCH (21:13)
[2018-11-08] MEDS ORDERED: VANCOMYCIN HCL 1,250 MG in SODIUM CHLORIDE 0.9% 250 ML IV SCH (02:00)
[2018-11-08] MEDS: LEVALBUTEROL HCL 1.25 MG/3 ML NEB NEB SCH ×4 (02:52→19:32)
[2018-11-08 06:00] LABS: Hematocrit (blood only) 40.1 % (42-52); Hemoglobin 14.2 g/dL (14.0-18.0); Mean Corpuscular Hgb Conc 35.4 g/dL (32-36); Mean Corpuscular Volume 90.7 fL (80-100); Mean Platelet Volume 10.3 fL (7.4-10.4); Platelet Count 299 K/uL (130-400); RDW Coefficient of Variation 13.6 % (11.5-14.5); RDW Standard Deviation 45.2 fL (36.4-46.3); Red Blood Count 4.42 M/uL (4.7-6.1); White Blood Count 12.73 K/uL (4.8-10.8)
[2018-11-08] MEDS: NSS + 20MEQ KCL 20 MEQ/1,000 ML BAG IV SCH ×2 (06:16→18:14)
[2018-11-08] MEDS: LEVOTHYROXINE SODIUM 100 MCG TABLET PO SCH (06:16)
[2018-11-08] MEDS: PIPERACILLIN/TAZOBACTAM 3.375 GM in DEXTROSE 5% 100 ML IV SCH ×3 (06:16→21:05)
[2018-11-08 06:26] LABS: Albumin Level 2.3 gm/dl (3.4-5.0); BUN Creatinine Ratio 17.5 (10-20); Calcium 8.8 mg/dl (8.5-10.1); Creatinine Clr Calc Pharmacy 55.5 ml/min; Est GFR (African American) 77.9; Est GFR (Non-African American) 67.2; Magnesium 1.9 mg/dl (1.8-2.4); Potassium 3.6 mmol/L (3.5-5.1)
[2018-11-08 06:31] LABS: Albumin Globulin Ratio 0.6 (0.9-2); Globulin 4.2 gm/dl (2.5-4.0); Total Protein 6.5 gm/dl (6.4-8.2)
[2018-11-08] MEDS ORDERED: glipiZIDE ER 2.5 MG TABCR PO SCH ×2 (08:00→09:00)
[2018-11-08] MEDS ORDERED: AZITHROMYCIN 250 MG TAB PO SCH (09:00)
[2018-11-08] MEDS ORDERED: metOLazone 5 MG TABLET PO SCH (09:00)
[2018-11-08] MEDS: guaiFENesin 600 MG TABCR PO SCH ×2 (09:31→21:06)
[2018-11-08] MEDS: PANTOprazole 40 MG TAB PO SCH (09:32)
[2018-11-08] MEDS: BENZONATATE 100 MG CAPSULE PO SCH ×3 (09:32→21:06)
[2018-11-08] MEDS: AMLODIPINE BESYLATE 5 MG TAB PO SCH (09:32)
[2018-11-08] MEDS: TAMSULOSIN HCL 0.4 MG CAP PO SCH (09:32)
[2018-11-08] MEDS: CEROVITE ADV FORMULA TAB PO SCH (09:32)
[2018-11-08] MEDS: ENOXAPARIN INJ 40 MG/0.4 ML SYR SQ SCH (09:33)
[2018-11-08] MEDS: CeleBREX 200 MG CAP PO SCH (09:33)
[2018-11-08] MEDS: INSULIN ASPART 100 UNITS/ML 3 ML PEN SC SCH ×4 (09:34→21:07)
[2018-11-08] MEDS: GUAIFENESIN/DEXTROM SYRUP 100MG/10MG 5ML UDC PO PRN ×2 (09:34→21:05)
--- NOTE | 2018-11-08 11:53 | Hospitalist Progress Note ---
Date of Service November 08, 2018 Assessment & Plan (1) Pneumonia: CXR with bilateral infiltrates, with leukocytosis, tachycardia on admission, productive cough x 1 week prior to admission. Comes from personal retirement but not nursing facility and no recent hospitalizations. There was some concern for aspiration on admission hence the ZOsyn, but no history to suggest such. Received IV Levaquin and Zosyn in the ER MRSA swab negative Leukocytosis improved and afebrile, tachycardia resolved -continue IV Zosyn and azithro x 7 and 5 day courses respectively -dc Vanco -Supportive care with supplemental O2 -patient requiring 4 L at present, flutter valve, Mucinex, levalbuterol nebs -Patient was hypoxic at 84% on room air at [facility], wean off O2 as improving -Check sputum culture if can give sample -Follow blood cultures x2-NGTD -follow CBC -follow CXR to resolution (2) Sepsis: POA, secondary to PNA as above (3) Acute respiratory failure with hypoxia: secondary to PNA, plan as above -wean off O2 as able to (4) Afib: rate controlled without medication, tahcycardia improved with IVFs as above for sepsis -decrease IVFs to 50 mL/hr -Not on anticoagulation due to history of frequent falls (5) Hypothyroidism: -continue levothyroxine 100 mcg daily (6) GERD (gastroesophageal reflux disease): -Stable, continue omeprazole 40 mg daily (7) Hiatal hernia: -noted (8) HTN (hypertension): BPs acceptable -Continue amlodipine 2.5mg once daily (9) CHF (congestive heart failure): -chronic Diastolic CHF, not volume overloaded currently, is maintained on diuretics, no acute exacerbation and in fact was dry on admission with hyponatremia and hypokalemia, now improved with gentle IVFs -follow volume status, I/O, daily weights -holding metolazone from home -continue IVFs but decrease to 50 mL/hr of NS + KCl 20meq (10) Diabetic ulcer of toe: left 4th toe recent traumatic wound, [facility] -growing Coag chance Merinosaravanan from 1 month ago -not currently infected -wound care consulted (11) Stage II pressure ulcer of sacral region: - pressure offloading with waffle boots, frequent turn & repo while in bed WOund care consulted (12) DM II (diabetes mellitus, type II), controlled: - Hold glipizide while inpatient, has poor po intake currently glucose checks acceptable range - ISS with accuchecks ACHS - Last A1C = 6.9 in May 2018, now is pending here (13) Hx TIA/stroke w/o resid: - 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 - PT/OT consults (14) Hyponatremia: Na+ 130 on admission likely secondary to dehydration and PNA in setting of taking metolazone -hold diuretic -giving IVFs Na+ improved today to 132 -follow BMP (15) Hypokalemia: Severely low on admission at 3.1 -replaced with po KCl and KCl in IVFs Improved today -hold metolazone -replace KCLl as needed -improve po intake -follow BMP (16) DVT prophylaxis: - Teds, scds, lovenox subq Dispo-remain on med with tele, likely will need at least 2-3 more days of hospitalization Subjective Feeling better today, still coughing a lot, not bringing anything up. RN reports he is a max assist with 2 people, very weak. He refused breakfast and feels exhausted, but is feeling his appetite returning fo rlunch. No N/V, no diarrhea or abd pain. is making plenty of urine but was incontinent quite a bit through the night. Tele with Afib with rates in the 70s,some PVCs Son at the bedside and reports pt's mentation is definitely improved today Review of Systems Review of Systems: All systems reviewed & are unremarkable except as noted in HPI & below Physical Exam Constitutional: well developed and + ill appearing; no acute distress Eyes: PERRL, conjunctivae normal, anicteric sclerae ENMT: external ear and nose normal, oropharynx normal Neck: trachea midline, no thyromegaly Respiratory: normal respiratory effort and + cough Auscultation: + crackles (in left and right lower and middle lung mo) Cardiovascular: Rate/Rhythm: regular rate and + irregularly irregular Heart Sounds: no murmur Extremities: no edema Gastrointestinal (Abdomen): normal bowel sounds, soft, nontender, no hepa tosplenomegaly Musculoskeletal: Extremities: extremities normal to inspection; no cyanosis and no clubbing Skin: no rashes, warm and dry Neurologic: moves all extremities and awake; no focal motor deficits Psychiatric: A+Ox3, euthymic affect Results & Data Vital Signs (Past 12 Hours) Vital Signs Temp Pulse Pulse Resp BP Pulse Ox 11/08/18 08:00 68 11/08/18 07:18 36.6 C 78 20 138/75 90 11/08/18 04:00 36.5 C 84 20 129/81 93 11/08/18 02:52 80 16 95 11/08/18 00:00 79 Laboratory Results 11/08/18 11/08/18 11/08/18 Range/Units 11:33 07:34 05:43 WBC (4.8-10.8) K/uL RBC (4.7-6.1) M/uL Hgb (14.0-18.0) g/dL Hct (42-52) % MCV (80-100) fL MCH (25-34) pg MCHC (32-36) g/dL RDW Std Deviation (36.4-46.3) fL RDW Coeff of Dayron (11.5-14.5) % Plt Count (130-400) K/uL MPV (7.4-10.4) fL Sodium (136-145) mmol/L Potassium (3.5-5.1) mmol/L Chloride (98-107) mmol/L Carbon Dioxide (21-32) mmol/L Anion Gap (3-11) BUN (7-18) mg/dl Creatinine (0.6-1.4) mg/dl Est Cr Clr Drug Dosing ml/min Est GFR ( Amer) Est GFR (Non-Af Amer) BUN/Creatinine Ratio (10-20) Glucose (70-99) mg/dl POC Glucose 197 H 138 H (70-99) Estimat Average Glucose Pending Hemoglobin A1c Pending Calcium (8.5-10.1) mg/dl Magnesium (1.8-2.4) mg/dl Total Bilirubin (0.2-1) mg/dl AST (15-37) U/L ALT (12-78) U/L Alkaline Phosphatase (45-117) U/L Total Protein (6.4-8.2) gm/dl Albumin (3.4-5.0) gm/dl Globulin (2.5-4.0) gm/dl Albumin/Globulin Ratio (0.9-2) Nasal Screen MRSA (PCR) (Negative) 11/08/18 11/08/18 11/07/18 Range/Units 05:43 05:43 20:19 WBC 12.73 H (4.8-10.8) K/uL RBC 4.42 L (4.7-6.1) M/uL Hgb 14.2 (14.0-18.0) g/dL Hct 40.1 L (42-52) % MCV 90.7 (80-100) fL MCH 32.1 (25-34) pg MCHC 35.4 (32-36) g/dL RDW Std Deviation 45.2 (36.4-46.3) fL RDW Coeff of Dayron 13.6 (11.5-14.5) % Plt Count 299 (130-400) K/uL MPV 10.3 (7.4-10.4) fL Sodium 132 L (136-145) mmol/L Potassium 3.6 D (3.5-5.1) mmol/L Chloride 92 L (98-107) mmol/L Carbon Dioxide 33 H (21-32) mmol/L Anion Gap 7.0 (3-11) BUN 17 (7-18) mg/dl Creatinine 0.99 (0.6-1.4) mg/dl Est Cr Clr Drug Dosing 55.5 ml/min Est GFR ( Amer) 77.9 Est GFR (Non-Af Amer) 67.2 BUN/Creatinine Ratio 17.5 (10-20) Glucose 135 H (70-99) mg/dl POC Glucose 140 H (70-99) Estimat Average Glucose Hemoglobin A1c Calcium 8.8 (8.5-10.1) mg/dl Magnesium 1.9 (1.8-2.4) mg/dl Total Bilirubin 1.0 (0.2-1) mg/dl AST 32 (15-37) U/L ALT 31 (12-78) U/L Alkaline Phosphatase 76 (45-117) U/L Total Protein 6.5 (6.4-8.2) gm/dl Albumin 2.3 L (3.4-5.0) gm/dl Globulin 4.2 H (2.5-4.0) gm/dl Albumin/Globulin Ratio 0.6 L (0.9-2) Nasal Screen MRSA (PCR) (Negative) 11/07/18 11/07/18 11/07/18 Range/Units 16:36 15:30 13:42 WBC (4.8-10.8) K/uL RBC (4.7-6.1) M/uL Hgb (14.0-18.0) g/dL Hct (42-52) % MCV (80-100) fL MCH (25-34) pg MCHC (32-36) g/dL RDW Std Deviation (36.4-46.3) fL RDW Coeff of Dayron (11.5-14.5) % Plt Count (130-400) K/uL MPV (7.4-10.4) fL Sodium (136-145) mmol/L Potassium (3.5-5.1) mmol/L Chloride (98-107) mmol/L Carbon Dioxide (21-32) mmol/L Anion Gap (3-11) BUN (7-18) mg/dl Creatinine (0.6-1.4) mg/dl Est Cr Clr Drug Dosing ml/min Est GFR ( Amer) Est GFR (Non-Af Amer) BUN/Creatinine Ratio (10-20) Glucose (70-99) mg/dl POC Glucose 169 H 164 H (70-99) Estimat Average Glucose Hemoglobin A1c Calcium (8.5-10.1) mg/dl Magnesium (1.8-2.4) mg/dl Total Bilirubin (0.2-1) mg/dl AST (15-37) U/L ALT (12-78) U/L Alkaline Phosphatase (45-117) U/L Total Protein (6.4-8.2) gm/dl Albumin (3.4-5.0) gm/dl Globulin (2.5-4.0) gm/dl Albumin/Globulin Ratio (0.9-2) Nasal Screen MRSA (PCR) Negative (Negative) (1) Pneumonia Laterality: bilateral Lung location: unspecified part of lung Pneumonia type: due to unspecified organism Qualified Code(s): J18.9 - Pneumonia, unspecified organism (2) Diabetic ulcer of toe Diabetes mellitus type: type 2 Laterality: right Non-pressure ulcer stage: with fat layer exposed Qualified Code(s): E11.621 - Type 2 diabetes mellitus with foot ulcer; L97.512 - Non-pressure chronic ulcer of other part of right foot with fat layer exposed
[2018-11-09] MEDS: LEVALBUTEROL HCL 1.25 MG/3 ML NEB NEB SCH ×4 (02:04→19:19)
[2018-11-09] MEDS: GUAIFENESIN/DEXTROM SYRUP 100MG/10MG 5ML UDC PO PRN ×2 (02:59→10:00)
[2018-11-09] MEDS: PIPERACILLIN/TAZOBACTAM 3.375 GM in DEXTROSE 5% 100 ML IV SCH ×3 (05:58→21:40)
[2018-11-09] MEDS: LEVOTHYROXINE SODIUM 100 MCG TABLET PO SCH (05:58)
[2018-11-09 06:04] LABS: Estimated Average Glucose 151 mg/dl; Hemoglobin A1C 6.9 % (4.5-5.6)
[2018-11-09 06:33] LABS: Hematocrit (blood only) 39.9 % (42-52); Hemoglobin 13.8 g/dL (14.0-18.0); Mean Corpuscular Hgb Conc 34.6 g/dL (32-36); Mean Corpuscular Volume 90.9 fL (80-100); Mean Platelet Volume 10.3 fL (7.4-10.4); Platelet Count 337 K/uL (130-400); RDW Coefficient of Variation 13.8 % (11.5-14.5); RDW Standard Deviation 45.8 fL (36.4-46.3); Red Blood Count 4.39 M/uL (4.7-6.1); White Blood Count 10.57 K/uL (4.8-10.8)
[2018-11-09 07:01] LABS: BUN Creatinine Ratio 18.1 (10-20); Calcium 8.4 mg/dl (8.5-10.1); Creatinine Clr Calc Pharmacy 48.2 ml/min; Est GFR (African American) 65.7; Est GFR (Non-African American) 56.7; Magnesium 2.2 mg/dl (1.8-2.4); Potassium 3.6 mmol/L (3.5-5.1)
[2018-11-09] MEDS: ENOXAPARIN INJ 40 MG/0.4 ML SYR SQ SCH (09:16)
[2018-11-09] MEDS: INSULIN ASPART 100 UNITS/ML 3 ML PEN SC SCH ×4 (09:17→21:35)
[2018-11-09] MEDS: TAMSULOSIN HCL 0.4 MG CAP PO SCH (09:17)
[2018-11-09] MEDS: AZITHROMYCIN 250 MG TAB PO SCH (09:19)
[2018-11-09] MEDS: CEROVITE ADV FORMULA TAB PO SCH (09:19)
[2018-11-09] MEDS: BENZONATATE 100 MG CAPSULE PO SCH ×3 (09:19→21:35)
[2018-11-09] MEDS: CeleBREX 200 MG CAP PO SCH (09:19)
[2018-11-09] MEDS: PANTOprazole 40 MG TAB PO SCH (09:19)
[2018-11-09] MEDS: guaiFENesin 600 MG TABCR PO SCH ×2 (09:20→21:34)
[2018-11-09] MEDS: AMLODIPINE BESYLATE 5 MG TAB PO SCH (09:20)
[2018-11-09] MEDS ORDERED: VANCOMYCIN TROUGH ONE (09:30)
[2018-11-09] MEDS: NSS + 20MEQ KCL 20 MEQ/1,000 ML BAG IV SCH (09:32)
--- NOTE | 2018-11-09 13:57 | XRay Report ---
XR chest 1V portable CLINICAL HISTORY: b/l pneumonia, interval change COMPARISON STUDY: Chest radiograph November 07, 2018. FINDINGS: A large hiatal hernia with suspected intrathoracic stomach is again noted. Lung volumes are diminished. There are small bilateral pleural effusions. Multifocal airspace opacities within the dimitri ngs are similar to previous exam. There is no evidence for pulmonary edema. IMPRESSION: 1. No significant change in multifocal airspace opacities suggestive of pneumonia. Post treatment rad iographs to ensure resolution are recommended. 2. Large hiatal hernia with suspected intrathoracic stomach. Electronically signed by: Fredi Ball M.D. 11/09/2018 1:55 PM
--- NOTE | 2018-11-09 16:13 | Hospitalist Progress Note ---
Date of Service November 09, 2018 Assessment & Plan (1) Pneumonia: Day #3 of Zosyn and zithromax. MRSA swab negative. repeat cxr today with stable infiltrates. need for gram negative/aspiration coverage? consider narrowing her coverage. supportive care. stop IV fluids. blood cx's neg to date. Present on Admission?: Yes (2) Sepsis: 2nd to pneumonia - resolving. (3) Acute respiratory failure with hypoxia: 2nd to pneumonia. cannot rule out concomitant reactive bronchitis but hold off on steroids for now. cont nebs, abx, supportive care. (4) Afib: rates controlled. not on anticoagulation - apparently due to h/o falls. (5) Hypothyroidism: levothyroxine 100 mcg daily. TSH 03/2018 wnl. (6) GERD (gastroesophageal reflux disease): cont PPI (7) Hiatal hernia: noted sets him up for GERD +/- heightened aspiration risk. (8) HTN (hypertension): BPs controlled (9) CHF (congestive heart failure): Diastolic CHF. compensated. stopping IV fluids today. 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 Add lantus 10 units daily. Novolog sliding scale. (13) Hx TIA/stroke w/o resid: not on any meds for secondary prevention. will inquire with patient why that is. (14) Hyponatremia: Na today 133. appears euvolemic. stop IV fluids. repeat BMP am. (15) Hypokalemia: resolved BMP am (16) DVT prophylaxis: lovenox progressing PT, OT Subjective patient overall feeling better. sleeping upon arrival but awoke easily. mild cough - no sputum. denies dyspnea. staff report better appetite today. tele normal overnight. Review of Systems Constitutional: no fever Respiratory: no dyspnea and no wheezing Cardiovascular: no chest pain, no orthopnea and no paroxysmal nocturnal dyspnea Gastrointestinal: no abdominal pain Physical Exam Constitutional: well developed and well nourished; no acute distress, not ill appearing and no altered mental status ENMT: external ear and nose normal, oropharynx normal Respiratory: normal respiratory effort; no labored breathing Auscultation: + rales (fine, b/l) and + wheezes (minimal b/l) Cardiovascular: Rate/Rhythm: regular rate; + abnormal rhythm (irregular ) Heart Sounds: normal S1 and normal S2 Vessels: dorsalis pedis pulses present; no JVD Extremities: normal capillary refill; no edema Gastrointestinal (Abdomen): normal bowel sounds, soft, nontender, no hepatosplenomegaly Psychiatric: A+Ox3, euthymic affect Results & Data Vital Signs (Past 12 Hours) Vital Signs Temp Pulse Pulse Resp BP BP Pulse Ox 11/09/18 15:39 91 H 11/09/18 14:11 96 H 18 91 11/09/18 12:07 36.6 C 87 20 114/76 92 11/09/18 08:00 80 11/09/18 07:57 36.5 C 77 18 135/85 95 11/09/18 07:01 77 95 Laboratory Results Laboratory Results - last 24 hr 11/08/18 11/08/18 11/08/18 05:43 16:35 21:02 WBC RBC Hgb Hct MCV MCH MCHC RDW Std Deviation RDW Coeff of Dayron Plt Count MPV Sodium Potassium Chloride Carbon Dioxide Anion Gap BUN Creatinine Est Cr Clr Drug Dosing Est GFR ( Amer) Est GFR (Non-Af Amer) BUN/Creatinine Ratio Glucose POC Glucose 135 H 186 H Estimat Average Glucose 151 Hemoglobin A1c 6.9 H Calcium Magnesium 11/09/18 11/09/18 11/09/18 06:05 06:05 07:47 WBC 10.57 RBC 4.39 L Hgb 13.8 L Hct 39.9 L MCV 90.9 MCH 31.4 MCHC 34.6 RDW Std Deviation 45.8 RDW Coeff of Dayron 13.8 Plt Count 337 MPV 10.3 Sodium 133 L Potassium 3.6 Chloride 96 L Carbon Dioxide 33 H Anion Gap 4.0 BUN 21 H Creatinine 1.14 Est Cr Clr Drug Dosing 48.2 Est GFR ( Amer) 65.7 Est GFR (Non-Af Amer) 56.7 BUN/Creatinine Ratio 18.1 Glucose 188 H POC Glucose 203 H Estimat Average Glucose Hemoglobin A1c Calcium 8.4 L Magnesium 2.2 11/09/18 11:20 WBC RBC Hgb Hct MCV MCH MCHC RDW Std Deviation RDW Coeff of Dayron Plt Count MPV Sodium Potassium Chloride Carbon Dioxide Anion Gap BUN Creatinine Est Cr Clr Drug Dosing Est GFR ( Amer) Est GFR (Non-Af Amer) BUN/Creatinine Ratio Glucose POC Glucose 199 H Estimat Average Glucose Hemoglobin A1c Calcium Magnesium (1) CHF (congestive heart failure) Heart failure chronicity: chronic Heart failure type: diastolic Qualified Code(s): I50.32 - Chronic diastolic (congestive) heart failure (2) Afib Atrial fibrillation type: permanent Qualified Code(s): I48.2 - Chronic atrial fibrillation (3) Hypothyroidism Hypothyroidism type: acquired Qualified Code(s): E03.9 - Hypothyroidism, unspecified (4) DM II (diabetes mellitus, type II), controlled Diabetes mellitus complication status: with other specified complication Diabetes mellitus broom builder insulin use: without residential use Qualified Code(s): E11.69 - Type 2 diabetes mellitus with other specified complication (5) Sepsis Sepsis type: sepsis due to unspecified organism Qualified Code(s): A41.9 - Sepsis, unspecified organism (6) Diabetic ulcer of toe Diabetes mellitus type: type 2 Laterality: right Non-pressure ulcer stage: with fat layer exposed Qualified Code(s): E11.621 - Type 2 diabetes mellitus with foot ulcer; L97.512 - Non-pressure chronic ulcer of other part of right foot with fat layer exposed (7) GERD (gastroesophageal reflux disease) Esophagitis presence: without esophagitis Qualified Code(s): K21.9 - Gastro- esophageal reflux disease without esophagitis (8) HTN (hypertension) Hypertension type: essential hypertension Qualified Code(s): I10 - Essential (primary) hypertension (9) Pneumonia Laterality: bilateral Lung location: unspecified part of lung Pneumonia type: due to unspecified organism Qualified Code(s): J18.9 - Pneumonia, unspecified organism
[2018-11-09] MEDS ORDERED: INSULIN GLARGINE SOLOSTAR 100 UNITS/ML 3 ML PEN SC SCH (17:00)
--- OUTSIDE RECORDS SUMMARY | 2018-11-09 22:34 | External Medical Summary | Continuity of Care Document ---
:1930 Author Name Tyrell Marrufo, Provider Address Unavailable Unavailable , Care Team Providers Name Role Phone Scottie Banks M.D. 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) Hypothyroidism (244.9) (E03.9) Gastroesophageal reflux disease (530.81) (K21.9) Osteoarthritis of knee (715.36) (M17.10) 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) MRSA (methicillin resistant Staphylococcus aureus) (041.12) (A49.02) Lethargy (780.79) (R53.83) UTI (urinary tract infection) (599.0) (N39.0) Dementia (294.20) (F03.90) Atrial fibrillation (427.31) (I48.91) Gait disturbance (781.2) (R26.9) Lower extremity ulceration (707.10) (L97.909) Heart failure, diastolic, chronic (428.32) (I50.32) Type 2 diabetes mellitus (250.00) (E11.9) Diabetic foot ulcer (250.80) (E11.621) Hypertension (401.9) (I10) Allergies and Adverse Reactions No Known Drug Allergies (Allergy) Medications Celecoxib 200 MG Oral Capsule; TAKE ONE CAPSULE BY TRINY TWICE A DAY Yaron Banks Start: 20-Jan-2013 Quantity: 60 Refills: 5 Omeprazole 20 MG Oral Capsule Delayed Release; TAKE (1 ) CAPSULE TWICE DAILY. Yaron Banks Start: 30-Jul-2011 Quantity: 60 Refills: 0 Levothyroxine Sodium 100 MCG Oral Tablet ; TAKE 1 TABLET BY MOUTH EVERY DAY FOR THYROID Yaron Banks Start: 14-Nov-2011 Quantity: 30 Refills: 5 glipiZIDE ER 2.5 MG Oral Tablet Extended Release 24 Hour; TAKE 1 TABLET BY MOUTH ONCE DAILY FOR SUGAR CONTROL Yaron Banks Start: 18-May-2013 Quantity: 30 Refills: 5 Thera-M TABS; TAKE 1 TABLET DAILY. Refills: 0 diphenhydrAMINE HCl - 50 MG Oral Capsule; Take as directed Refills: 0 Hydrocortisone 1 % External Cream; APPLY SPARINGLY AND RUB IN WELL TO AFFECTED AREA(S) DIRECTED. Refills: 0 Fluocinonide 0.05 % External Cream; APPL Y SPARINGLY TO AFFECTED AREA(S) TWICE DAILY 30 GM Tube Quantity: 1 Refills: 0 Salonpas Gel PTCH; Take prn Refills: 0 Norvasc 2.5 MG Oral Tablet; TAKE 1 TABLET TWICE DAILY. Refills: 0 Acetaminophen 500 MG Oral Tablet; TAKE 1 TABLET EVERY 4 TO 6 HOURS NEEDED. Refills: 0 metOLazone 5 MG Oral Tablet; TAKE 1 TABLET DAILY. Jose Banks Start: 16-May-2017 Quantity: 30 Refills: 5 Tamsulosin HCl - 0.4 MG Oral Capsule; TAKE 1 CAP BY [facility] AT BEDTIME. Yaron Banks Start: 26-Jul-2016 Quantity: 30 Refills: 5 Aspirin 325 MG Oral Tablet; TAKE 1 TABLET DAILY. Refills: 0 Procedures History of Gallbladder Surgery Status: C ompleted History of Back Surgery Status: Complete d History of Total Knee Arthroplasty Statu s: Completed Immunizations Influenza (Whole) On: 15-Apr-2011 14:54 Lot #: [id number], SANOFI PASTEUR Influenza On: 11-May-2012 9:52 Lot #: [id number], SANOFI PASTEUR Influenza On: 20-Apr-2013 14:40 Lot #: [id number], SANOFI PASTEUR Influenza On: 31-May-2014 13:35 Lot #: [id number], SANOFI PASTEUR Fluzone High-Dose Intramuscular Suspension On: 15-May-2015 Fluzone High-Dose Intramuscular Suspension On: 11-Apr-2016 1 3:39 Lot #: [id number], SANOFI PASTEUR Family History Father No pertinent family history (V49.89) (Z78.9) Status: Active Social History - Smoking Status Never smoker Plan of Treatment Planned Encounters Appointment; Scottie Banks M.D. Start: 17-Nov-2018 13:00 Request Planned Observations Planned Goals not documented Results No Known Results Results not documented Encounters Appointment; Vascular, Studies SC1 14-Oct-2018 8:45 Encounter Diagnosis: Problem not documented Appointment; Shaista Johnson PA-C 20-May-2018 12:30 Encounter Diagnosis: Problem not documented Appointment; Shaista Johnson PA-C 03-Jun-2017 13:00 Encounter Diagnosis: Problem not documented Appointment; Shaista Johnson PA-C 16-May-2017 11:00 Encounter Diagnosis: Problem not documented Appointment; Scottie Banks M.D. 17-Nov-2018 13:00 Encounter Diagnosis: Problem not documented
[2018-11-10] MEDS: LEVALBUTEROL HCL 1.25 MG/3 ML NEB NEB SCH ×4 (01:39→19:32)
[2018-11-10 06:09] LABS: Hematocrit (blood only) 38.5 % (42-52); Hemoglobin 13.4 g/dL (14.0-18.0); Mean Corpuscular Hgb Conc 34.8 g/dL (32-36); Mean Platelet Volume 10.1 fL (7.4-10.4); Platelet Count 380 K/uL (130-400); RDW Coefficient of Variation 13.8 % (11.5-14.5); RDW Standard Deviation 45.3 fL (36.4-46.3); Red Blood Count 4.23 M/uL (4.7-6.1); White Blood Count 9.96 K/uL (4.8-10.8)
[2018-11-10] MEDS: PIPERACILLIN/TAZOBACTAM 3.375 GM in DEXTROSE 5% 100 ML IV SCH ×3 (06:21→21:31)
[2018-11-10] MEDS: LEVOTHYROXINE SODIUM 100 MCG TABLET PO SCH (06:22)
[2018-11-10 06:44] LABS: BUN Creatinine Ratio 18.1 (10-20); Calcium 8.5 mg/dl (8.5-10.1); Creatinine Clr Calc Pharmacy 51.4 ml/min; Est GFR (Non-African American) 61.2; Potassium 3.4 mmol/L (3.5-5.1)
[2018-11-10] MEDS: INSULIN ASPART 100 UNITS/ML 3 ML PEN SC SCH ×4 (08:34→20:58)
[2018-11-10] MEDS: AZITHROMYCIN 250 MG TAB PO SCH (08:35)
[2018-11-10] MEDS: BENZONATATE 100 MG CAPSULE PO SCH ×3 (08:35→21:26)
[2018-11-10] MEDS: AMLODIPINE BESYLATE 5 MG TAB PO SCH (08:36)
[2018-11-10] MEDS: guaiFENesin 600 MG TABCR PO SCH ×2 (08:36→21:26)
[2018-11-10] MEDS: CeleBREX 200 MG CAP PO SCH (08:36)
[2018-11-10] MEDS: TAMSULOSIN HCL 0.4 MG CAP PO SCH (08:36)
[2018-11-10] MEDS: PANTOprazole 40 MG TAB PO SCH (08:36)
[2018-11-10] MEDS: CEROVITE ADV FORMULA TAB PO SCH (08:36)
[2018-11-10] MEDS: POTASSIUM CHLORIDE 20 MEQ TABCR PO SCH ×2 (09:17→21:27)
[2018-11-10] MEDS: INSULIN GLARGINE SOLOSTAR 100 UNITS/ML 3 ML PEN SC SCH (09:17)
[2018-11-10] MEDS: ENOXAPARIN INJ 40 MG/0.4 ML SYR SQ SCH (12:36)
--- NOTE | 2018-11-10 21:27 | Hospitalist Progress Note ---
Date of Service November 10, 2018 Assessment & Plan (1) Pneumonia: clinically improving. Day #4 of Zosyn and zithromax. MRSA swab negative. consider changing to levaquin tomorrow. low suspicion for aspiration; defer on anaerobe coverage. wean FiO2. (2) Sepsis: 2nd to pneumonia - resolved (3) Acute respiratory failure with hypoxia: 2nd to pneumonia. cont nebs, abx, supportive care. resolving. wean FiO2. (4) Afib: rates controlled. not on anticoagulation - apparently due to h/o falls. (5) Hypothyroidism: levothyroxine 100 mcg daily. TSH 03/2018 wnl. (6) GERD (gastroesophageal reflux disease): cont PPI (7) Hiatal hernia: noted sets him up for GERD +/- heightened aspiration risk. (8) HTN (hypertension): BPs controlled (9) CHF (congestive heart failure): Diastolic CHF. compensated. 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 cont novolog. (13) Hx TIA/stroke w/o resid: not on any meds for secondary prevention. will inquire with patient why that is. (14) Hyponatremia: Na today 132. appears euvolemic. check urine osm, urine Na, and serum osm. BMP am. (15) Hypokalemia: supplement BMP am (16) DVT prophylaxis: lovenox progressing PT, OT -- patient may need short-term SNF for rehab before returning to personal care at [facility] left message for son- 11/10/18 Subjective patient feeling a bit better still with cough minimal dyspnea eating ok ambulating ok denies diarrhea Review of Systems Constitutional: no fever Respiratory: + dyspnea Cardiovascular: no chest pain Gastrointestinal: no abdominal pain Physical Exam Constitutional: well developed and well nourished; no acute distress, not ill appearing and no altered mental status ENMT: external ear and nose normal, oropharynx normal Respiratory: normal respiratory effort; no labored breathing Auscultation: + rales (fine, b/l) Cardiovascular: Rate/Rhythm: regular rate; + abnormal rhythm (irregular ) Heart Sounds: normal S1 and normal S2 Vessels: dorsalis pedis pulses present; no JVD Extremities: normal capillary refill; no edema Gastrointestinal (Abdomen): normal bowel sounds, soft, nontender, no hepatosplenomegaly Psychiatric: A+Ox3, euthymic affect Results & Data Vital Signs (Past 12 Hours) Vital Signs Temp Pulse Pulse Resp BP Pulse Ox 11/10/18 19:34 80 16 90 11/10/18 19:08 111 H 20 126/83 11/10/18 15:14 36.8 C 85 82 18 106/69 94 11/10/18 13:45 67 18 90 11/10/18 12:29 36.8 C 68 18 128/85 92 Laboratory Results Laboratory Results - last 24 hr 11/10/18 11/10/18 11/10/18 05:52 05:52 07:39 WBC 9.96 RBC 4.23 L Hgb 13.4 L Hct 38.5 L MCV 91.0 MCH 31.7 MCHC 34.8 RDW Std Deviation 45.3 RDW Coeff of Dayron 13.8 Plt Count 380 MPV 10.1 Sodium 132 L Potassium 3.4 L Chloride 95 L Carbon Dioxide 33 H Anion Gap 4.0 BUN 19 H Creatinine 1.07 Est Cr Clr Drug Dosing 51.4 Est GFR ( Amer) 71.0 Est GFR (Non-Af Amer) 61.2 BUN/Creatinine Ratio 18.1 Glucose 108 H POC Glucose 126 H Calcium 8.5 11/10/18 11/10/18 11/10/18 11:00 16:05 20:32 WBC RBC Hgb Hct MCV MCH MCHC RDW Std Deviation RDW Coeff of Dayron Plt Count MPV Sodium Potassium Chloride Carbon Dioxide Anion Gap BUN Creatinine Est Cr Clr Drug Dosing Est GFR ( Amer) Est GFR (Non-Af Amer) BUN/Creatinine Ratio Glucose POC Glucose 172 H 112 H 109 H Calcium (1) CHF (congestive heart failure) Heart failure chronicity: chronic Heart failure type: diastolic Qualified Code(s): I50.32 - Chronic diastolic (congestive) heart failure (2) Afib Atrial fibrillation type: permanent Qualified Code(s): I48.2 - Chronic atrial fibrillation (3) Hypothyroidism Hypothyroidism type: acquired Qualified Code(s): E03.9 - Hypothyroidism, unspecified (4) DM II (diabetes mellitus, type II), controlled Diabetes mellitus complication status: with other specified complication Diabetes mellitus intermediate frame tender insulin use: without intermediate frame tender use Qualified Code(s): E11.69 - Type 2 diabetes mellitus with other specified complication (5) Sepsis Sepsis type: sepsis due to unspecified organism Qualified Code(s): A41.9 - Sepsis, unspecified organism (6) Diabetic ulcer of toe Diabetes mellitus type: type 2 Laterality: right Non-pressure ulcer stage: with fat layer exposed Qualified Code(s): E11.621 - Type 2 diabetes mellitus with foot ulcer; L97.512 - Non-pressure chronic ulcer of other part of right foot with fat layer exposed (7) GERD (gastroesophageal reflux disease) Esophagitis presence: without esophagitis Qualified Code(s): K21.9 - Gastro- esophageal reflux disease without esophagitis (8) HTN (hypertension) Hypertension type: essential hypertension Qualified Code(s): I10 - Essential (primary) hypertension (9) Pneumonia Laterality: bilateral Lung location: unspecified part of lung Pneumonia type: due to unspecified organism Qualified Code(s): J18.9 - Pneumonia, unspecified organism
[2018-11-11] MEDS: LEVALBUTEROL HCL 1.25 MG/3 ML NEB NEB SCH ×4 (02:02→19:14)
[2018-11-11] MEDS: PIPERACILLIN/TAZOBACTAM 3.375 GM in DEXTROSE 5% 100 ML IV SCH (05:32)
[2018-11-11] MEDS: LEVOTHYROXINE SODIUM 100 MCG TABLET PO SCH (05:40)
[2018-11-11 06:02] LABS: BUN Creatinine Ratio 19.7 (10-20); Calcium 8.4 mg/dl (8.5-10.1); Creatinine Clr Calc Pharmacy 51.9 ml/min; Est GFR (African American) 71.8; Est GFR (Non-African American) 61.9; Potassium 3.6 mmol/L (3.5-5.1)
[2018-11-11] MEDS: INSULIN ASPART 100 UNITS/ML 3 ML PEN SC SCH ×4 (08:47→21:56)
[2018-11-11] MEDS: POTASSIUM CHLORIDE 20 MEQ TABCR PO SCH ×2 (08:48→20:51)
[2018-11-11] MEDS: CeleBREX 200 MG CAP PO SCH (08:48)
[2018-11-11] MEDS: TAMSULOSIN HCL 0.4 MG CAP PO SCH (08:48)
[2018-11-11] MEDS: AMLODIPINE BESYLATE 5 MG TAB PO SCH (08:48)
[2018-11-11] MEDS: CEROVITE ADV FORMULA TAB PO SCH (08:48)
[2018-11-11] MEDS: BENZONATATE 100 MG CAPSULE PO SCH ×3 (08:48→20:50)
[2018-11-11] MEDS: PANTOprazole 40 MG TAB PO SCH (08:48)
[2018-11-11] MEDS: guaiFENesin 600 MG TABCR PO SCH ×2 (08:48→20:51)
[2018-11-11] MEDS: INSULIN GLARGINE SOLOSTAR 100 UNITS/ML 3 ML PEN SC SCH (08:49)
[2018-11-11] MEDS: levoFLOXacin 750 MG TAB PO SCH (10:45)
[2018-11-11] MEDS: SODIUM CHLORIDE 1 GM TABLET PO SCH (10:45)
[2018-11-11] MEDS: ENOXAPARIN INJ 40 MG/0.4 ML SYR SQ SCH (12:39)
--- NOTE | 2018-11-11 16:06 | XRay Report ---
XR chest 2V routine CLINICAL HISTORY: b/l pneumonia, interval change pneumonia COMPARISON STUDY: 11/09/2018 FINDINGS: Diffuse bilateral parenchymal infiltrates. These are stable compared to the prior study. Fixed lateral hernia is unchanged. Mild stable cardiomegaly. IMPRESSION: Diffuse bilateral parenchymal infiltrates. No significant change from the prior study. The above report was generated using voice recognition software. It may contain grammatical, syntax or spelling errors. Electronically signed by: Claudio Gutierrez M.D. 11/11/2018 4:05 PM
[2018-11-11] MEDS ORDERED: FUROSEMIDE 20 MG TAB PO ONE (16:52)
--- NOTE | 2018-11-11 21:26 | Hospitalist Progress Note ---
Date of Service November 11, 2018 Assessment & Plan (1) Pneumonia: slowly improving. Day #5 of Zosyn and zithromax. Stop both. Change to levaquin. Treat another 3-5 days. Will repeat his cxr today to ensure no other process contributing to ongoing O2 requirement. Wean FiO2 if O2 sats are 90% or more. pulmonary toilet. If unable to wean FiO2 consider CT chest for more definitive characterization of lung issues. (2) Sepsis: 2nd to pneumonia - resolved (3) Hyponatremia: Na today 131. appears euvolemic. checked urine osm, urine Na, and serum osm. studies not c/w SIADH. will add NaCL tablet and repeat BMP am. (4) Acute respiratory failure with hypoxia: 2nd to pneumonia. cont nebs, abx, supportive care. wean FiO2. repeat cxr today. (5) Afib: rates controlled. not on anticoagulation - apparently due to h/o falls. (6) Hypothyroidism: levothyroxine 100 mcg daily. TSH 03/2018 wnl. (7) GERD (gastroesophageal reflux disease): cont PPI (8) Hiatal hernia: noted no issues at this time (9) HTN (hypertension): BPs controlled (10) CHF (congestive heart failure): Diastolic CHF. compensated clinically on exam, but could chest x-ray findings be due to mild fluid overload? consider low-dose lasix. 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 ? (15) Hypokalemia: resolved (16) DVT prophylaxis: lovenox progressing albeit slowly PT, OT -- patient may need short-term SNF for rehab before returning to personal care at [facility] by report son apparently not in favor of this left message for son- 11/10/18 Subjective pt reports ongoing cough "but it's better" today no sputum production denies dyspnea eating well at breakfast, then doesn't each much at lunch-time still requiring 2 L NC O2 tele with rate controlled a fib no new issues otherwise Review of Systems Constitutional: no fever and no chills Ear, Nose, Mouth, Throat: no nasal congestion and no sore throat Respiratory: + dyspnea on exertion; no dyspnea and no wheezing Cardiovascular: no chest pain Gastrointestinal: no constipation and no diarrhea/loose stools Physical Exam Constitutional: well developed and well nourished; no acute distress, not ill appearing and no altered mental status ENMT: external ear and nose normal, oropharynx normal Respiratory: normal respiratory effort; no labored breathing Auscultation: + rales (fine, b/l - worse right base) and + wheezes (scant, end-exp, occasional) Cardiovascular: Rate/Rhythm: regular rate; + abnormal rhythm (irregular ) Heart Sounds: normal S1 and normal S2 Vessels: dorsalis pedis pulses present; no JVD Extremities: normal capillary refill; no edema Gastrointestinal (Abdomen): normal bowel sounds, soft, nontender, no hepatosplenomegaly Psychiatric: A+Ox3, euthymic affect Results & Data Vital Signs (Past 12 Hours) Vital Signs Temp Pulse Resp BP BP Pulse Ox 11/11/18 20:08 36.7 C 71 18 112/71 96 11/11/18 19:16 81 16 93 11/11/18 15:03 36.5 C 93 H 20 132/76 91 11/11/18 14:12 88 18 92 11/11/18 12:00 36.8 C 80 18 122/78 96 Laboratory Results Laboratory Results - last 24 hr 11/11/18 11/11/18 11/11/18 04:12 04:12 05:15 Sodium 131 L Potassium 3.6 Chloride 94 L Carbon Dioxide 32 Anion Gap 5.0 BUN 21 H Creatinine 1.06 Est Cr Clr Drug Dosing 51.9 Est GFR ( Amer) 71.8 Est GFR (Non-Af Amer) 61.9 BUN/Creatinine Ratio 19.7 Glucose 111 H POC Glucose Osmolality Calcium 8.4 L Urine Osmolality 216 L Ur Random Sodium 30 11/11/18 11/11/18 11/11/18 05:15 07:37 11:14 Sodium Potassium Chloride Carbon Dioxide Anion Gap BUN Creatinine Est Cr Clr Drug Dosing Est GFR ( Amer) Est GFR (Non-Af Amer) BUN/Creatinine Ratio Glucose POC Glucose 132 H 206 H Osmolality 292 Calcium Urine Osmolality Ur Random Sodium 11/11/18 11/11/18 16:10 20:23 Sodium Potassium Chloride Carbon Dioxide Anion Gap BUN Creatinine Est Cr Clr Drug Dosing Est GFR ( Amer) Est GFR (Non-Af Amer) BUN/Creatinine Ratio Glucose POC Glucose 73 99 Osmolality Calcium Urine Osmolality Ur Random Sodium (1) CHF (congestive heart failure) Heart failure chronicity: chronic Heart failure type: diastolic Qualified Code(s): I50.32 - Chronic diastolic (congestive) heart failure (2) Afib Atrial fibrillation type: permanent Qualified Code(s): I48.2 - Chronic atrial fibrillation (3) Hypothyroidism Hypothyroidism type: acquired Qualified Code(s): E03.9 - Hypothyroidism, unspecified (4) DM II (diabetes mellitus, type II), controlled Diabetes mellitus complication status: with other specified complication Diabetes mellitus vermin exterminator insulin use: without vermin exterminator use Qualified Code(s): E11.69 - Type 2 diabetes mellitus with other specified complication (5) Sepsis Sepsis type: sepsis due to unspecified organism Qualified Code(s): A41.9 - Sepsis, unspecified organism (6) Diabetic ulcer of toe Diabetes mellitus type: type 2 Laterality: right Non-pressure ulcer stage: with fat layer exposed Qualified Code(s): E11.621 - Type 2 diabetes mellitus with foot ulcer; L97.512 - Non-pressure chronic ulcer of other part of right foot with fat layer exposed (7) GERD (gastroesophageal reflux disease) Esophagitis presence: without esophagitis Qualified Code(s): K21.9 - Gastro- esophageal reflux disease without esophagitis (8) HTN (hypertension) Hypertension type: essential hypertension Qualified Code(s): I10 - Essential (primary) hypertension (9) Pneumonia Laterality: bilateral Lung location: unspecified part of lung Pneumonia type: due to unspecified organism Qualified Code(s): J18.9 - Pneumonia, unspecified organism
[2018-11-12] MEDS: LEVALBUTEROL HCL 1.25 MG/3 ML NEB NEB SCH ×4 (01:53→18:54)
[2018-11-12] MEDS: ACETAMINOPHEN 325 MG TAB PO PRN (04:53)
[2018-11-12] MEDS: LEVOTHYROXINE SODIUM 100 MCG TABLET PO SCH (06:19)
[2018-11-12 07:04] LABS: Potassium 3.9 mmol/L (3.5-5.1)
[2018-11-12 07:05] LABS: Calcium 8.7 mg/dl (8.5-10.1); Creatinine Clr Calc Pharmacy 57.3 ml/min; Est GFR (African American) 80.9; Est GFR (Non-African American) 69.8; Magnesium 1.9 mg/dl (1.8-2.4)
[2018-11-12] MEDS: AMLODIPINE BESYLATE 5 MG TAB PO SCH (08:24)
[2018-11-12] MEDS: BENZONATATE 100 MG CAPSULE PO SCH ×3 (08:25→20:34)
[2018-11-12] MEDS: SODIUM CHLORIDE 1 GM TABLET PO SCH (08:25)
[2018-11-12] MEDS: CeleBREX 200 MG CAP PO SCH (08:25)
[2018-11-12] MEDS: guaiFENesin 600 MG TABCR PO SCH ×2 (08:25→20:33)
[2018-11-12] MEDS: TAMSULOSIN HCL 0.4 MG CAP PO SCH (08:25)
[2018-11-12] MEDS: PANTOprazole 40 MG TAB PO SCH ×2 (08:25→20:34)
[2018-11-12] MEDS: POTASSIUM CHLORIDE 20 MEQ TABCR PO SCH ×2 (08:25→20:34)
[2018-11-12] MEDS: CEROVITE ADV FORMULA TAB PO SCH (08:25)
[2018-11-12] MEDS: INSULIN GLARGINE SOLOSTAR 100 UNITS/ML 3 ML PEN SC SCH (08:26)
[2018-11-12] MEDS: INSULIN ASPART 100 UNITS/ML 3 ML PEN SC SCH ×4 (08:26→20:57)
[2018-11-12] MEDS ORDERED: FUROSEMIDE 20 MG in SYRINGE 0 ML IV SCH (09:00)
[2018-11-12] MEDS: levoFLOXacin 750 MG TAB PO SCH (12:27)
[2018-11-12] MEDS: ENOXAPARIN INJ 40 MG/0.4 ML SYR SQ SCH (12:35)
[2018-11-12] MEDS ORDERED: OPTIRAY 320 125ml IV PRN (15:39)
--- NOTE | 2018-11-12 15:50 | CT Scan Report ---
CT angio chest PE protocol CT DOSE: 415.75 mGy.cm HISTORY: 88 years-old Male with hypoxia, cough, check for PE, pneumonia, etc. Acute hypoxia with co ugh and shortness of breath TECHNIQUE: Multiple CTA images of the chest were obtained after the intravenous administration of 98 ml Optiray 320. Coronal and sagittal MIPS were obtained from the axial data set and were submitted f or review. All measurements were obtained according to NASCET criteria. A dose lowering technique wa s utilized adhering to the principles of ALARA. COMPARISON: CTA of the chest 01/12/2017. FINDINGS: Study is limited secondary to respiratory motion artifact. CTA: Moderate multichamber cardiac enlargement. There is no pericardial effusion. Coronary arterial calcif ications are noted. There is no thoracic aortic aneurysm or dissection identified. The aorta and left heart structures however are not well opacified secondary to contrast bolus timing. Tortuosity of th e descending thoracic aorta. The pulmonary arterial tree is opacified to the level of the proximal se gmental branches and demonstrates no focal filling defects to suggest pulmonary thromboembolic diseas e. CT CHEST: No focal thyroid nodule. Mildly enlarged subcarinal and right hilar lymph nodes are present measuring up to 11 10 mm respectively, likely reactive. Moderate right and trace left pleural effusions. There is no pneumothorax. Bilateral linear pleural-b ased subsegmental consolidative opacities suggest areas of atelectasis/scarring. Additionally, there are multifocal patchy groundglass and consolidative opacities most pronounced in the lung bases and r ight upper lobe suggestive of multifocal pneumonia. No overt pulmonary edema identified. The central airways appear generally patent. There is a large hiatal hernia. Wall thickening noted about the mid and distal esophagus. No acute pr ocess of the imaged upper abdomen. Soft tissues are unremarkable. Demineralized appearance of the bon es. No suspicious lytic or blastic bony lesions. Degenerative changes are seen about the shoulders an d spine. IMPRESSION: 1. No evidence of pulmonary thromboembolic disease. 2. Trace left and moderate right pleural effusions with bilateral multilobar alveolar opacities sugge stive of multifocal pneumonia and/or aspiration pneumonitis. Follow-up imaging to document resolution is recommended. 3. Mild subcarinal and right hilar adenopathy, likely reactive. 4. Large hiatal hernia redemonstrated. 5. Cardiomegaly without overt pulmonary edema. The above report was generated using voice recognition software. It may contain grammatical, syntax o r spelling errors. Electronically signed by: Timoteo Villalba M.D. 11/12/2018 3:48 PM
--- NOTE | 2018-11-12 21:28 | Hospitalist Progress Note ---
Date of Service November 12, 2018 Assessment & Plan (1) Pneumonia: slowly improving but still requiring O2. Day #6 of abx. Now on oral levaquin. Will obtain CTA chest today to exclude any concomitant processes (PE, large effusions, etc) that would be contributing to ongoing O2 requirement. Wean FiO2 if O2 sats are 90% or more. pulmonary toilet. speech therapy consult to exclude aspiration as cause of b/l pneumonia. (2) Sepsis: 2nd to pneumonia - resolved (3) Hyponatremia: Na today 133. appears euvolemic. checked urine osm, urine Na, and serum osm. studies not c/w SIADH. cont NaCL tablet. repeat BMP am. (4) Acute respiratory failure with hypoxia: 2nd to pneumonia. cont nebs, abx, supportive care. wean FiO2 as tolerated. CT chest today. (5) Afib: rates controlled. not on anticoagulation - apparently due to h/o falls. (6) Hypothyroidism: levothyroxine 100 mcg daily. TSH 03/2018 wnl. (7) GERD (gastroesophageal reflux disease): cont PPI (8) Hiatal hernia: noted no issues at this time CT chest will tell me how bad the hernia is (9) HTN (hypertension): BPs controlled (10) CHF (congestive heart failure): Diastolic CHF. looks euvolemic but will give another dose of lasix today in the event he has some pulmonary edema that is simply not showing up radiographically. 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 ? (15) Hypokalemia: resolved (16) DVT prophylaxis: lovenox progressing albeit slowly spoke with son- I told him PT/OT both recommending rehab in light of max assist for transfers - he is adamant about father returning to [facility] d/w Social work in am Subjective staff report some confusion during my visit his mentation was similar to prior visits denied any complaints appetite fair still requiring O2 2 liters spoke with son Adria -- he is adamant about his father returning to [facility] he is aware of maximum assistance needed for transfers for his father Review of Systems Constitutional: no fever Respiratory: + cough; no dyspnea and no sputum production Cardiovascular: no chest pain Gastrointestinal: no abdominal pain and no diarrhea/loose stools Physical Exam Constitutional: well developed and well nourished; no acute distress, not ill appearing and no altered mental status ENMT: external ear and nose normal, oropharynx normal Respiratory: normal respiratory effort; no labored breathing Auscultation: + rales (minimal b/l bases) Cardiovascular: Rate/Rhythm: regular rate; + abnormal rhythm (irregular ) Heart Sounds: normal S1 and normal S2 Vessels: dorsalis pedis pulses present; no JVD Extremities: normal capillary refill; no edema Gastrointestinal (Abdomen): normal bowel sounds, soft, nontender, no hepatosplenomegaly Psychiatric: Orientation: alert, oriented to person and oriented to place; + not oriented to time Results & Data Vital Signs (Past 12 Hours) Vital Signs Temp Pulse Pulse Resp BP Pulse Ox 11/12/18 19:22 79 20 92 11/12/18 19:14 36.8 C 84 18 120/70 90 11/12/18 16:00 65 95 11/12/18 15:35 36.6 C 83 18 129/85 11/12/18 14:10 77 18 95 11/12/18 11:25 36.8 C 97 H 18 125/89 94 Laboratory Results Laboratory Results - last 24 hr 11/12/18 11/12/18 11/12/18 06:15 07:35 11:31 Sodium 133 L Potassium 3.9 Chloride 94 L Carbon Dioxide 29 Anion Gap 11.0 BUN 19 H Creatinine 0.96 Est Cr Clr Drug Dosing 57.3 Est GFR ( Amer) 80.9 Est GFR (Non-Af Amer) 69.8 BUN/Creatinine Ratio 20.0 Glucose 108 H POC Glucose 102 H 155 H Calcium 8.7 Magnesium 1.9 11/12/18 11/12/18 16:36 20:06 Sodium Potassium Chloride Carbon Dioxide Anion Gap BUN Creatinine Est Cr Clr Drug Dosing Est GFR ( Amer) Est GFR (Non-Af Amer) BUN/Creatinine Ratio Glucose POC Glucose 144 H 141 H Calcium Magnesium (1) CHF (congestive heart failure) Heart failure chronicity: chronic Heart failure type: diastolic Qualified Code(s): I50.32 - Chronic diastolic (congestive) heart failure (2) Afib Atrial fibrillation type: permanent Qualified Code(s): I48.2 - Chronic atrial fibrillation (3) Hypothyroidism Hypothyroidism type: acquired Qualified Code(s): E03.9 - Hypothyroidism, unspecified (4) DM II (diabetes mellitus, type II), controlled Diabetes mellitus complication status: with other specified complication Diabetes mellitus detention insulin use: without detention use Qualified Code(s): E11.69 - Type 2 diabetes mellitus with other specified complication (5) Sepsis Sepsis type: sepsis due to unspecified organism Qualified Code(s): A41.9 - Sepsis, unspecified organism (6) Diabetic ulcer of toe Diabetes mellitus type: type 2 Laterality: right Non-pressure ulcer stage: with fat layer exposed Qualified Code(s): E11.621 - Type 2 diabetes mellitus with foot ulcer; L97.512 - Non-pressure chronic ulcer of other part of right foot with fat layer exposed (7) GERD (gastroesophageal reflux disease) Esophagitis presence: without esophagitis Qualified Code(s): K21.9 - Gastro- esophageal reflux disease without esophagitis (8) HTN (hypertension) Hypertension type: essential hypertension Qualified Code(s): I10 - Essential (primary) hypertension (9) Pneumonia Laterality: bilateral Lung location: unspecified part of lung Pneumonia type: due to unspecified organism Qualified Code(s): J18.9 - Pneumonia, unspecified organism
[2018-11-13] MEDS: LEVALBUTEROL HCL 1.25 MG/3 ML NEB NEB SCH ×4 (02:07→18:55)
[2018-11-13] MEDS: LEVOTHYROXINE SODIUM 100 MCG TABLET PO SCH (06:30)
[2018-11-13 07:13] LABS: Hematocrit (blood only) 42.3 % (42-52); Hemoglobin 14.6 g/dL (14.0-18.0); Mean Corpuscular Hgb Conc 34.5 g/dL (32-36); Mean Platelet Volume 9.7 fL (7.4-10.4); Platelet Count 461 K/uL (130-400); RDW Coefficient of Variation 13.7 % (11.5-14.5); RDW Standard Deviation 44.4 fL (36.4-46.3); Red Blood Count 4.65 M/uL (4.7-6.1); White Blood Count 9.95 K/uL (4.8-10.8)
[2018-11-13 07:47] LABS: BUN Creatinine Ratio 17.3 (10-20); Calcium 8.9 mg/dl (8.5-10.1); Creatinine Clr Calc Pharmacy 52.9 ml/min; Est GFR (African American) 73.4; Est GFR (Non-African American) 63.4
[2018-11-13] MEDS: TAMSULOSIN HCL 0.4 MG CAP PO SCH (08:02)
[2018-11-13] MEDS: CEROVITE ADV FORMULA TAB PO SCH (08:02)
[2018-11-13] MEDS: CeleBREX 200 MG CAP PO SCH (08:03)
[2018-11-13] MEDS: guaiFENesin 600 MG TABCR PO SCH ×2 (08:03→21:33)
[2018-11-13] MEDS: AMLODIPINE BESYLATE 5 MG TAB PO SCH (08:04)
[2018-11-13] MEDS: POTASSIUM CHLORIDE 20 MEQ TABCR PO SCH ×2 (08:04→21:32)
[2018-11-13] MEDS: PANTOprazole 40 MG TAB PO SCH ×2 (08:05→21:34)
[2018-11-13] MEDS: BENZONATATE 100 MG CAPSULE PO SCH ×3 (08:05→21:33)
[2018-11-13] MEDS: SODIUM CHLORIDE 1 GM TABLET PO SCH (08:05)
[2018-11-13] MEDS: INSULIN GLARGINE SOLOSTAR 100 UNITS/ML 3 ML PEN SC SCH (08:06)
[2018-11-13] MEDS: INSULIN ASPART 100 UNITS/ML 3 ML PEN SC SCH ×4 (10:43→21:41)
[2018-11-13] MEDS: ENOXAPARIN INJ 40 MG/0.4 ML SYR SQ SCH (12:42)
[2018-11-13] MEDS: levoFLOXacin 750 MG TAB PO SCH (12:49)
--- NOTE | 2018-11-13 14:44 | Fluoroscopy Report ---
FL video swallow HISTORY: Abnormal chest CT. Possible aspiration pneumonia. TECHNIQUE: Video fluoroscopic evaluation of swallowing was performed in the AP and lateral projection s by the speech pathology staff. The patient is fed nectar-thick and thin liquid barium, a barium coa gus wafer, and barium pudding. FLUOROSCOPY TIME: 2.6 minutes. NUMBER OF FLUOROSCOPY IMAGES: 0 COMPARISON STUDY: None. FINDINGS: When swallowing thin liquids via teaspoon there was penetration but no aspiration. When swa llowing using a cup and straw there was trace silent aspiration. Neck a thick liquids there was no aspiration. When swallowing voiding, there was no aspiration. When swallowing a cracker with paste there was no aspiration. There is heavy vallecular retention. There i s a hiatal hernia IMPRESSION: 1. Aspiration of thin liquids was demonstrated. 2. Please see the speech pathologist report for detailed findings and recommendations. Electronically signed by: Luiz Cisneros M.D. 11/13/2018 2:43 PM
--- NOTE | 2018-11-13 21:16 | Hospitalist Progress Note ---
Date of Service November 13, 2018 Assessment & Plan (1) Pneumonia: extensive b/l multifocal pneumonia on CT chest yesterday. mild effusion on right. NO PE. No pulmonary edema. Day #7 of abx. Plan 10 days of Rx due to severity of illness. Cont levaquin. Cont flagyl for anaerobe coverage. Previously received 5 days of zosyn. speech therapy consult appreciated. this was to exclude aspiration as cause of b/l pneumonia. video swallow acceptable. I reviewed this gentleman's CT with the high climber today - agrees it is c/w pneumonia, could be aspiration. repeat CT 6 weeks advised. patient DOES NEED HOME O2 2 LITERS CONTINOUSLY. script given to case management. cannot walk to do a 2-step but qualifies based on desaturation at rest. (2) Sepsis: 2nd to pneumonia - resolved has had overall very slow improvement from the pneumonia process (3) Hyponatremia: Na today 133. appears euvolemic. checked urine osm, urine Na, and serum osm. studies not c/w SIADH. cont NaCL tablet. repeat BMP am. (4) Acute respiratory failure with hypoxia: 2nd to pneumonia. cont nebs, abx, supportive care. WILL NEED HOME O2 2 LITERS CONTINUOUSLY. (5) Afib: rates controlled. not on anticoagulation - apparently due to h/o falls. (6) Hypothyroidism: levothyroxine 100 mcg daily. TSH 03/2018 wnl. (7) GERD (gastroesophageal reflux disease): cont PPI I increased this TO BID DOSING SINCE CT CHEST SHOWED SIGNS OF ESOPHAGITIS (AND HE HAD THIS FINDING DESPITE TAKING PROTONIX DAILY) appreciate speech assistance (8) Hiatal hernia: noted no issues at this time large on CT increased PPI to BID dosing (9) HTN (hypertension): BPs controlled (10) CHF (congestive heart failure): Diastolic CHF. looks euvolemic on exam and CT w/o pulmonary edema. 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 uncertain why. no h/o GI bleeding to my knowledge. (15) Hypokalemia: resolved (16) DVT prophylaxis: lovenox progressing albeit very, very slowly spoke with son- I told him PT/OT both recommending rehab in light of max assist for transfers - he is adamant about father returning to [facility] reports they CAN TAKE HIM BACK DESPITE HIS DECLINE IN PHYSICAL FUNCTION this was d/w Social work today back to [facility] -- Friday? this ? son updated today at bedside Subjective son at bedside during the visit today patient tired, poor appetite continues minimal cough son agrees his dad's cough is "a lot better" tele stable overnight no new issues during my visit I removed the pt's Oxygen I waited 5+ minutes and then checked O2 sat -- 86% in room air Review of Systems Constitutional: + fatigue and + anorexia; no fever Respiratory: + cough; no dyspnea, no hemoptysis, no pain on inspiration and no sputum production Cardiovascular: no chest pain, no orthopnea, no paroxysmal nocturnal dyspnea and no edema Gastrointestinal: no abdominal pain, no nausea and no vomiting Physical Exam Constitutional: + altered mental status (minimal confusion) and + frail appearing; no acute distress ENMT: external ear and nose normal, oropharynx normal Respiratory: normal respiratory effort; no labored breathing Auscultation: + rales (b/l bases); no rhonchi and no wheezes Cardiovascular: Rate/Rhythm: regular rate; + abnormal rhythm (irregular ) Heart Sounds: normal S1 and normal S2 Vessels: dorsalis pedis pulses present; no JVD Extremities: normal capillary refill; no edema Gastrointestinal (Abdomen): normal bowel sounds, soft, nontender, no hepatosplenomegaly Psychiatric: Orientation: alert, oriented to person and oriented to place; + not oriented to time Results & Data Vital Signs (Past 12 Hours) Vital Signs Temp Pulse Resp BP Pulse Ox 11/13/18 20:02 36.5 C 84 20 134/65 90 11/13/18 18:55 85 16 95 11/13/18 16:01 36.5 C 89 20 127/77 90 11/13/18 14:08 86 18 91 11/13/18 12:59 93 11/13/18 12:48 88 L 11/13/18 11:18 36.4 C L 84 17 111/64 96 Laboratory Results Laboratory Results - last 24 hr 11/13/18 11/13/18 11/13/18 06:25 06:25 06:25 WBC 9.95 RBC 4.65 L Hgb 14.6 Hct 42.3 MCV 91.0 MCH 31.4 MCHC 34.5 RDW Std Deviation 44.4 RDW Coeff of Dayron 13.7 Plt Count 461 H MPV 9.7 ESR 82 H Sodium 133 L Potassium 4.0 Chloride 95 L Carbon Dioxide 31 Anion Gap 7.0 BUN 18 Creatinine 1.04 Est Cr Clr Drug Dosing 52.9 Est GFR ( Amer) 73.4 Est GFR (Non-Af Amer) 63.4 BUN/Creatinine Ratio 17.3 Glucose 106 H POC Glucose Calcium 8.9 11/13/18 11/13/18 11/13/18 07:42 11:37 16:45 WBC RBC Hgb Hct MCV MCH MCHC RDW Std Deviation RDW Coeff of Dayron Plt Count MPV ESR Sodium Potassium Chloride Carbon Dioxide Anion Gap BUN Creatinine Est Cr Clr Drug Dosing Est GFR ( Amer) Est GFR (Non-Af Amer) BUN/Creatinine Ratio Glucose POC Glucose 117 H 153 H 135 H Calcium 11/13/18 20:48 WBC RBC Hgb Hct MCV MCH MCHC RDW Std Deviation RDW Coeff of Dayron Plt Count MPV ESR Sodium Potassium Chloride Carbon Dioxide Anion Gap BUN Creatinine Est Cr Clr Drug Dosing Est GFR ( Amer) Est GFR (Non-Af Amer) BUN/Creatinine Ratio Glucose POC Glucose 122 H Calcium (1) CHF (congestive heart failure) Heart failure chronicity: chronic Heart failure type: diastolic Qualified Code(s): I50.32 - Chronic diastolic (congestive) heart failure (2) Afib Atrial fibrillation type: permanent Qualified Code(s): I48.2 - Chronic atrial fibrillation (3) Hypothyroidism Hypothyroidism type: acquired Qualified Code(s): E03.9 - Hypothyroidism, unspecified (4) DM II (diabetes mellitus, type II), controlled Diabetes mellitus complication status: with other specified complication Diabetes mellitus buttermaker continuous churn insulin use: without buttermaker continuous churn use Qualified Code(s): E11.69 - Type 2 diabetes mellitus with other specified complication (5) Sepsis Sepsis type: sepsis due to unspecified organism Qualified Code(s): A41.9 - Sepsis, unspecified organism (6) Diabetic ulcer of toe Diabetes mellitus type: type 2 Laterality: right Non-pressure ulcer stage: with fat layer exposed Qualified Code(s): E11.621 - Type 2 diabetes mellitus with foot ulcer; L97.512 - Non-pressure chronic ulcer of other part of right foot with fat layer exposed (7) GERD (gastroesophageal reflux disease) Esophagitis presence: without esophagitis Qualified Code(s): K21.9 - Gastro- esophageal reflux disease without esophagitis (8) HTN (hypertension) Hypertension type: essential hypertension Qualified Code(s): I10 - Essential (primary) hypertension (9) Pneumonia Laterality: bilateral Lung location: unspecified part of lung Pneumonia type: due to unspecified organism Qualified Code(s): J18.9 - Pneumonia, unspecified organism
[2018-11-13] MEDS: metroNIDAZOLE 500 MG TAB PO SCH (21:31)
[2018-11-14] MEDS: LEVALBUTEROL HCL 1.25 MG/3 ML NEB NEB SCH ×4 (01:50→20:20)
[2018-11-14] MEDS: LEVOTHYROXINE SODIUM 100 MCG TABLET PO SCH (05:46)
[2018-11-14] MEDS: guaiFENesin 600 MG TABCR PO SCH ×2 (07:12→20:52)
[2018-11-14] MEDS: PANTOprazole 40 MG TAB PO SCH ×2 (07:13→20:53)
[2018-11-14] MEDS: CEROVITE ADV FORMULA TAB PO SCH (07:13)
[2018-11-14] MEDS: BENZONATATE 100 MG CAPSULE PO SCH ×2 (07:13→12:53)
[2018-11-14] MEDS: metroNIDAZOLE 500 MG TAB PO SCH ×3 (07:14→20:52)
[2018-11-14] MEDS: AMLODIPINE BESYLATE 5 MG TAB PO SCH (07:14)
[2018-11-14] MEDS: POTASSIUM CHLORIDE 20 MEQ TABCR PO SCH ×2 (07:15→20:53)
[2018-11-14] MEDS: CeleBREX 200 MG CAP PO SCH (07:15)
[2018-11-14] MEDS: TAMSULOSIN HCL 0.4 MG CAP PO SCH (07:16)
[2018-11-14] MEDS: SODIUM CHLORIDE 1 GM TABLET PO SCH (07:16)
[2018-11-14 08:19] LABS: BUN Creatinine Ratio 16.6 (10-20); Calcium 8.8 mg/dl (8.5-10.1); Creatinine Clr Calc Pharmacy 53.9 ml/min; Est GFR (African American) 75.2; Est GFR (Non-African American) 64.9; Potassium 4.1 mmol/L (3.5-5.1)
[2018-11-14] MEDS: INSULIN ASPART 100 UNITS/ML 3 ML PEN SC SCH ×4 (09:00→20:54)
[2018-11-14] MEDS: INSULIN GLARGINE SOLOSTAR 100 UNITS/ML 3 ML PEN SC SCH (09:01)
[2018-11-14] MEDS: ENOXAPARIN INJ 40 MG/0.4 ML SYR SQ SCH (12:52)
[2018-11-14] MEDS: levoFLOXacin 750 MG TAB PO SCH (12:52)
[2018-11-14] MEDS: ONDANSETRON INJ 2 MG/ML 2 ML VIAL IV PRN (12:56)
[2018-11-14] MEDS ORDERED: LEVALBUTEROL 1.25MG/0.5ML NEB NEB STA (16:24)
--- NOTE | 2018-11-14 16:27 | Hospitalist Progress Note ---
Date of Service November 14, 2018 Assessment & Plan (1) Pneumonia: With extensive b/l multifocal pneumonia on chest x-ray and again seen on CT chest later in the stay With mild pleural effusion on right. CT angiogram negative for pulmonary embolism No pulmonary edema. -Continues on day #8 of abx. Plan 10 days of Rx due to severity of illness. Cont levaquin for community-acquired pneumonia. Cont flagyl for anaerobe coverage in case of aspiration. Previously received 5 days of zosyn. speech therapy consult appreciated. this was to exclude aspiration as cause of b/l pneumonia. video swallow acceptable. -Will need repeat CT of the chest in 6 weeks to ensure resolution -Continue supplemental O2-arrangements being made with case management -Discontinue Tessalon Perles and guaifenesin with dextromethorphan in case they are contributing to his weakness with her mild opioid effect (2) Sepsis: Secondary to pneumonia - resolved Blood cultures remain no growth to date (3) Hyponatremia: Sodium today is down slightly to 132 appears euvolemic. checked urine osm, urine Na, and serum osm. studies not c/w SIADH. -Cont NaCL tablet. -Follow BMP in the morning (4) Acute respiratory failure with hypoxia: Secondary to pneumonia, improved overall but remains on 2 L nasal cannula With mildly increased dyspnea today -Cont nebs, abx, supportive care. -will give one-time PRN dose of levalbuterol -WILL NEED HOME O2 2 LITERS CONTINUOUSLY. (5) Afib: rates controlled. not on anticoagulation - apparently due to h/o falls. (6) Hypothyroidism: -Continue levothyroxine 100 mcg daily. TSH 03/2018 wnl. (7) GERD (gastroesophageal reflux disease): -Cont PPI which was increased to twice daily after CT of the chest showed signs of esophagitis -Would consider EGD as an outpatient to further explore thickening of distal esophagus seen on imaging if he elects to do so (8) Hiatal hernia: noted no issues at this time large on CT increased PPI to BID dosing (9) HTN (hypertension): BPs controlled (10) CHF (congestive heart failure): Diastolic CHF. looks euvolemic on exam and CT w/o pulmonary edema. 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 uncertain why. no h/o GI bleeding to my knowledge. (15) Hypokalemia: resolved -Continue potassium chloride 20 mEq p.o. twice daily (16) DVT prophylaxis: lovenox SQ Progressing slowly, still very very weak requiring 2-3 people assist -Discussed with nursing-try to mobilize out of bed to chair daily PT/OT both recommending rehab in light of max assist for transfers -his son is adamant about his father returning to [facility] reports they CAN TAKE HIM BACK DESPITE HIS DECLINE IN PHYSICAL FUNCTION -Plans to discharge back to [facility] on Friday Subjective Patient denies cough, does feel a little short of breath today. He has not been out of bed to the chair today as per nursing he only tolerated being out in the chair for about 20 minutes yesterday. He has not moved his bowels today, but did yesterday. Denies headache or lightheadedness. Denies chest pain. Telemetry with atrial fibrillation with rates in the 80s with a brief dip to the upper 40s overnight. Review of Systems Review of Systems: All systems reviewed & are unremarkable except as noted in HPI & below Physical Exam Constitutional: + frail appearing; no acute distress and not ill appearing Eyes: PERRL, conjunctivae normal, anicteric sclerae ENMT: external ear and nose normal, oropharynx normal Neck: trachea midline, no thyromegaly Respiratory: normal respiratory effort Auscultation: + diminished lung sounds (Throughout) and + crackles (in left and right lower and middle lung mo); no rhonchi and no wheezes Cardiovascular: Rate/Rhythm: regular rate and + irregularly irregular Heart Sounds: no murmur Extremities: no edema Gastrointestinal (Abdomen): normal bowel sounds, soft, nontender, no hepatosplenomegaly Musculoskeletal: Extremities: extremities normal to inspection; no cyanosis and no clubbing Skin: no rashes, warm and dry Neurologic: moves all extremities and awake; no focal motor deficits Psychiatric: Orientation: alert, oriented to person, oriented to place and cooperative Eye Contact: + fair eye contact Affect: + flat affect Results & Data Vital Signs (Past 12 Hours) Vital Signs Temp Pulse Pulse Pulse Resp BP BP 11/14/18 15:10 36.5 C 81 18 129/85 11/14/18 13:52 79 18 11/14/18 11:30 36.5 C 67 18 143/86 H 11/14/18 07:15 36.5 C 73 18 147/84 H Pulse Ox 11/14/18 15:10 90 11/14/18 13:52 91 11/14/18 11:30 90 11/14/18 07:15 94 Laboratory Results 11/14/18 11/14/18 11/14/18 Range/Units 19:56 16:25 11:41 Sodium (136-145) mmol/L Potassium (3.5-5.1) mmol/L Chloride (98-107) mmol/L Carbon Dioxide (21-32) mmol/L Anion Gap (3-11) BUN (7-18) mg/dl Creatinine (0.6-1.4) mg/dl Est Cr Clr Drug Dosing ml/min Est GFR ( Amer) Est GFR (Non-Af Amer) BUN/Creatinine Ratio (10-20) Glucose (70-99) mg/dl POC Glucose 154 H 94 126 H (70-99) Calcium (8.5-10.1) mg/dl 11/14/18 11/14/18 11/13/18 Range/Units 07:29 06:48 20:48 Sodium 132 L (136-145) mmol/L Potassium 4.1 (3.5-5.1) mmol/L Chloride 94 L (98-107) mmol/L Carbon Dioxide 30 (21-32) mmol/L Anion Gap 8.0 (3-11) BUN 17 (7-18) mg/dl Creatinine 1.02 (0.6-1.4) mg/dl Est Cr Clr Drug Dosing 53.9 ml/min Est GFR ( Amer) 75.2 Est GFR (Non-Af Amer) 64.9 BUN/Creatinine Ratio 16.6 (10-20) Glucose 100 H (70-99) mg/dl POC Glucose 114 H 122 H (70-99) Calcium 8.8 (8.5-10.1) mg/dl (1) CHF (congestive heart failure) Heart failure chronicity: chronic Heart failure type: diastolic Qualified Code(s): I50.32 - Chronic diastolic (congestive) heart failure (2) Afib Atrial fibrillation type: permanent Qualified Code(s): I48.2 - Chronic atrial fibrillation (3) Hypothyroidism Hypothyroidism type: acquired Qualified Code(s): E03.9 - Hypothyroidism, unspecified (4) DM II (diabetes mellitus, type II), controlled Diabetes mellitus complication status: with other specified complication Diabetes mellitus residential insulin use: without residential use Qualified C ode(s): E11.69 - Type 2 diabetes mellitus with other specified complication (5) Sepsis Sepsis type: sepsis due to unspecified organism Qualified Code(s): A41.9 - Sepsis, unspecified organism (6) Diabetic ulcer of toe Diabetes mellitus type: type 2 Laterality: right Non-pressure ulcer stage: with fat layer exposed Qualified Code(s): E11.621 - Type 2 diabetes mellitus with foot ulcer; L97.512 - Non-pressure chronic ulcer of other part of right foot with fat layer exposed (7) GERD (gastroesophageal reflux disease) Esophagitis presence: without esophagitis Qualified Code(s): K21.9 - Gastro- esophageal reflux disease without esophagitis (8) HTN (hypertension) Hypertension type: essential hypertension Qualified Code(s): I10 - Essential (primary) hypertension (9) Pneumonia Laterality: bilateral Lung location: unspecified part of lung Pneumonia type: due to unspecified organism Qualified Code(s): J18.9 - Pneumonia, unspecified organism
[2018-11-15] MEDS: LEVALBUTEROL HCL 1.25 MG/3 ML NEB NEB SCH ×2 (02:19→07:38)
[2018-11-15] MEDS: LEVOTHYROXINE SODIUM 100 MCG TABLET PO SCH (05:52)
[2018-11-15] MEDS: ACETAMINOPHEN 325 MG TAB PO PRN ×2 (05:56→19:31)
[2018-11-15] MEDS: TAMSULOSIN HCL 0.4 MG CAP PO SCH (07:54)
[2018-11-15] MEDS: SODIUM CHLORIDE 1 GM TABLET PO SCH (07:55)
[2018-11-15] MEDS: guaiFENesin 600 MG TABCR PO SCH ×2 (07:55→20:11)
[2018-11-15] MEDS: CeleBREX 200 MG CAP PO SCH (07:55)
[2018-11-15] MEDS: PANTOprazole 40 MG TAB PO SCH ×2 (07:56→20:12)
[2018-11-15] MEDS: metroNIDAZOLE 500 MG TAB PO SCH ×3 (07:56→20:09)
[2018-11-15] MEDS: CEROVITE ADV FORMULA TAB PO SCH (07:56)
[2018-11-15] MEDS: AMLODIPINE BESYLATE 5 MG TAB PO SCH (07:57)
[2018-11-15 07:58] LABS: BUN Creatinine Ratio 18.6 (10-20); Calcium 8.8 mg/dl (8.5-10.1); Creatinine Clr Calc Pharmacy 54.4 ml/min; Est GFR (African American) 76.1; Est GFR (Non-African American) 65.6; Potassium 4.5 mmol/L (3.5-5.1)
[2018-11-15] MEDS: ONDANSETRON INJ 2 MG/ML 2 ML VIAL IV PRN (07:59)
[2018-11-15] MEDS: POTASSIUM CHLORIDE 20 MEQ TABCR PO SCH ×2 (08:01→20:09)
[2018-11-15] MEDS: INSULIN ASPART 100 UNITS/ML 3 ML PEN SC SCH ×4 (08:49→20:25)
[2018-11-15] MEDS: INSULIN GLARGINE SOLOSTAR 100 UNITS/ML 3 ML PEN SC SCH (08:49)
[2018-11-15] MEDS ORDERED: LEVALBUTEROL HCL 1.25 MG/3 ML NEB NEB PRN (11:20)
[2018-11-15] MEDS: levoFLOXacin 750 MG TAB PO SCH (12:27)
[2018-11-15] MEDS: ENOXAPARIN INJ 40 MG/0.4 ML SYR SQ SCH (12:27)
--- NOTE | 2018-11-15 23:27 | Hospitalist Progress Note ---
Date of Service November 15, 2018 Assessment & Plan (1) Pneumonia: With extensive b/l multifocal pneumonia on chest x-ray and again seen on CT chest later in the stay With mild pleural effusion on right. CT angiogram negative for pulmonary embolism No pulmonary edema. -Continues on day #9 of abx. Plan 10 days of Rx due to severity of illness. Cont levaquin for community-acquired pneumonia. Cont flagyl for anaerobe coverage in case of aspiration. Previously received 5 days of zosyn. speech therapy consult appreciated. this was to exclude aspiration as cause of b/l pneumonia. video swallow acceptable but aldridge shave moderate oropharyngeal dysphagia and esophageal dysfunction, recommend slippery, soft diet with bite sized pieces. -Will need repeat CT of the chest in 6 weeks to ensure resolution -Continue supplemental O2-arrangements being made with case management -make nebs prn (2) Sepsis: Secondary to pneumonia - resolved Blood cultures remain no growth to date (3) Hyponatremia: Sodium today is improved to 133, may have been previously due to metolazone use appears euvolemic. checked urine osm, urine Na, and serum osm. studies not c/w SIADH. -can dc NaCL tablet (4) Acute respiratory failure with hypoxia: Secondary to pneumonia, improved overall but remains on 2 L nasal cannula -will get 2 step tomorrow prior to dc -Cont nebs prn, abx, supportive care. (5) Afib: rates controlled. not on anticoagulation - apparently due to h/o falls. (6) Hypothyroidism: -Continue levothyroxine 100 mcg daily. TSH 03/2018 wnl. (7) GERD (gastroesophageal reflux disease): -Cont PPI which was increased to twice daily after CT of the chest showed signs of esophagitis -Would consider EGD as an outpatient to further explore thickening of distal esophagus seen on imaging if he elects to do so (8) Hiatal hernia: noted no issues at this time large on CT increased PPI to BID dosing (9) HTN (hypertension): BPs controlled -continue amlodipine (10) CHF (congestive heart failure): Diastolic CHF. looks euvolemic on exam and CT w/o pulmonary edema. 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 uncertain why. no h/o GI bleeding to my knowledge. (15) Hypokalemia: resolved, may have been secondary to metolazone use and poor po intake -can dc po KCl (16) DVT prophylaxis: lovenox SQ Progressing, still very weak but improved today PT/OT both recommending rehab in light of max assist for transfers -his son is adamant about his father returning to [facility] reports they CAN TAKE HIM BACK DESPITE HIS DECLINE IN PHYSICAL FUNCTION -Plans to discharge back to [facility] on Friday and will likely need home O2 Subjective Pt reports feeling a little stronger today, appetite still very poor. Denies cough. Was OOB to chair x 2 hours today as per RN. Is voiding and moving bowels. No chest pain. Is anxious for discharge to home tomorrow Tele with A-fib with rates in the 60s-70s, PVCs Review of Systems Review of Systems: All systems reviewed & are unremarkable except as noted in HPI & below Physical Exam Constitutional: + frail appearing; no acute distress and not ill appearing Eyes: PERRL, conjunctivae normal, anicteric sclerae Neck: trachea midline, no thyromegaly Respiratory: normal respiratory effort Auscultation: + diminished lung sounds (Throughout) and + crackles (in left and right lower and middle lung mo); no rhonchi and no wheezes Cardiovascular: Rate/Rhythm: regular rate and + irregularly irregular Heart Sounds: no murmur Extremities: no edema Gastrointestinal (Abdomen): normal bowel sounds, soft, nontender, no hepatosplenomegaly Musculoskeletal: Extremities: extremities normal to inspection; no cyanosis and no clubbing Skin: no rashes, warm and dry Neurologic: moves all extremities and awake; no focal motor deficits Psychiatric: Orientation: alert, oriented to person, oriented to place and cooperative Results & Data Vital Signs (Past 12 Hours) Vital Signs Temp Pulse Resp BP Pulse Ox 11/15/18 22:48 36.8 C 79 18 125/76 92 11/15/18 19:01 36.7 C 83 18 144/84 H 95 11/15/18 15:00 36.5 C 70 18 125/81 98 Laboratory Results 11/15/18 11/15/18 11/15/18 Range/Units 20:20 16:29 11:26 Sodium (136-145) mmol/L Potassium (3.5-5.1) mmol/L Chloride (98-107) mmol/L Carbon Dioxide (21-32) mmol/L Anion Gap (3-11) BUN (7-18) mg/dl Creatinine (0.6-1.4) mg/dl Est Cr Clr Drug Dosing ml/min Est GFR ( Amer) Est GFR (Non-Af Amer) BUN/Creatinine Ratio (10-20) Glucose (70-99) mg/dl POC Glucose 83 109 H 120 H (70-99) Calcium (8.5-10.1) mg/dl 11/15/18 11/15/18 Range/Units 07:34 06:27 Sodium 133 L (136-145) mmol/L Potassium 4.5 (3.5-5.1) mmol/L Chloride 96 L (98-107) mmol/L Carbon Dioxide 27 (21-32) mmol/L Anion Gap 9.0 (3-11) BUN 19 H (7-18) mg/dl Creatinine 1.01 (0.6-1.4) mg/dl Est Cr Clr Drug Dosing 54.4 ml/min Est GFR ( Amer) 76.1 Est GFR (Non-Af Amer) 65.6 BUN/Creatinine Ratio 18.6 (10-20) Glucose 104 H (70-99) mg/dl POC Glucose 100 H (70-99) Calcium 8.8 (8.5-10.1) mg/dl (1) Pneumonia Laterality: bilateral Lung location: unspecified part of lung Pneumonia type: due to unspecified organism Qualified Code(s): J18.9 - Pneumonia, unspecified organism (2) Sepsis Sepsis type: sepsis due to unspecified organism Qualified Code(s): A41.9 - Sepsis, unspecified organism (3) Afib Atrial fibrillation type: permanent Qualified Code(s): I48.2 - Chronic atrial fibrillation (4) Hypothyroidism Hypothyroidism type: acquired Qualified Code(s): E03.9 - Hypothyroidism, unspecified (5) GERD (gastroesophageal reflux disease) Esophagitis presence: without esophagitis Qualified Code(s): K21.9 - Gastro- esophageal reflux disease without esophagitis (6) HTN (hypertension) Hypertension type: essential hypertension Qualified Code(s): I10 - Essential (primary) hypertension (7) CHF (congestive heart failure) Heart failure type: diastolic Heart failure chronicity: chronic Qualified Code(s): I50.32 - Chronic diastolic (congestive) heart failure (8) Diabetic ulcer of toe Diabetes mellitus type: type 2 Laterality: right Non-pressure ulcer stage: with fat layer exposed Qualified Code(s): E11.621 - Type 2 diabetes mellitus with foot ulcer; L97.512 - Non-pressure chronic ulcer of other part of right foot with fat layer exposed (9) DM II (diabetes mellitus, type II), controlled Diabetes mellitus correction insulin use: without termite treater helper use Diabetes mellitus complication status: with other specified complication Qualified Code(s): E11.69 - Type 2 diabetes mellitus with other specified complication
[2018-11-16] MEDS: ACETAMINOPHEN 325 MG TAB PO PRN (02:25)
[2018-11-16] MEDS: LEVOTHYROXINE SODIUM 100 MCG TABLET PO SCH (06:03)
[2018-11-16] MEDS: INSULIN ASPART 100 UNITS/ML 3 ML PEN SC SCH ×4 (08:31→21:18)
[2018-11-16] MEDS: metroNIDAZOLE 500 MG TAB PO SCH ×3 (08:33→21:15)
[2018-11-16] MEDS: CeleBREX 200 MG CAP PO SCH (08:33)
[2018-11-16] MEDS: TAMSULOSIN HCL 0.4 MG CAP PO SCH (08:34)
[2018-11-16] MEDS: PANTOprazole 40 MG TAB PO SCH ×2 (08:34→21:16)
[2018-11-16] MEDS: CEROVITE ADV FORMULA TAB PO SCH (08:34)
[2018-11-16] MEDS: guaiFENesin 600 MG TABCR PO SCH ×2 (08:34→21:14)
[2018-11-16] MEDS: INSULIN GLARGINE SOLOSTAR 100 UNITS/ML 3 ML PEN SC SCH (08:35)
[2018-11-16] MEDS: AMLODIPINE BESYLATE 5 MG TAB PO SCH (08:36)
[2018-11-16] MEDS: levoFLOXacin 750 MG TAB PO SCH (12:23)
[2018-11-16] MEDS: ENOXAPARIN INJ 40 MG/0.4 ML SYR SQ SCH (12:23)
--- NOTE | 2018-11-16 15:27 | Hospitalist Progress Note ---
Date of Service November 16, 2018 Assessment & Plan (1) Pneumonia: With extensive b/l multifocal pneumonia on chest x-ray and again seen on CT chest later in the stay With mild pleural effusion on right. CT angiogram negative for pulmonary embolism No pulmonary edema. -Continues on day #10 of abx. Abx completed (Levaquin and Flagyl to cover for CAP and aspiration) speech therapy consult appreciated. this was to exclude aspiration as cause of b/l pneumonia. video swallow acceptable but aldridge shave moderate oropharyngeal dysphagia and esophageal dysfunction, recommend slippery, soft diet with bite sized pieces. -Will need repeat CT of the chest in 6 weeks to ensure resolution -Continue supplemental O2 2 LNC continuously-arrangements being made with case management for home O2 -continue nebs prn (2) Sepsis: Secondary to pneumonia - resolved Blood cultures remain no growth to date (3) Hyponatremia: Sodium improved to 133, may have been previously due to metolazone use appears euvolemic. checked urine osm, urine Na, and serum osm. studies not c/w SIADH. -have since discontinued the NaCL tablet (4) Acute respiratory failure with hypoxia: Secondary to pneumonia, improved overall but remains on 2 L nasal cannula Treating PNA (5) Afib: rates controlled. not on anticoagulation - apparently due to h/o falls. (6) Hypothyroidism: -Continue levothyroxine 100 mcg daily. TSH 03/2018 wnl. (7) GERD (gastroesophageal reflux disease): -Cont PPI which was increased to twice daily after CT of the chest showed signs of esophagitis -Would consider EGD as an outpatient to further explore thickening of distal esophagus seen on imaging if he elects to do so (8) Hiatal hernia: noted no issues at this time large on CT increased PPI to BID dosing (9) HTN (hypertension): BPs controlled -continue amlodipine (10) CHF (congestive heart failure): Diastolic CHF. looks euvolemic on exam and CT w/o pulmonary edema. 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 uncertain why. no h/o GI bleeding to my knowledge. (15) Hypokalemia: resolved, may have been secondary to metolazone use and poor po intake -can dc po KCl (16) DVT prophylaxis: lovenox SQ Progressing, still weak but improved today PT/OT both recommending rehab in light of max assist for transfers -his son is adamant about his father returning to [facility] reports they CAN TAKE HIM BACK DESPITE HIS DECLINE IN PHYSICAL FUNCTION -Plans to discharge back to [facility] tomorrow on home O2 Subjective Pt feeling better, no cough, no chest pain. Is georgie po but has low appetite as per RN. Moving bowels, making urine. Still weak but was out of bed with PT today Tele with Afib and flutter, rates 60s-80s Review of Systems Review of Systems: All systems reviewed & are unremarkable except as noted in HPI & below Physical Exam Constitutional: + frail appearing; no acute distress and not ill appearing Eyes: PERRL, conjunctivae normal, anicteric sclerae Neck: trachea midline, no thyromegaly Respiratory: normal respiratory effort Auscultation: + diminished lung sounds (Throughout) and + crackles (in left and right lower and middle lung mo); no rhonchi and no wheezes Cardiovascular: Rate/Rhythm: regular rate and + irregularly irregular Heart Sounds: no murmur Extremities: no edema Gastrointestinal (Abdomen): normal bowel sounds, soft, nontender, no hepatosplenomegaly Musculoskeletal: Extremities: extremities normal to inspection; no cyanosis and no clubbing Skin: no rashes, warm and dry Neurologic: moves all extremities and awake; no focal motor deficits Psychiatric: Orientation: alert, oriented to person, oriented to place and cooperative Affect: + flat affect Results & Data Vital Signs (Past 12 Hours) Vital Signs Temp Pulse Pulse Resp BP BP Pulse Ox 11/16/18 15:17 36.6 C 78 16 143/76 H 95 11/16/18 11:06 36.5 C 68 16 139/79 96 11/16/18 07:50 36.7 C 82 16 141/88 H 93 11/16/18 04:49 36.6 C 79 18 118/68 93 Laboratory Results 11/16/18 11/16/18 11/16/18 Range/Units 20:47 16:50 11:29 POC Glucose 99 92 141 H (70-99) 11/16/18 Range/Units 07:46 POC Glucose 97 (70-99) (1) CHF (congestive heart failure) Heart failure chronicity: chronic Heart failure type: diastolic Qualified Code(s): I50.32 - Chronic diastolic (congestive) heart failure (2) Afib Atrial fibrillation type: permanent Qualified Code(s): I48.2 - Chronic atrial fibrillation (3) Hypothyroidism Hypothyroidism type: acquired Qualified Code(s): E03.9 - Hypothyroidism, unspecified (4) DM II (diabetes mellitus, type II), controlled Diabetes mellitus complication status: with other specified complication Diabetes mellitus snf insulin use: without vermin exterminator use Qualified Code(s): E11.69 - Type 2 diabetes mellitus with other specified complication (5) Sepsis Sepsis type: sepsis due to unspecified organism Qualified Code(s): A41.9 - Sepsis, unspecified organism (6) Diabetic ulcer of toe Diabetes mellitus type: type 2 Laterality: right Non-pressure ulcer stage: with fat layer exposed Qualified Code(s): E11.621 - Type 2 diabetes mellitus with foot ulcer; L97.512 - Non-pressure chronic ulcer of other part of right foot with fat layer exposed (7) GERD (gastroesophageal reflux disease) Esophagitis presence: without esophagitis Qualified Code(s): K21.9 - Gastro- esophageal reflux disease without esophagitis (8) HTN (hypertension) Hypertension type: essential hypertension Qualified Code(s): I10 - Essential (primary) hypertension (9) Pneumonia Laterality: bilateral Lung location: unspecified part of lung Pneumonia type: due to unspecified organism Qualified Code(s): J18.9 - Pneumonia, uns pecified organism
[2018-11-16] MEDS: HYDROCORTISONE 1% CRM 30 GM TUBE EXT SCH (21:15)
[2018-11-17] MEDS: LEVOTHYROXINE SODIUM 100 MCG TABLET PO SCH (06:21)
[2018-11-17] MEDS: TAMSULOSIN HCL 0.4 MG CAP PO SCH (07:47)
[2018-11-17] MEDS: guaiFENesin 600 MG TABCR PO SCH ×2 (07:48→22:31)
[2018-11-17] MEDS: CeleBREX 200 MG CAP PO SCH (07:48)
[2018-11-17] MEDS: CEROVITE ADV FORMULA TAB PO SCH (07:48)
[2018-11-17] MEDS: AMLODIPINE BESYLATE 5 MG TAB PO SCH (07:49)
[2018-11-17] MEDS: HYDROCORTISONE 1% CRM 30 GM TUBE EXT SCH ×2 (07:50→22:30)
[2018-11-17] MEDS: INSULIN GLARGINE SOLOSTAR 100 UNITS/ML 3 ML PEN SC SCH (08:49)
[2018-11-17] MEDS: INSULIN ASPART 100 UNITS/ML 3 ML PEN SC SCH ×4 (08:49→22:30)
[2018-11-17] MEDS: ONDANSETRON INJ 2 MG/ML 2 ML VIAL IV PRN (08:52)
[2018-11-17] MEDS: PANTOprazole 40 MG TAB PO SCH ×2 (08:57→22:31)
[2018-11-17] MEDS: ENOXAPARIN INJ 40 MG/0.4 ML SYR SQ SCH (13:22)
--- NOTE | 2018-11-17 13:29 | Discharge Summary ---
Date of Service November 17, 2018 Admission HPI Per Admitting Provider This is a 88 yo M with PMHx of atrial fibrillation, HTN, HLD, chronic diastolic heart failure, DM II, gait disturbance, chronic lower extremity ulcerations, sacral ulceration, hypothyroidism, hiatal hernia, hx of MRSA, mild dementia, frequent falls who presents from [facility] for increased cough and SOB. Pt was found to be hypoxic at 84% on RA at facility, and then was again 86% upon arrival to the ER. CXR is concerning for pneumonia with bilateral infiltrates. He is requiring supplemental O2 3-4 L, however does not typically require this. The patient family is present at bedside. Nursing at [facility] was also spoken to over the phone by myself. Nurse reported the patient has had increased cough, no sputum production for about 10 days. He was treated with nebulizer treatments QID for about 4-5 days, however did not see significant improvement. He did not receive any antibiotic treatment. The patient states that he has felt significantly worse in the past 3 days. He denies any fever, sweats or chills. Nursing reported that the patient showed increased confusion last night, he was concerned that there was an orange shirt under his bed which was going to get him. This is unlike his normal state considering his mild dementia, as normally he is only slightly forgetful, no behavioral disturbances, and is easily reoriented. Patient reports he has been eating and drinking well, however family disagrees with this statement. Patient denies any other acute complaints. Pt is primarily wheelchair bound. WBC = 13.44, with a left shift. CXR shows bilateral infiltrates. Requiring 4L O2 with sats = 92 %. Principal Diagnosis Pneumonia, sepsis Discharge Exam Constitutional + frail appearing; no acute distress and not ill appearing Eyes PERRL, conjunctivae normal, anicteric sclerae ENMT external ear and nose normal, oropharynx normal Neck trachea midline, no thyromegaly Respiratory normal respiratory effort Auscultation: + diminished lung sounds (Throughout) and + crackles (in left and right lower and middle lung mo); no rhonchi and no wheezes Cardiovascular Rate/Rhythm: regular rate Heart Sounds: no murmur Extremities: no edema Gastrointestinal (Abdomen) normal bowel sounds, soft, nontender, no hepatosplenomegaly Musculoskeletal Extremities: extremities normal to inspection; no cyanosis and no clubbing Skin no rashes, warm and dry Neurologic moves all extremities and awake; no focal motor deficits Psychiatric Orientation: alert, oriented to person, oriented to place and cooperative Discharge Data Allergies Allergy/AdvReac Type Severity Reaction Status Date / Time No Known Allergies Allergy Verified 11/07/18 07:47 Consultations None Ordered Studies 11/12/18 13:00 CT angio chest PE protocol Routine 11/13/18 14:30 FL video swallow Routine Chest x-rays Hospital Course (1) Pneumonia: With extensive b/l multifocal pneumonia on chest x-ray and again seen on CT chest later in the stay With mild pleural effusion on right. CT angiogram negative for pulmonary embolism No pulmonary edema. -Completed 10 days of antibiotics (Levaquin and Flagyl to cover for CAP and aspiration) speech therapy consult appreciated. this was to exclude aspiration as cause of b/l pneumonia. video swallow acceptable but aldridge shave moderate oropharyngeal dysphagia and esophageal dysfunction, recommend slippery, soft diet with bite sized pieces. -Will need repeat CT of the chest in 6 weeks to ensure resolution of infiltrates Overall clinically improved -Continue supplemental O2 2 LNC continuously-arrangements were made for home O2 upon discharge (2) Sepsis: Secondary to pneumonia - resolved Blood cultures remain no growth to date (3) Hyponatremia: Sodium improved to 133, may have been previously due to metolazone use appears euvolemic. checked urine osm, urine Na, and serum osm. studies not c/w SIADH. -have since discontinued the NaCL tablet -Would discontinue metolazone upon discharge (4) Acute respiratory failure with hypoxia: Secondary to pneumonia, improved overall but remains on 2 L nasal cannula Treating PNA (5) Afib: rates controlled. not on anticoagulation - apparently due to h/o falls. (6) Hypothyroidism: -Continue levothyroxine 100 mcg daily. TSH 03/2018 wnl. (7) GERD (gastroesophageal reflux disease): -Cont PPI which was increased to twice daily after CT of the chest showed signs of esophagitis -Would consider EGD as an outpatient to further explore thickening of distal esophagus seen on imaging if he elects to do so (8) Hiatal hernia: noted no issues at this time large on CT increased PPI to BID dosing (9) HTN (hypertension): BPs controlled -continue amlodipine (10) CHF (congestive heart failure): Diastolic CHF. looks euvolemic on exam and CT w/o pulmonary edema. 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 uncertain why. no h/o GI bleeding to my knowledge. -Defer to PCP (15) Hypokalemia: resolved, may have been secondary to metolazone use and poor po intake -Recommend discontinuing metolazone (16) DVT prophylaxis: lovenox SQ Clinically improved from pneumonia, remains generally weak and needs significant physical and occupational therapy PT/OT both recommending rehab in light of max assist for transfers -his son is adamant about his father returning to [facility] reports they CAN TAKE HIM BACK DESPITE HIS DECLINE IN PHYSICAL FUNCTION -Plans to discharge back to [facility] today on home O2 Total Time Total Time Spent Total Time Spent (In Minutes): Greater than 30 minutes Total Time Includes: Examination of the Patient, Discharge Planning and Medication Reconciliation Discharge Plan Discharge Items Patient Disposition: [facility] Reason For Visit: PNEUMONIA Discharge Diagnosis: Pneumonia, acute respiratory failure with hypoxia Condition: Fair Discharge Goals: Decrease discomfort, Diagnostic testing, Improve disease control, Improve function, Learn about illness, Prevent disease and Therapeutic intervention Activity: As commented below Lifting: None Bathing: No limitations Exercise/Sports: Gradually increase as tolerated Exercise Comment: Requiring max assist with 2 people Non-emergency contact: Primary Care Provider Call non-emergency contact if: you have any medication questions, your symptoms worsen, your pain is not controlled, your pain is worsening, your pain is unusual for you, your pain is concerning for you, you have a fever and your temperature is above 100.5 [facility] - Diet: Low Sodium (2gm) Diet Texture: Dental soft (bite-sized) Diet Comment: Slippery and soft diet Addtl Provider Instructions: You were admitted with pneumonia and treated with a 10-day course of antibiotics. You will require oxygen upon discharge with 2 L continuously. You have a video swallowing study which showed that you do have some difficulty with swallowing although you are not aspirating. Please follow the speech therapy recommendations as provided You were very weak all over and will need physical and occupational therapy to regain your strength. Please continue all your other medications as before. Please follow-up with your primary care provider within 1 week after discharge. Prescriptions: New ondansetron HCl [Zofran] 4 mg tablet 4 mg PO Q8H PRN (Reason: nausea and vomiting) 3 Days Qty: 9 RF: 0 Continued amlodipine 2.5 mg tablet 2.5 mg PO DAILY RF: 0 camphor-methyl salicyl-menthol adhesive patch,medicated 1 patch TOP DAILY RF: 0 acetaminophen 500 mg capsule 500 mg PO Q6H PRN (Reason: Pain) RF: 0 glipizide 2.5 mg tablet extended release 24hr 2.5 mg PO DAILY RF: 0 menthol-zinc oxide [Calmoseptine] 0.44-20.6 % ointment 1 appln TOP QID PRN (Reason: Wound Care) RF: 0 fluoride (sodium) [PreviDent 5000 Booster Plus] 1.1 % paste 1 appln DT BID RF: 0 multivitamin,[id number] [Therems-M] 27-0.4 mg tablet 1 tab PO DAILY RF: 0 levothyroxine 100 mcg capsule 100 mcg PO DAILY RF: 0 tamsulosin 0.4 mg capsule 0.4 mg PO DAILY RF: 0 celecoxib 200 mg capsule 200 mg PO DAILY RF: 0 omeprazole 40 mg capsule,delayed release(DR/EC) 40 mg PO DAILY RF: 0 guaifenesin [Mucinex] 600 mg tablet extended release 12hr 600 mg PO BID RF: 0 Discontinued metolazone 5 mg tablet 5 mg PO DAILY RF: 0 dextromethorphan-guaifenesin [Tussin DM] 10-100 mg/5 mL Syrup 5 ml PO Q4H PRN (Reason: Cough) RF: 0 Stand-Alone Forms: [facility] Discharge Orders: Discharge Order (Routine); Ordered 11/17/18 Ordered By: Sandy Piedra Admission Data Admit Date/Time: 11/07/18 09:17 Attending Provider: Sandy Piedra Admit Provider: Sandy Piedra Primary Care Provider: Doc Key[facility] Other Providers: Sandy Piedra Service: Telemetry Other Interventions: Discharge Summary Assessment (RN) Last Done: 11/17/18 15:45 Pending Studies at Discharge: No
== END 2018-11-18 00:22 | disposition home or self-care (01) | DRG 871 ==
LOC: ED 07:17 → SUATTDRO 09:17 → 2N 09:17

== ENCOUNTER 2019-02-02 08:18 | Inpatient (IN) ==
[2019-02-02] MEDS ORDERED: LEVALBUTEROL HCL 1.25 MG/3 ML NEB NEB STA ×2 (08:37→08:39)
[2019-02-02] MEDS ORDERED: SODIUM CHLORIDE 0.9% 500 ML IV SCH (08:45)
[2019-02-02 08:54] LABS: Basophils # (auto) 0.01 K/uL (0-0.2); Basophils % (auto) 0.1 %; Hematocrit (blood only) 40.4 % (42-52); Hemoglobin 13.7 g/dL (14.0-18.0); Immature Granulocytes # (auto) 0.03 K/uL (0.00-0.02); Immature Granulocytes % (auto) 0.3 %; Lymphocytes # (auto) 0.82 K/uL (1.2-3.4); Lymphocytes % (auto) 7.1 %; Mean Corpuscular Hgb Conc 33.9 g/dL (32-36); Mean Corpuscular Volume 92.4 fL (80-100); Mean Platelet Volume 11.1 fL (7.4-10.4); Monocytes # (auto) 0.49 K/uL (0.11-0.59); Monocytes % (auto) 4.2 %; Neutrophils # (auto) 10.26 K/uL (1.4-6.5); Neutrophils % (auto) 88.3 %; Platelet Count 277 K/uL (130-400); RDW Coefficient of Variation 15.2 % (11.5-14.5); RDW Standard Deviation 51.4 fL (36.4-46.3); Red Blood Count 4.37 M/uL (4.7-6.1); White Blood Count 11.61 K/uL (4.8-10.8)
--- NOTE | 2019-02-02 08:55 | Emergency Department Note ---
History of Present Illness General Chief complaint: Chest Pain Stated complaint: chest pain Time Seen by Provider: 02/02/19 08:32 Source: patient, family, EMS, RN notes reviewed and old records reviewed Mode of arrival: EMS Limitations: no limitations History of Present Illness Provider complaint: 4 Onset (ago): hour(s) Location: chest Radiation: non-radiation Severity: mild Pain Consistency: + now resolved Current Pain Intensity: 3 Quality: + dull Relieved By: + none Exacerbated By: + none Associated symptoms: + nausea/vomiting Treatments prior to arrival: none This is an 88-year-old male who presents emergency department complaining of chest pain. The patient and family report that he was having chest pain in the middle the night however he is pain-free at this point. The patient does not describe any radiation. He feels very tired. He denies any fevers or chills. He denies any associated symptoms with the chest pain including abdominal pain. He arrives via ambulance. Home Medications Home Medications Medication Instructions Recorded Confirmed Type acetaminophen 500 mg capsule 500 mg PO Q6H PRN 06/08/18 02/02/19 History amlodipine 2.5 mg tablet 2.5 mg PO QAM tab 06/08/18 02/02/19 History celecoxib 200 mg capsule 200 mg PO QAM 06/08/18 02/02/19 History glipizide ER 2.5 mg tablet, 2.5 mg PO QAM 06/08/18 02/02/19 History extended release 24 hr menthol 0.44 %-zinc oxide 20.6 % 1 appln TOP BID PRN 06/08/18 02/02/19 History topical ointment multivitamin,[id number] 27 1 tab PO QAM 06/08/18 02/02/19 History mg-0.4 mg tablet sodium fluoride 1.1 % dental paste 1 appln DT BID ml 06/08/18 02/02/19 History tamsulosin 0.4 mg capsule 0.4 mg PO HS 06/08/18 02/02/19 History omeprazole 40 mg capsule,delayed 40 mg PO QAM 08/07/18 02/02/19 History release carbamide peroxide [Ear Wax Drops] 5 - 10 drp OTIC (EAR) DAILY PRN 02/02/19 02/02/19 History food supplemt, lactose-reduced 1 ea PO BID 02/02/19 02/02/19 History [Ensure] hydrocortisone 1 applic TOPICAL BID PRN 02/02/19 02/02/19 History levothyroxine 112 mcg PO QAM 02/02/19 02/02/19 History lidocaine [Lidocaine Pain Relief] 1 patch TOPICAL QAM PRN 02/02/19 02/02/19 History melatonin 3 - 6 mg PO HS PRN 02/02/19 02/02/19 History prochlorperazine maleate 10 mg PO Q6H PRN 02/02/19 02/02/19 History Allergies Allergy/AdvReac Type Severity Reaction Status Date / Time No Known Allergies Allergy Verified 02/02/19 10:20 Past Med/Surg History Medical History A-fib (Acute) Abnormal weight loss (Acute) CHF (congestive heart failure) (Acute) DM II (diabetes mellitus, type II), controlled (Acute) Dementia (Acute) Diabetic foot ulcer (Acute) Diabetic neuropathy (Acute) Dysphagia (Acute) FHx: psoriatic arthritis (Acute) GERD (gastroesophageal reflux disease) (Acute) Gait instability (Acute) Gastric ulcer (Acute) HTN (hypertension) (Acute) Hypercholesteremia (Acute) Hypothyroidism (Acute) Lethargy (Acute) Limb swelling (Acute) MRSA (methicillin resistant staph aureus) culture positive (Acute) Osteoarthritis of knee (Acute) Osteoarthritis, knee (Acute) Paroxysmal A-fib (Acute) Polyarthropathy (Acute) Psoriatic arthritis mutilans (Acute) Rash (Acute) Recurrent UTI (Acute) Family History Other Family history non-contributory Social History Communication Ability: Unable Beliefs That Will Affect Care: None marital status: Current Living Situation: Spouse and Personal Care Facility current occupational status: retired Feels Safe at Home: Yes Smoking Status: Never smoker Second Hand Exposure: No Hx Alcohol Use: No Hx Substance Use: No Review of Systems A total of 10 systems reviewed and were otherwise negative Physical Exam Vital Signs Vital Signs - 24 hr 02/02/19 08:21 02/02/19 08:30 02/02/19 08:31 Temperature 36.9 C Temperature Source Oral Sepsis Recent Fever Within 48 Hours No Sepsis Action Taken by Nursing No Action Required Oxygen Flow Rate - Titration Pulse Oximetry Post Tiitration Pulse Rate 93 H 72 73 Pulse Rate [Apical] Pulse Rate from SpO2 Sensor 71 Pulse Rhythm Irregular Pulse Rhythm [Apical] Pulse Strength [Apical] Respiratory Rate 16 27 H 30 H Respiratory Depth Normal Blood Pressure 159/85 H 165/98 H Blood Pressure [Left Arm] Blood Pressure Mean 109 120 Blood Pressure Mean [Left Arm] Blood Pressure Position [Left Arm] Pulse Oximetry 100 89 L 94 Oxygen Delivery Method Room Air Room Air Nasal Cannula Oxygen Flow Rate 2 02/02/19 08:36 02/02/19 08:45 Temperature 36.9 C Temperature Source Oral Sepsis Recent Fever Within 48 Hours Sepsis Action Taken by Nursing Oxygen Flow Rate - Titration 2 Pulse Oximetry Post Tiitration 94 Pulse Rate 60 Pulse Rate [Apical] 68 Pulse Rate from SpO2 Sensor 63 Pulse Rhythm Pulse Rhythm [Apical] Irregular Pulse Strength [Apical] Normal Respiratory Rate 16 21 Respiratory Depth Normal Blood Pressure Blood Pressure [Left Arm] 165/98 H Blood Pressure Mean Blood Pressure Mean [Left Arm] 120 Blood Pressure Position [Left Arm] Lying Pulse Oximetry 100 98 Oxygen Delivery Method Room Air Oxygen Flow Rate GENERAL: Patient is a frail-appearing male somnolent on exam HEAD: Normocephalic atraumatic EYES: Ocular movements intact pupils equal and react to light OROPHARYNX mucous membranes are moist no exudates present no erythema or edema present NECK: Supple no nuchal rigidity CHEST: Good equal expansion LUNGS: wheezing bilaterally CARDIAC: Normal S1 and S2 ABDOMEN: Soft nontender no guarding BACK: No CVA tenderness EXTREMITIES: No pain upon palpation normal muscle strength in all groups no clubbing cyanosis or edema NEURO: Patient is following commands is answering questions appropriately. Alert and oriented x3 Cranial Nerves 2-12 grossly intact Course Administered Medications Discontinued Medications Amlodipine Besylate (Norvasc) 2.5 mg PO DAILY [facility] Stop: 03/05/19 08:59 Last Admin: 02/03/19 08:17 Dose: 2.5 mg Documented by: [id number] Aspirin (Aspirin) 324 mg PO NOW STA Stop: 02/02/19 09:40 Last Admin: 02/02/19 09:47 Dose: 324 mg Documented by: [id number] Furosemide (Lasix) 40 mg IV NOW STA Stop: 02/02/19 09:16 Last Admin: 02/02/19 09:19 Dose: 40 mg Documented by: [id number] Heparin Sodium (Porcine) (Heparin Sodium (Porcine)) 5,000 units SQ Q8 [facility] Stop: 03/04/19 13:59 Last Admin: 02/02/19 16:05 Dose: 5,000 units Documented by: [id number] Cosigned by: [id number] Sodium Chloride (Nss) 500 mls @ 999 mls/hr IV .Q31M [facility] Stop: 02/02/19 09:15 Last Infusion: 02/02/19 09:31 Dose: 0 mls/hr Documented by: [id number] Admin: 02/02/19 09:16 Dose: 999 mls/hr Documented by: [id number] Promethazine HCl 25 mg/ Sodium (Chloride) 51 mls @ 204 mls/hr IV NOW STA Stop: 02/02/19 17:58 Last Infusion: 02/02/19 18:23 Dose: 0 mls/hr Documented by: [id number] Admin: 02/02/19 18:02 Dose: 204 mls/hr Documented by: [id number] Ranitidine HCl 50 mg/ Dextrose 102 mls @ 200 mls/hr IV Q8H [facility] Stop: 03/04/19 20:59 Last Infusion: 02/04/19 05:29 Dose: 0 mls/hr Documented by: [id number] Admin: 02/04/19 04:31 Dose: 200 mls/hr Documented by: [id number] Infusion: 02/03/19 21:35 Dose: 200 mls/hr Documented by: [id number] Admin: 02/03/19 21:03 Dose: 200 mls/hr Documented by: [id number] Infusion: 02/03/19 14:09 Dose: 0 mls/hr Documented by: [id number] Admin: 02/03/19 13:34 Dose: 200 mls/hr Documented by: [id number] Infusion: 02/03/19 06:05 Dose: 0 mls/hr Documented by: [id number] Admin: 02/03/19 05:33 Dose: 200 mls/hr Documented by: [id number] Infusion: 02/02/19 22:10 Dose: 0 mls/hr Documented by: [id number] Admin: 02/02/19 21:36 Dose: 200 mls/hr Documented by: [id number] Famotidine 20 mg/ Syringe 5 mls @ 2.5 mls/min IV ONE ONE Stop: 02/02/19 17:46 Last Admin: 02/02/19 18:02 Dose: 2.5 mls/min Documented by: [id number] Furosemide 40 mg/ Syringe 4 mls @ 4 mls/min IV NOW STA Stop: 02/02/19 20:57 Last Admin: 02/02/19 21:28 Dose: 4 mls/min Documented by: [id number] Piperacillin Sod/Tazobactam (Sod 3.375 gm/ Dextrose) 115 mls @ 230 mls/hr IV TODAY@2200 [facility] Stop: 02/02/19 22:29 Last Infusion: 02/02/19 22:56 Dose: 0 mls/hr Documented by: [id number] Admin: 02/02/19 22:21 Dose: 230 mls/hr Documented by: [id number] Piperacillin Sod/Tazobactam (Sod 3.375 gm/ Dextrose) 115 mls @ 28.75 mls/hr IV Q8H [facility]; Protocol Stop: 02/10/19 03:59 Last Admin: 02/04/19 04:30 Dose: 28.8 mls/hr Documented by: [id number] Infusion: 02/03/19 23:53 Dose: 0 mls/hr Documented by: [id number] Admin: 02/03/19 19:53 Dose: 28.8 mls/hr Documented by: [id number] Infusion: 02/03/19 16:13 Dose: 0 mls/hr Documented by: [id number] Admin: 02/03/19 11:54 Dose: 28.8 mls/hr Documented by: [id number] Infusion: 02/03/19 08:28 Dose: 0 mls/hr Documented by: [id number] Admin: 02/03/19 04:28 Dose: 28.8 mls/hr Documented by: [id number] Methylprednisolone 125 mg/ (Syringe) 2 mls @ 1.5 mls/min IV ONE ONE Stop: 02/03/19 04:01 Last Admin: 02/03/19 04:03 Dose: 1.5 mls/min Documented by: [id number] Vancomycin HCl 1,750 mg/ (Sodium Chloride) 535 mls @ 200 mls/hr IV ONE ONE Stop: 02/03/19 06:40 Last Infusion: 02/03/19 06:44 Dose: 0 mls/hr Documented by: [id number] Admin: 02/03/19 04:03 Dose: 200 mls/hr Documented by: [id number] Vancomycin HCl 1,250 mg/ (Sodium Chloride) 275 mls @ 125 mls/hr IV Q20H [facility]; Protocol Stop: 02/10/19 00:00 Last Infusion: 02/04/19 01:55 Dose: 0 mls/hr Documented by: [id number] Admin: 02/03/19 23:36 Dose: 125 mls/hr Documented by: [id number] Potassium Chloride/Sodium Chloride (Normal Saline W/20 Meq Kcl) 20 meq in 1,000 mls @ 80 mls/hr IV .[id number] [facility] Stop: 03/05/19 14:44 Last Admin: 02/04/19 04:25 Dose: 80 mls/hr Documented by: [id number] Infusion: 02/04/19 04:19 Dose: 0 mls/hr Documented by: [id number] Admin: 02/03/19 15:32 Dose: 80 mls/hr Documented by: [id number] Insulin Aspart (Novolog Flexpen) 0 units SC ACHS [facility] Stop: 03/04/19 16:29 Last Admin: 02/03/19 22:22 Dose: Not Given Documented by: [id number] Cosigned by: [id number] Admin: 02/03/19 16:52 Dose: 2 units Documented by: [id number] Cosigned by: [id number] Admin: 02/03/19 11:53 Dose: 2 units Documented by: [id number] Cosigned by: [id number] Admin: 02/03/19 08:14 Dose: 2 units Documented by: [id number] Cosigned by: [id number] Admin: 02/02/19 22:02 Dose: Not Given Documented by: [id number] Cosigned by: [id number] Admin: 02/02/19 18:02 Dose: 1 units Documented by: [id number] Cosigned by: [id number] Levalbuterol HCl (Xopenex 1.25mg/3ml Neb) 1.25 mg NEB NOW STA Stop: 02/02/19 08:38 Last Admin: 02/02/19 09:04 Dose: 1.25 mg Documented by: [id number] Levalbuterol HCl (Xopenex 1.25mg/3ml Neb) 1.25 mg NEB NOW STA Stop: 02/02/19 08:40 Last Admin: 02/02/19 09:04 Dose: 1.25 mg Documented by: [id number] Levothyroxine Sodium (Synthroid) 112 mcg PO DAILYBB [facility] Stop: 03/05/19 06:29 Last Admin: 02/03/19 06:34 Dose: Not Given Documented by: [id number] Metoclopramide HCl (Reglan) 10 mg IV NOW STA Stop: 02/02/19 10:38 Last Admin: 02/02/19 10:42 Dose: 10 mg Documented by: [id number] Ondansetron HCl (Zofran) 4 mg IV Q6H PRN PRN Reason: Nausea Stop: 03/04/19 11:18 Last Admin: 02/03/19 20:19 Dose: 4 mg Documented by: [id number] Admin: 02/02/19 11:33 Dose: 4 mg Documented by: [id number] Ondansetron HCl (Zofran) 4 mg IV NOW STA Stop: 02/02/19 17:10 Last Admin: 02/02/19 18:02 Dose: 4 mg Documented by: [id number] Ondansetron HCl (Zofran) 4 mg IV NOW STA Stop: 02/02/19 20:49 Last Admin: 02/02/19 21:16 Dose: 4 mg Documented by: [id number] Pantoprazole Sodium (Protonix) 40 mg PO DAILY [facility]; Protocol Stop: 03/05/19 08:59 Last Admin: 02/03/19 08:17 Dose: 40 mg Documented by: [id number] Pantoprazole Sodium (Protonix) 40 mg PO BID [facility] Stop: 03/05/19 20:59 Last Admin: 02/03/19 20:56 Dose: Not Given Documented by: [id number] Perflutren Lipid Microsphere (Definity) 2 ml IV ONCE ONE Stop: 02/02/19 13:06 Last Admin: 02/02/19 13:05 Dose: 2 ml Documented by: [id number] Sucralfate (Carafate) 1 gm PO QID [facility] Stop: 03/05/19 12:59 Last Admin: 02/03/19 20:53 Dose: Not Given Documented by: [id number] Admin: 02/03/19 16:53 Dose: 1 gm Documented by: [id number] Admin: 02/03/19 13:35 Dose: 1 gm Documented by: [id number] Medical Decision Making Laboratory Data Result diagrams: 02/03/19 06:31 02/03/19 06:31 Lab Results 02/02/19 02/02/19 02/02/19 Range/Units 07:36 08:36 08:36 WBC 11.61 H (4.8-10.8) K/uL RBC 4.37 L (4.7-6.1) M/uL Hgb 13.7 L (14.0-18.0) g/dL Hct 40.4 L (42-52) % MCV 92.4 (80-100) fL MCH 31.4 (25-34) pg MCHC 33.9 (32-36) g/dL RDW Std Deviation 51.4 H (36.4-46.3) fL RDW Coeff of Dayron 15.2 H (11.5-14.5) % Plt Count 277 (130-400) K/uL MPV 11.1 H (7.4-10.4) fL Immature Gran % (Auto) 0.3 % Neut % (Auto) 88.3 % Lymph % (Auto) 7.1 % [place] % (Auto) 4.2 % Eos % (Auto) 0.0 % Baso % (Auto) 0.1 % Immature Gran # (Auto) 0.03 H (0.00-0.02) K/uL Neut # (Auto) 10.26 H (1.4-6.5) K/uL Lymph # (Auto) 0.82 L (1.2-3.4) K/uL [place] # (Auto) 0.49 (0.11-0.59) K/uL Eos # (Auto) 0.00 (0-0.5) K/uL Baso # (Auto) 0.01 (0-0.2) K/uL PT 10.8 (9.0-12.0) Seconds INR 1.1 (0.9-1.1) APTT 26.3 (21.0-31.0) Seconds PTT Ratio 1.0 ABG pH (7.35-7.45) ABG pCO2 (35-46) mmHg ABG pO2 (80-95) mm/Hg ABG HCO3 (19-24) mmol/L ABG O2 Saturation (90-95) % ABG Base Excess (-9-1.8) mEq/L Leander Test (Pos) Barometric Pressure mm/Hg Oxygen Given Sodium 139 (136-145) mmol/L Potassium 3.7 (3.5-5.1) mmol/L Chloride 101 (98-107) mmol/L Carbon Dioxide 28 (21-32) mmol/L Anion Gap 10.0 (3-11) BUN 23 H (7-18) mg/dl Creatinine 1.09 (0.6-1.4) mg/dl Est Cr Clr Drug Dosing 46.8 ml/min Est GFR ( Amer) 69.4 Est GFR (Non-Af Amer) 59.9 BUN/Creatinine Ratio 21.2 H (10-20) Glucose 189 H (70-99) mg/dl POC Glucose (70-99) Calcium 8.9 (8.5-10.1) mg/dl Total Bilirubin 0.6 (0.2-1) mg/dl AST 14 L (15-37) U/L ALT 22 (12-78) U/L Alkaline Phosphatase 88 (45-117) U/L Total Creatine Kinase 140 (39-308) U/L CK-MB (CK-2) 3.6 (0.5-3.6) ng/ml CK/CKMB % Calc 2.6 (0-3.0) Troponin I < 0.015 (0-0.045) ng/ml NT-Pro-B Natriuret Pep (0-1800) pg/ml Total Protein 8.3 H (6.4-8.2) gm/dl Albumin 3.8 (3.4-5.0) gm/dl Globulin 4.5 H (2.5-4.0) gm/dl Albumin/Globulin Ratio 0.8 L (0.9-2) Lipase 64 L (73-393) U/L 02/02/19 02/02/19 02/02/19 Range/Units 08:36 12:09 13:41 WBC (4.8-10.8) K/uL RBC (4.7-6.1) M/uL Hgb (14.0-18.0) g/dL Hct (42-52) % MCV (80-100) fL MCH (25-34) pg MCHC (32-36) g/dL RDW Std Deviation (36.4-46.3) fL RDW Coeff of Dayron (11.5-14.5) % Plt Count (130-400) K/uL MPV (7.4-10.4) fL Immature Gran % (Auto) % Neut % (Auto) % Lymph % (Auto) % [place] % (Auto) % Eos % (Auto) % Baso % (Auto) % Immature Gran # (Auto) (0.00-0.02) K/uL Neut # (Auto) (1.4-6.5) K/uL Lymph # (Auto) (1.2-3.4) K/uL [place] # (Auto) (0.11-0.59) K/uL Eos # (Auto) (0-0.5) K/uL Baso # (Auto) (0-0.2) K/uL PT (9.0-12.0) Seconds INR (0.9-1.1) APTT (21.0-31.0) Seconds PTT Ratio ABG pH (7.35-7.45) ABG pCO2 (35-46) mmHg ABG pO2 (80-95) mm/Hg ABG HCO3 (19-24) mmol/L ABG O2 Saturation (90-95) % ABG Base Excess (-9-1.8) mEq/L Leander Test (Pos) Barometric Pressure mm/Hg Oxygen Given Sodium (136-145) mmol/L Potassium (3.5-5.1) mmol/L Chloride (98-107) mmol/L Carbon Dioxide (21-32) mmol/L Anion Gap (3-11) BUN (7-18) mg/dl Creatinine (0.6-1.4) mg/dl Est Cr Clr Drug Dosing ml/min Est GFR ( Amer) Est GFR (Non-Af Amer) BUN/Creatinine Ratio (10-20) Glucose (70-99) mg/dl POC Glucose 193 H (70-99) Calcium (8.5-10.1) mg/dl Total Bilirubin (0.2-1) mg/dl AST (15-37) U/L ALT (12-78) U/L Alkaline Phosphatase (45-117) U/L Total Creatine Kinase (39-308) U/L CK-MB (CK-2) (0.5-3.6) ng/ml CK/CKMB % Calc (0-3.0) Troponin I 0.040 (0-0.045) ng/ml NT-Pro-B Natriuret Pep 5431 H (0-1800) pg/ml Total Protein (6.4-8.2) gm/dl Albumin (3.4-5.0) gm/dl Globulin (2.5-4.0) gm/dl Albumin/Globulin Ratio (0.9-2) Lipase (73-393) U/L 02/02/19 02/02/19 02/02/19 Range/Units 16:29 20:39 21:08 WBC (4.8-10.8) K/uL RBC (4.7-6.1) M/uL Hgb (14.0-18.0) g/dL Hct (42-52) % MCV (80-100) fL MCH (25-34) pg MCHC (32-36) g/dL RDW Std Deviation (36.4-46.3) fL RDW Coeff of Dayron (11.5-14.5) % Plt Count (130-400) K/uL MPV (7.4-10.4) fL Immature Gran % (Auto) % Neut % (Auto) % Lymph % (Auto) % [place] % (Auto) % Eos % (Auto) % Baso % (Auto) % Immature Gran # (Auto) (0.00-0.02) K/uL Neut # (Auto) (1.4-6.5) K/uL Lymph # (Auto) (1.2-3.4) K/uL [place] # (Auto) (0.11-0.59) K/uL Eos # (Auto) (0-0.5) K/uL Baso # (Auto) (0-0.2) K/uL PT (9.0-12.0) Seconds INR (0.9-1.1) APTT (21.0-31.0) Seconds PTT Ratio ABG pH 7.46 H (7.35-7.45) ABG pCO2 38 (35-46) mmHg ABG pO2 56 L (80-95) mm/Hg ABG HCO3 27 H (19-24) mmol/L ABG O2 Saturation 89.2 L (90-95) % ABG Base Excess 2.8 H (-9-1.8) mEq/L Leander Test Pos (Pos) Barometric Pressure 731.0 mm/Hg Oxygen Given 100 Sodium (136-145) mmol/L Potassium (3.5-5.1) mmol/L Chloride (98-107) mmol/L Carbon Dioxide (21-32) mmol/L Anion Gap (3-11) BUN (7-18) mg/dl Creatinine (0.6-1.4) mg/dl Est Cr Clr Drug Dosing ml/min Est GFR ( Amer) Est GFR (Non-Af Amer) BUN/Creatinine Ratio (10-20) Glucose (70-99) mg/dl POC Glucose 186 H 149 H (70-99) Calcium (8.5-10.1) mg/dl Total Bilirubin (0.2-1) mg/dl AST (15-37) U/L ALT (12-78) U/L Alkaline Phosphatase (45-117) U/L Total Creatine Kinase (39-308) U/L CK-MB (CK-2) (0.5-3.6) ng/ml CK/CKMB % Calc (0-3.0) Troponin I (0-0.045) ng/ml NT-Pro-B Natriuret Pep (0-1800) pg/ml Total Protein (6.4-8.2) gm/dl Albumin (3.4-5.0) gm/dl Globulin (2.5-4.0) gm/dl Albumin/Globulin Ratio (0.9-2) Lipase (73-393) U/L 02/02/19 02/02/19 Range/Units 21:12 21:12 WBC 5.99 (4.8-10.8) K/uL RBC 4.75 (4.7-6.1) M/uL Hgb 15.0 (14.0-18.0) g/dL Hct 44.2 (42-52) % MCV 93.1 (80-100) fL MCH 31.6 (25-34) pg MCHC 33.9 (32-36) g/dL RDW Std Deviation 52.0 H (36.4-46.3) fL RDW Coeff of Dayron 15.3 H (11.5-14.5) % Plt Count 279 (130-400) K/uL MPV 11.4 H (7.4-10.4) fL Immature Gran % (Auto) 0.3 % Neut % (Auto) 82.2 % Lymph % (Auto) 13.0 % [place] % (Auto) 4.5 % Eos % (Auto) 0.0 % Baso % (Auto) 0.0 % Immature Gran # (Auto) 0.02 (0.00-0.02) K/uL Neut # (Auto) 4.92 (1.4-6.5) K/uL Lymph # (Auto) 0.78 L (1.2-3.4) K/uL [place] # (Auto) 0.27 (0.11-0.59) K/uL Eos # (Auto) 0.00 (0-0.5) K/uL Baso # (Auto) 0.00 (0-0.2) K/uL PT (9.0-12.0) Seconds INR (0.9-1.1) APTT (21.0-31.0) Seconds PTT Ratio ABG pH (7.35-7.45) ABG pCO2 (35-46) mmHg ABG pO2 (80-95) mm/Hg ABG HCO3 (19-24) mmol/L ABG O2 Saturation (90-95) % ABG Base Excess (-9-1.8) mEq/L Leander Test (Pos) Barometric Pressure mm/Hg Oxygen Given Sodium 139 (136-145) mmol/L Potassium 3.3 L (3.5-5.1) mmol/L Chloride 103 (98-107) mmol/L Carbon Dioxide 27 (21-32) mmol/L Anion Gap 10.0 (3-11) BUN 27 H (7-18) mg/dl Creatinine 1.27 (0.6-1.4) mg/dl Est Cr Clr Drug Dosing 43.3 ml/min Est GFR ( Amer) 57.7 Est GFR (Non-Af Amer) 49.8 BUN/Creatinine Ratio 21.0 H (10-20) Glucose 156 H (70-99) mg/dl POC Glucose (70-99) Calcium 9.2 (8.5-10.1) mg/dl Total Bilirubin 0.9 (0.2-1) mg/dl AST 17 (15-37) U/L ALT 19 (12-78) U/L Alkaline Phosphatase 78 (45-117) U/L Total Creatine Kinase (39-308) U/L CK-MB (CK-2) (0.5-3.6) ng/ml CK/CKMB % Calc (0-3.0) Troponin I 0.062 H* (0-0.045) ng/ml NT-Pro-B Natriuret Pep (0-1800) pg/ml Total Protein 7.5 (6.4-8.2) gm/dl Albumin 3.2 L (3.4-5.0) gm/dl Globulin 4.3 H (2.5-4.0) gm/dl Albumin/Globulin Ratio 0.7 L (0.9-2) Lipase 49 L (73-393) U/L Imaging Data Radiologist's Impression: [place], [place] [phone] XRay Report Patient: BRANDON ASTUDILLO AAdmit Date: 02/02/19 MR#: [id number]: [address], [address] Acct ID:[id number]: [facility] Date: 1930[facility] Zip: [place] [address] Age: 88Location: ED Sex: M Room/Bed: Att Phy: Diagnosis: chest pain Aysha Phy: Francis Banks MDService Date: 02/02/19 Fam Phy: Interpreting Phy: Claudio Gutierrez MD Admit Phy: Ordering Phy: Cristian Ramirez MD cc: ~ XR chest 1V portable CLINICAL HISTORY: Chest Pain dyspnea COMPARISON STUDY: 11/11/2018 FINDINGS: Large fixed hiatal hernia. Mild stable cardiomegaly. Prominent pulmonary vasculature. Pulmonary apices are considered clear. Linear scarring left pulmonary apex. IMPRESSION: 1. Fixed hiatal hernia. 2. Pulmonary vascular congestion. 3. Mild bibasilar atelectasis. The above report was generated using voice recognition software. It may contain grammatical, syntax or spelling errors. Electronically signed by: Claudio Gutierrez M.D. 02/02/2019 8:56 AM Dictated: 02/02/19 0856 Transcribed: 02/02/19 0856 ECG Data Attestation: I personally reviewed and interpreted this ECG as follows: Indication: chest pain Rate (beats per minute): 74 Rhythm: atrial fibrillation Findings: + prolonged QT; no ST depression and no ST elevation Comparison ECG Date: from Change: no significant change Additional Comments: old septal infarct MDM Narrative This is an 88-year-old male who presents the emergency department complaining of chest pain. EKG chest x-ray and laboratory work were obtained. Patient does have slight elevation in his white blood cell count however is afebrile here in the emergency department. He was given Lasix for what appears to be pulmonary edema on his chest x-ray. In addition his BNP is also elevated. Due to the patient's multiple comorbidities I did discuss the case with the hospitalist service who agreed to admit the patient. Patient family were in agreement with the treatment plan. Impression & Plan Chest pain, CHF (congestive heart failure), HTN (hypertension) Discharge Plan Visit Data *Final* Discharge Date/Time: 02/02/19 10:47 Chief Complaint: Chest Pain Stated Complaint: chest pain ED Provider: Cristian Ramirez Discharge Problem: Chest pain, CHF (congestive heart failure), HTN (hypertension) Patient Disposition: Admitted As Inpatient Discharge Instructions Interventions: ED Discharge Assessment Last Done: 02/02/19 10:47
--- NOTE | 2019-02-02 08:58 | XRay Report ---
XR chest 1V portable CLINICAL HISTORY: Chest Pain dyspnea COMPARISON STUDY: 11/11/2018 FINDINGS: Large fixed hiatal hernia. Mild stable cardiomegaly. Prominent pulmonary vasculature. Pulmo nary apices are considered clear. Linear scarring left pulmonary apex. IMPRESSION: 1. Fixed hiatal hernia. 2. Pulmonary vascular congestion. 3. Mild bibasilar atelectasis. The above report was generated using voice recognition software. It may contain grammatical, syntax or spelling errors. Electronically signed by: Claudio Gutierrez M.D. 02/02/2019 8:56 AM
[2019-02-02 09:11] LABS: Alanine Aminotransferase 22 U/L (12-78); Albumin Level 3.8 gm/dl (3.4-5.0); Aspartate Aminotransferase 14 U/L (15-37); BUN Creatinine Ratio 21.2 (10-20); Blood Urea Nitrogen 23 mg/dl (7-18); Calcium 8.9 mg/dl (8.5-10.1); Carbon Dioxide 28 mmol/L (21-32); Chloride 101 mmol/L (98-107); Creatinine Clr Calc Pharmacy 46.8 ml/min; Est GFR (African American) 69.4; Est GFR (Non-African American) 59.9; Glucose 189 mg/dl (70-99); Potassium 3.7 mmol/L (3.5-5.1); Sodium 139 mmol/L (136-145)
[2019-02-02] MEDS ORDERED: FUROSEMIDE 40 MG/4 ML VIAL IV STA ×2 (09:15→20:48)
[2019-02-02 09:17] LABS: Albumin Globulin Ratio 0.8 (0.9-2); Alkaline Phosphatase 88 U/L (45-117); Bilirubin,Total 0.6 mg/dl (0.2-1); Creatine Kinase 140 U/L (39-308); Creatine Kinase MB 3.6 ng/ml (0.5-3.6); Globulin 4.5 gm/dl (2.5-4.0); Total Protein 8.3 gm/dl (6.4-8.2); Troponin I < 0.015 ng/ml (0-0.045)
[2019-02-02] MEDS ORDERED: ASPIRIN CHEW 324 MG PO STA (09:39)
[2019-02-02] MEDS ORDERED: METOCLOPRAMIDE HCL INJ 5 MG/ML 2 ML VIAL IV STA (10:37)
[2019-02-02] MEDS ORDERED: ACETAMINOPHEN 325 MG TAB PO PRN (11:19)
[2019-02-02] MEDS: ONDANSETRON INJ 2 MG/ML 2 ML VIAL IV PRN (11:33)
[2019-02-02 12:08] LABS: INR 1.1 (0.9-1.1); Partial Thromboplastin Time 26.3 Seconds (21.0-31.0); Prothrombin Time 10.8 Seconds (9.0-12.0)
[2019-02-02] MEDS ORDERED: PERFLUTREN LIPID MICROSPHERE (DEFINITY) IV ONE (13:05)
[2019-02-02] MEDS ORDERED: HEPARIN SOD 5,000 UNIT/0.5 ML VIAL SQ SCH (14:00)
[2019-02-02] MEDS ORDERED: GLUCAGON FOR INJ 1 MG VIAL IM PRN (14:15)
[2019-02-02] MEDS ORDERED: GLUCOSE 10 TABS/TUBE PO PRN (14:15)
[2019-02-02] MEDS ORDERED: GLUCOSE 40% GEL 15 GM TUBE PO PRN (14:15)
[2019-02-02] MEDS ORDERED: CARBOHYDRATES FOR HYPOGLYCEMIA PO PRN (14:15)
[2019-02-02] MEDS ORDERED: DEXTROSE 50% 50 ML SYRINGE IV PRN (14:15)
--- NOTE | 2019-02-02 15:52 | History & Physical Report ---
Date of Service February 02, 2019 Assessment & Plan (1) Multifocal pneumonia: developed fever and repeat CXR with multifocal opacities fits with history of vomiting, certainly aspiration could be considered large hiatal hernia would set him up for aspiration will start on Zosyn IV repeat CBC in the AM (2) Acute heart failure: initially suspected heart failure now more doubtful given fever and vomiting was given Lasix in the ED, no further Lasix, did not respond anyway echo performed, EF is 65-70%, no signs of heart failure BNP elevated at 5000, however, this could be up due to large hiatal hernia placing pressure on left atrium as well as pneumonia (3) Chest pain: reports pain as intermittent for last several days not associated with activity, not relieved with rest some associated with heartburn symptoms, vomiting has a large hiatal hernia that may be causing symptoms initial EKG with atrial flutter, some possible ischemic changes in lateral leads initial troponin < 0.015 and second 0.040 check daily EKG, check a third troponin this evening echo done today, no WM abnormalities (4) Acute respiratory failure with hypoxia: likely due to pneumonia, possible aspiration could be a degree of dyspnea due to large hiatal hernia (5) Hiatal hernia: large on prior CT having symptoms will ask Dr. Steel to evaluate for recommendations discussed with Mateus Pittman with Dr. Steel, will make NPO after midnight ask GI to evaluate patient (6) DM II (diabetes mellitus, type II), controlled: hold oral agents Novolog SS diabetic diet (7) GERD (gastroesophageal reflux disease): Pepcid IV since Protonix not available Ranitidine IV (8) Hypothyroidism: (9) Afib: rates in 90's not on rate control medications chronically not on anticoagulation due to history of falls History of Present Illness Chief Complaint: my chest hurts Primary Care Provider: Bo Banks MD 88 yo male with recent history of pneumonia, hypothyroidism, hiatal hernia, GERD and DM type II presents to the ED with several days of intermittent chest pain. He says that the pain is sharp, intermittent, does not radiate. It happens at random times, not associated with activity, does not improve with rest. He has not had this type of pain before. He admits to increased shortness of breath. He has been experiencing vomiting as well, poor oral intake. He denies any fever or chills. Could not get an extensive history because the patient was very fatigued and would not elaborate his answers. Reviewed previous admission in the spring. He had pneumonia, was treated with IV antibiotics and transitioned to oral antibiotics on discharge. By all accounts he did well after discharge. During that admission he was found to have a large hiatal hernia with thickening of his esophagus, possible esophagitis. It was recommended that he follow up with GI, unknown if he did, he could not tell me. In the ED he was afebrile, he was mildly hypoxic and required 2L NC. CXR showed pulmonary edema as well as the large hiatal hernia. BNP was elevated at 5000. He was given Lasix 40mg IV. EKG showed atrial flutter, some ST depressions and TW inversions in lateral leads. Troponin was negative. Admission was requested. On arrival to the floor his main issue was repeated vomiting. This was concurrent with his chest pain. Temporary relief with Zofran but had further episodes. [place] that his symptoms most likely related to hiatal hernia. Allergies Allergy/AdvReac Type Severity Reaction Status Date / Time No Known Allergies Allergy Verified 02/02/19 10:20 Home Medications Home Medications Medication Instructions Recorded Confirmed Type acetaminophen 500 mg capsule 500 mg PO Q6H PRN 06/08/18 02/02/19 History amlodipine 2.5 mg tablet 2.5 mg PO QAM tab 06/08/18 02/02/19 History celecoxib 200 mg capsule 200 mg PO QAM 06/08/18 02/02/19 History glipizide ER 2.5 mg tablet, 2.5 mg PO QAM 06/08/18 02/02/19 History extended release 24 hr menthol 0.44 %-zinc oxide 20.6 % 1 appln TOP BID PRN 06/08/18 02/02/19 History topical ointment multivitamin,[id number] 27 1 tab PO QAM 06/08/18 02/02/19 History mg-0.4 mg tablet sodium fluoride 1.1 % dental paste 1 appln DT BID ml 06/08/18 02/02/19 History tamsulosin 0.4 mg capsule 0.4 mg PO HS 06/08/18 02/02/19 History omeprazole 40 mg capsule,delayed 40 mg PO QAM 08/07/18 02/02/19 History release carbamide peroxide [Ear Wax Drops] 5 - 10 drp OTIC (EAR) DAILY PRN 02/02/19 02/02/19 History food supplemt, lactose-reduced 1 ea PO BID 02/02/19 02/02/19 History [Ensure] hydrocortisone 1 applic TOPICAL BID PRN 02/02/19 02/02/19 History levothyroxine 112 mcg PO QAM 02/02/19 02/02/19 History lidocaine [Lidocaine Pain Relief] 1 patch TOPICAL QAM PRN 02/02/19 02/02/19 History melatonin 3 - 6 mg PO HS PRN 02/02/19 02/02/19 History prochlorperazine maleate 10 mg PO Q6H PRN 02/02/19 02/02/19 History Past Med/Surg History Social History Preferred Language: Grenadian Communication Ability: Effective Bookie Required: No Beliefs That Will Affect Care: None marital status: Current Living Situation: Spouse and Personal Care Facility current occupational status: retired Feels Safe at Home: Yes Safety Concerns: Feels Safe At This Time Smoking Status: Never smoker Second Hand Exposure: No Hx Alcohol Use: No Hx Substance Use: No Review of Systems Review of Systems: All systems reviewed & are unremarkable except as noted in HPI & below Constitutional: + fatigue and + weakness; no fever, no chills and no sweats Respiratory: + dyspnea and + dyspnea on exertion; no cough and no sputum production Cardiovascular: + chest pain, + chest pain at rest and + dyspnea; no chest pain with activity, no palpitations, no syncope and no edema Gastrointestinal: + nausea and + vomiting; no abdominal pain, no constipation, no diarrhea/loose stools and no blood in stools Physical Exam Constitutional: WD/WN, vitals as above + lethargic; no acute distress Eyes: PERRL, conjunctivae normal, anicteric sclerae ENMT: external ear and nose normal, oropharynx normal Neck: trachea midline, no thyromegaly Respiratory: normal respiratory effort, lungs clear to auscultation Cardiovascular: Rate/Rhythm: + tachycardic and + irregularly irregular Heart Sounds: normal S1 and normal S2; no murmur Vessels: no JVD Extremities: normal capillary refill; no edema Gastrointestinal (Abdomen): normal bowel sounds, soft, nontender, no hepatosplenomegaly Musculoskeletal: no cyanosis or clubbing, extremities motor strength 5/5 Skin: no rashes, warm and dry Neurologic: patellar DTR's 2+ bilat, sensation intact and PERRL, EOMI, accommodation nl, no face palsy, no dysarthria Psychiatric: A+Ox3, euthymic affect Lymphatic: no cervical or axillary lymphadenopathy Results & Data Vital Signs (Past 12 Hours) Vital Signs Temp Pulse Pulse Resp BP BP BP 02/02/19 15:37 36.6 C 106 H 18 121/65 02/02/19 11:48 02/02/19 11:40 36.7 C 67 16 146/74 H 02/02/19 10:47 36.9 C 77 26 H 157/95 H 02/02/19 10:31 77 77 26 H 157/95 H 157/95 H 02/02/19 10:30 105 H 22 02/02/19 10:15 93 H 24 02/02/19 10:02 102 H 18 02/02/19 10:01 93 H 26 H 177/98 H 02/02/19 10:00 92 H 24 02/02/19 09:50 89 26 H 162/92 H 02/02/19 09:48 87 17 162/92 H 02/02/19 09:45 85 22 02/02/19 09:31 85 26 H 02/02/19 09:30 71 23 176/93 H 02/02/19 09:15 70 27 H 02/02/19 09:05 69 18 02/02/19 09:00 68 68 24 172/99 H 172/99 H 02/02/19 08:52 76 21 162/97 H 02/02/19 08:48 63 29 H 162/97 H 02/02/19 08:45 60 21 02/02/19 08:36 36.9 C 68 16 165/98 H 02/02/19 08:31 73 30 H 165/98 H 02/02/19 08:30 72 27 H 02/02/19 08:21 36.9 C 93 H 16 159/85 H Pulse Ox Pulse Ox 02/02/19 15:37 92 02/02/19 11:48 96 02/02/19 11:40 91 02/02/19 10:47 96 02/02/19 10:31 96 02/02/19 10:30 97 02/02/19 10:15 97 02/02/19 10:02 92 02/02/19 10:01 96 02/02/19 10:00 96 02/02/19 09:50 98 02/02/19 09:48 94 02/02/19 09:45 97 02/02/19 09:31 100 02/02/19 09:30 100 02/02/19 09:15 100 02/02/19 09:05 97 02/02/19 09:00 97 02/02/19 08:52 97 02/02/19 08:48 98 02/02/19 08:45 98 02/02/19 08:36 100 02/02/19 08:31 94 02/02/19 08:30 89 L 02/02/19 08:21 100 Laboratory Results Laboratory Results - last 24 hr 02/02/19 02/02/19 02/02/19 07:36 08:36 08:36 WBC 11.61 H RBC 4.37 L Hgb 13.7 L Hct 40.4 L MCV 92.4 MCH 31.4 MCHC 33.9 RDW Std Deviation 51.4 H RDW Coeff of Dayron 15.2 H Plt Count 277 MPV 11.1 H Immature Gran % (Auto) 0.3 Neut % (Auto) 88.3 Lymph % (Auto) 7.1 [place] % (Auto) 4.2 Eos % (Auto) 0.0 Baso % (Auto) 0.1 Immature Gran # (Auto) 0.03 H Neut # (Auto) 10.26 H Lymph # (Auto) 0.82 L [place] # (Auto) 0.49 Eos # (Auto) 0.00 Baso # (Auto) 0.01 PT 10.8 INR 1.1 APTT 26.3 PTT Ratio 1.0 ABG pH ABG pCO2 ABG pO2 ABG HCO3 ABG O2 Saturation ABG Base Excess Leander Test Barometric Pressure Oxygen Given Sodium 139 Potassium 3.7 Chloride 101 Carbon Dioxide 28 Anion Gap 10.0 BUN 23 H Creatinine 1.09 Est Cr Clr Drug Dosing 46.8 Est GFR ( Amer) 69.4 Est GFR (Non-Af Amer) 59.9 BUN/Creatinine Ratio 21.2 H Glucose 189 H POC Glucose Calcium 8.9 Total Bilirubin 0.6 AST 14 L ALT 22 Alkaline Phosphatase 88 Total Creatine Kinase 140 CK-MB (CK-2) 3.6 CK/CKMB % Calc 2.6 Troponin I < 0.015 NT-Pro-B Natriuret Pep Total Protein 8.3 H Albumin 3.8 Globulin 4.5 H Albumin/Globulin Ratio 0.8 L Lipase 64 L 02/02/19 02/02/19 02/02/19 08:36 12:09 13:41 WBC RBC Hgb Hct MCV MCH MCHC RDW Std Deviation RDW Coeff of Dayron Plt Count MPV Immature Gran % (Auto) Neut % (Auto) Lymph % (Auto) [place] % (Auto) Eos % (Auto) Baso % (Auto) Immature Gran # (Auto) Neut # (Auto) Lymph # (Auto) [place] # (Auto) Eos # (Auto) Baso # (Auto) PT INR APTT PTT Ratio ABG pH ABG pCO2 ABG pO2 ABG HCO3 ABG O2 Saturation ABG Base Excess Leander Test Barometric Pressure Oxygen Given Sodium Potassium Chloride Carbon Dioxide Anion Gap BUN Creatinine Est Cr Clr Drug Dosing Est GFR ( Amer) Est GFR (Non-Af Amer) BUN/Creatinine Ratio Glucose POC Glucose 193 H Calcium Total Bilirubin AST ALT Alkaline Phosphatase Total Creatine Kinase CK-MB (CK-2) CK/CKMB % Calc Troponin I 0.040 NT-Pro-B Natriuret Pep 5431 H Total Protein Albumin Globulin Albumin/Globulin Ratio Lipase 02/02/19 02/02/19 02/02/19 16:29 20:39 21:08 WBC RBC Hgb Hct MCV MCH MCHC RDW Std Deviation RDW Coeff of Dayron Plt Count MPV Immature Gran % (Auto) Neut % (Auto) Lymph % (Auto) [place] % (Auto) Eos % (Auto) Baso % (Auto) Immature Gran # (Auto) Neut # (Auto) Lymph # (Auto) [place] # (Auto) Eos # (Auto) Baso # (Auto) PT INR APTT PTT Ratio ABG pH 7.46 H ABG pCO2 38 ABG pO2 56 L ABG HCO3 27 H ABG O2 Saturation 89.2 L ABG Base Excess 2.8 H Leander Test Pos Barometric Pressure 731.0 Oxygen Given 100 Sodium Potassium Chloride Carbon Dioxide Anion Gap BUN Creatinine Est Cr Clr Drug Dosing Est GFR ( Amer) Est GFR (Non-Af Amer) BUN/Creatinine Ratio Glucose POC Glucose 186 H 149 H Calcium Total Bilirubin AST ALT Alkaline Phosphatase Total Creatine Kinase CK-MB (CK-2) CK/CKMB % Calc Troponin I NT-Pro-B Natriuret Pep Total Protein Albumin Globulin Albumin/Globulin Ratio Lipase 02/02/19 02/02/19 21:12 21:12 WBC 5.99 RBC 4.75 Hgb 15.0 Hct 44.2 MCV 93.1 MCH 31.6 MCHC 33.9 RDW Std Deviation 52.0 H RDW Coeff of Dayron 15.3 H Plt Count 279 MPV 11.4 H Immature Gran % (Auto) 0.3 Neut % (Auto) 82.2 Lymph % (Auto) 13.0 [place] % (Auto) 4.5 Eos % (Auto) 0.0 Baso % (Auto) 0.0 Immature Gran # (Auto) 0.02 Neut # (Auto) 4.92 Lymph # (Auto) 0.78 L [place] # (Auto) 0.27 Eos # (Auto) 0.00 Baso # (Auto) 0.00 PT INR APTT PTT Ratio ABG pH ABG pCO2 ABG pO2 ABG HCO3 ABG O2 Saturation ABG Base Excess Leander Test Barometric Pressure Oxygen Given Sodium 139 Potassium 3.3 L Chloride 103 Carbon Dioxide 27 Anion Gap 10.0 BUN 27 H Creatinine 1.27 Est Cr Clr Drug Dosing 43.3 Est GFR ( Amer) 57.7 Est GFR (Non-Af Amer) 49.8 BUN/Creatinine Ratio 21.0 H Glucose 156 H POC Glucose Calcium 9.2 Total Bilirubin 0.9 AST 17 ALT 19 Alkaline Phosphatase 78 Total Creatine Kinase CK-MB (CK-2) CK/CKMB % Calc Troponin I 0.062 H* NT-Pro-B Natriuret Pep Total Protein 7.5 Albumin 3.2 L Globulin 4.3 H Albumin/Globulin Ratio 0.7 L Lipase 49 L Diagnostic Findings XR chest 1V portable CLINICAL HISTORY: Chest Pain dyspnea COMPARISON STUDY: 11/11/2018 FINDINGS: Large fixed hiatal hernia. Mild stable cardiomegaly. Prominent pulmonary vasculature. Pulmonary apices are considered clear. Linear scarring left pulmonary apex. IMPRESSION: 1. Fixed hiatal hernia. 2. Pulmonary vascular congestion. 3. Mild bibasilar atelectasis. ECG Indication: chest pain Rhythm: atrial flutter Findings: + ST depression and + T-wave inversion Code Status & VTE Plan Code Status full code VTE Prophylaxis Plan VTE Prophylaxis will be ordered: Yes PG Care Time/CCT Total # of Minutes Spent Total Time Spent with Patient: Total time spent is greater than 50% in coordination of care (as documented) at patient's floor/unit and/or counseling patient: (1) Afib Atrial fibrillation type: permanent Qualified Code(s): I48.2 - Chronic atrial fibrillation (2) Hypothyroidism Hypothyroidism type: acquired Qualified Code(s): E03.9 - Hypothyroidism, unspecified (3) DM II (diabetes mellitus, type II), controlled Diabetes mellitus complication status: with other specified complication Diabetes mellitus terminologist insulin use: without custodial use Qualified Code(s): E11.69 - Type 2 diabetes mellitus with other specified complication (4) GERD (gastroesophageal reflux disease) Esophagitis presence: without esophagitis Qualified Code(s): K21.9 - Gastro- esophageal reflux disease without esophagitis
[2019-02-02] MEDS ORDERED: ONDANSETRON INJ 2 MG/ML 2 ML VIAL IV STA ×2 (17:09→20:48)
[2019-02-02] MEDS ORDERED: FAMOTIDINE 20MG/5ML IV PUSH IV STA (17:09)
--- NOTE | 2019-02-02 17:41 | Consultation Report ---
DATE OF CONSULTATION: 02/02/2019 SURGICAL CONSULTATION REASON FOR CONSULTATION: Symptomatic hiatal hernia. HISTORY OF PRESENT ILLNESS: This is an 88-year-old male who I visited with in room 238 at the hospital. Unfortunately, the man has underlying dementia and is ill at the present time and was confused and could not provide any meaningful information. I did review the patient's records and he was admitted in November of this year to [facility] secondary to pneumonia. Review of records revealed that the patient did have an extensive bilateral multifocal pneumonia, which was seen on CT scan. The patient completed a 10-day course of Levaquin and Flagyl to cover community acquired pneumonia as well as possible aspiration during that hospitalization. Of note, the patient was not noted to have pulmonary emboli. During the patient's admission, he was noted to have acute respiratory failure with hypoxia that was felt to be secondary to his pneumonia. He was also noted to have GERD and a hiatal hernia that were not symptomatic during that admission. There was consideration being given to undergoing an EGD as an outpatient to further evaluate his hiatal hernia. As the patient was confused, I was unable to get any meaningful history from him. However, I was able to talk via phone with his hyjoouek-un-kmc, Wilma, who seemed to be well versed in his current situation. She says that he resides in [facility] where he has his own room; however, the staff at this facility prepares all of his meals and administers all his medicines. She says that he does not ambulate very much due to underlying dementia and neuropathy. He says that when he is feeling well, he is usually coherent, but when he gets ill like this, he oftentimes gets significantly confused. She notes that he was doing well earlier this week; however, last night the patient developed some nausea and vomiting that was alleviated with some [id number] antacids. The patient did well throughout the night; however, this morning he again began developing some nausea and vomiting along with some chest discomfort, and therefore, he presented to [facility] Emergency Department. Today in the Emergency Department, he did have labs where white blood cell count was 11.6, hemoglobin and hematocrit of 13.7 and 40.4 and his platelet count was noted to be 277,000. Coagulation studies were noted to be within normal range and a chemistry profile showed sodium and potassium along with creatinine were within normal range. His BUN had a slight elevation at 23. His ProBNP was noted to be elevated at 5431. He was ultimately admitted to the hospital due to his nausea, vomiting and chest discomfort. It is noteworthy to mention that the patient did have a chest x-ray today that showed a fixed hiatal hernia with some pulmonary vascular congestion and some bibasilar atelectasis. During his previous admission studies were reviewed and he did have a video swallow that showed aspiration with thin liquids. He also did have a CT scan of his chest, which was in early November of this year that showed no PE. He had a moderate right pleural effusion and a trace left pleural effusion and a large hiatal hernia. The patient has since been admitted to the hospital today and has been started on a proton pump inhibitor, but no antibiotics have been felt to be necessary at this time. I did attempt a full review of systems, but due to the patient's underlying confusion and dementia, he could not provide any information; however, he did appear to be resting comfortably in bed without complaints. PAST MEDICAL HISTORY: Includes the followin. Dementia. 2. History of atrial fibrillation. 3. History of diastolic CHF. 4. GERD. 5. Hiatal hernia. 6. Diabetes. 7. History of TIA. 8. Hypothyroidism. 9. Hypertension. 10. Sacral stage II pressure ulcer. ALLERGIES: None. CURRENT MEDICATIONS: Include: 1. Norvasc 2.5 mg daily. 2. SubQ heparin 5000 units every 8 hours. 3. Synthroid 112 mcg daily. 4. Protonix 40 mg daily. 5. Sliding scale insulin. 6. The patient is also taking p.r.n. Tylenol as well as Zofran. SOCIAL HISTORY: The patient resides in a personal correction. FAMILY HISTORY: Unable to obtain due to clinical status. REVIEW OF SYSTEMS: As noted above. PHYSICAL EXAMINATION: VITAL SIGNS: His blood pressure is 146/74, pulse 67 and irregular, respirations are 16 and unlabored. Temperature is 36.7, which is afebrile. Pulse ox 96% on 3 liters. GENERAL: The patient is alert to person only, confused to time and place. HEENT: His head appears atraumatic, normocephalic. Eyes: His pupils are equal, round react to light and accommodation. Extraocular motions are intact. Ears: Auditory acuity did appear grossly intact. Nose: There is no evidence of nasal trauma. MOUTH: Has dry mucous membranes. NECK: Without tracheal shift or stridor. CARDIOVASCULAR: Revealed irregular rate and rhythm. LUNGS: Revealed breath sounds were decreased at the bases. No wheezing or rhonchi were noted. ABDOMEN: Soft, nontender to palpation and nondistended. EXTREMITIES: Revealed no cyanosis, clubbing or edema. NEUROLOGIC: Reveals he would move all 4 extremities, but he was confused, and therefore, did not follow commands appropriately. DIAGNOSTIC DATA: As noted above. IMPRESSION: An 88-year-old male with a hiatal hernia. PLAN: The patient will be seen later by Dr. Steel and his diagnostic studies will be reviewed to determine if the patient is a suitable candidate for repair of his hiatal hernia. We may consider obtaining a GI consult for EGD as well as a barium swallow after Dr. Steel's review, but this is yet to be determined. I did discuss with his daughter and discussed code status and she does note that at the present time, he is a full code. Further recommendations will be made pending Dr. Steel's review of this case. [facility]
[2019-02-02] MEDS ORDERED: PROMETHAZINE HCL 25 MG in SODIUM CHLORIDE 0.9% 50 ML IV STA (17:44)
[2019-02-02] MEDS ORDERED: FAMOTIDINE 20 MG in SYRINGE 3 ML IV ONE (17:45)
[2019-02-02] MEDS: INSULIN ASPART 100 UNITS/ML 3 ML PEN SC SCH ×2 (18:02→22:02)
[2019-02-02] MEDS ORDERED: FUROSEMIDE 40 MG in SYRINGE 0 ML IV STA (20:56)
--- NOTE | 2019-02-02 21:13 | Progress Note ---
Date of Service February 02, 2019 Subjective S: called to bedside due to acute change in status - more confused, increasing hypoxia and coffee ground emesis. Pt is pulling at mask as well. Brief review of records: pt is here with acute CHF exacerbation, as well as intractable emesis thought to be due to hiatal hernia - seen by CT surg today. Pt is a full code. O: GEN: no acute distress, sitting up in bed pulling at his oxymask. able to be briefly redirected but then pulls again. cachectic. HENT: dried blood around his mouth. RESP: crackles bilaterally CV: tachycardic - fib on monitor, max in 110s. LE: no edema ABD: soft, not distended. A/P: pt is a full code respiratory distress -- will likely need bipap, however is actively emetic, possibly bloody -stat CBC, CMP, trop and lipase -stat CXR - shows worsening fluid overload. -stat lasix 40mg IV now, place monteiro. -stat abg shows PO2 56, CO2 38, HCO3 27. hypoxia likely 2/2 fluid overload. emesis - 2/2 symptomatic hiatal hernia, +/- hematochezia -stat labs as above -cxr shows stable hernia -stat zofran 4mg now confusion, pulling at med equip -one to one ordered A Latisha JENSEN pgy3 FCM resident Results & Data Vital Signs (Past 12 Hours) Vital Signs Temp Pulse Pulse Resp BP BP BP 02/02/19 20:04 38.1 C H 95 H 18 102/63 02/02/19 15:37 36.6 C 106 H 18 121/65 02/02/19 11:48 02/02/19 11:40 36.7 C 67 16 146/74 H 02/02/19 10:47 36.9 C 77 26 H 157/95 H 02/02/19 10:31 77 77 26 H 157/95 H 157/95 H 02/02/19 10:30 105 H 22 02/02/19 10:15 93 H 24 02/02/19 10:02 102 H 18 02/02/19 10:01 93 H 26 H 177/98 H 02/02/19 10:00 92 H 24 02/02/19 09:50 89 26 H 162/92 H 02/02/19 09:48 87 17 162/92 H 02/02/19 09:45 85 22 02/02/19 09:31 85 26 H 02/02/19 09:30 71 23 176/93 H 02/02/19 09:15 70 27 H 02/02/19 09:05 69 18 Pulse Ox Pulse Ox 02/02/19 20:04 84 L 02/02/19 15:37 92 02/02/19 11:48 96 02/02/19 11:40 91 02/02/19 10:47 96 02/02/19 10:31 96 02/02/19 10:30 97 02/02/19 10:15 97 02/02/19 10:02 92 02/02/19 10:01 96 02/02/19 10:00 96 02/02/19 09:50 98 02/02/19 09:48 94 02/02/19 09:45 97 02/02/19 09:31 100 02/02/19 09:30 100 02/02/19 09:15 100 02/02/19 09:05 97 Resident Activity Tracking Resident Involvement: Resident Care Provided Care Provided: Adult Hospital Medicine
[2019-02-02 21:15] LABS: Allen Test Pos (Pos)
[2019-02-02 21:17] LABS: Base Excess ABG 2.8 mEq/L (-9-1.8); HCO3 ABG 27 mmol/L (19-24); Oxygen Saturation ABG 89.2 % (90-95); PCO2 ABG 38 mmHg (35-46); PO2 ABG 56 mm/Hg (80-95); pH ABG 7.46 (7.35-7.45)
[2019-02-02 21:19] LABS: Hematocrit (blood only) 44.2 % (42-52); Immature Granulocytes # (auto) 0.02 K/uL (0.00-0.02); Immature Granulocytes % (auto) 0.3 %; Lymphocytes # (auto) 0.78 K/uL (1.2-3.4); Mean Corpuscular Volume 93.1 fL (80-100); Mean Platelet Volume 11.4 fL (7.4-10.4); Monocytes # (auto) 0.27 K/uL (0.11-0.59); Monocytes % (auto) 4.5 %; Neutrophils # (auto) 4.92 K/uL (1.4-6.5); Neutrophils % (auto) 82.2 %; Platelet Count 279 K/uL (130-400); RDW Coefficient of Variation 15.3 % (11.5-14.5); Red Blood Count 4.75 M/uL (4.7-6.1); White Blood Count 5.99 K/uL (4.8-10.8)
--- NOTE | 2019-02-02 21:20 | XRay Report ---
XR chest 1V portable CLINICAL HISTORY: hypoxia COMPARISON STUDY: 02/02/2019 FINDINGS: There is a large hiatal hernia with intrathoracic stomach. The heart is mildly enlarged. Th ere is pulmonary vascular congestion. There are progressive bilateral pulmonary airspace opacities. D iagnostic considerations include multifocal pneumonia versus pulmonary edema. Clinical and radiograph ic follow-up is recommended. Small pleural effusions are suspected IMPRESSION: Progressive bilateral pulmonary airspace opacities. Pulmonary edema versus multifocal pne umonia. Clinical and radiographic follow-up is recommended Electronically signed by: Luiz Cisneros M.D. 02/02/2019 9:19 PM
[2019-02-02 21:28] LABS: Mean Corpuscular Hgb Conc 33.9 g/dL (32-36)
[2019-02-02 21:35] LABS: Albumin Level 3.2 gm/dl (3.4-5.0); Calcium 9.2 mg/dl (8.5-10.1); Creatinine Clr Calc Pharmacy 43.3 ml/min; Est GFR (African American) 57.7; Est GFR (Non-African American) 49.8; Potassium 3.3 mmol/L (3.5-5.1)
[2019-02-02 21:47] LABS: Albumin Globulin Ratio 0.7 (0.9-2); Bilirubin,Total 0.9 mg/dl (0.2-1); Globulin 4.3 gm/dl (2.5-4.0); Total Protein 7.5 gm/dl (6.4-8.2); Troponin I 0.062 ng/ml (0-0.045)
[2019-02-02] MEDS ORDERED: PIPERACILL/TAZOBAC CONSULT ACTIVE PRN (21:51)
[2019-02-02] MEDS ORDERED: PIPERACILLIN/TAZOBACTAM 3.375 GM in DEXTROSE 5% 100 ML IV SCH (22:00)
[2019-02-02 23:03] LABS: Appearance Urine Clear (Clear); Bacteria Urine Automated 3+ (Negative); Bilirubin Urine Negative (Negative); Blood Urine Negative (Negative); Color Urine Yellow; Epithelial Cell Urine Auto 0-5 /lpf (0-5); Glucose Urine UA Negative (Negative); Ketones Urine Negative (Negative); Leukocyte Esterase Urine 3+ (Negative); Nitrite Urine Negative (Negative); Protein Urine Negative (Negative); RBC Urine Automated 0-4 /hpf (0-4); Specific Gravity Urine 1.015 (1.000-1.030); Urobilinogen Urine Negative (Negative); WBC Urine Automated >30 /hpf (0-5)
--- NOTE | 2019-02-03 00:03 | Consultation Report ---
DATE OF CONSULTATION: 02/02/2019 HISTORY OF PRESENT ILLNESS: Abhi is an elderly male, who will turn 89 in April who presented with nausea and vomiting and confusion. He has a known large hiatal hernia. His white count is mildly elevated at 11,610. A chest x-ray was performed which shows his large hiatal hernia. It does not appear different on the x-ray. A CT scan was performed on 11/12/2018 and he was found to have a large hiatal hernia which had not really changed. I went back and looked at his x-rays from the past and there really is difficult for me to say from x-ray if there is any larger; however, he is a bit confused and it is difficult for me to get a history from him. At any rate, his abdomen is soft. He does not appear to be in pain. I asked GI to evaluate him to see what they think about whether or not a repair should be offered. It is also important to note that he had a videofluroscopic swallow performed on 11/13/2018 which showed aspiration. I would be hard pressed to offer surgery to this elderly male, For the details of this consultation, please see Mr. Neo Pittman's detailed consultation. NATHAN
[2019-02-03] MEDS ORDERED: VANCOMYCIN CONSULT ACTIVE PRN (03:39)
[2019-02-03] MEDS ORDERED: methylPREDNISolone 125 MG/2 ML VIAL IV STA (03:46)
[2019-02-03] MEDS ORDERED: methylPREDNISolone 125 MG in SYRINGE 0 ML IV ONE (04:00)
[2019-02-03] MEDS ORDERED: VANCOMYCIN HCL 1,750 MG in SODIUM CHLORIDE 0.9% 500 ML IV ONE (04:00)
[2019-02-03 04:16] LABS: iSTAT Allen Test Pass; iSTAT Art Bld Gas pCO2 Correct 44 mmHg (35-46); iSTAT Art Bld Gas pH Corrected 7.405 (7.35-7.45); iSTAT Arterial Blood Gas HCO3 27 meg/L (19-24); iSTAT Arterial Blood Gas pCO2 44 mmHg (35-46); iSTAT Carbon Dioxide 29 mEq/l (24-31); iSTAT FiO2 100 %; iSTAT Site R Radial
[2019-02-03] MEDS: PIPERACILLIN/TAZOBACTAM 3.375 GM in DEXTROSE 5% 100 ML IV SCH ×3 (04:28→19:53)
[2019-02-03] MEDS ORDERED: LEVOTHYROXINE SODIUM 112 MCG TABLET PO SCH (06:30)
[2019-02-03 07:07] LABS: Hematocrit (blood only) 42.6 % (42-52); Hemoglobin 14.2 g/dL (14.0-18.0); Mean Corpuscular Hgb Conc 33.3 g/dL (32-36); Mean Corpuscular Volume 93.2 fL (80-100); Mean Platelet Volume 11.7 fL (7.4-10.4); Platelet Count 230 K/uL (130-400); RDW Coefficient of Variation 15.5 % (11.5-14.5); RDW Standard Deviation 53.1 fL (36.4-46.3); Red Blood Count 4.57 M/uL (4.7-6.1); White Blood Count 7.28 K/uL (4.8-10.8)
[2019-02-03 07:42] LABS: Calcium 9.3 mg/dl (8.5-10.1); Creatinine Clr Calc Pharmacy 36.4 ml/min; Est GFR (African American) 46.8; Est GFR (Non-African American) 40.4; Potassium 3.4 mmol/L (3.5-5.1)
[2019-02-03] MEDS: INSULIN ASPART 100 UNITS/ML 3 ML PEN SC SCH ×4 (08:14→22:22)
[2019-02-03] MEDS ORDERED: AMLODIPINE BESYLATE 5 MG TAB PO SCH (09:00)
[2019-02-03] MEDS ORDERED: VANCOMYCIN HCL 1,000 MG in SODIUM CHLORIDE 0.9% 250 ML IV SCH (09:00)
[2019-02-03] MEDS ORDERED: PANTOprazole 40 MG TAB PO SCH ×2 (09:00→21:00)
--- NOTE | 2019-02-03 09:21 | Gastrointestinal Consultation ---
Date of Consultation February 03, 2019 Assessment & Plan (1) Hiatal hernia: Patient is an 88 yo male with a large hiatal hernia. GI has been asked by CT surgery to see patient for further recommendations. At the present time, given patient's advanced age, elevated troponin, acute respiratory failure with Bipap requirements, and likely pneumonia, I would not recommend elective endoscopic evaluation for further assessment of this hernia. I would advise Protonix 40 mg BID, Carafate 1 gm four times daily prior to meals & bedtime, and I would recommend continuing to follow the recommendations for safe swallowing made by [employer] on 11/13/2018. Given his multiple medical comorbidities and advance age, I would recommend further discussion with family regarding goals of care, code status & possibly palliative care. I have discussed this case with CT surgery as well as the hospitalist physician. Thank you for allowing us to participate in the care of this patient. If you should have any further questions or concerns, do not hesitate to contact us at extension [phone] or [phone]. Present on Admission?: Yes Supervising Physician Co-Signing Physician Notes Agree with ALLISON De Guzman as above Abd: Soft, NT Continue current therapy No plans for invasive workup due to pulmonary status and co-morbid medical conditions Patient's family at bedside, and agreeable with this plan History of Present Illness Reason for Consultation: Hiatal hernia Requesting Physician: Dr. Steel Attending Physician: Breezy Whitley, History of Present Illness Patient is an 88 yo male with a PMH of CHF, TIA, DM2, GERD, Hypothyroidism, Atrial Fibrillation, & hypertension currently hospitalized with acute respiratory failure. Patient was noted to have a large hiatal hernia on imaging studies. Patient is currently on Bipap at the time of my evaluation and is unable to participate in the visit. Per review of his chart, it does appear tat he had an xray yesterday with progressive airspace opacities concerning for a pneumonia. He is currently been advanced to Bipap and is satting at 97%. The patient's troponins have also bumped to 0.100 from yesterday. He is presently a level 1. Upon review of his outpatient chart, it looks like he had an EGD [place] [address] Muhammad that indicated a hiatal hernia and there is documentation in historical records of a previous EGD with [place] ulcers noted. GI has been asked by CT surgery to further evaluate patient's hiatal hernia. Allergies Allergy/AdvReac Type Severity Reaction Status Date / Time No Known Allergies Allergy Verified 02/02/19 10:20 Home Medications Home Medications Medication Instructions Recorded Confirmed Type acetaminophen 500 mg capsule 500 mg PO Q6H PRN 06/08/18 02/02/19 History amlodipine 2.5 mg tablet 2.5 mg PO QAM tab 06/08/18 02/02/19 History celecoxib 200 mg capsule 200 mg PO QAM 06/08/18 02/02/19 History glipizide ER 2.5 mg tablet, 2.5 mg PO QAM 06/08/18 02/02/19 History extended release 24 hr menthol 0.44 %-zinc oxide 20.6 % 1 appln TOP BID PRN 06/08/18 02/02/19 History topical ointment multivitamin,[id number] 27 1 tab PO QAM 06/08/18 02/02/19 History mg-0.4 mg tablet sodium fluoride 1.1 % dental paste 1 appln DT BID ml 06/08/18 02/02/19 History tamsulosin 0.4 mg capsule 0.4 mg PO HS 06/08/18 02/02/19 History omeprazole 40 mg capsule,delayed 40 mg PO QAM 08/07/18 02/02/19 History release carbamide peroxide [Ear Wax Drops] 5 - 10 drp OTIC (EAR) DAILY PRN 02/02/19 02/02/19 History food supplemt, lactose-reduced 1 ea PO BID 02/02/19 02/02/19 History [Ensure] hydrocortisone 1 applic TOPICAL BID PRN 02/02/19 02/02/19 History levothyroxine 112 mcg PO QAM 02/02/19 02/02/19 History lidocaine [Lidocaine Pain Relief] 1 patch TOPICAL QAM PRN 02/02/19 02/02/19 History melatonin 3 - 6 mg PO HS PRN 02/02/19 02/02/19 History prochlorperazine maleate 10 mg PO Q6H PRN 02/02/19 02/02/19 History Patient History Social History Preferred Language: [place] Citizen Communication Ability: Unable 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 Physical Exam Constitutional: WD/WN, vitals as above Eyes: eyes remained shut during entire evaluation ENMT: external ear and nose normal, oropharynx normal Neck: normal visual inspection Respiratory: + labored breathing Currently on bipap Cardiovascular: irregular rate/rhythm Gastrointestinal (Abdomen): normal bowel sounds, soft, nontender, no hepatosplenomegaly Musculoskeletal: Head/Neck/Chest: normocephalic and head atraumatic Skin: healing lesions on feet Neurologic: Motor/Sensory: no tremor Psychiatric: unable to assess mental status as patient was sleeping & on bipap Results & Data Vital Signs (Past 12 Hours) Vital Signs Temp Pulse Pulse Pulse Resp BP BP 02/03/19 07:04 36.5 C 82 18 137/89 02/03/19 03:36 95 H 28 H 02/03/19 02:49 36.6 C 106 H 26 H 93/63 L 02/02/19 23:18 36.5 C 111 H 22 121/86 Pulse Ox 02/03/19 07:04 97 02/03/19 03:36 90 02/03/19 02:49 87 L 02/02/19 23:18 90
--- NOTE | 2019-02-03 11:25 | Progress Note ---
DATE: 02/03/2019 Mr. Moe was seen today. He is on a BiPAP. He will be 89 years old if he makes it to April. I think his family does not want to be too aggressive. He has a large hiatal hernia; however, I do not believe he has symptoms. His abdomen is soft and nontender with bowel sounds. I discussed this case with Jeannette Kincaid from gastroenterology who is in agreement. At this point, I would probably not offer this man surgery even if he had a life-threatening problem which he does not appear to have. In my opinion, he is not having any new symptoms from his hiatal hernia. His pneumonia and aspiration is probably a bigger problem for him. We will continue to follow along, but I do not think I would offer this patient any type of procedure. NATHAN
[2019-02-03] MEDS: SUCRALFATE 1 GM/10 ML UDC PO SCH ×3 (13:35→20:53)
--- NOTE | 2019-02-03 14:02 | Hospitalist Progress Note ---
Date of Service February 03, 2019 Assessment & Plan (1) Multifocal pneumonia: developed fever and repeat CXR with multifocal opacities in the evening on 02/02 fits with history of vomiting, certainly aspiration could be considered large hiatal hernia would set him up for aspiration continue Zosyn and Vancomycin IV afebrile this morning, WBC is normal now on BIPAP keep NPO and provide gentle IV fluids (2) Acute respiratory failure with hypoxia: likely due to pneumonia, possible aspiration could be a degree of dyspnea due to large hiatal hernia now requiring BIPAP d/w patient's son, he would not want to be intubated prognosis is guarded, hopeful that can wean off the BIPAP (3) AMMON (acute kidney injury): Cr sage to 1.5 likely due to some dehydration and receiving Lasix in the ED will treat with NSS at 80cc/hr, follow up BMP in the morning (4) Hypokalemia: mild at 3.4 will add 20mEq of KCl to fluids (5) Acute heart failure: initially suspected heart failure now more doubtful given fever and vomiting was given Lasix in the ED, no further Lasix, did not respond anyway echo performed, EF is 65-70%, no signs of heart failure BNP elevated at 5000, however, this could be up due to large hiatal hernia placing pressure on left atrium as well as pneumonia again, there is no evidence of heart failure, either systolic or diastolic (6) Chest pain: reports pain as intermittent for last several days not associated with activity, not relieved with rest some associated with heartburn symptoms, vomiting has a large hiatal hernia that may be causing symptoms initial EKG with atrial flutter, some possible ischemic changes in lateral leads initial troponin < 0.015 and second 0.040 echo done today, no WM abnormalities likely he has some demand ischemia with rise in troponin, but there is no evidence of ACS (7) Hiatal hernia: large on prior CT having symptoms of chest pain, vomiting, reflux, chronic aspirations d/w Dr. Steel, not a surgical candidate d/w GI, cannot get EGD due to respiratory status, will continue to follow treat with Pepcid and Ranitidine (8) DM II (diabetes mellitus, type II), controlled: hold oral agents Novolog diabetic diet monitor for hypoglycemia (9) GERD (gastroesophageal reflux disease): Pepcid IV since Protonix not available Ranitidine IV (10) Hypothyroidism: (11) Afib: rates in 90's not on rate control medications chronically not on anticoagulation due to history of falls Subjective reviewed events over night, needed to be placed on BIPAP for desaturations reviewed labs and ABG as well as repeat CXR which now shows infiltrates suggesting pneumonia patient resting on BIPAP, still confused discussed the case with Dr. Steel, would not off this patient surgery, too high risk discussed with GI, patient cannot have EGD currently due to BIPAP long talk with patient's son at the bedside, one of the POA with the other brothers he stated that the patient does not want heroic measures, changed to DNR told son that the prognosis is guarded, day to day, hopefully he will be able to come off the BIPAP no fever this morning, vitals stable normal WBC on the CBC, Cr sage to 1.5, K is 3.4 Review of Systems Review of Systems: Unobtainable due to cognitive status Physical Exam Constitutional: WD/WN, vitals as above + frail appearing and + lethargic; not in distress Eyes: PERRL, conjunctivae normal, anicteric sclerae ENMT: external ear and nose normal, oropharynx normal Neck: trachea midline, no thyromegaly Respiratory: + labored breathing Auscultation: + diminished lung sounds and + rhonchi; no rales and no wheezes Cardiovascular: Rate/Rhythm: + tachycardic and + irregularly irregular Heart Sounds: normal S1 and normal S2; no murmur Vessels: no JVD Extremities: normal capillary refill; no edema Gastrointestinal (Abdomen): normal bowel sounds, soft, nontender, no hepatosplenomegaly Musculoskeletal: no cyanosis or clubbing, extremities motor strength 5/5 Skin: no rashes, warm and dry Neurologic: patellar DTR's 2+ bilat, sensation intact and PERRL, EOMI, accommodation nl, no face palsy, no dysarthria Psychiatric: Orientation: oriented to person; + not alert, + not oriented to place and + not oriented to time Lymphatic: no cervical or axillary lymphadenopathy Results & Data Vital Signs (Past 12 Hours) Vital Signs Temp Pulse Pulse Pulse Resp BP Pulse Ox 02/03/19 11:19 02/03/19 11:17 36.5 C 88 18 129/87 99 02/03/19 07:04 36.5 C 82 18 137/89 97 02/03/19 03:36 95 H 28 H 90 02/03/19 02:49 36.6 C 106 H 26 H 93/63 L 87 L Pulse Ox 02/03/19 11:19 98 02/03/19 11:17 02/03/19 07:04 02/03/19 03:36 02/03/19 02:49 Laboratory Results Laboratory Results - last 24 hr 02/02/19 02/02/19 02/02/19 13:41 16:29 20:39 WBC RBC Hgb Hct MCV MCH MCHC RDW Std Deviation RDW Coeff of Dayron Plt Count MPV Immature Gran % (Auto) Neut % (Auto) Lymph % (Auto) [place] % (Auto) Eos % (Auto) Baso % (Auto) Immature Gran # (Auto) Neut # (Auto) Lymph # (Auto) [place] # (Auto) Eos # (Auto) Baso # (Auto) Sample Site POC pH POC pCO2 POC pO2 POC HCO3 POC Total CO2 POC Base Excess ABG pH ABG pH (Temp Correct) ABG pCO2 ABG pCO2 (Temp Corrct ABG pO2 POC ABG pO2 at Pt Temp ABG HCO3 POC ABG O2 Sat ABG O2 Saturation ABG Base Excess [place]ander Test Barometric Pressure Oxygen Given O2 Delivery Device POC O2 Rate POC FiO2 IPAP Sodium Potassium Chloride Carbon Dioxide Anion Gap BUN Creatinine Est Cr Clr Drug Dosing Est GFR ( Amer) Est GFR (Non-Af Amer) BUN/Creatinine Ratio Glucose POC Glucose 186 H 149 H Calcium Total Bilirubin AST ALT Alkaline Phosphatase Troponin I 0.040 Total Protein Albumin Globulin Albumin/Globulin Ratio Lipase TSH Urine Color Urine Appearance Urine pH Ur Specific [place] Urine Protein Urine Glucose (UA) Urine Ketones Urine Blood Urine Nitrite Urine Bilirubin Urine Urobilinogen Ur Leukocyte Esterase Urine WBC (Auto) Urine RBC (Auto) U Hyaline Cast (Auto) U Epithel Cells (Auto) Urine Bacteria (Auto) 02/02/19 02/02/19 02/02/19 21:08 21:12 21:12 WBC 5.99 RBC 4.75 Hgb 15.0 Hct 44.2 MCV 93.1 MCH 31.6 MCHC 33.9 RDW Std Deviation 52.0 H RDW Coeff of Dayron 15.3 H Plt Count 279 MPV 11.4 H Immature Gran % (Auto) 0.3 Neut % (Auto) 82.2 Lymph % (Auto) 13.0 [place] % (Auto) 4.5 Eos % (Auto) 0.0 Baso % (Auto) 0.0 Immature Gran # (Auto) 0.02 Neut # (Auto) 4.92 Lymph # (Auto) 0.78 L [place] # (Auto) 0.27 Eos # (Auto) 0.00 Baso # (Auto) 0.00 Sample Site POC pH POC pCO2 POC pO2 POC HCO3 POC Total CO2 POC Base Excess ABG pH 7.46 H ABG pH (Temp Correct) ABG pCO2 38 ABG pCO2 (Temp Corrct ABG pO2 56 L POC ABG pO2 at Pt Temp ABG HCO3 27 H POC ABG O2 Sat ABG O2 Saturation 89.2 L ABG Base Excess 2.8 H [place] Test Pos Barometric Pressure 731.0 Oxygen Given 100 O2 Delivery Device POC O2 Rate POC FiO2 IPAP Sodium 139 Potassium 3.3 L Chloride 103 Carbon Dioxide 27 Anion Gap 10.0 BUN 27 H Creatinine 1.27 Est Cr Clr Drug Dosing 43.3 Est GFR ( Amer) 57.7 Est GFR (Non-Af Amer) 49.8 BUN/Creatinine Ratio 21.0 H Glucose 156 H POC Glucose Calcium 9.2 Total Bilirubin 0.9 AST 17 ALT 19 Alkaline Phosphatase 78 Troponin I 0.062 H* Total Protein 7.5 Albumin 3.2 L Globulin 4.3 H Albumin/Globulin Ratio 0.7 L Lipase 49 L TSH Urine Color Urine Appearance Urine pH Ur Specific [place] Urine Protein Urine Glucose (UA) Urine Ketones Urine Blood Urine Nitrite Urine Bilirubin Urine Urobilinogen Ur Leukocyte Esterase Urine WBC (Auto) Urine RBC (Auto) U Hyaline Cast (Auto) U Epithel Cells (Auto) Urine Bacteria (Auto) 02/02/19 02/03/19 02/03/19 22:10 04:00 06:31 WBC 7.28 RBC 4.57 L Hgb 14.2 Hct 42.6 MCV 93.2 MCH 31.1 MCHC 33.3 RDW Std Deviation 53.1 H RDW Coeff of Dayron 15.5 H Plt Count 230 MPV 11.7 H Immature Gran % (Auto) Neut % (Auto) Lymph % (Auto) [place] % (Auto) Eos % (Auto) Baso % (Auto) Immature Gran # (Auto) Neut # (Auto) Lymph # (Auto) [place] # (Auto) Eos # (Auto) Baso # (Auto) Sample Site R Radial POC pH 7.40 POC pCO2 44 POC pO2 119 H POC HCO3 27 H POC Total CO2 29 POC Base Excess 3.0 H ABG pH ABG pH (Temp Correct) 7.405 ABG pCO2 ABG pCO2 (Temp Corrct 44 ABG pO2 POC ABG pO2 at Pt Temp 117 ABG HCO3 POC ABG O2 Sat 99.0 H ABG O2 Saturation ABG Base Excess [place] Test Pass Barometric Pressure Oxygen Given O2 Delivery Device BIPAP POC O2 Rate 12 POC FiO2 100 IPAP 12 Sodium Potassium Chloride Carbon Dioxide Anion Gap BUN Creatinine Est Cr Clr Drug Dosing Est GFR ( Amer) Est GFR (Non-Af Amer) BUN/Creatinine Ratio Glucose POC Glucose Calcium Total Bilirubin AST ALT Alkaline Phosphatase Troponin I Total Protein Albumin Globulin Albumin/Globulin Ratio Lipase TSH Urine Color Yellow Urine Appearance Clear Urine pH 8.0 H Ur Specific [place] 1.015 Urine Protein Negative Urine Glucose (UA) Negative Urine Ketones Negative Urine Blood Negative Urine Nitrite Negative Urine Bilirubin Negative Urine Urobilinogen Negative Ur Leukocyte Esterase 3+ H Urine WBC (Auto) >30 H Urine RBC (Auto) 0-4 U Hyaline Cast (Auto) 1-5 U Epithel Cells (Auto) 0-5 Urine Bacteria (Auto) 3+ H 02/03/19 02/03/19 02/03/19 06:31 06:31 07:17 WBC RBC Hgb Hct MCV MCH MCHC RDW Std Deviation RDW Coeff of Dayron Plt Count MPV Immature Gran % (Auto) Neut % (Auto) Lymph % (Auto) [place] % (Auto) Eos % (Auto) Baso % (Auto) Immature Gran # (Auto) Neut # (Auto) Lymph # (Auto) [place] # (Auto) Eos # (Auto) Baso # (Auto) Sample Site POC pH POC pCO2 POC pO2 POC HCO3 POC Total CO2 POC Base Excess ABG pH ABG pH (Temp Correct) ABG pCO2 ABG pCO2 (Temp Corrct ABG pO2 POC ABG pO2 at Pt Temp ABG HCO3 POC ABG O2 Sat ABG O2 Saturation ABG Base Excess [place] Test Barometric Pressure Oxygen Given O2 Delivery Device POC O2 Rate POC FiO2 IPAP Sodium 139 Potassium 3.4 L Chloride 100 Carbon Dioxide 30 Anion Gap 9.0 BUN 33 H Creatinine 1.51 H Est Cr Clr Drug Dosing 36.4 Est GFR ( Amer) 46.8 Est GFR (Non-Af Amer) 40.4 BUN/Creatinine Ratio 22.0 H Glucose 213 H POC Glucose 213 H Calcium 9.3 Total Bilirubin AST ALT Alkaline Phosphatase Troponin I 0.100 H* Total Protein Albumin Globulin Albumin/Globulin Ratio Lipase TSH 0.858 Urine Color Urine Appearance Urine pH Ur Specific [place] Urine Protein Urine Glucose (UA) Urine Ketones Urine Blood Urine Nitrite Urine Bilirubin Urine Urobilinogen Ur Leukocyte Esterase Urine WBC (Auto) Urine RBC (Auto) U Hyaline Cast (Auto) U Epithel Cells (Auto) Urine Bacteria (Auto) 02/03/19 11:36 WBC RBC Hgb Hct MCV MCH MCHC RDW Std Deviation RDW Coeff of Dayron Plt Count MPV Immature Gran % (Auto) Neut % (Auto) Lymph % (Auto) [place] % (Auto) Eos % (Auto) Baso % (Auto) Immature Gran # (Auto) Neut # (Auto) Lymph # (Auto) [place] # (Auto) Eos # (Auto) Baso # (Auto) Sample Site POC pH POC pCO2 POC pO2 POC HCO3 POC Total CO2 POC Base Excess ABG pH ABG pH (Temp Correct) ABG pCO2 ABG pCO2 (Temp Corrct ABG pO2 POC ABG pO2 at Pt Temp ABG HCO3 POC ABG O2 Sat ABG O2 Saturation ABG Base Excess [place] Test Barometric Pressure Oxygen Given O2 Delivery Device POC O2 Rate POC FiO2 IPAP Sodium Potassium Chloride Carbon Dioxide Anion Gap BUN Creatinine Est Cr Clr Drug Dosing Est GFR ( Amer) Est GFR (Non-Af Amer) BUN/Creatinine Ratio Glucose POC Glucose 206 H Calcium Total Bilirubin AST ALT Alkaline Phosphatase Troponin I Total Protein Albumin Globulin Albumin/Globulin Ratio Lipase TSH Urine Color Urine Appearance Urine pH Ur Specific [place] Urine Protein Urine Glucose (UA) Urine Ketones Urine Blood Urine Nitrite Urine Bilirubin Urine Urobilinogen Ur Leukocyte Esterase Urine WBC (Auto) Urine RBC (Auto) U Hyaline Cast (Auto) U Epithel Cells (Auto) Urine Bacteria (Auto) Diagnostic Findings XR chest 1V portable CLINICAL HISTORY: hypoxia COMPARISON STUDY: 02/02/2019 FINDINGS: There is a large hiatal hernia with intrathoracic stomach. The heart is mildly enlarged. There is pulmonary vascular congestion. There are progressive bilateral pulmonary airspace opacities. Diagnostic considerations include multifocal pneumonia versus pulmonary edema. Clinical and radiographic follow-up is recommended. Small pleural effusions are suspected IMPRESSION: Progressive bilateral pulmonary airspace opacities. Pulmonary edema versus multifocal pneumonia. Clinical and radiographic follow-up is recommended Medications Administered Current Inpatient Medications Acetaminophen (Tylenol) 650 mg PO Q4H PRN PRN Reason: Pain or Fever Stop: 03/04/19 11:18 Amlodipine Besylate (Norvasc) 2.5 mg PO DAILY [facility] Stop: 03/05/19 08:59 Last Admin: 02/03/19 08:17 Dose: 2.5 mg Documented by: Dextrose (Dextrose 50%) 25 - 50 ml IV UD PRN; Protocol PRN Reason: Hypoglycemia Protocol Stop: 03/04/19 14:14 Glucagon (Glucagen) 1 mg IM UD PRN; Protocol PRN Reason: Hypoglycemia Protocol Stop: 03/04/19 14:14 Glucose (Glucose 40%) 15 - 30 gm PO UD PRN; Protocol PRN Reason: Hypoglycemia Protocol Stop: 03/04/19 14:14 Glucose (Dex4 Glucose) 4 - 8 tabs PO UD PRN; Protocol PRN Reason: Hypoglycemia Protocol Stop: 03/04/19 14:14 Heparin Sodium (Porcine) (Heparin Sodium (Porcine)) 5,000 units SQ Q8 [facility] Stop: 03/04/19 13:59 Last Admin: 02/02/19 16:05 Dose: 5,000 units Documented by: Ranitidine HCl 50 mg/ Dextrose 102 mls @ 200 mls/hr IV Q8H [facility] Stop: 03/04/19 20:59 Last Admin: 02/03/19 13:34 Dose: 200 mls/hr Documented by: Piperacillin Sod/Tazobactam (Sod 3.375 gm/ Dextrose) 115 mls @ 28.75 mls/hr IV Q8H [facility]; Protocol Stop: 02/10/19 03:59 Last Admin: 02/03/19 11:54 Dose: 28.8 mls/hr Documented by: Vancomycin HCl 1,250 mg/ (Sodium Chloride) 275 mls @ 125 mls/hr IV Q20H [facility]; Protocol Stop: 02/10/19 00:00 Potassium Chloride/Sodium Chloride (Normal Saline W/20 Meq Kcl) 20 meq in 1,000 mls @ 80 mls/hr IV .[id number] [facility] Stop: 03/05/19 13:59 Insulin Aspart (Novolog Flexpen) 0 units SC ACHS [facility] Stop: 03/04/19 16:29 Last Admin: 02/03/19 11:53 Dose: 2 units Documented by: Levothyroxine Sodium (Synthroid) 112 mcg PO DAILYBB [facility] Stop: 03/05/19 06:29 Last Admin: 02/03/19 06:34 Dose: Not Given Documented by: Miscellaneous (Carbohydrates For Hypoglycemia) 15 - 30 gm PO UD PRN PRN Reason: Hypoglycemia Treatment Stop: 03/04/19 14:14 Miscellaneous Information (Consult) 1 ea N/A UD PRN PRN Reason: Consult Stop: 03/04/19 21:50 Miscellaneous Information (Consult) 1 ea N/A UD PRN PRN Reason: Consult Stop: 03/05/19 03:38 Ondansetron HCl (Zofran) 4 mg IV Q6H PRN PRN Reason: Nausea Stop: 03/04/19 11:18 Last Admin: 02/02/19 11:33 Dose: 4 mg Documented by: Pantoprazole Sodium (Protonix) 40 mg PO BID [facility] Stop: 03/05/19 20:59 Sucralfate (Carafate) 1 gm PO QID [facility] Stop: 03/05/19 12:59 Last Admin: 02/03/19 13:35 Dose: 1 gm Documented by: PG Care Time/CCT Total # of Minutes Spent Total Time Spent with Patient: Total time spent is greater than 50% in coordination of care (as documented) at patient's floor/unit and/or counseling patient: (1) DM II (diabetes mellitus, type II), controlled 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
--- NOTE | 2019-02-03 14:18 | Pharmacy Report ---
Pharmacy Abx Initial Consult - Date of Service February 03, 2019 - Pharmacy Dosing Scope Date of Consult: 02/03/19 Consultation requested by: Dr. Whitley Pharmacy is consulted to initiate Vancomycin and Zosyn IV dosing therapy, order appropriate labs and adjust drug dose/frequency. - Subjective The patient is a 88 year old M admitted on 02/02/19 21:56. - Objective Height: 6 ft Weight: 80.4 kg Vital Signs (Past 12hrs): Vital Signs Temp Pulse Pulse Pulse Resp BP Pulse Ox 02/03/19 11:19 02/03/19 11:17 36.5 C 88 18 129/87 99 02/03/19 07:04 36.5 C 82 18 137/89 97 02/03/19 03:36 95 H 28 H 90 02/03/19 02:49 36.6 C 106 H 26 H 93/63 L 87 L Pulse Ox 02/03/19 11:19 98 02/03/19 11:17 02/03/19 07:04 02/03/19 03:36 02/03/19 02:49 Lab Results (24hrs): Laboratory Tests (24 Hours) 02/03/19 02/03/19 02/02/19 06:31 06:31 21:12 WBC 7.28 Neut # (Auto) Creatinine 1.51 H 1.27 Est Cr Clr Drug Dosing 36.4 43.3 02/02/19 21:12 WBC 5.99 Neut # (Auto) 4.92 Creatinine Est Cr Clr Drug Dosing Micro Results: 02/02/19 22:10 Urine Culture - Pending Urine,Indwelling Cath - Risk Factors for Resistance None - Assessment & Plan Assessment 88 year old M started on IV Vancomycin and Zosyn for pneumonia Pertinent PMH significant for DM and had a hospitalization in the spring for pneumonia which was treated with IV, then PO, antibiotics Baseline serum creatinine ~ 1.0 mg/dL; current serum creatinine 1.51 mg/dL Plan IV Vancomycin and Zosyn for treatment of Pneumonia Vancomycin IV * Estimated PK Parameters: Vd 0.7 L/kg, Ji 0.034 hr-1, t1/2 ~20 hrs * Loading dose: 1750 mg (~ 22 mg/kg) * Maintenance dose: 1250 mg IV (~ 16 mg/kg) every 20 hours * Goal trough level for Pneumonia: 15 to 20 mcg/mL * Trough level ordered for 02/05/19 at 1530 Piperacillin/tazobactam * 3.375 g bolus administered over 30 minutes, then 3.375 g IV extended infusion every 8 hours for CrCl greater than 20 mL/min Pharmacy will continue to follow and will adjust dose/frequency as necessary. Thank you.
[2019-02-03] MEDS: NSS + 20MEQ KCL 20 MEQ/1,000 ML BAG IV SCH (15:32)
[2019-02-03] MEDS: ONDANSETRON INJ 2 MG/ML 2 ML VIAL IV PRN (20:19)
[2019-02-04] MEDS ORDERED: VANCOMYCIN HCL 1,250 MG in SODIUM CHLORIDE 0.9% 250 ML IV SCH
[2019-02-04] MEDS: NSS + 20MEQ KCL 20 MEQ/1,000 ML BAG IV SCH (04:25)
[2019-02-04] MEDS: PIPERACILLIN/TAZOBACTAM 3.375 GM in DEXTROSE 5% 100 ML IV SCH (04:30)
--- NOTE | 2019-02-04 15:40 | Death Summary ---
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 (1) Multifocal pneumonia: developed fever and repeat CXR with multifocal opacities in the evening on 02/02 fits with history of vomiting, certainly aspiration could be considered large hiatal hernia would set him up for aspiration treated with Zosyn and Vancomycin IV afebrile, WBC is normal however, patient continued to aspirate, he was found to have bile secretions in his mouth and throat he was not able to protect his airway he was a DNR, DNI per family and per his living will ultimately he from worsening pneumonia and aspiration (2) Acute respiratory failure with hypoxia: likely due to pneumonia, aspiration could be a degree of dyspnea due to large hiatal hernia now requiring BIPAP d/w patient's son, he would not want to be intubated prognosis was guarded (3) AMMON (acute kidney injury): Cr sage to 1.5 on 02/03 likely due to some dehydration and receiving Lasix in the ED treated wwith NSS at 80cc/hr (4) Hypokalemia: mild at 3.4 will add 20mEq of KCl to fluids (5) Acute heart failure: initially suspected heart failure now more doubtful given fever and vomiting was given Lasix in the ED, no further Lasix, did not respond anyway echo performed, EF is 65-70%, no signs of heart failure BNP elevated at 5000, however, this could be up due to large hiatal hernia placing pressure on left atrium as well as pneumonia again, there is no evidence of heart failure, either systolic or diastolic (6) Chest pain: reports pain as intermittent for last several days not associated with activity, not relieved with rest some associated with heartburn symptoms, vomiting has a large hiatal hernia that may be causing symptoms initial EKG with atrial flutter, some possible ischemic changes in lateral leads initial troponin < 0.015 and second 0.040 echo done today, no WM abnormalities likely he has some demand ischemia with rise in troponin, but there is no evidence of ACS (7) Hiatal hernia: large on prior CT having symptoms of chest pain, vomiting, reflux, chronic aspirations d/w Dr. Steel, not a surgical candidate d/w GI, cannot get EGD due to respiratory status, will continue to follow treat with Pepcid and Ranitidine (8) DM II (diabetes mellitus, type II), controlled: hold oral agents Novolog SS diabetic diet monitor for hypoglycemia (9) GERD (gastroesophageal reflux disease): Pepcid IV since Protonix not available Ranitidine IV (10) Hypothyroidism: (11) Afib: rates in 90's not on rate control medications chronically not on anticoagulation due to history of falls Additional Data Confirmation of : no pulse, no respirations, no heart sounds and pupils fixed and dilated Family: contacted Attending/PCP notified?: Yes Attending physician: Breezy Whitley, DO Was code activated?: No Autopsy requested?: No merchandise examiner notified?: No Organ bank notified?: No Advance directives: Yes
[2019-02-05] MEDS ORDERED: VANCOMYCIN TROUGH ONE (15:30)
== END 2019-02-04 08:43 | disposition expired | DRG 177 ==
LOC: 2S 08:18 → ED 08:18 → 2S 10:47